=== PATIENT | male | born 1975 | race African-American/Black ===

== ENCOUNTER 2017-06-08 14:16 | Inpatient (IN) ==
[2017-06-08] MEDS ORDERED: KETOROLAC 30 MG/1 ML VIAL IV STA (14:38)
[2017-06-08] MEDS ORDERED: KETOROLAC 30 MG/1 ML VIAL ONE (14:48)
[2017-06-08 15:53] LABS: Troponin I Only 0.016 NG/ML (0.00-0.045)
[2017-06-08] MEDS ORDERED: LORazepam 2 MG/1 ML VIAL ONE (18:36)
[2017-06-08] MEDS ORDERED: LORazepam 2 MG/1 ML VIAL IV STA (18:40)
[2017-06-08] MEDS ORDERED: predniSONE 20 MG TABLET PO SCH (21:00)
[2017-06-08] MEDS ORDERED: PHENobarbital 30 MG TABLET PO SCH (21:00)
[2017-06-08] MEDS: PYRIDOSTIGMINE 60 MG TABLET PO SCH (22:00)
[2017-06-08] MEDS: GABAPENTIN 300 MG CAPSULE PO SCH (22:00)
[2017-06-08] MEDS: CARVEDILOL 6.25 MG TABLET PO SCH (22:00)
[2017-06-09] MEDS ORDERED: LORazepam 2 MG/1 ML VIAL IV ONE ×2 (00:56→01:02)
[2017-06-09] MEDS ORDERED: FOSPHENYTOIN 1,000 MG.PE in SODIUM CHLORIDE 0.9% 250 ML IV ONE (01:01)
[2017-06-09 05:50] LABS: Basophils % 0.2 % (0.0-0.8); Eosinophils % 0.2 % (0.00-10.9); Hematocrit 47.7 VOL% (42.0-52.0); Hemoglobin 16.3 GM/DL (14.0-18.0); Immature Granulocytes % 0.9 %; Immature Granulocytes Absolute 0.13 #; Lymphocytes # 1.4 10*3/uL (1.4-4.0); Lymphocytes % 9.3 % (21.2-54.2); Mean Corpuscular HGB Conc 34.2 GM/DL (32-36); Mean Corpuscular Hemoglobin 33 PG (27-34); Mean Corpuscular Volume 96.8 FL (87-102); Mean Platelet Volume 12.6 FL (9.6-12.0); Monocytes # 0.6 10*3/uL (0.11-0.8); Monocytes % 3.9 % (1.7-12.7); Neutrophils % 85.5 % (38.7-73.9); Platelet Count 163 T/CUMM (130-400); Red Blood Count 4.93 MC/CUMM (3.8-5.5); White Blood Count 15.2 T/CUMM (4-12)
[2017-06-09 06:26] LABS: Calcium 8.7 MG/DL (8.5-10.1); Magnesium 2.5 MG/DL (1.8-2.4); Osmolality,Calculated 277.7 MOS/KG (273-304); Potassium 4.6 MMOL/L (3.5-5.1)
[2017-06-09] MEDS ORDERED: PROPOFOL 1,000 MG/100 ML BOTTLE IV ONE ×2 (07:12→13:16)
[2017-06-09] MEDS ORDERED: VECURONIUM 10 MG VIAL IV ONE (07:16)
[2017-06-09] MEDS ORDERED: PHENobarbital 130 MG/1 ML VIAL IV ONE (07:19)
[2017-06-09] MEDS: PROPOFOL 1,000 MG/100 ML BOTTLE IV SCH ×2 (08:00→13:00)
[2017-06-09 08:29] LABS: Apearance,Urine CLEAR (Clear); Bilirubin,Urine Negative (Negative); Blood, Urine Negative (Negative); Glucose,Urine (UA) Negative (Negative); Ketones,Urine Negative (Negative); Nitrite,Urine Negative (Negative); Protein,Urine Negative; Urine Color Yellow (Yellow); Urine Specific Gravity 1.008 (1.001-1.035); Urine Urobilinogen < 2.0 EU/DL (0.2-1.0); WBC,Urine <1 /HPF (0-6)
[2017-06-09] MEDS: LABETALOL INJ 200 MG in SODIUM CHLORIDE 0.9% 160 ML IV SCH (08:37)
[2017-06-09] MEDS: methylPREDNISolone SOD SUC 40 MG/1 ML VIAL IV SCH ×2 (08:54→19:05)
[2017-06-09] MEDS: GABAPENTIN 300 MG CAPSULE PO SCH ×2 (08:57→20:42)
[2017-06-09] MEDS: PYRIDOSTIGMINE 60 MG TABLET PO SCH ×3 (08:57→20:42)
[2017-06-09] MEDS: LISINOPRIL 5 MG TABLET PO SCH (08:58)
[2017-06-09] MEDS: amLODIPine 10 MG TABLET PO SCH (08:58)
[2017-06-09 09:00] LABS: ABG Base Excess 2.1 MMOL/L (-2.5-2.5); ABG HCO3 26.1 MMOL/L (20-26); ABG Oxygen Saturation 93.3 % (95-100); ABG PCO2 41.3 MM HG (35-48); ABG PH 7.421 (7.35-7.45); ABG PO2 66.1 MM HG (80-95); ABG TCO2 22.5 MMOL/L (23-27)
[2017-06-09] MEDS: CARVEDILOL 6.25 MG TABLET PO SCH ×2 (09:00→20:28)
[2017-06-09] MEDS: VALPROIC ACID INJ 750 MG in SODIUM CHLORIDE 0.9% 100 ML IV SCH ×2 (09:15→17:25)
[2017-06-09 14:34] LABS: Barbiturates Screen,Urine Positive (Negative); Benzodiazepines Screen,Urine Negative (Negative); Cannabinoid Screen,Urine Positive (Negative); Opiate Screen,Urine Negative (Negative); Phencyclidine Screen,Urine Negative (Negative)
[2017-06-09] MEDS: LORazepam 2 MG/1 ML VIAL IV PRN (14:50)
[2017-06-09] MEDS: MIDAZOLAM 100 MG in SODIUM CHLORIDE 0.9% 80 ML IV SCH (17:26)
[2017-06-09] MEDS: PHENobarbital 130 MG/1 ML VIAL IV SCH (20:46)
[2017-06-10] MEDS: VALPROIC ACID INJ 750 MG in SODIUM CHLORIDE 0.9% 100 ML IV SCH ×3 (00:32→16:04)
[2017-06-10 04:32] LABS: ABG Base Excess 2.5 MMOL/L (-2.5-2.5); ABG HCO3 26.7 MMOL/L (20-26); ABG Oxygen Saturation 99.9 % (95-100); ABG PCO2 38.2 MM HG (35-48); ABG PH 7.448 (7.35-7.45); ABG TCO2 22.6 MMOL/L (23-27)
[2017-06-10] MEDS ORDERED: LORazepam 2 MG/1 ML VIAL IV ONE (04:42)
[2017-06-10] MEDS: PROPOFOL 1,000 MG/100 ML BOTTLE IV SCH ×3 (05:13→22:01)
[2017-06-10 06:06] LABS: Basophils % 0.1 % (0.0-0.8); Eosinophils % 0.3 % (0.00-10.9); Hematocrit 40.8 VOL% (42.0-52.0); Immature Granulocytes Absolute 0.14 #; Lymphocytes # 2.1 10*3/uL (1.4-4.0); Lymphocytes % 15.1 % (21.2-54.2); Mean Corpuscular HGB Conc 34.3 GM/DL (32-36); Mean Corpuscular Hemoglobin 33 PG (27-34); Mean Corpuscular Volume 96.5 FL (87-102); Mean Platelet Volume 12.1 FL (9.6-12.0); Monocytes % 6.8 % (1.7-12.7); Neutrophils # 10.9 10*3/uL (1.4-7.4); Neutrophils % 76.7 % (38.7-73.9); Platelet Count 142 T/CUMM (130-400); Red Blood Count 4.23 MC/CUMM (3.8-5.5); Red Cell Distribution Width 14.1 % (9.3-17.3); White Blood Count 14.2 T/CUMM (4-12)
[2017-06-10] MEDS: SODIUM CHLORIDE 0.9% 1,000 ML IV SCH ×3 (06:10→22:35)
[2017-06-10 06:47] LABS: Albumin 2.9 G/DL (3.4-5.0); Bilirubin,Total 0.5 MG/DL (0.2-1.0); Calcium 8.5 MG/DL (8.5-10.1); Magnesium 2.5 MG/DL (1.8-2.4); Osmolality,Calculated 283.3 MOS/KG (273-304); Phosphorous 4.1 MG/DL (2.5-4.9); Potassium 3.9 MMOL/L (3.5-5.1); Total Protein 6.1 G/DL (6.4-8.3)
[2017-06-10] MEDS: methylPREDNISolone SOD SUC 40 MG/1 ML VIAL IV SCH ×2 (08:24→20:22)
[2017-06-10] MEDS: GABAPENTIN 300 MG CAPSULE PO SCH ×2 (08:25→20:22)
[2017-06-10] MEDS: LISINOPRIL 5 MG TABLET PO SCH (08:25)
[2017-06-10] MEDS: CARVEDILOL 6.25 MG TABLET PO SCH ×2 (08:25→20:22)
[2017-06-10] MEDS: amLODIPine 10 MG TABLET PO SCH (08:25)
[2017-06-10] MEDS: PYRIDOSTIGMINE 60 MG TABLET PO SCH ×3 (08:25→20:22)
[2017-06-10] MEDS: PHENobarbital 130 MG/1 ML VIAL IV SCH ×2 (08:33→20:23)
[2017-06-10] MEDS: LABETALOL INJ 200 MG in SODIUM CHLORIDE 0.9% 160 ML IV SCH (08:51)
[2017-06-10] MEDS: MIDAZOLAM 100 MG in SODIUM CHLORIDE 0.9% 80 ML IV SCH ×2 (14:59→16:04)
[2017-06-10] MEDS: ACETAMINOPHEN 325 MG TABLET PO PRN (15:57)
[2017-06-10] MEDS: LORazepam 2 MG/1 ML VIAL IV PRN (19:30)
[2017-06-11] MEDS: VALPROIC ACID INJ 750 MG in SODIUM CHLORIDE 0.9% 100 ML IV SCH ×3 (01:40→17:09)
[2017-06-11] MEDS: hydrALAZINE 20 MG/1 ML VIAL IV PRN ×2 (05:30→08:29)
[2017-06-11] MEDS: LORazepam 2 MG/1 ML VIAL IV PRN (05:53)
[2017-06-11] MEDS: SODIUM CHLORIDE 0.9% 1,000 ML IV SCH ×4 (06:57→22:14)
[2017-06-11] MEDS: PROPOFOL 1,000 MG/100 ML BOTTLE IV SCH ×2 (06:58→19:44)
[2017-06-11] MEDS: PYRIDOSTIGMINE 60 MG TABLET PO SCH ×3 (08:28→20:04)
[2017-06-11] MEDS: GABAPENTIN 300 MG CAPSULE PO SCH ×2 (08:29→20:04)
[2017-06-11] MEDS: CARVEDILOL 6.25 MG TABLET PO SCH ×2 (08:29→20:05)
[2017-06-11] MEDS: amLODIPine 10 MG TABLET PO SCH (08:29)
[2017-06-11] MEDS: LISINOPRIL 5 MG TABLET PO SCH (08:29)
[2017-06-11] MEDS: methylPREDNISolone SOD SUC 40 MG/1 ML VIAL IV SCH ×2 (08:30→20:03)
[2017-06-11] MEDS: LABETALOL INJ 200 MG in SODIUM CHLORIDE 0.9% 160 ML IV SCH (08:30)
[2017-06-11] MEDS: PHENobarbital 130 MG/1 ML VIAL IV SCH ×2 (08:37→20:03)
[2017-06-11] MEDS: MIDAZOLAM 100 MG in SODIUM CHLORIDE 0.9% 80 ML IV SCH ×2 (09:12→17:10)
[2017-06-12] MEDS: PROPOFOL 1,000 MG/100 ML BOTTLE IV SCH ×5 (00:58→22:56)
[2017-06-12] MEDS: VALPROIC ACID INJ 750 MG in SODIUM CHLORIDE 0.9% 100 ML IV SCH ×3 (01:00→17:29)
[2017-06-12] MEDS: MIDAZOLAM 100 MG in SODIUM CHLORIDE 0.9% 80 ML IV SCH ×2 (02:29→17:30)
[2017-06-12 05:49] LABS: Calcium 8.3 MG/DL (8.5-10.1); Osmolality,Calculated 284.8 MOS/KG (273-304); Potassium 3.7 MMOL/L (3.5-5.1)
[2017-06-12] MEDS: SODIUM CHLORIDE 0.9% 1,000 ML IV SCH ×3 (06:08→22:56)
[2017-06-12] MEDS: PYRIDOSTIGMINE 60 MG TABLET PO SCH ×3 (08:25→21:03)
[2017-06-12] MEDS: GABAPENTIN 300 MG CAPSULE PO SCH ×2 (08:25→21:02)
[2017-06-12] MEDS: methylPREDNISolone SOD SUC 40 MG/1 ML VIAL IV SCH ×2 (08:25→21:03)
[2017-06-12] MEDS: LISINOPRIL 5 MG TABLET PO SCH (08:25)
[2017-06-12] MEDS: amLODIPine 10 MG TABLET PO SCH (08:25)
[2017-06-12] MEDS: CARVEDILOL 6.25 MG TABLET PO SCH ×2 (08:25→21:02)
[2017-06-12] MEDS: PHENobarbital 130 MG/1 ML VIAL IV SCH ×2 (08:26→21:03)
[2017-06-12] MEDS: LABETALOL INJ 200 MG in SODIUM CHLORIDE 0.9% 160 ML IV SCH (08:26)
[2017-06-12] MEDS ORDERED: ZINC OXIDE PASTE 113 GM TUBE TOP PRN (10:39)
[2017-06-13] MEDS: VALPROIC ACID INJ 750 MG in SODIUM CHLORIDE 0.9% 100 ML IV SCH ×3 (01:17→16:37)
[2017-06-13 03:56] LABS: Allen Test Positive; Pt O2 Delivery Device Ventilator
[2017-06-13 03:57] LABS: ABG Base Excess 2.7 MMOL/L (-2.5-2.5); ABG HCO3 26.8 MMOL/L (20-26); ABG Oxygen Saturation 97.3 % (95-100); ABG PCO2 39.6 MM HG (35-48); ABG PH 7.448 (7.35-7.45)
[2017-06-13] MEDS: PROPOFOL 1,000 MG/100 ML BOTTLE IV SCH ×2 (04:09→08:09)
[2017-06-13] MEDS: SODIUM CHLORIDE 0.9% 1,000 ML IV SCH (08:09)
[2017-06-13] MEDS: methylPREDNISolone SOD SUC 40 MG/1 ML VIAL IV SCH ×2 (08:25→20:29)
[2017-06-13] MEDS: GABAPENTIN 300 MG CAPSULE PO SCH ×2 (08:25→20:29)
[2017-06-13] MEDS: PYRIDOSTIGMINE 60 MG TABLET PO SCH ×3 (08:25→20:30)
[2017-06-13] MEDS: CARVEDILOL 6.25 MG TABLET PO SCH ×2 (08:25→20:30)
[2017-06-13] MEDS: amLODIPine 10 MG TABLET PO SCH (08:25)
[2017-06-13] MEDS: LABETALOL INJ 200 MG in SODIUM CHLORIDE 0.9% 160 ML IV SCH (08:35)
[2017-06-13] MEDS: PHENobarbital 130 MG/1 ML VIAL IV SCH ×2 (08:42→21:29)
[2017-06-13] MEDS: LISINOPRIL 5 MG TABLET PO SCH (08:43)
[2017-06-13] MEDS: hydrALAZINE 20 MG/1 ML VIAL IV PRN ×3 (09:45→14:47)
[2017-06-13] MEDS: LORazepam 2 MG/1 ML VIAL IV PRN (11:23)
[2017-06-13] MEDS ORDERED: HALOPERIDOL 5 MG/ML AMP ONE (14:01)
[2017-06-13] MEDS ORDERED: HALOPERIDOL 5 MG/ML AMP IM ONE (14:30)
[2017-06-13 15:03] LABS: ABG Base Excess 3.1 MMOL/L (-2.5-2.5); ABG HCO3 27.1 MMOL/L (20-26); ABG Oxygen Saturation 98.2 % (95-100); ABG PCO2 41.8 MM HG (35-48); ABG TCO2 23.5 MMOL/L (23-27); Pt O2 Delivery Device Venturi Mask
[2017-06-13] MEDS: METOPROLOL TARTRATE 25 MG TABLET PO SCH ×2 (16:23→20:30)
[2017-06-13] MEDS: MORPHINE 2 MG/1 ML SYRINGE IV PRN ×2 (16:23→20:26)
[2017-06-13 17:10] LABS: Basophils # 0.1 10*3/uL (0.0-0.2); Basophils % 0.3 % (0.0-0.8); Eosinophils % 0.2 % (0.00-10.9); Hematocrit 44.5 VOL% (42.0-52.0); Hemoglobin 15.5 GM/DL (14.0-18.0); Immature Granulocytes % 0.9 %; Immature Granulocytes Absolute 0.17 #; Lymphocytes # 0.9 10*3/uL (1.4-4.0); Lymphocytes % 4.5 % (21.2-54.2); Mean Corpuscular HGB Conc 34.8 GM/DL (32-36); Mean Corpuscular Hemoglobin 33 PG (27-34); Mean Corpuscular Volume 95.7 FL (87-102); Mean Platelet Volume 13.7 FL (9.6-12.0); Monocytes % 10.7 % (1.7-12.7); Neutrophils # 15.8 10*3/uL (1.4-7.4); Neutrophils % 83.4 % (38.7-73.9); Platelet Count 149 T/CUMM (130-400); Red Blood Count 4.65 MC/CUMM (3.8-5.5); Red Cell Distribution Width 13.8 % (9.3-17.3); White Blood Count 18.9 T/CUMM (4-12)
[2017-06-13 17:16] LABS: Calcium 8.9 MG/DL (8.5-10.1); Osmolality,Calculated 274.7 MOS/KG (273-304); Potassium 3.7 MMOL/L (3.5-5.1)
[2017-06-13] MEDS: MIDAZOLAM 100 MG in SODIUM CHLORIDE 0.9% 80 ML IV SCH (18:26)
[2017-06-13] MEDS: ALBUTEROL 2.5 MG/3 ML NEB RESP TX PRN (21:00)
[2017-06-13 21:08] LABS: Band Neutrophils 1 % (0-10); Lymphocytes 7 % (20-55); Platelet Estimate Adequate; Schistocytes Slight; Segmented Neutrophils 86 % (50-85); Total Cells Counted 100
[2017-06-14] MEDS: VALPROIC ACID INJ 750 MG in SODIUM CHLORIDE 0.9% 100 ML IV SCH ×3 (00:49→18:19)
[2017-06-14] MEDS: MORPHINE 2 MG/1 ML SYRINGE IV PRN ×2 (00:49→05:22)
[2017-06-14] MEDS: LORazepam 2 MG/1 ML VIAL IV PRN (02:33)
[2017-06-14] MEDS: ALBUTEROL 2.5 MG/3 ML NEB RESP TX PRN (05:21)
[2017-06-14] MEDS: PROPOFOL 1,000 MG/100 ML BOTTLE IV SCH (08:12)
[2017-06-14] MEDS: methylPREDNISolone SOD SUC 40 MG/1 ML VIAL IV SCH ×3 (09:30→22:36)
[2017-06-14] MEDS: LISINOPRIL 5 MG TABLET PO SCH (09:32)
[2017-06-14] MEDS: CARVEDILOL 6.25 MG TABLET PO SCH (09:32)
[2017-06-14] MEDS: LABETALOL INJ 200 MG in SODIUM CHLORIDE 0.9% 160 ML IV SCH (09:32)
[2017-06-14] MEDS: GABAPENTIN 300 MG CAPSULE PO SCH ×2 (09:33→21:16)
[2017-06-14] MEDS: METOPROLOL TARTRATE 25 MG TABLET PO SCH (09:33)
[2017-06-14] MEDS: PYRIDOSTIGMINE 60 MG TABLET PO SCH (09:33)
[2017-06-14] MEDS: amLODIPine 10 MG TABLET PO SCH (09:33)
[2017-06-14] MEDS: PHENobarbital 130 MG/1 ML VIAL IV SCH ×2 (09:45→22:35)
[2017-06-14] MEDS: PIPERACILLIN/TAZOBACTAM 3,375 MG in SODIUM CHLORIDE 0.9% 100 ML IV SCH ×2 (11:10→19:30)
[2017-06-14] MEDS: IMMUNE GLOBULIN 10% 20 GM, IMMUNE GLOBULIN 10% 10 GM in PREMIX 1 EACH IV SCH (11:18)
[2017-06-14] MEDS ORDERED: OXYMETAZOLINE 0.05% NASAL SPRAY 15 ML BOTTLE BOTH NARES PRN (12:16)
[2017-06-14] MEDS: ALBUTEROL/IPRATROPIUM 3 ML NEB RESP TX SCH ×2 (12:27→20:27)
[2017-06-14] MEDS: MUPIROCIN 2% OINT 22 GM TUBE TOP SCH ×2 (15:34→21:16)
[2017-06-14] MEDS: METOPROLOL TARTRATE 5 MG/5 ML VIAL IV SCH ×2 (18:22→21:15)
[2017-06-14] MEDS: MIDAZOLAM 100 MG in SODIUM CHLORIDE 0.9% 80 ML IV SCH (18:22)
[2017-06-15] MEDS: VALPROIC ACID INJ 750 MG in SODIUM CHLORIDE 0.9% 100 ML IV SCH ×3 (00:38→18:00)
[2017-06-15] MEDS: MORPHINE 2 MG/1 ML SYRINGE IV PRN (01:40)
[2017-06-15] MEDS: ALBUTEROL/IPRATROPIUM 3 ML NEB RESP TX SCH ×4 (01:58→20:31)
[2017-06-15] MEDS: PIPERACILLIN/TAZOBACTAM 3,375 MG in SODIUM CHLORIDE 0.9% 100 ML IV SCH ×3 (03:55→20:06)
[2017-06-15 04:07] LABS: Basophils % 0.3 % (0.0-0.8); Eosinophils % 0.1 % (0.00-10.9); Hematocrit 42.7 VOL% (42.0-52.0); Hemoglobin 14.9 GM/DL (14.0-18.0); Immature Granulocytes % 0.9 %; Lymphocytes # 0.6 10*3/uL (1.4-4.0); Lymphocytes % 5.1 % (21.2-54.2); Mean Corpuscular HGB Conc 34.9 GM/DL (32-36); Mean Corpuscular Hemoglobin 33 PG (27-34); Mean Corpuscular Volume 95.1 FL (87-102); Mean Platelet Volume 12.6 FL (9.6-12.0); Monocytes # 0.8 10*3/uL (0.11-0.8); Monocytes % 6.4 % (1.7-12.7); Neutrophils # 10.2 10*3/uL (1.4-7.4); Neutrophils % 87.2 % (38.7-73.9); Platelet Count 178 T/CUMM (130-400); Red Blood Count 4.49 MC/CUMM (3.8-5.5); Red Cell Distribution Width 13.2 % (9.3-17.3); White Blood Count 11.7 T/CUMM (4-12)
[2017-06-15 04:27] LABS: Calcium 8.7 MG/DL (8.5-10.1); Osmolality,Calculated 281.5 MOS/KG (273-304); Potassium 4.1 MMOL/L (3.5-5.1)
[2017-06-15] MEDS: methylPREDNISolone SOD SUC 40 MG/1 ML VIAL IV SCH ×3 (08:20→22:42)
[2017-06-15] MEDS: PROPOFOL 1,000 MG/100 ML BOTTLE IV SCH (08:25)
[2017-06-15] MEDS: LABETALOL INJ 200 MG in SODIUM CHLORIDE 0.9% 160 ML IV SCH (08:44)
[2017-06-15] MEDS: METOPROLOL TARTRATE 5 MG/5 ML VIAL IV SCH ×4 (09:57→20:06)
[2017-06-15] MEDS: MUPIROCIN 2% OINT 22 GM TUBE TOP SCH ×3 (10:05→20:05)
[2017-06-15] MEDS: GABAPENTIN 300 MG CAPSULE PO SCH ×2 (10:07→20:06)
[2017-06-15] MEDS: amLODIPine 10 MG TABLET PO SCH (10:07)
[2017-06-15] MEDS: LISINOPRIL 5 MG TABLET PO SCH (10:07)
[2017-06-15] MEDS: IMMUNE GLOBULIN 10% 20 GM, IMMUNE GLOBULIN 10% 10 GM in PREMIX 1 EACH IV SCH (10:07)
[2017-06-15] MEDS ORDERED: DEXTROSE 50% 25 GM/50 ML VIAL IV PRN (10:20)
[2017-06-15] MEDS ORDERED: GLUCAGON 1 MG VIAL IM PRN (10:20)
[2017-06-15 10:59] LABS: ABG Base Excess 5.8 MMOL/L (-2.5-2.5); ABG HCO3 29.7 MMOL/L (20-26); ABG Oxygen Saturation 99.2 % (95-100); ABG PCO2 49.7 MM HG (35-48); ABG PH 7.414 (7.35-7.45); ABG TCO2 27.1 MMOL/L (23-27); Allen Test Positive
[2017-06-15 11:30] LABS: Albumin 2.3 G/DL (3.4-5.0); Bilirubin,Total 0.4 MG/DL (0.2-1.0); Calcium 8.4 MG/DL (8.5-10.1); Osmolality,Calculated 282.4 MOS/KG (273-304); Potassium 3.8 MMOL/L (3.5-5.1); Total Protein 7.5 G/DL (6.4-8.3)
[2017-06-15] MEDS: PHENobarbital 130 MG/1 ML VIAL IV SCH ×2 (11:44→20:07)
[2017-06-15] MEDS: MIDAZOLAM 100 MG in SODIUM CHLORIDE 0.9% 80 ML IV SCH (17:06)
[2017-06-15] MEDS: hydrALAZINE 20 MG/1 ML VIAL IV PRN (22:05)
[2017-06-16] MEDS: VALPROIC ACID INJ 750 MG in SODIUM CHLORIDE 0.9% 100 ML IV SCH ×3 (00:35→17:48)
[2017-06-16] MEDS: ALBUTEROL/IPRATROPIUM 3 ML NEB RESP TX SCH ×4 (01:10→20:51)
[2017-06-16] MEDS: PIPERACILLIN/TAZOBACTAM 3,375 MG in SODIUM CHLORIDE 0.9% 100 ML IV SCH ×3 (03:14→23:23)
[2017-06-16] MEDS: hydrALAZINE 20 MG/1 ML VIAL IV PRN (04:41)
[2017-06-16 05:57] LABS: Magnesium 2.4 MG/DL (1.8-2.4); Phosphorous 2.9 MG/DL (2.5-4.9); Prealbumin 14.8 MG/DL (20-40)
[2017-06-16] MEDS: PROPOFOL 1,000 MG/100 ML BOTTLE IV SCH (06:19)
[2017-06-16] MEDS: methylPREDNISolone SOD SUC 40 MG/1 ML VIAL IV SCH ×3 (08:03→22:18)
[2017-06-16] MEDS: MUPIROCIN 2% OINT 22 GM TUBE TOP SCH ×3 (09:02→23:23)
[2017-06-16] MEDS: GABAPENTIN 300 MG CAPSULE PO SCH (09:22)
[2017-06-16] MEDS: METOPROLOL TARTRATE 5 MG/5 ML VIAL IV SCH ×4 (09:22→22:19)
[2017-06-16] MEDS: amLODIPine 10 MG TABLET PO SCH (09:22)
[2017-06-16] MEDS: LISINOPRIL 5 MG TABLET PO SCH (09:23)
[2017-06-16] MEDS: PHENobarbital 130 MG/1 ML VIAL IV SCH (09:44)
[2017-06-16] MEDS: IMMUNE GLOBULIN 10% 20 GM, IMMUNE GLOBULIN 10% 10 GM in PREMIX 1 EACH IV SCH (10:29)
[2017-06-17] MEDS: VALPROIC ACID INJ 750 MG in SODIUM CHLORIDE 0.9% 100 ML IV SCH ×3 (00:47→16:43)
[2017-06-17] MEDS: ALBUTEROL/IPRATROPIUM 3 ML NEB RESP TX SCH ×4 (01:09→18:43)
[2017-06-17] MEDS: hydrALAZINE 20 MG/1 ML VIAL IV PRN (04:33)
[2017-06-17] MEDS: ACETAMINOPHEN 325 MG TABLET PO PRN ×2 (06:12→20:48)
[2017-06-17] MEDS: PIPERACILLIN/TAZOBACTAM 3,375 MG in SODIUM CHLORIDE 0.9% 100 ML IV SCH ×3 (08:30→23:28)
[2017-06-17] MEDS: methylPREDNISolone SOD SUC 40 MG/1 ML VIAL IV SCH ×2 (10:21→20:42)
[2017-06-17] MEDS: LISINOPRIL 5 MG TABLET PO SCH (10:21)
[2017-06-17] MEDS: METOPROLOL TARTRATE 5 MG/5 ML VIAL IV SCH ×4 (10:21→20:43)
[2017-06-17] MEDS: amLODIPine 10 MG TABLET PO SCH (10:21)
[2017-06-17] MEDS: MUPIROCIN 2% OINT 22 GM TUBE TOP SCH ×3 (14:46→21:20)
[2017-06-18] MEDS: ACETAMINOPHEN 325 MG TABLET PO PRN ×3 (03:25→22:09)
[2017-06-18] MEDS: hydrALAZINE 20 MG/1 ML VIAL IV PRN (03:29)
[2017-06-18] MEDS: VALPROIC ACID INJ 750 MG in SODIUM CHLORIDE 0.9% 100 ML IV SCH ×3 (03:31→23:13)
[2017-06-18] MEDS: ALBUTEROL/IPRATROPIUM 3 ML NEB RESP TX SCH ×4 (08:35→21:04)
[2017-06-18] MEDS ORDERED: predniSONE 20 MG TABLET PO SCH (09:00)
[2017-06-18] MEDS: METOPROLOL TARTRATE 5 MG/5 ML VIAL IV SCH ×4 (09:49→22:10)
[2017-06-18] MEDS: GABAPENTIN 300 MG CAPSULE PO SCH ×2 (09:59→22:10)
[2017-06-18] MEDS: amLODIPine 10 MG TABLET PO SCH (10:00)
[2017-06-18] MEDS: LISINOPRIL 5 MG TABLET PO SCH (10:00)
[2017-06-18] MEDS: predniSONE 20 MG TABLET PO SCH (10:00)
[2017-06-18] MEDS: IPRATROPIUM 0.03% NASAL SPRAY 30 ML BOTTLE BOTH NARES SCH ×2 (11:05→22:10)
[2017-06-18] MEDS: PIPERACILLIN/TAZOBACTAM 3,375 MG in SODIUM CHLORIDE 0.9% 100 ML IV SCH ×2 (11:10→16:45)
[2017-06-18] MEDS: MUPIROCIN 2% OINT 22 GM TUBE TOP SCH ×3 (11:11→22:10)
[2017-06-19] MEDS: PIPERACILLIN/TAZOBACTAM 3,375 MG in SODIUM CHLORIDE 0.9% 100 ML IV SCH ×2 (00:37→09:24)
[2017-06-19] MEDS: ALBUTEROL/IPRATROPIUM 3 ML NEB RESP TX SCH ×2 (01:00→08:15)
[2017-06-19] MEDS: predniSONE 20 MG TABLET PO SCH (09:14)
[2017-06-19] MEDS: LISINOPRIL 5 MG TABLET PO SCH (09:14)
[2017-06-19] MEDS: GABAPENTIN 300 MG CAPSULE PO SCH (09:14)
[2017-06-19] MEDS: amLODIPine 10 MG TABLET PO SCH (09:14)
[2017-06-19] MEDS: METOPROLOL TARTRATE 5 MG/5 ML VIAL IV SCH ×2 (09:15→14:23)
[2017-06-19] MEDS: VALPROIC ACID INJ 750 MG in SODIUM CHLORIDE 0.9% 100 ML IV SCH ×2 (09:25→11:46)
[2017-06-19] MEDS ORDERED: BUDESONIDE/FORMOTEROL 160-4.5 INHALER 6 GM INH SCH (09:30)
[2017-06-19] MEDS ORDERED: methylPREDNISolone 4 MG TABLET PO SCH ×2 (09:30)
[2017-06-19] MEDS: ACETAMINOPHEN 325 MG TABLET PO PRN (09:56)
[2017-06-19] MEDS: MUPIROCIN 2% OINT 22 GM TUBE TOP SCH (09:57)
[2017-06-19 11:01] VITALS: BP 164/98
[2017-06-19] MEDS: IPRATROPIUM 0.03% NASAL SPRAY 30 ML BOTTLE BOTH NARES SCH (11:56)
== END 2017-06-19 14:35 | disposition home health service (06) | DRG 100 ==
LOC: EDUNIT# → EDBD → N.ED 14:16 → N.EDINP 16:20 → SUATTDRO 16:20 → N.CC 19:06 → N.3E 06-16 18:26
PROVIDERS: ADMIT Hospitalist; ATTEND Internal Medicine Infectious Disease

== ENCOUNTER 2018-04-09 10:01 | Inpatient (IN) ==
[2018-04-09] MEDS ORDERED: LORazepam 2 MG/1 ML VIAL ONE (10:25)
[2018-04-09] MEDS ORDERED: levETIRAcetam 500 MG/5 ML VIAL IV ONE ×2 (10:28→10:49)
[2018-04-09] MEDS ORDERED: LORazepam 2 MG/1 ML VIAL IV STA ×2 (10:28→11:45)
[2018-04-09 10:41] LABS: Basophils % 0.3 % (0.0-0.8); Eosinophils # 0.1 10*3/uL (0.0-0.87); Hematocrit 48.9 VOL% (42.0-52.0); Hemoglobin 16.4 GM/DL (14.0-18.0); Immature Granulocytes % 1.9 %; Immature Granulocytes Absolute 0.22 #; Lymphocytes # 1.8 10*3/uL (1.4-4.0); Lymphocytes % 15.4 % (21.2-54.2); Mean Corpuscular HGB Conc 33.5 GM/DL (32-36); Mean Corpuscular Hemoglobin 33 PG (27-34); Mean Corpuscular Volume 99.4 FL (87-102); Mean Platelet Volume 12.9 FL (9.6-12.0); Monocytes # 1.3 10*3/uL (0.11-0.8); Monocytes % 10.8 % (1.7-12.7); Neutrophils # 8.4 10*3/uL (1.4-7.4); Neutrophils % 70.6 % (38.7-73.9); Platelet Count 122 T/CUMM (130-400); Red Blood Count 4.92 MC/CUMM (3.8-5.5); Red Cell Distribution Width 14.6 % (9.3-17.3); White Blood Count 11.9 T/CUMM (4-12)
[2018-04-09 10:48] LABS: Alanine Aminotransferase 25 U/L (16-61); Albumin 3.2 G/DL (3.4-5.0); Alkaline Phosphatase 70 U/L (45-117); Aspartate Amino Transferase 15 U/L (0-37); Blood Urea Nitrogen 17 MG/DL (7-18); Calcium 8.7 MG/DL (8.5-10.1); Glucose 97 MG/DL (74-106); Osmolality,Calculated 280.4 MOS/KG (273-304); Potassium 3.8 MMOL/L (3.5-5.1); Sodium 140 MMOL/L (136-145); Total Protein 7.3 G/DL (6.4-8.3)
[2018-04-09] MEDS ORDERED: VALPROIC ACID INJ 1,000 MG in SODIUM CHLORIDE 0.9% 100 ML IV STA (10:52)
[2018-04-09 13:15] LABS: Apearance,Urine CLEAR (Clear); Bilirubin,Urine Negative (Negative); Blood, Urine Negative (Negative); Glucose,Urine (UA) Negative (Negative); Hyaline Casts,Urine 1 /LPF (0-3); Ketones,Urine Negative (Negative); Mucus,Urine Moderate /LPF (Occasional); Nitrite,Urine Negative (Negative); Protein,Urine 30 MG/DL; RBC,Urine <1 /HPF (0-4); Squamous Epithelial Cell,Urine Occasional /HPF (0-10); Urine Color Yellow (Yellow); Urine Specific Gravity > 1.060 (1.001-1.035); Urine Urobilinogen < 2.0 EU/DL (0.2-1.0); WBC,Urine 1 /HPF (0-6)
[2018-04-09 13:18] LABS: Barbiturates Screen,Urine Negative (Negative); Benzodiazepines Screen,Urine Positive (Negative); Cannabinoid Screen,Urine Positive (Negative); Opiate Screen,Urine Negative (Negative); Phencyclidine Screen,Urine Negative (Negative)
[2018-04-09] MEDS ORDERED: ONDANSETRON 4 MG/2 ML VIAL IV PRN (14:21)
[2018-04-09 14:24] LABS: ABG Base Excess 1.7 MMOL/L (-2.5-2.5); ABG HCO3 25.8 MMOL/L (20-26); ABG PCO2 41.3 MM HG (35-48); ABG PH 7.414 (7.35-7.45); ABG PO2 88.5 MM HG (80-95); ABG TCO2 21.9 MMOL/L (23-27)
[2018-04-09] MEDS ORDERED: GLUCAGON 1 MG VIAL IM PRN (14:26)
[2018-04-09] MEDS ORDERED: DEXTROSE 50% 25 GM/50 ML VIAL IV PRN (14:26)
[2018-04-09] MEDS ORDERED: LABETALOL 20 MG/4 ML SYRINGE IV PRN (14:27)
[2018-04-09] MEDS ORDERED: LORazepam 2 MG/1 ML VIAL IV PRN (14:29)
[2018-04-09] MEDS ORDERED: DEXTROSE 5% NACL 0.45% 1,000 ML IV SCH (14:30)
[2018-04-09] MEDS ORDERED: THIAMINE INJ 100 MG, FOLIC ACID INJ 1 MG, MULTIVITAMIN INJ 10 ML in DEXTROSE 5% NACL 0.... IV SCH (14:30)
[2018-04-09] MEDS ORDERED: VALPROIC ACID INJ 500 MG in SODIUM CHLORIDE 0.9% 100 ML IV SCH (15:00)
[2018-04-09] MEDS: NICOTINE 14 MG/24 HR PATCH TRANSDERM SCH (19:04)
[2018-04-09] MEDS ORDERED: ENOXAPARIN 40 MG/0.4 ML SYRINGE SUBCUT SCH (21:00)
[2018-04-10 06:30] LABS: Basophils % 0.3 % (0.0-0.8); Eosinophils # 0.1 10*3/uL (0.0-0.87); Eosinophils % 1.4 % (0.00-10.9); Hematocrit 47.7 VOL% (42.0-52.0); Hemoglobin 15.7 GM/DL (14.0-18.0); Immature Granulocytes % 1.8 %; Immature Granulocytes Absolute 0.16 #; Lymphocytes # 1.6 10*3/uL (1.4-4.0); Lymphocytes % 17.3 % (21.2-54.2); Mean Corpuscular HGB Conc 32.9 GM/DL (32-36); Mean Corpuscular Hemoglobin 33 PG (27-34); Mean Corpuscular Volume 99.8 FL (87-102); Mean Platelet Volume 12.1 FL (9.6-12.0); Monocytes % 11.4 % (1.7-12.7); Neutrophils # 6.2 10*3/uL (1.4-7.4); Neutrophils % 67.8 % (38.7-73.9); Platelet Count 106 T/CUMM (130-400); Red Blood Count 4.78 MC/CUMM (3.8-5.5); Red Cell Distribution Width 14.6 % (9.3-17.3); White Blood Count 9.1 T/CUMM (4-12)
[2018-04-10 07:02] LABS: Albumin 2.7 G/DL (3.4-5.0); Bilirubin,Total 0.7 MG/DL (0.2-1.0); Calcium 7.7 MG/DL (8.5-10.1); Osmolality,Calculated 279.4 MOS/KG (273-304); Potassium 3.7 MMOL/L (3.5-5.1); Total Protein 6.3 G/DL (6.4-8.3)
[2018-04-10] MEDS: NICOTINE 14 MG/24 HR PATCH TRANSDERM SCH (08:50)
[2018-04-10] MEDS ORDERED: PANTOPRAZOLE 40 MG TABLET PO SCH (09:00)
[2018-04-10] MEDS ORDERED: CARVEDILOL 6.25 MG TABLET PO SCH (10:00)
[2018-04-10] MEDS ORDERED: amLODIPine 10 MG TABLET PO SCH (10:00)
[2018-04-10] MEDS ORDERED: LISINOPRIL 10 MG TABLET PO SCH (10:00)
[2018-04-10] MEDS: VALPROIC ACID INJ 500 MG in SODIUM CHLORIDE 0.9% 100 ML IV SCH ×2 (11:05)
[2018-04-10] MEDS ORDERED: PYRIDOSTIGMINE 60 MG TABLET PO SCH (15:00)
[2018-04-10] MEDS ORDERED: predniSONE 20 MG TABLET PO SCH (15:00)
[2018-04-10] MEDS ORDERED: GABAPENTIN 300 MG CAPSULE PO SCH (15:00)
[2018-04-10 16:29] VITALS: BP 132/84
[2018-04-10] MEDS ORDERED: DIVALPROEX 500 MG TABLET PO SCH (21:00)
== END 2018-04-10 18:04 | disposition home or self-care (01) | DRG 101 ==
LOC: EDBD → EDUNIT# → N.ED 10:01 → N.EDINP 14:21 → N.2W 16:36 → N.TELEN 17:01
PROVIDERS: ADMIT Internal Medicine; ATTEND Internal Medicine

== ENCOUNTER 2018-05-01 09:15 | Inpatient (IN) ==
[2018-05-01 09:55] LABS: Basophils # 0.1 10*3/uL (0.0-0.2); Basophils % 0.3 % (0.0-0.8); Eosinophils % 0.1 % (0.00-10.9); Hematocrit 46.6 VOL% (42.0-52.0); Hemoglobin 15.9 GM/DL (14.0-18.0); Immature Granulocytes % 3.9 %; Immature Granulocytes Absolute 0.58 #; Lymphocytes # 1.2 10*3/uL (1.4-4.0); Lymphocytes % 7.8 % (21.2-54.2); Mean Corpuscular HGB Conc 34.1 GM/DL (32-36); Mean Corpuscular Hemoglobin 34 PG (27-34); Mean Corpuscular Volume 98.5 FL (87-102); Mean Platelet Volume 12.6 FL (9.6-12.0); Monocytes # 0.6 10*3/uL (0.11-0.8); Monocytes % 4.1 % (1.7-12.7); Neutrophils # 12.4 10*3/uL (1.4-7.4); Neutrophils % 83.8 % (38.7-73.9); Platelet Count 161 T/CUMM (130-400); Red Blood Count 4.73 MC/CUMM (3.8-5.5); Red Cell Distribution Width 13.9 % (9.3-17.3); White Blood Count 14.8 T/CUMM (4-12)
[2018-05-01 10:04] LABS: Alanine Aminotransferase 27 U/L (16-61); Albumin 3.4 G/DL (3.4-5.0); Alkaline Phosphatase 91 U/L (45-117); Aspartate Amino Transferase 14 U/L (0-37); Bilirubin,Total < 0.39 MG/DL (0.2-1.0); Blood Urea Nitrogen 13 MG/DL (7-18); Glucose 146 MG/DL (74-106); Osmolality,Calculated 281.4 MOS/KG (273-304); Potassium 4.6 MMOL/L (3.5-5.1); Sodium 140 MMOL/L (136-145); Total Protein 7.6 G/DL (6.4-8.3)
[2018-05-01] MEDS ORDERED: VALPROIC ACID INJ 1,000 MG in SODIUM CHLORIDE 0.9% 100 ML IV STA (10:11)
[2018-05-01 10:15] LABS: Band Neutrophils 1 % (0-10); Lymphocytes 11 % (20-55); Segmented Neutrophils 84 % (50-85); Total Cells Counted 100
[2018-05-01 10:16] LABS: Macrocytosis Slight; Platelet Estimate Adequate
[2018-05-01] MEDS ORDERED: LORazepam 2 MG/1 ML VIAL ONE (10:24)
[2018-05-01] MEDS ORDERED: LORazepam 2 MG/1 ML VIAL IV STA ×2 (10:24→12:36)
[2018-05-01] MEDS ORDERED: METOPROLOL TARTRATE 5 MG/5 ML VIAL IV STA (12:14)
[2018-05-01] MEDS ORDERED: ALBUTEROL 2.5 MG/3 ML NEB RESP TX PRN (12:41)
[2018-05-01] MEDS ORDERED: ACETAMINOPHEN 325 MG TABLET PO PRN (12:41)
[2018-05-01] MEDS ORDERED: ONDANSETRON 4 MG/2 ML VIAL IV PRN (12:41)
[2018-05-01] MEDS ORDERED: GLUCAGON 1 MG VIAL IM PRN (12:52)
[2018-05-01] MEDS ORDERED: DEXTROSE 50% 25 GM/50 ML VIAL IV PRN (12:52)
[2018-05-01] MEDS ORDERED: LACTULOSE 20 GM/30 ML UDCUP PO SCH (13:00)
[2018-05-01 13:20] LABS: INR 0.9; PT Patient Result 9.5 SECS
[2018-05-01 13:25] LABS: Apearance,Urine CLEAR (Clear); Bilirubin,Urine Negative (Negative); Blood, Urine Negative (Negative); Glucose,Urine (UA) 150 mg/dL (Negative); Ketones,Urine Negative (Negative); Mucus,Urine Occasional /LPF (Occasional); Nitrite,Urine Negative (Negative); Protein,Urine Negative; RBC,Urine <1 /HPF (0-4); Urine Color Yellow (Yellow); Urine Specific Gravity 1.011 (1.001-1.035); Urine Urobilinogen < 2.0 EU/DL (0.2-1.0); WBC,Urine <1 /HPF (0-6)
[2018-05-01] MEDS: PANTOPRAZOLE 40 MG VIAL IV SCH (13:33)
[2018-05-01] MEDS: SODIUM CHLORIDE 0.45% 1,000 ML IV SCH (13:35)
[2018-05-01] MEDS ORDERED: INFLUENZA VIRUS VACCINE 0.5 ML SYRINGE IM ONE (13:57)
[2018-05-01 13:58] LABS: Barbiturates Screen,Urine Negative (Negative); Benzodiazepines Screen,Urine Positive (Negative); Cannabinoid Screen,Urine Positive (Negative); Opiate Screen,Urine Negative (Negative); Phencyclidine Screen,Urine Negative (Negative)
[2018-05-01 14:06] LABS: Ammonia 52 UMOL/L (11-32); Lactic Acid 2.1 MMOL/L (0.4-2.0)
[2018-05-01] MEDS: predniSONE 20 MG TABLET PO SCH ×2 (14:08→21:50)
[2018-05-01] MEDS: chlordiazePOXIDE 25 MG CAPSULE PO SCH ×2 (14:08→16:43)
[2018-05-01] MEDS: THIAMINE 100 MG TABLET PO SCH (14:08)
[2018-05-01] MEDS: GABAPENTIN 300 MG CAPSULE PO SCH ×2 (14:08→21:49)
[2018-05-01] MEDS: LORazepam 2 MG/1 ML VIAL IV PRN (14:24)
[2018-05-01] MEDS ORDERED: PHENYTOIN INJ 1,000 MG in SODIUM CHLORIDE 0.9% 100 ML IV ONE (14:30)
[2018-05-01 15:13] LABS: ABG Base Excess 3.7 MMOL/L (-2.5-2.5); ABG HCO3 27.6 MMOL/L (20-26); ABG Oxygen Saturation 94.4 % (95-100); ABG PH 7.404 (7.35-7.45); ABG PO2 73.1 MM HG (80-95); ABG TCO2 24.9 MMOL/L (23-27); Allen Test Positive; Pt O2 Delivery Device Room Air
[2018-05-01] MEDS: INSULIN LISPRO 100 UNIT/ML SUBCUT SCH (17:13)
[2018-05-01] MEDS: PYRIDOSTIGMINE 60 MG TABLET PO SCH (21:49)
[2018-05-01] MEDS: DIVALPROEX 500 MG TABLET PO SCH (21:49)
[2018-05-01] MEDS: levETIRAcetam 500 MG TABLET PO SCH (21:50)
[2018-05-01] MEDS: LACTULOSE 20 GM/30 ML UDCUP PO SCH (21:50)
[2018-05-01] MEDS: CARVEDILOL 6.25 MG TABLET PO SCH (21:50)
[2018-05-02] MEDS: INSULIN LISPRO 100 UNIT/ML SUBCUT SCH ×4 (00:01→18:14)
[2018-05-02] MEDS: chlordiazePOXIDE 25 MG CAPSULE PO SCH ×6 (00:02→21:19)
[2018-05-02] MEDS: LORazepam 2 MG/1 ML VIAL IV PRN ×3 (01:37→17:51)
[2018-05-02] MEDS: SODIUM CHLORIDE 0.45% 1,000 ML IV SCH ×3 (02:05→22:21)
[2018-05-02] MEDS ORDERED: LORazepam 2 MG/1 ML VIAL IV ONE (03:00)
[2018-05-02 03:30] LABS: Basophils # 0.1 10*3/uL (0.0-0.2); Basophils % 0.3 % (0.0-0.8); Eosinophils % 0.1 % (0.00-10.9); Hematocrit 45.7 VOL% (42.0-52.0); Hemoglobin 15.2 GM/DL (14.0-18.0); Immature Granulocytes % 2.8 %; Immature Granulocytes Absolute 0.42 #; Lymphocytes # 1.6 10*3/uL (1.4-4.0); Mean Corpuscular HGB Conc 33.3 GM/DL (32-36); Mean Corpuscular Hemoglobin 33 PG (27-34); Mean Corpuscular Volume 98.7 FL (87-102); Mean Platelet Volume 12.4 FL (9.6-12.0); Monocytes # 0.8 10*3/uL (0.11-0.8); Monocytes % 5.6 % (1.7-12.7); Neutrophils # 11.9 10*3/uL (1.4-7.4); Neutrophils % 80.2 % (38.7-73.9); Platelet Count 150 T/CUMM (130-400); Red Blood Count 4.63 MC/CUMM (3.8-5.5); Red Cell Distribution Width 13.9 % (9.3-17.3); White Blood Count 14.8 T/CUMM (4-12)
[2018-05-02 03:51] LABS: Albumin 3.1 G/DL (3.4-5.0); Bilirubin,Total 0.6 MG/DL (0.2-1.0); Calcium 8.3 MG/DL (8.5-10.1); Osmolality,Calculated 280.4 MOS/KG (273-304); Potassium 4.3 MMOL/L (3.5-5.1); Total Protein 6.9 G/DL (6.4-8.3)
[2018-05-02] MEDS: NICOTINE 21 MG/24 HR PATCH TRANSDERM SCH ×2 (04:53→09:59)
[2018-05-02] MEDS: DIVALPROEX 500 MG TABLET PO SCH ×2 (09:58→21:19)
[2018-05-02] MEDS: GABAPENTIN 300 MG CAPSULE PO SCH ×3 (09:59→21:19)
[2018-05-02] MEDS: LACTULOSE 20 GM/30 ML UDCUP PO SCH ×3 (09:59→21:19)
[2018-05-02] MEDS: MULTIVITAMIN (CENTRUM) TABLET PO SCH (10:00)
[2018-05-02] MEDS: THIAMINE 100 MG TABLET PO SCH (10:00)
[2018-05-02] MEDS: levETIRAcetam 500 MG TABLET PO SCH ×2 (10:00→21:20)
[2018-05-02] MEDS: CARVEDILOL 6.25 MG TABLET PO SCH ×2 (10:00→21:19)
[2018-05-02] MEDS: amLODIPine 10 MG TABLET PO SCH (10:01)
[2018-05-02] MEDS: PYRIDOSTIGMINE 60 MG TABLET PO SCH ×2 (10:01→21:20)
[2018-05-02] MEDS: predniSONE 20 MG TABLET PO SCH ×3 (10:01→21:20)
[2018-05-02] MEDS: ENOXAPARIN 40 MG/0.4 ML SYRINGE SUBCUT SCH (11:00)
[2018-05-02] MEDS: PANTOPRAZOLE 40 MG VIAL IV SCH (13:20)
[2018-05-03] MEDS: LORazepam 2 MG/1 ML VIAL IV PRN (00:10)
[2018-05-03] MEDS: INSULIN LISPRO 100 UNIT/ML SUBCUT SCH ×4 (01:59→17:51)
[2018-05-03] MEDS: NICOTINE 21 MG/24 HR PATCH TRANSDERM SCH (08:57)
[2018-05-03] MEDS: MULTIVITAMIN (CENTRUM) TABLET PO SCH (08:58)
[2018-05-03] MEDS: chlordiazePOXIDE 25 MG CAPSULE PO SCH ×4 (08:58→20:40)
[2018-05-03] MEDS: levETIRAcetam 500 MG TABLET PO SCH ×2 (08:58→20:39)
[2018-05-03] MEDS: DIVALPROEX 500 MG TABLET PO SCH ×2 (08:59→20:40)
[2018-05-03] MEDS: GABAPENTIN 300 MG CAPSULE PO SCH ×3 (08:59→20:39)
[2018-05-03] MEDS: THIAMINE 100 MG TABLET PO SCH (08:59)
[2018-05-03] MEDS: SODIUM CHLORIDE 0.45% 1,000 ML IV SCH (08:59)
[2018-05-03] MEDS: predniSONE 20 MG TABLET PO SCH ×3 (08:59→20:40)
[2018-05-03] MEDS: amLODIPine 10 MG TABLET PO SCH (08:59)
[2018-05-03] MEDS: CARVEDILOL 6.25 MG TABLET PO SCH ×2 (08:59→20:39)
[2018-05-03] MEDS: PYRIDOSTIGMINE 60 MG TABLET PO SCH ×2 (08:59→20:40)
[2018-05-03] MEDS: LACTULOSE 20 GM/30 ML UDCUP PO SCH ×3 (08:59→20:43)
[2018-05-03 09:10] LABS: Calcium 8.7 MG/DL (8.5-10.1); Osmolality,Calculated 277.5 MOS/KG (273-304); Potassium 4.4 MMOL/L (3.5-5.1)
[2018-05-03] MEDS: ENOXAPARIN 40 MG/0.4 ML SYRINGE SUBCUT SCH (12:12)
[2018-05-03] MEDS: PANTOPRAZOLE 40 MG TABLET PO SCH (12:12)
[2018-05-04] MEDS: INSULIN LISPRO 100 UNIT/ML SUBCUT SCH ×3 (00:10→14:01)
[2018-05-04 04:04] LABS: Basophils % 0.2 % (0.0-0.8); Eosinophils % 0.1 % (0.00-10.9); Hematocrit 47.4 VOL% (42.0-52.0); Immature Granulocytes % 2.3 %; Lymphocytes # 1.1 10*3/uL (1.4-4.0); Lymphocytes % 8.7 % (21.2-54.2); Mean Corpuscular HGB Conc 33.8 GM/DL (32-36); Mean Corpuscular Hemoglobin 33 PG (27-34); Mean Platelet Volume 12.4 FL (9.6-12.0); Monocytes # 0.8 10*3/uL (0.11-0.8); Monocytes % 6.2 % (1.7-12.7); Neutrophils # 10.7 10*3/uL (1.4-7.4); Neutrophils % 82.5 % (38.7-73.9); Platelet Count 141 T/CUMM (130-400); Red Blood Count 4.79 MC/CUMM (3.8-5.5); Red Cell Distribution Width 13.7 % (9.3-17.3)
[2018-05-04 04:29] LABS: Calcium 8.5 MG/DL (8.5-10.1); Osmolality,Calculated 282.5 MOS/KG (273-304); Potassium 4.3 MMOL/L (3.5-5.1)
[2018-05-04] MEDS: levETIRAcetam 500 MG TABLET PO SCH (11:13)
[2018-05-04] MEDS: amLODIPine 10 MG TABLET PO SCH (11:13)
[2018-05-04] MEDS: DIVALPROEX 500 MG TABLET PO SCH (11:13)
[2018-05-04] MEDS: NICOTINE 21 MG/24 HR PATCH TRANSDERM SCH (11:13)
[2018-05-04] MEDS: GABAPENTIN 300 MG CAPSULE PO SCH (11:14)
[2018-05-04] MEDS: LACTULOSE 20 GM/30 ML UDCUP PO SCH (11:14)
[2018-05-04] MEDS: CARVEDILOL 6.25 MG TABLET PO SCH (11:14)
[2018-05-04] MEDS: chlordiazePOXIDE 25 MG CAPSULE PO SCH ×2 (11:14→14:02)
[2018-05-04] MEDS: MULTIVITAMIN (CENTRUM) TABLET PO SCH (11:14)
[2018-05-04] MEDS: predniSONE 20 MG TABLET PO SCH (11:14)
[2018-05-04] MEDS: PANTOPRAZOLE 40 MG TABLET PO SCH (11:14)
[2018-05-04] MEDS: PYRIDOSTIGMINE 60 MG TABLET PO SCH (11:17)
[2018-05-04 11:45] VITALS: BP 142/113
[2018-05-04] MEDS: ENOXAPARIN 40 MG/0.4 ML SYRINGE SUBCUT SCH (14:01)
== END 2018-05-04 14:10 | disposition home or self-care (01) | DRG 101 ==
LOC: EDBD → EDUNIT# → N.ED 09:15 → SUATTDRO 12:41 → N.EDINP 12:41 → N.CC 13:36 → N.2E 05-03 15:19
PROVIDERS: ADMIT Internal Medicine; ATTEND Hospitalist

== ENCOUNTER 2018-11-14 13:37 | Observation (INO) ==
[2018-11-14] MEDS ORDERED: ASPIRIN 325 MG TABLET PO STA (14:06)
[2018-11-14 15:22] LABS: Basophils # 0.1 10*3/uL (0.0-0.2); Basophils % 0.3 % (0.0-0.8); Eosinophils % 0.1 % (0.00-10.9); Hematocrit 43.2 VOL% (42.0-52.0); Hemoglobin 14.4 GM/DL (14.0-18.0); Immature Granulocytes % 5.3 %; Immature Granulocytes Absolute 0.77 #; Lymphocytes # 1.3 10*3/uL (1.4-4.0); Lymphocytes % 8.7 % (21.2-54.2); Mean Corpuscular HGB Conc 33.3 GM/DL (32-36); Mean Corpuscular Volume 97.1 FL (87-102); Mean Platelet Volume 12.2 FL (9.6-12.0); Monocytes % 5.8 % (1.7-12.7); Neutrophils % 79.8 % (38.7-73.9); Platelet Count 124 T/CUMM (130-400); Red Blood Count 4.45 MC/CUMM (3.8-5.5); Red Cell Distribution Width 15.1 % (9.3-17.3); White Blood Count 14.6 T/CUMM (4-12)
[2018-11-14 15:31] LABS: PT Patient Result 10.5 SECS; Partial Thromboplastin Time 22.9 SECS (0-40)
[2018-11-14 15:41] LABS: Alanine Aminotransferase 23 U/L (16-61); Albumin 3.1 G/DL (3.4-5.0); Alkaline Phosphatase 77 U/L (45-117); Aspartate Amino Transferase 8 U/L (0-37); Blood Urea Nitrogen 17 MG/DL (7-18); Calcium 8.5 MG/DL (8.5-10.1); Glucose 134 MG/DL (74-106); Osmolality,Calculated 286.1 MOS/KG (273-304); Total Protein 6.1 G/DL (6.4-8.3)
[2018-11-14 15:55] LABS: Apearance,Urine CLEAR (Clear); Bilirubin,Urine Negative (Negative); Blood, Urine Negative (Negative); Glucose,Urine (UA) >=500 mg/dL (Negative); Ketones,Urine 5 mg/dL (Negative); Mucus,Urine Occasional /LPF (Occasional); Nitrite,Urine Negative (Negative); Protein,Urine 30 MG/DL; RBC,Urine 2 /HPF (0-4); Squamous Epithelial Cell,Urine Occasional /HPF (0-10); Urine Color Yellow (Yellow); Urine Specific Gravity 1.026 (1.001-1.035); Urine Urobilinogen < 2.0 EU/DL (0.2-1.0); WBC,Urine 1 /HPF (0-6)
[2018-11-14 16:02] LABS: Barbiturates Screen,Urine Negative (Negative); Benzodiazepines Screen,Urine Positive (Negative); Cannabinoid Screen,Urine Positive (Negative); Opiate Screen,Urine Negative (Negative); Phencyclidine Screen,Urine Negative (Negative)
[2018-11-14 16:20] LABS: Lymphocytes 13 % (20-55); Segmented Neutrophils 83 % (50-85); Total Cells Counted 100
[2018-11-14 16:21] LABS: Microcytosis Slight; Platelet Estimate Adequate; Polychromasia Slight
[2018-11-14] MEDS ORDERED: ONDANSETRON 4 MG/2 ML VIAL IV PRN (16:55)
[2018-11-14] MEDS ORDERED: ACETAMINOPHEN 325 MG TABLET PO PRN (16:55)
[2018-11-14] MEDS ORDERED: diphenhydrAMINE CAP 25 MG CAPSULE PO PRN (17:05)
[2018-11-14] MEDS ORDERED: ALBUTEROL/IPRATROPIUM 3 ML NEB RESP TX PRN (17:33)
[2018-11-14] MEDS ORDERED: ALUM/MAG/SIMETH/LIDO VISC 1:1 30 ML BOTTLE PO PRN (17:35)
[2018-11-14] MEDS: DIVALPROEX 500 MG TABLET PO SCH (20:56)
[2018-11-14] MEDS: CARVEDILOL 6.25 MG TABLET PO SCH (20:56)
[2018-11-14] MEDS: PYRIDOSTIGMINE 60 MG TABLET PO SCH (20:56)
[2018-11-14] MEDS: GABAPENTIN 300 MG CAPSULE PO SCH (20:57)
[2018-11-14] MEDS: predniSONE 20 MG TABLET PO SCH (20:57)
[2018-11-14] MEDS ORDERED: INDOMETHACIN 50 MG CAPSULE PO SCH (21:00)
[2018-11-14] MEDS: INDOMETHACIN 50 MG CAPSULE PO SCH (22:55)
[2018-11-15 05:32] LABS: Basophils # 0.1 10*3/uL (0.0-0.2); Basophils % 0.4 % (0.0-0.8); Eosinophils % 0.2 % (0.00-10.9); Hematocrit 44.5 VOL% (42.0-52.0); Hemoglobin 14.6 GM/DL (14.0-18.0); Immature Granulocytes % 4.2 %; Immature Granulocytes Absolute 0.54 #; Lymphocytes # 3.1 10*3/uL (1.4-4.0); Mean Corpuscular HGB Conc 32.8 GM/DL (32-36); Mean Corpuscular Volume 97.4 FL (87-102); Mean Platelet Volume 12.3 FL (9.6-12.0); Monocytes % 6.1 % (1.7-12.7); Neutrophils % 65.1 % (38.7-73.9); Platelet Count 130 T/CUMM (130-400); Red Blood Count 4.57 MC/CUMM (3.8-5.5); Red Cell Distribution Width 15.2 % (9.3-17.3)
[2018-11-15 06:02] LABS: Hypochromasia 1+; Lymphocytes 27 % (20-55); Nucleated Red Blood Cells 1 (0-5); Platelet Estimate Adequate; Segmented Neutrophils 62 % (50-85); Total Cells Counted 100
[2018-11-15 06:03] LABS: Microcytosis Slight
[2018-11-15 06:11] LABS: Calcium 8.4 MG/DL (8.5-10.1); Osmolality,Calculated 283.1 MOS/KG (273-304); Risk Ratio 3.29; Thyroid Stimulating Hormone 1.8 uIU/ml (0.358-3.74)
[2018-11-15] MEDS ORDERED: PANTOPRAZOLE 40 MG TABLET PO SCH (09:00)
[2018-11-15] MEDS ORDERED: ENOXAPARIN 40 MG/0.4 ML SYRINGE SUBCUT SCH (09:00)
[2018-11-15] MEDS ORDERED: LISINOPRIL 10 MG TABLET PO SCH (09:00)
[2018-11-15] MEDS ORDERED: MULTIVITAMIN (CENTRUM) TABLET PO SCH (09:00)
[2018-11-15] MEDS ORDERED: amLODIPine 10 MG TABLET PO SCH (09:00)
[2018-11-15] MEDS: GABAPENTIN 300 MG CAPSULE PO SCH (09:16)
[2018-11-15] MEDS: DIVALPROEX 500 MG TABLET PO SCH (09:17)
[2018-11-15] MEDS: predniSONE 20 MG TABLET PO SCH (09:17)
[2018-11-15] MEDS: INDOMETHACIN 50 MG CAPSULE PO SCH (09:18)
[2018-11-15] MEDS: CARVEDILOL 6.25 MG TABLET PO SCH (09:18)
[2018-11-15] MEDS: PYRIDOSTIGMINE 60 MG TABLET PO SCH (09:18)
[2018-11-15 11:24] VITALS: BP 146/100
== END 2018-11-15 14:00 | disposition home or self-care (01) ==
LOC: EDUNIT# → EDBD → N.ED 13:37 → N.EDINP 13:37 → N.3E 16:22
PROVIDERS: ADMIT Internal Medicine; ATTEND Internal Medicine

== ENCOUNTER 2019-02-03 22:03 | Inpatient (IN) ==
[2019-02-03] MEDS ORDERED: LACOSAMIDE INJ 200 MG in SODIUM CHLORIDE 0.9% 50 ML IV ONE (22:25)
[2019-02-03] MEDS ORDERED: methylPREDNISolone SOD SUC 125 MG/2 ML VIAL IV STA (22:25)
[2019-02-03] MEDS ORDERED: ALBUTEROL/IPRATROPIUM 3 ML NEB RESP TX STA (22:25)
[2019-02-03] MEDS ORDERED: LACOSAMIDE INJ 200 MG in SODIUM CHLORIDE 0.9% 50 ML IV STA (22:29)
[2019-02-03] MEDS ORDERED: LORazepam 2 MG/1 ML VIAL ONE (22:51)
[2019-02-03] MEDS ORDERED: PROPOFOL 1,000 MG/100 ML BOTTLE IV ONE (23:02)
[2019-02-03] MEDS ORDERED: niCARdipine INJ 25 MG in SODIUM CHLORIDE 0.9% 240 ML IV PRN (23:04)
[2019-02-03] MEDS ORDERED: ETOMIDATE 20 MG/10 ML VIAL IV ONE (23:21)
[2019-02-03] MEDS ORDERED: VECURONIUM 10 MG VIAL IV ONE (23:22)
[2019-02-03 23:44] LABS: Basophils % 0.3 % (0.0-0.8); Eosinophils % 0.1 % (0.00-10.9); Hematocrit 43.5 VOL% (42.0-52.0); Hemoglobin 14.6 GM/DL (14.0-18.0); Immature Granulocytes % 1.8 %; Immature Granulocytes Absolute 0.21 #; Lymphocytes # 2.7 10*3/uL (1.4-4.0); Lymphocytes % 23.5 % (21.2-54.2); Mean Corpuscular HGB Conc 33.6 GM/DL (32-36); Mean Corpuscular Volume 100.5 FL (87-102); Mean Platelet Volume 12.9 FL (9.6-12.0); Monocytes % 5.6 % (1.7-12.7); NRBC # 0.02 10*3/uL; Neutrophils % 68.7 % (38.7-73.9); Platelet Count 114 T/CUMM (130-400); Red Blood Count 4.33 MC/CUMM (3.8-5.5); Red Cell Distribution Width 14.2 % (9.3-17.3); White Blood Count 11.5 T/CUMM (4-12)
[2019-02-04 00:04] LABS: Apearance,Urine CLEAR (Clear); Bilirubin,Urine Negative (Negative); Blood, Urine Negative (Negative); Glucose,Urine (UA) >=500 mg/dL (Negative); Hyaline Casts,Urine 7 /LPF (0-3); Ketones,Urine 5 mg/dL (Negative); Mucus,Urine Occasional /LPF (Occasional); Nitrite,Urine Negative (Negative); Protein,Urine 100 MG/DL; RBC,Urine 1 /HPF (0-4); Squamous Epithelial Cell,Urine Occasional /HPF (0-10); Urine Color Yellow (Yellow); Urine Specific Gravity 1.031 (1.001-1.035); Urine Urobilinogen < 2.0 EU/DL (0.2-1.0); WBC,Urine 1 /HPF (0-6)
[2019-02-04 00:07] LABS: Troponin I < 0.015 NG/ML (0.00-0.045)
[2019-02-04 00:10] LABS: Barbiturates Screen,Urine Negative (Negative); Benzodiazepines Screen,Urine Positive (Negative); Cannabinoid Screen,Urine Positive (Negative); Opiate Screen,Urine Negative (Negative); Phencyclidine Screen,Urine Negative (Negative)
[2019-02-04 00:16] LABS: ABG HCO3 27.3 MMOL/L (20-26); ABG Oxygen Saturation 98.6 % (95-100); ABG PCO2 40.7 MM HG (35-48); ABG PH 7.445 (7.35-7.45); ABG PO2 139.1 MM HG (80-95); ABG TCO2 28.6 MMOL/L (23-27); Allen Test Positive; Pt O2 Delivery Device Ventilator
[2019-02-04 00:16] LABS: Alanine Aminotransferase 17 U/L (16-61); Alkaline Phosphatase 89 U/L (45-117); Aspartate Amino Transferase 19 U/L (0-37); Blood Urea Nitrogen 12 MG/DL (7-18); Calcium 8.7 MG/DL (8.5-10.1); Glucose 226 MG/DL (74-106); Osmolality,Calculated 289.1 MOS/KG (273-304); Total Protein 6.5 G/DL (6.4-8.3)
[2019-02-04] MEDS ORDERED: VECURONIUM 10 MG VIAL IV ONE (00:27)
[2019-02-04] MEDS ORDERED: VECURONIUM 10 MG VIAL IV STA (00:33)
[2019-02-04] MEDS ORDERED: ALBUTEROL 2.5 MG/3 ML NEB RESP TX PRN (01:11)
[2019-02-04] MEDS ORDERED: ONDANSETRON 4 MG/2 ML VIAL IV PRN (01:11)
[2019-02-04] MEDS ORDERED: DEXTROSE 50% 25 GM/50 ML VIAL IV PRN (01:18)
[2019-02-04] MEDS ORDERED: GLUCAGON 1 MG VIAL IM PRN (01:18)
[2019-02-04] MEDS: PROPOFOL 1,000 MG/100 ML BOTTLE IV SCH ×6 (02:38→23:30)
[2019-02-04] MEDS: SODIUM CHLORIDE 0.9% 1,000 ML IV SCH ×2 (02:58→17:08)
[2019-02-04] MEDS: INSULIN REGULAR 100 UNIT/ML SUBCUT SCH ×3 (06:31→17:40)
[2019-02-04 07:53] LABS: Basophils % 0.2 % (0.0-0.8); Hematocrit 40.6 VOL% (42.0-52.0); Hemoglobin 13.7 GM/DL (14.0-18.0); Immature Granulocytes % 1.9 %; Immature Granulocytes Absolute 0.23 #; Lymphocytes # 1.3 10*3/uL (1.4-4.0); Lymphocytes % 11.1 % (21.2-54.2); Mean Corpuscular HGB Conc 33.7 GM/DL (32-36); Mean Corpuscular Volume 99.5 FL (87-102); Mean Platelet Volume 12.8 FL (9.6-12.0); Neutrophils % 83.8 % (38.7-73.9); Platelet Count 128 T/CUMM (130-400); Red Blood Count 4.08 MC/CUMM (3.8-5.5); Red Cell Distribution Width 14.4 % (9.3-17.3); White Blood Count 11.8 T/CUMM (4-12)
[2019-02-04 07:57] LABS: ABG Oxygen Saturation 99.8 % (95-100); ABG PCO2 40.4 MM HG (35-48); ABG PH 7.452 (7.35-7.45); ABG TCO2 24.4 MMOL/L (23-27); Allen Test Positive; Pt O2 Delivery Device Ventilator
[2019-02-04 08:20] LABS: Albumin 2.6 G/DL (3.4-5.0); Bilirubin,Total 0.4 MG/DL (0.2-1.0); Calcium 8.7 MG/DL (8.5-10.1); Osmolality,Calculated 285.5 MOS/KG (273-304); Total Protein 6.4 G/DL (6.4-8.3)
[2019-02-04] MEDS: ENOXAPARIN 40 MG/0.4 ML SYRINGE SUBCUT SCH (09:14)
[2019-02-04] MEDS: FAMOTIDINE 20 MG/2 ML VIAL IV SCH ×2 (09:14→20:13)
[2019-02-04] MEDS: LACOSAMIDE INJ 200 MG in SODIUM CHLORIDE 0.9% 50 ML IV SCH ×3 (11:26→22:46)
[2019-02-04] MEDS: LORazepam 2 MG/1 ML VIAL IV PRN ×2 (17:51→18:21)
[2019-02-04] MEDS ORDERED: VALPROIC ACID INJ 1,000 MG in SODIUM CHLORIDE 0.9% 100 ML IV ONE (18:00)
[2019-02-04] MEDS: LISINOPRIL 10 MG TABLET PO SCH (18:19)
[2019-02-04] MEDS: amLODIPine 10 MG TABLET PO SCH (18:19)
[2019-02-05] MEDS: INSULIN REGULAR 100 UNIT/ML SUBCUT SCH ×5 (00:22→20:46)
[2019-02-05] MEDS: PROPOFOL 1,000 MG/100 ML BOTTLE IV SCH ×3 (02:05→08:50)
[2019-02-05] MEDS: VALPROIC ACID INJ 500 MG in SODIUM CHLORIDE 0.9% 100 ML IV SCH ×3 (02:36→18:05)
[2019-02-05 04:52] LABS: Prealbumin 25.8 MG/DL (20-40)
[2019-02-05 05:04] LABS: Allen Test Positive; Pt O2 Delivery Device Ventilator
[2019-02-05 05:05] LABS: ABG Base Excess 5.1 MMOL/L (-2.5-2.5); ABG HCO3 29.1 MMOL/L (20-26); ABG PCO2 37.7 MM HG (35-48); ABG PH 7.488 (7.35-7.45); ABG TCO2 24.6 MMOL/L (23-27)
[2019-02-05] MEDS: FAMOTIDINE 20 MG/2 ML VIAL IV SCH ×2 (08:25→20:44)
[2019-02-05] MEDS: ENOXAPARIN 40 MG/0.4 ML SYRINGE SUBCUT SCH (08:25)
[2019-02-05] MEDS: amLODIPine 10 MG TABLET PO SCH (08:30)
[2019-02-05] MEDS: LISINOPRIL 10 MG TABLET PO SCH (08:30)
[2019-02-05] MEDS ORDERED: MULTIVITAMIN LIQUID (CENTRUM) 60 ML BOTTLE PO SCH (09:00)
[2019-02-05] MEDS: LACOSAMIDE INJ 200 MG in SODIUM CHLORIDE 0.9% 50 ML IV SCH ×2 (10:45→23:53)
[2019-02-05 11:01] LABS: ABG Base Excess 5.7 MMOL/L (-2.5-2.5); ABG HCO3 29.5 MMOL/L (20-26); ABG Oxygen Saturation 98.4 % (95-100); ABG PCO2 42.8 MM HG (35-48); ABG PH 7.457 (7.35-7.45); Pt O2 Delivery Device Ventilator
[2019-02-06] MEDS ORDERED: LORazepam 2 MG/1 ML VIAL ONE (00:44)
[2019-02-06] MEDS: LORazepam 2 MG/1 ML VIAL IV PRN ×2 (00:46→18:34)
[2019-02-06] MEDS: VALPROIC ACID INJ 500 MG in SODIUM CHLORIDE 0.9% 100 ML IV SCH ×2 (02:07→09:01)
[2019-02-06 03:18] LABS: ABG Base Excess 5.6 MMOL/L (-2.5-2.5); ABG HCO3 29.4 MMOL/L (20-26); ABG Oxygen Saturation 96.1 % (95-100); ABG PCO2 40.3 MM HG (35-48); ABG PH 7.474 (7.35-7.45); ABG PO2 76.8 MM HG (80-95); ABG TCO2 25.1 MMOL/L (23-27); Allen Test Positive; Pt O2 Delivery Device Room Air
[2019-02-06 05:07] LABS: Basophils % 0.2 % (0.0-0.8); Eosinophils % 0.3 % (0.00-10.9); Hematocrit 42.5 VOL% (42.0-52.0); Hemoglobin 14.6 GM/DL (14.0-18.0); Immature Granulocytes % 2.3 %; Immature Granulocytes Absolute 0.21 #; Lymphocytes % 22.2 % (21.2-54.2); Mean Corpuscular HGB Conc 34.4 GM/DL (32-36); Mean Corpuscular Volume 100.5 FL (87-102); Mean Platelet Volume 13.2 FL (9.6-12.0); Monocytes % 6.8 % (1.7-12.7); NRBC # 0.02 10*3/uL; Neutrophils % 68.2 % (38.7-73.9); Platelet Count 125 T/CUMM (130-400); Red Blood Count 4.23 MC/CUMM (3.8-5.5); Red Cell Distribution Width 14.2 % (9.3-17.3)
[2019-02-06 05:43] LABS: Calcium 8.2 MG/DL (8.5-10.1); Osmolality,Calculated 288.8 MOS/KG (273-304)
[2019-02-06] MEDS: INSULIN REGULAR 100 UNIT/ML SUBCUT SCH ×4 (07:37→22:03)
[2019-02-06] MEDS: LISINOPRIL 20 MG TABLET PO SCH (08:57)
[2019-02-06] MEDS: MULTIVITAMIN (CENTRUM) TABLET PO SCH (08:57)
[2019-02-06] MEDS: ENOXAPARIN 40 MG/0.4 ML SYRINGE SUBCUT SCH (08:57)
[2019-02-06] MEDS: POTASSIUM CHLORIDE 20 MEQ TABLET PO SCH ×2 (08:57→13:15)
[2019-02-06] MEDS: FAMOTIDINE 20 MG TABLET PO SCH ×2 (08:58→21:57)
[2019-02-06] MEDS: amLODIPine 10 MG TABLET PO SCH (08:58)
[2019-02-06] MEDS ORDERED: NON-FORMULARY MEDICATION (Cholecalciferol (Vitamin D3) [Vitamin D3] 50,000 UNIT) PO SCH (13:04)
[2019-02-06] MEDS: GABAPENTIN 300 MG CAPSULE PO SCH ×2 (15:46→21:58)
[2019-02-06] MEDS: PYRIDOSTIGMINE 60 MG TABLET PO SCH ×2 (15:47→21:58)
[2019-02-06] MEDS: LACOSAMIDE 50 MG TABLET PO SCH (21:57)
[2019-02-06] MEDS: predniSONE 20 MG TABLET PO SCH (21:57)
[2019-02-06] MEDS: levETIRAcetam 500 MG TABLET PO SCH (21:58)
[2019-02-06] MEDS: DIVALPROEX 500 MG TABLET PO SCH (21:58)
[2019-02-06] MEDS: INSULIN GLARGINE 100 UNIT/ML SUBCUT SCH (22:03)
[2019-02-07] MEDS ORDERED: hydrALAZINE 20 MG/1 ML VIAL IV PRN (04:33)
[2019-02-07 05:45] LABS: Calcium 8.7 MG/DL (8.5-10.1); Osmolality,Calculated 281.8 MOS/KG (273-304)
[2019-02-07] MEDS: LORazepam 2 MG/1 ML VIAL IV PRN ×6 (05:45→17:51)
[2019-02-07 07:00] LABS: Phenytoin (Dilantin) 4.8 UG/ML (10-20)
[2019-02-07] MEDS: ENOXAPARIN 40 MG/0.4 ML SYRINGE SUBCUT SCH (08:24)
[2019-02-07] MEDS: INSULIN REGULAR 100 UNIT/ML SUBCUT SCH ×4 (08:24→21:30)
[2019-02-07] MEDS: GABAPENTIN 300 MG CAPSULE PO SCH ×3 (08:25→21:20)
[2019-02-07] MEDS: FAMOTIDINE 20 MG TABLET PO SCH (08:25)
[2019-02-07] MEDS: amLODIPine 10 MG TABLET PO SCH (08:25)
[2019-02-07] MEDS: DIVALPROEX 500 MG TABLET PO SCH (08:26)
[2019-02-07] MEDS: levETIRAcetam 500 MG TABLET PO SCH (08:26)
[2019-02-07] MEDS: LACOSAMIDE 50 MG TABLET PO SCH (08:26)
[2019-02-07] MEDS: predniSONE 20 MG TABLET PO SCH ×2 (08:27→21:19)
[2019-02-07] MEDS: LISINOPRIL 20 MG TABLET PO SCH (08:27)
[2019-02-07] MEDS: MULTIVITAMIN (CENTRUM) TABLET PO SCH (08:27)
[2019-02-07] MEDS: PYRIDOSTIGMINE 60 MG TABLET PO SCH ×3 (11:01→21:20)
[2019-02-07] MEDS ORDERED: VALPROIC ACID INJ 500 MG in SODIUM CHLORIDE 0.9% 100 ML IV SCH (13:30)
[2019-02-07] MEDS ORDERED: NICOTINE 21 MG/24 HR PATCH TRANSDERM PRN (14:57)
[2019-02-07] MEDS ORDERED: PROPOFOL 200 MG/20 ML VIAL IV ONE ×3 (17:02→17:15)
[2019-02-07] MEDS ORDERED: VECURONIUM 10 MG VIAL IV ONE ×2 (17:02→17:15)
[2019-02-07] MEDS ORDERED: PROPOFOL 1,000 MG/100 ML BOTTLE IV ONE (17:04)
[2019-02-07] MEDS: PROPOFOL 1,000 MG/100 ML BOTTLE IV SCH ×2 (17:30→23:00)
[2019-02-07 18:12] LABS: ABG Base Excess 0.9 MMOL/L (-2.5-2.5); ABG HCO3 24.9 MMOL/L (20-26); ABG Oxygen Saturation 87.7 % (95-100); ABG PCO2 48.2 MM HG (35-48); ABG PH 7.361 (7.35-7.45); ABG PO2 57.2 MM HG (80-95); Allen Test Positive; Pt O2 Delivery Device Ventilator
[2019-02-07 19:01] LABS: Apearance,Urine CLEAR (Clear); Bilirubin,Urine Negative (Negative); Blood, Urine Negative (Negative); Glucose,Urine (UA) >=500 mg/dL (Negative); Ketones,Urine Negative (Negative); Mucus,Urine Occasional /LPF (Occasional); Nitrite,Urine Negative (Negative); Protein,Urine 100 MG/DL; RBC,Urine 1 /HPF (0-4); Urine Color Straw (Yellow); Urine Specific Gravity 1.014 (1.001-1.035); Urine Urobilinogen < 2.0 EU/DL (0.2-1.0); WBC,Urine 2 /HPF (0-6)
[2019-02-07] MEDS: VALPROIC ACID INJ 750 MG in SODIUM CHLORIDE 0.9% 100 ML IV SCH (20:03)
[2019-02-07] MEDS ORDERED: LACOSAMIDE INJ 150 MG in SODIUM CHLORIDE 0.9% 50 ML IV SCH (21:00)
[2019-02-07] MEDS: PANTOPRAZOLE 40 MG VIAL IV SCH (21:27)
[2019-02-07] MEDS: INSULIN GLARGINE 100 UNIT/ML SUBCUT SCH (21:30)
[2019-02-07] MEDS: LACOSAMIDE INJ 150 MG in SODIUM CHLORIDE 0.9% 50 ML IV SCH (21:33)
[2019-02-08] MEDS: VALPROIC ACID INJ 750 MG in SODIUM CHLORIDE 0.9% 100 ML IV SCH ×3 (02:55→18:33)
[2019-02-08] MEDS: PROPOFOL 1,000 MG/100 ML BOTTLE IV SCH ×3 (03:00→17:38)
[2019-02-08 04:48] LABS: ABG Base Excess 3.6 MMOL/L (-2.5-2.5); ABG HCO3 27.6 MMOL/L (20-26); ABG PCO2 41.1 MM HG (35-48); ABG PH 7.442 (7.35-7.45); ABG TCO2 23.5 MMOL/L (23-27); Allen Test Positive; Pt O2 Delivery Device Ventilator
[2019-02-08] MEDS ORDERED: SODIUM CHLORIDE 0.9% 1,000 ML IV ONE (06:56)
[2019-02-08] MEDS: INSULIN REGULAR 100 UNIT/ML SUBCUT SCH ×4 (08:12→17:35)
[2019-02-08] MEDS: LORazepam 2 MG/1 ML VIAL IV PRN (09:09)
[2019-02-08 09:18] LABS: Basophils % 0.3 % (0.0-0.8); Eosinophils % 0.3 % (0.00-10.9); Hematocrit 41.1 VOL% (42.0-52.0); Hemoglobin 13.3 GM/DL (14.0-18.0); Immature Granulocytes % 2.3 %; Immature Granulocytes Absolute 0.27 #; Lymphocytes # 1.6 10*3/uL (1.4-4.0); Lymphocytes % 13.5 % (21.2-54.2); Mean Corpuscular HGB Conc 32.4 GM/DL (32-36); Mean Platelet Volume 12.3 FL (9.6-12.0); Monocytes % 8.6 % (1.7-12.7); Platelet Count 111 T/CUMM (130-400); Red Blood Count 3.99 MC/CUMM (3.8-5.5); Red Cell Distribution Width 13.9 % (9.3-17.3); White Blood Count 11.8 T/CUMM (4-12)
[2019-02-08] MEDS: PANTOPRAZOLE 40 MG VIAL IV SCH ×2 (09:38→20:05)
[2019-02-08] MEDS: MULTIVITAMIN (CENTRUM) TABLET PO SCH (09:39)
[2019-02-08] MEDS: ENOXAPARIN 40 MG/0.4 ML SYRINGE SUBCUT SCH (09:39)
[2019-02-08] MEDS: LISINOPRIL 20 MG TABLET PO SCH (09:39)
[2019-02-08] MEDS: PYRIDOSTIGMINE 60 MG TABLET PO SCH ×3 (09:39→20:04)
[2019-02-08] MEDS: amLODIPine 10 MG TABLET PO SCH (09:39)
[2019-02-08] MEDS: GABAPENTIN 300 MG CAPSULE PO SCH ×3 (09:39→20:05)
[2019-02-08] MEDS: predniSONE 20 MG TABLET PO SCH ×2 (09:39→20:04)
[2019-02-08 09:42] LABS: Calcium 7.8 MG/DL (8.5-10.1)
[2019-02-08] MEDS: PIPERACILLIN/TAZOBACTAM 3,375 MG in SODIUM CHLORIDE 0.9% 100 ML IV SCH ×2 (10:41→18:33)
[2019-02-08] MEDS ORDERED: DEXTROSE 10% 25 GM/250 ML BAG IV PRN (11:09)
[2019-02-08] MEDS: LACOSAMIDE INJ 150 MG in SODIUM CHLORIDE 0.9% 50 ML IV SCH ×2 (11:13→20:37)
[2019-02-08] MEDS: INSULIN GLARGINE 100 UNIT/ML SUBCUT SCH (20:05)
[2019-02-09] MEDS: INSULIN REGULAR 100 UNIT/ML SUBCUT SCH ×5 (00:49→23:54)
[2019-02-09] MEDS: LORazepam 2 MG/1 ML VIAL IV PRN ×2 (01:21→01:56)
[2019-02-09] MEDS: VALPROIC ACID INJ 750 MG in SODIUM CHLORIDE 0.9% 100 ML IV SCH ×3 (02:04→18:26)
[2019-02-09] MEDS: PIPERACILLIN/TAZOBACTAM 3,375 MG in SODIUM CHLORIDE 0.9% 100 ML IV SCH ×3 (02:08→18:27)
[2019-02-09] MEDS: PROPOFOL 1,000 MG/100 ML BOTTLE IV SCH ×4 (02:20→20:17)
[2019-02-09 05:36] LABS: ABG Base Excess 3.8 MMOL/L (-2.5-2.5); ABG HCO3 27.8 MMOL/L (20-26); ABG Oxygen Saturation 98.7 % (95-100); ABG PCO2 48.6 MM HG (35-48); ABG PH 7.396 (7.35-7.45)
[2019-02-09 06:13] LABS: Calcium 8.6 MG/DL (8.5-10.1)
[2019-02-09] MEDS: PANTOPRAZOLE 40 MG VIAL IV SCH ×2 (08:54→20:04)
[2019-02-09] MEDS: amLODIPine 10 MG TABLET PO SCH (08:54)
[2019-02-09] MEDS: MULTIVITAMIN (CENTRUM) TABLET PO SCH (08:54)
[2019-02-09] MEDS: LISINOPRIL 20 MG TABLET PO SCH (08:54)
[2019-02-09] MEDS: PYRIDOSTIGMINE 60 MG TABLET PO SCH ×3 (08:54→20:08)
[2019-02-09] MEDS: GABAPENTIN 300 MG CAPSULE PO SCH ×3 (08:54→20:08)
[2019-02-09] MEDS: ENOXAPARIN 40 MG/0.4 ML SYRINGE SUBCUT SCH (08:54)
[2019-02-09] MEDS: predniSONE 20 MG TABLET PO SCH ×2 (08:55→20:08)
[2019-02-09] MEDS: LACOSAMIDE INJ 150 MG in SODIUM CHLORIDE 0.9% 50 ML IV SCH (08:55)
[2019-02-09] MEDS ORDERED: PHENobarbital 130 MG/1 ML VIAL IV ONE (16:17)
[2019-02-09] MEDS: INSULIN GLARGINE 100 UNIT/ML SUBCUT SCH (20:09)
[2019-02-10] MEDS: VALPROIC ACID INJ 750 MG in SODIUM CHLORIDE 0.9% 100 ML IV SCH ×3 (01:32→18:15)
[2019-02-10] MEDS: PIPERACILLIN/TAZOBACTAM 3,375 MG in SODIUM CHLORIDE 0.9% 100 ML IV SCH ×3 (01:33→18:14)
[2019-02-10 04:20] LABS: ABG Base Excess 5.8 MMOL/L (-2.5-2.5); ABG HCO3 29.6 MMOL/L (20-26); ABG Oxygen Saturation 95.9 % (95-100); ABG PH 7.431 (7.35-7.45); ABG PO2 77.4 MM HG (80-95); ABG TCO2 26.6 MMOL/L (23-27)
[2019-02-10 04:28] LABS: Basophils % 0.2 % (0.0-0.8); Eosinophils % 0.3 % (0.00-10.9); Hematocrit 38.7 VOL% (42.0-52.0); Hemoglobin 12.4 GM/DL (14.0-18.0); Immature Granulocytes % 1.9 %; Immature Granulocytes Absolute 0.19 #; Lymphocytes # 1.6 10*3/uL (1.4-4.0); Lymphocytes % 15.4 % (21.2-54.2); Mean Corpuscular Volume 103.8 FL (87-102); Mean Platelet Volume 12.7 FL (9.6-12.0); Monocytes % 10.8 % (1.7-12.7); Neutrophils % 71.4 % (38.7-73.9); Platelet Count 115 T/CUMM (130-400); Red Blood Count 3.73 MC/CUMM (3.8-5.5); Red Cell Distribution Width 13.3 % (9.3-17.3)
[2019-02-10 04:44] LABS: Calcium 8.6 MG/DL (8.5-10.1); Prealbumin 27.8 MG/DL (20-40)
[2019-02-10] MEDS: PHENobarbital 65 MG/1 ML VIAL IV SCH ×2 (05:01→16:15)
[2019-02-10] MEDS: INSULIN REGULAR 100 UNIT/ML SUBCUT SCH ×3 (05:05→18:45)
[2019-02-10] MEDS: PROPOFOL 1,000 MG/100 ML BOTTLE IV SCH ×3 (05:22→18:17)
[2019-02-10] MEDS: PYRIDOSTIGMINE 60 MG TABLET PO SCH ×3 (09:50→20:24)
[2019-02-10] MEDS: GABAPENTIN 300 MG CAPSULE PO SCH ×3 (09:50→20:24)
[2019-02-10] MEDS: LISINOPRIL 20 MG TABLET PO SCH (09:51)
[2019-02-10] MEDS: MULTIVITAMIN (CENTRUM) TABLET PO SCH (09:52)
[2019-02-10] MEDS: predniSONE 20 MG TABLET PO SCH ×2 (09:52→20:24)
[2019-02-10] MEDS: amLODIPine 10 MG TABLET PO SCH (09:52)
[2019-02-10] MEDS: PANTOPRAZOLE 40 MG VIAL IV SCH ×2 (09:53→20:22)
[2019-02-10] MEDS: ENOXAPARIN 40 MG/0.4 ML SYRINGE SUBCUT SCH (09:53)
[2019-02-10] MEDS: INSULIN GLARGINE 100 UNIT/ML SUBCUT SCH (20:24)
[2019-02-11] MEDS: INSULIN REGULAR 100 UNIT/ML SUBCUT SCH ×4 (00:24→18:43)
[2019-02-11] MEDS: PROPOFOL 1,000 MG/100 ML BOTTLE IV SCH ×6 (01:00→22:50)
[2019-02-11] MEDS: VALPROIC ACID INJ 750 MG in SODIUM CHLORIDE 0.9% 100 ML IV SCH ×3 (01:32→18:17)
[2019-02-11] MEDS: PIPERACILLIN/TAZOBACTAM 3,375 MG in SODIUM CHLORIDE 0.9% 100 ML IV SCH ×3 (01:40→18:17)
[2019-02-11 03:50] LABS: ABG Base Excess 6.8 MMOL/L (-2.5-2.5); ABG HCO3 31.2 MMOL/L (20-26); ABG Oxygen Saturation 94.3 % (95-100); ABG PCO2 43.6 MM HG (35-48); ABG PH 7.472 (7.35-7.45); ABG PO2 71.2 MM HG (80-95); ABG TCO2 32.5 MMOL/L (23-27)
[2019-02-11] MEDS: PHENobarbital 65 MG/1 ML VIAL IV SCH ×2 (04:56→16:45)
[2019-02-11] MEDS: GABAPENTIN 300 MG CAPSULE PO SCH ×3 (09:56→20:40)
[2019-02-11] MEDS: MULTIVITAMIN (CENTRUM) TABLET PO SCH (09:56)
[2019-02-11] MEDS: LISINOPRIL 20 MG TABLET PO SCH (09:56)
[2019-02-11] MEDS: ENOXAPARIN 40 MG/0.4 ML SYRINGE SUBCUT SCH (09:57)
[2019-02-11] MEDS: amLODIPine 10 MG TABLET PO SCH (09:57)
[2019-02-11] MEDS: predniSONE 20 MG TABLET PO SCH ×2 (09:57→20:41)
[2019-02-11] MEDS: PYRIDOSTIGMINE 60 MG TABLET PO SCH ×3 (09:57→20:40)
[2019-02-11] MEDS: PANTOPRAZOLE 40 MG VIAL IV SCH ×2 (09:57→20:38)
[2019-02-11] MEDS: INSULIN GLARGINE 100 UNIT/ML SUBCUT SCH (20:41)
[2019-02-12] MEDS: VALPROIC ACID INJ 750 MG in SODIUM CHLORIDE 0.9% 100 ML IV SCH ×3 (01:30→18:48)
[2019-02-12] MEDS: PIPERACILLIN/TAZOBACTAM 3,375 MG in SODIUM CHLORIDE 0.9% 100 ML IV SCH ×3 (01:30→18:48)
[2019-02-12] MEDS: PHENobarbital 65 MG/1 ML VIAL IV SCH ×3 (04:08→23:38)
[2019-02-12] MEDS: PROPOFOL 1,000 MG/100 ML BOTTLE IV SCH ×4 (04:15→21:33)
[2019-02-12 05:04] LABS: ABG Base Excess 6.8 MMOL/L (-2.5-2.5); ABG HCO3 31.4 MMOL/L (20-26); ABG Oxygen Saturation 97.3 % (95-100); ABG PCO2 44.5 MM HG (35-48); ABG PH 7.466 (7.35-7.45); ABG PO2 94.2 MM HG (80-95); ABG TCO2 32.7 MMOL/L (23-27)
[2019-02-12 05:10] LABS: Basophils # 0.1 10*3/uL (0.0-0.2); Basophils % 0.6 % (0.0-0.8); Eosinophils # 0.1 10*3/uL (0.0-0.87); Eosinophils % 0.6 % (0.00-10.9); Hematocrit 35.6 VOL% (42.0-52.0); Hemoglobin 11.4 GM/DL (14.0-18.0); Immature Granulocytes % 5.9 %; Immature Granulocytes Absolute 0.47 #; Lymphocytes # 1.6 10*3/uL (1.4-4.0); Lymphocytes % 19.6 % (21.2-54.2); Mean Corpuscular Volume 104.1 FL (87-102); Monocytes % 9.8 % (1.7-12.7); Neutrophils % 63.5 % (38.7-73.9); Platelet Count 120 T/CUMM (130-400); Red Blood Count 3.42 MC/CUMM (3.8-5.5); Red Cell Distribution Width 13.1 % (9.3-17.3)
[2019-02-12 05:35] LABS: Calcium 8.4 MG/DL (8.5-10.1); Osmolality,Calculated 284.1 MOS/KG (273-304)
[2019-02-12] MEDS: INSULIN REGULAR 100 UNIT/ML SUBCUT SCH ×4 (05:38→18:54)
[2019-02-12 05:53] LABS: Band Neutrophils 1 % (0-10); Eosinophils 2 % (0-10); Lymphocytes 21 % (20-55); Metamyelocytes 1 %; Segmented Neutrophils 72 % (50-85); Total Cells Counted 100
[2019-02-12 05:54] LABS: Anisocytosis Slight; Macrocytosis Slight; Stomatocytes 1+
[2019-02-12 05:55] LABS: Platelet Estimate Adequate
[2019-02-12] MEDS: MULTIVITAMIN (CENTRUM) TABLET PO SCH (09:48)
[2019-02-12] MEDS: ENOXAPARIN 40 MG/0.4 ML SYRINGE SUBCUT SCH (09:48)
[2019-02-12] MEDS: amLODIPine 10 MG TABLET PO SCH (09:48)
[2019-02-12] MEDS: PYRIDOSTIGMINE 60 MG TABLET PO SCH ×3 (09:48→20:05)
[2019-02-12] MEDS: PANTOPRAZOLE 40 MG VIAL IV SCH ×2 (09:48→20:03)
[2019-02-12] MEDS: predniSONE 20 MG TABLET PO SCH ×2 (09:48→20:04)
[2019-02-12] MEDS: GABAPENTIN 300 MG CAPSULE PO SCH ×3 (09:48→20:04)
[2019-02-12] MEDS: LISINOPRIL 20 MG TABLET PO SCH (09:48)
[2019-02-12] MEDS: LORazepam 2 MG/1 ML VIAL IV PRN (16:34)
[2019-02-12] MEDS: INSULIN GLARGINE 100 UNIT/ML SUBCUT SCH (20:05)
[2019-02-13] MEDS: LORazepam 2 MG/1 ML VIAL IV PRN ×2 (02:12→09:56)
[2019-02-13] MEDS: VALPROIC ACID INJ 750 MG in SODIUM CHLORIDE 0.9% 100 ML IV SCH ×3 (02:14→18:40)
[2019-02-13] MEDS: PIPERACILLIN/TAZOBACTAM 3,375 MG in SODIUM CHLORIDE 0.9% 100 ML IV SCH ×3 (02:14→18:40)
[2019-02-13] MEDS: INSULIN REGULAR 100 UNIT/ML SUBCUT SCH ×4 (02:14→18:40)
[2019-02-13 04:38] LABS: Basophils # 0.1 10*3/uL (0.0-0.2); Basophils % 0.9 % (0.0-0.8); Eosinophils # 0.1 10*3/uL (0.0-0.87); Eosinophils % 0.9 % (0.00-10.9); Hematocrit 35.1 VOL% (42.0-52.0); Hemoglobin 11.6 GM/DL (14.0-18.0); Immature Granulocytes % 8.8 %; Immature Granulocytes Absolute 0.61 #; Lymphocytes # 1.6 10*3/uL (1.4-4.0); Lymphocytes % 22.7 % (21.2-54.2); Mean Corpuscular Volume 102.6 FL (87-102); Mean Platelet Volume 12.6 FL (9.6-12.0); Monocytes % 9.3 % (1.7-12.7); Neutrophils % 57.4 % (38.7-73.9); Platelet Count 138 T/CUMM (130-400); Red Blood Count 3.42 MC/CUMM (3.8-5.5); Red Cell Distribution Width 13.1 % (9.3-17.3)
[2019-02-13] MEDS: PROPOFOL 1,000 MG/100 ML BOTTLE IV SCH ×2 (04:54→09:13)
[2019-02-13 05:00] LABS: Eosinophils 1 % (0-10); Hypochromasia 1+; Lymphocytes 31 % (20-55); Platelet Estimate Adequate; Segmented Neutrophils 58 % (50-85); Total Cells Counted 100
[2019-02-13 05:02] LABS: Calcium 8.3 MG/DL (8.5-10.1)
[2019-02-13 05:06] LABS: Prealbumin 24.8 MG/DL (20-40)
[2019-02-13] MEDS: PHENobarbital 65 MG/1 ML VIAL IV SCH ×3 (06:06→22:07)
[2019-02-13 06:15] LABS: ABG Base Excess 5.8 MMOL/L (-2.5-2.5); ABG HCO3 31.4 MMOL/L (20-26); ABG Oxygen Saturation 99.4 % (95-100); ABG PH 7.416 (7.35-7.45); ABG PO2 393.3 MM HG (80-95); ABG TCO2 32.9 MMOL/L (23-27)
[2019-02-13] MEDS: PYRIDOSTIGMINE 60 MG TABLET PO SCH ×3 (09:12→20:38)
[2019-02-13] MEDS: LISINOPRIL 20 MG TABLET PO SCH (09:12)
[2019-02-13] MEDS: MULTIVITAMIN (CENTRUM) TABLET PO SCH (09:12)
[2019-02-13] MEDS: GABAPENTIN 300 MG CAPSULE PO SCH ×3 (09:12→20:38)
[2019-02-13] MEDS: PANTOPRAZOLE 40 MG VIAL IV SCH ×2 (09:13→20:37)
[2019-02-13] MEDS: amLODIPine 10 MG TABLET PO SCH (09:13)
[2019-02-13] MEDS: ENOXAPARIN 40 MG/0.4 ML SYRINGE SUBCUT SCH (09:13)
[2019-02-13] MEDS: predniSONE 20 MG TABLET PO SCH ×2 (09:13→20:38)
[2019-02-13] MEDS ORDERED: NON-FORMULARY MEDICATION (Cholecalciferol (Vitamin D3) [Vitamin D3] 50,000 UNIT) PO SCH (18:00)
[2019-02-13] MEDS: INSULIN GLARGINE 100 UNIT/ML SUBCUT SCH (20:39)
[2019-02-13] MEDS ORDERED: ERGOCALCIFEROL 50,000 UNIT CAPSULE PO SCH (21:00)
[2019-02-14] MEDS: INSULIN REGULAR 100 UNIT/ML SUBCUT SCH ×4 (01:01→17:03)
[2019-02-14] MEDS: PROPOFOL 1,000 MG/100 ML BOTTLE IV SCH ×4 (02:00→19:46)
[2019-02-14] MEDS: PIPERACILLIN/TAZOBACTAM 3,375 MG in SODIUM CHLORIDE 0.9% 100 ML IV SCH ×3 (02:57→18:05)
[2019-02-14] MEDS: VALPROIC ACID INJ 750 MG in SODIUM CHLORIDE 0.9% 100 ML IV SCH ×3 (02:57→18:05)
[2019-02-14 03:23] LABS: ABG Base Excess 2.4 MMOL/L (-2.5-2.5); ABG HCO3 25.2 MMOL/L (20-26); ABG Oxygen Saturation 97.4 % (95-100); ABG PCO2 33.5 MM HG (35-48); ABG PH 7.495 (7.35-7.45); ABG PO2 96.1 MM HG (80-95); ABG TCO2 26.3 MMOL/L (23-27)
[2019-02-14 03:26] LABS: Basophils # 0.1 10*3/uL (0.0-0.2); Basophils % 0.9 % (0.0-0.8); Eosinophils # 0.1 10*3/uL (0.0-0.87); Eosinophils % 1.2 % (0.00-10.9); Hematocrit 33.7 VOL% (42.0-52.0); Immature Granulocytes % 11.2 %; Immature Granulocytes Absolute 0.83 #; Lymphocytes # 2.1 10*3/uL (1.4-4.0); Mean Corpuscular HGB Conc 32.6 GM/DL (32-36); Mean Corpuscular Volume 101.2 FL (87-102); Mean Platelet Volume 12.4 FL (9.6-12.0); Monocytes % 10.3 % (1.7-12.7); Neutrophils % 48.4 % (38.7-73.9); Platelet Count 142 T/CUMM (130-400); Red Blood Count 3.33 MC/CUMM (3.8-5.5); Red Cell Distribution Width 12.9 % (9.3-17.3); White Blood Count 7.4 T/CUMM (4-12)
[2019-02-14 03:46] LABS: Calcium 8.4 MG/DL (8.5-10.1); Osmolality,Calculated 288.7 MOS/KG (273-304)
[2019-02-14 04:19] LABS: Hypochromasia 1+; Lymphocytes 30 % (20-55); Platelet Estimate Adequate; Segmented Neutrophils 60 % (50-85); Total Cells Counted 100
[2019-02-14] MEDS: PHENobarbital 65 MG/1 ML VIAL IV SCH ×3 (06:20→22:07)
[2019-02-14] MEDS: PANTOPRAZOLE 40 MG VIAL IV SCH ×2 (08:26→20:14)
[2019-02-14] MEDS: predniSONE 20 MG TABLET PO SCH ×2 (08:27→20:16)
[2019-02-14] MEDS: amLODIPine 10 MG TABLET PO SCH (08:27)
[2019-02-14] MEDS: GABAPENTIN 300 MG CAPSULE PO SCH ×3 (08:27→20:16)
[2019-02-14] MEDS: PYRIDOSTIGMINE 60 MG TABLET PO SCH ×3 (08:27→20:16)
[2019-02-14] MEDS: MULTIVITAMIN (CENTRUM) TABLET PO SCH (08:27)
[2019-02-14] MEDS: LISINOPRIL 20 MG TABLET PO SCH (08:27)
[2019-02-14] MEDS: ENOXAPARIN 40 MG/0.4 ML SYRINGE SUBCUT SCH (08:27)
[2019-02-14] MEDS: POTASSIUM CHLORIDE 20 MEQ/15 ML UDCUP PER TUBE SCH ×3 (11:53→20:17)
[2019-02-14] MEDS: INSULIN GLARGINE 100 UNIT/ML SUBCUT SCH (20:16)
[2019-02-15] MEDS: LORazepam 2 MG/1 ML VIAL IV PRN (00:02)
[2019-02-15] MEDS: PROPOFOL 1,000 MG/100 ML BOTTLE IV SCH (00:03)
[2019-02-15] MEDS: INSULIN REGULAR 100 UNIT/ML SUBCUT SCH ×4 (00:51→18:36)
[2019-02-15 02:38] LABS: ABG Base Excess 3.5 MMOL/L (-2.5-2.5); ABG HCO3 28.6 MMOL/L (20-26); ABG Oxygen Saturation 93.3 % (95-100); ABG PCO2 45.1 MM HG (35-48)
[2019-02-15 03:07] LABS: Calcium 8.6 MG/DL (8.5-10.1); Osmolality,Calculated 285.1 MOS/KG (273-304)
[2019-02-15] MEDS: PIPERACILLIN/TAZOBACTAM 3,375 MG in SODIUM CHLORIDE 0.9% 100 ML IV SCH ×3 (03:14→18:37)
[2019-02-15] MEDS: VALPROIC ACID INJ 750 MG in SODIUM CHLORIDE 0.9% 100 ML IV SCH ×3 (03:14→20:19)
[2019-02-15] MEDS: PHENobarbital 65 MG/1 ML VIAL IV SCH ×3 (06:02→21:47)
[2019-02-15] MEDS: PANTOPRAZOLE 40 MG VIAL IV SCH ×2 (08:48→21:45)
[2019-02-15] MEDS: MULTIVITAMIN (CENTRUM) TABLET PO SCH (08:48)
[2019-02-15] MEDS: amLODIPine 10 MG TABLET PO SCH (08:48)
[2019-02-15] MEDS: LISINOPRIL 20 MG TABLET PO SCH (08:48)
[2019-02-15] MEDS: GABAPENTIN 300 MG CAPSULE PO SCH ×3 (08:49→21:46)
[2019-02-15] MEDS: PYRIDOSTIGMINE 60 MG TABLET PO SCH ×3 (08:49→21:46)
[2019-02-15] MEDS: predniSONE 20 MG TABLET PO SCH ×2 (08:49→21:46)
[2019-02-15] MEDS: ENOXAPARIN 40 MG/0.4 ML SYRINGE SUBCUT SCH (08:50)
[2019-02-15] MEDS: INSULIN GLARGINE 100 UNIT/ML SUBCUT SCH (21:45)
[2019-02-16] MEDS: INSULIN REGULAR 100 UNIT/ML SUBCUT SCH ×4 (00:16→17:22)
[2019-02-16] MEDS: VALPROIC ACID INJ 750 MG in SODIUM CHLORIDE 0.9% 100 ML IV SCH ×2 (03:06→09:33)
[2019-02-16 05:06] LABS: Calcium 8.7 MG/DL (8.5-10.1); Osmolality,Calculated 282.3 MOS/KG (273-304)
[2019-02-16] MEDS: PHENobarbital 65 MG/1 ML VIAL IV SCH (05:30)
[2019-02-16] MEDS: amLODIPine 10 MG TABLET PO SCH (08:54)
[2019-02-16] MEDS: PANTOPRAZOLE 40 MG VIAL IV SCH ×2 (08:54→20:24)
[2019-02-16] MEDS: ENOXAPARIN 40 MG/0.4 ML SYRINGE SUBCUT SCH (08:54)
[2019-02-16] MEDS: GABAPENTIN 300 MG CAPSULE PO SCH ×3 (08:54→20:24)
[2019-02-16] MEDS: LISINOPRIL 20 MG TABLET PO SCH (08:54)
[2019-02-16] MEDS: MULTIVITAMIN (CENTRUM) TABLET PO SCH (08:54)
[2019-02-16] MEDS: PYRIDOSTIGMINE 60 MG TABLET PO SCH ×3 (08:55→20:24)
[2019-02-16] MEDS: predniSONE 20 MG TABLET PO SCH ×2 (08:55→20:24)
[2019-02-16] MEDS: VALPROIC ACID 250 MG/5 ML UDCUP PO SCH ×2 (12:33→20:23)
[2019-02-16] MEDS: PHENobarbital 30 MG TABLET PO SCH ×2 (14:05→21:08)
[2019-02-16] MEDS: INSULIN GLARGINE 100 UNIT/ML SUBCUT SCH (20:24)
[2019-02-17] MEDS: INSULIN REGULAR 100 UNIT/ML SUBCUT SCH ×5 (00:13→18:18)
[2019-02-17] MEDS: VALPROIC ACID 250 MG/5 ML UDCUP PO SCH ×3 (03:29→21:29)
[2019-02-17] MEDS: PHENobarbital 30 MG TABLET PO SCH ×3 (06:03→21:29)
[2019-02-17 07:34] LABS: Calcium 8.7 MG/DL (8.5-10.1)
[2019-02-17 07:56] LABS: Prealbumin 36.9 MG/DL (20-40)
[2019-02-17] MEDS: GABAPENTIN 300 MG CAPSULE PO SCH ×3 (08:57→21:29)
[2019-02-17] MEDS: LISINOPRIL 20 MG TABLET PO SCH (08:57)
[2019-02-17] MEDS: predniSONE 20 MG TABLET PO SCH ×2 (08:57→21:29)
[2019-02-17] MEDS: PYRIDOSTIGMINE 60 MG TABLET PO SCH ×3 (08:57→21:29)
[2019-02-17] MEDS: amLODIPine 10 MG TABLET PO SCH (08:57)
[2019-02-17] MEDS: MULTIVITAMIN (CENTRUM) TABLET PO SCH (08:57)
[2019-02-17] MEDS: PANTOPRAZOLE 40 MG VIAL IV SCH ×2 (08:58→21:30)
[2019-02-17] MEDS: ENOXAPARIN 40 MG/0.4 ML SYRINGE SUBCUT SCH (08:58)
[2019-02-17] MEDS ORDERED: SODIUM PHOSPHATE INJ 30 MMOL in SODIUM CHLORIDE 0.9% 250 ML IV ONE (12:00)
[2019-02-17] MEDS ORDERED: ACETAMINOPHEN 325 MG TABLET PO PRN (16:52)
[2019-02-17] MEDS: INSULIN GLARGINE 100 UNIT/ML SUBCUT SCH (21:29)
[2019-02-18] MEDS: INSULIN REGULAR 100 UNIT/ML SUBCUT SCH ×4 (00:03→18:21)
[2019-02-18] MEDS: VALPROIC ACID 250 MG/5 ML UDCUP PO SCH ×3 (02:43→21:45)
[2019-02-18 06:27] LABS: Basophils % 0.2 % (0.0-0.8); Eosinophils # 0.1 10*3/uL (0.0-0.87); Eosinophils % 0.4 % (0.00-10.9); Hematocrit 33.8 VOL% (42.0-52.0); Hemoglobin 11.1 GM/DL (14.0-18.0); Immature Granulocytes % 12.7 %; Mean Corpuscular HGB Conc 32.8 GM/DL (32-36); Mean Corpuscular Volume 101.5 FL (87-102); Mean Platelet Volume 12.4 FL (9.6-12.0); Monocytes % 8.3 % (1.7-12.7); NRBC # 0.03 10*3/uL; Neutrophils % 63.4 % (38.7-73.9); Platelet Count 185 T/CUMM (130-400); Red Blood Count 3.33 MC/CUMM (3.8-5.5); Red Cell Distribution Width 13.2 % (9.3-17.3); White Blood Count 13.4 T/CUMM (4-12)
[2019-02-18] MEDS: PHENobarbital 30 MG TABLET PO SCH ×3 (06:28→21:45)
[2019-02-18 06:36] LABS: Calcium 8.6 MG/DL (8.5-10.1); Osmolality,Calculated 279.4 MOS/KG (273-304)
[2019-02-18 07:05] LABS: Atypical Lymphocytes Few; Band Neutrophils 1 % (0-10); Eosinophils 2 % (0-10); Lymphocytes 20 % (20-55); Metamyelocytes 3 %; Myelocytes 3 %; Nucleated Red Blood Cells 1 (0-5); Segmented Neutrophils 59 % (50-85); Total Cells Counted 100
[2019-02-18 07:06] LABS: Hypochromasia 1+; Macrocytosis 1+; Platelet Estimate Adequate
[2019-02-18] MEDS: GABAPENTIN 300 MG CAPSULE PO SCH ×3 (08:50→21:45)
[2019-02-18] MEDS: MULTIVITAMIN (CENTRUM) TABLET PO SCH (08:50)
[2019-02-18] MEDS: predniSONE 20 MG TABLET PO SCH (08:50)
[2019-02-18] MEDS: LISINOPRIL 20 MG TABLET PO SCH (08:51)
[2019-02-18] MEDS: ENOXAPARIN 40 MG/0.4 ML SYRINGE SUBCUT SCH (08:51)
[2019-02-18] MEDS: amLODIPine 10 MG TABLET PO SCH (08:51)
[2019-02-18] MEDS: PYRIDOSTIGMINE 60 MG TABLET PO SCH ×3 (08:51→21:45)
[2019-02-18] MEDS: PANTOPRAZOLE 40 MG VIAL IV SCH ×2 (08:52→21:46)
[2019-02-18] MEDS ORDERED: SODIUM PHOSPHATE INJ 30 MMOL in SODIUM CHLORIDE 0.9% 250 ML IV ONE (09:47)
[2019-02-18] MEDS: TAMSULOSIN 0.4 MG CAPSULE PO SCH (10:57)
[2019-02-18] MEDS: INSULIN GLARGINE 100 UNIT/ML SUBCUT SCH (21:46)
[2019-02-19] MEDS: INSULIN REGULAR 100 UNIT/ML SUBCUT SCH ×3 (00:23→12:56)
[2019-02-19] MEDS: VALPROIC ACID 250 MG/5 ML UDCUP PO SCH ×2 (03:51→12:56)
[2019-02-19] MEDS: PHENobarbital 30 MG TABLET PO SCH (06:37)
[2019-02-19] MEDS ORDERED: predniSONE 20 MG TABLET PO SCH (09:00)
[2019-02-19] MEDS: LISINOPRIL 20 MG TABLET PO SCH (09:16)
[2019-02-19] MEDS: TAMSULOSIN 0.4 MG CAPSULE PO SCH (09:16)
[2019-02-19] MEDS: amLODIPine 10 MG TABLET PO SCH (09:16)
[2019-02-19] MEDS: MULTIVITAMIN (CENTRUM) TABLET PO SCH (09:16)
[2019-02-19] MEDS: GABAPENTIN 300 MG CAPSULE PO SCH (09:16)
[2019-02-19] MEDS: PYRIDOSTIGMINE 60 MG TABLET PO SCH (09:16)
[2019-02-19] MEDS: PANTOPRAZOLE 40 MG VIAL IV SCH (09:16)
[2019-02-19] MEDS: ENOXAPARIN 40 MG/0.4 ML SYRINGE SUBCUT SCH (09:17)
[2019-02-19 13:58] VITALS: BP 142/86
[2019-02-19] MEDS ORDERED: levETIRAcetam 500 MG TABLET PO SCH (15:00)
== END 2019-02-19 13:55 | DRG 917 ==
LOC: EDBD → EDUNIT# → N.ED 22:03 → SUATTDRO 02-04 01:12 → N.EDINP 02-04 01:12 → N.ICU 02-04 01:50 → N.2E 02-06 19:44 → N.CC 02-07 09:18 → N.5E 02-16 11:32
PROVIDERS: ADMIT Internal Medicine; ATTEND Internal Medicine

== ENCOUNTER 2019-08-17 03:35 | Inpatient (IN) ==
[2019-08-17] MEDS ORDERED: LORazepam 2 MG/1 ML VIAL ONE (03:42)
[2019-08-17] MEDS ORDERED: levETIRAcetam 500 MG/5 ML VIAL IV ONE (03:45)
[2019-08-17] MEDS ORDERED: FOSPHENYTOIN IV STA (04:22)
[2019-08-17] MEDS ORDERED: SODIUM CHLORIDE IV STA (04:22)
[2019-08-17] MEDS ORDERED: [UNRECOGNIZED DRUG - OTHER] IV STA (04:22)
[2019-08-17] MEDS ORDERED: ETOMIDATE 20 MG/10 ML VIAL IV ONE (04:38)
[2019-08-17] MEDS ORDERED: ROCURONIUM 100 MG/10 ML VIAL IV ONE (04:40)
[2019-08-17 04:42] LABS: Basophils % 0.2 % (0.0-0.8); Hematocrit 47.9 VOL% (42.0-52.0); Hemoglobin 15.8 GM/DL (14.0-18.0); Immature Granulocytes % 3.3 %; Immature Granulocytes Absolute 0.43 #; Lymphocytes # 1.2 10*3/uL (1.4-4.0); Lymphocytes % 9.3 % (21.2-54.2); Mean Corpuscular Volume 101.7 FL (87-102); Mean Platelet Volume 12.7 FL (9.6-12.0); Monocytes % 2.7 % (1.7-12.7); Neutrophils % 84.5 % (38.7-73.9); Platelet Count 145 T/CUMM (130-400); Red Blood Count 4.71 MC/CUMM (3.8-5.5); Red Cell Distribution Width 14.6 % (9.3-17.3); White Blood Count 12.9 T/CUMM (4-12)
[2019-08-17] MEDS ORDERED: MIDAZOLAM 10 MG/2 ML VIAL ONE (04:46)
[2019-08-17] MEDS ORDERED: ROCURONIUM 100 MG/10 ML VIAL IV STA (04:50)
[2019-08-17] MEDS ORDERED: ETOMIDATE 20 MG/10 ML VIAL IV STA (04:50)
[2019-08-17] MEDS ORDERED: MIDAZOLAM 10 MG/2 ML VIAL IV STA (04:50)
[2019-08-17] MEDS ORDERED: LORazepam 2 MG/1 ML VIAL IV STA (04:52)
[2019-08-17 05:10] LABS: Blood Urea Nitrogen 18 MG/DL (7-18); Calcium 9.5 MG/DL (8.5-10.1); Estimated Glom Filtration Rate 0 ML/MIN; Glucose 191 MG/DL (74-106); Osmolality,Calculated 279.8 MOS/KG (273-304)
[2019-08-17 05:17] LABS: ABG Base Excess 3.2 MMOL/L (-2.5-2.5); ABG HCO3 27.3 MMOL/L (20-26); ABG PCO2 49.5 MM HG (35-48); ABG PH 7.383 (7.35-7.45); ABG TCO2 25.1 MMOL/L (23-27); Allen Test Positive; Pt O2 Delivery Device Ventilator
[2019-08-17] MEDS ORDERED: ALBUTEROL/IPRATROPIUM 3 ML NEB RESP TX PRN (05:23)
[2019-08-17] MEDS ORDERED: ONDANSETRON 4 MG/2 ML VIAL IV PRN (05:23)
[2019-08-17] MEDS ORDERED: FOSPHENYTOIN IV ONE (05:30)
[2019-08-17] MEDS ORDERED: SODIUM CHLORIDE IV ONE (05:30)
[2019-08-17] MEDS ORDERED: [UNRECOGNIZED DRUG - OTHER] IV ONE (05:30)
[2019-08-17 05:31] LABS: Apearance,Urine CLEAR (Clear); Bacteria,Urine Occasional /HPF (Few); Bilirubin,Urine Negative (Negative); Blood, Urine Small mg/dL (Negative); Glucose,Urine (UA) >=500 mg/dL (Negative); Ketones,Urine 5 mg/dL (Negative); Mucus,Urine Occasional /LPF (Occasional); Nitrite,Urine Negative (Negative); Protein,Urine 100 MG/DL; RBC,Urine 2 /HPF (0-4); Squamous Epithelial Cell,Urine Occasional /HPF (0-10); Urine Color Yellow (Yellow); Urine Specific Gravity 1.024 (1.001-1.035); Urine Urobilinogen < 2.0 EU/DL (0.2-1.0); WBC,Urine 1 /HPF (0-6)
[2019-08-17 05:46] LABS: Barbiturates Screen,Urine Positive (Negative); Benzodiazepines Screen,Urine Negative (Negative); Cannabinoid Screen,Urine Positive (Negative); Opiate Screen,Urine Negative (Negative); Phencyclidine Screen,Urine Negative (Negative)
[2019-08-17] MEDS ORDERED: INFLUENZA VIRUS VACCINE 0.5 ML SYRINGE IM ONE (06:42)
[2019-08-17] MEDS: PIPERACILLIN/TAZOBACTAM 3,375 MG in SODIUM CHLORIDE 0.9% 100 ML IV SCH ×3 (07:02→21:42)
[2019-08-17 08:02] LABS: ABG Base Excess 0.6 MMOL/L (-2.5-2.5); ABG HCO3 26.6 MMOL/L (20-26); ABG Oxygen Saturation 99.1 % (95-100); ABG PCO2 47.9 MM HG (35-48); ABG PH 7.362 (7.35-7.45); ABG PO2 205.2 MM HG (80-95); Allen Test Positive; Pt O2 Delivery Device Ventilator
[2019-08-17] MEDS: VALPROIC ACID 250 MG/5 ML UDCUP PO SCH ×2 (09:37→21:43)
[2019-08-17] MEDS: MIDAZOLAM 100 MG in SODIUM CHLORIDE 0.9% 80 ML IV PRN (09:37)
[2019-08-17] MEDS: methylPREDNISolone SOD SUC 40 MG/1 ML VIAL IV SCH ×2 (13:20→21:43)
[2019-08-18 04:54] LABS: Phenytoin (Dilantin) 12.7 UG/ML (10-20)
[2019-08-18 04:55] LABS: Albumin 2.7 G/DL (3.4-5.0); Bilirubin,Total 0.5 MG/DL (0.2-1.0); Calcium 8.5 MG/DL (8.5-10.1); Osmolality,Calculated 287.3 MOS/KG (273-304); Total Protein 6.1 G/DL (6.4-8.3)
[2019-08-18] MEDS ORDERED: methylPREDNISolone SOD SUC 125 MG/2 ML VIAL ONE (05:48)
[2019-08-18] MEDS: methylPREDNISolone SOD SUC 40 MG/1 ML VIAL IV SCH ×3 (05:55→20:37)
[2019-08-18] MEDS: PIPERACILLIN/TAZOBACTAM 3,375 MG in SODIUM CHLORIDE 0.9% 100 ML IV SCH ×3 (06:01→21:24)
[2019-08-18] MEDS: VALPROIC ACID 250 MG/5 ML UDCUP PO SCH ×2 (08:34→20:40)
[2019-08-18] MEDS: MIDAZOLAM 100 MG in SODIUM CHLORIDE 0.9% 80 ML IV PRN (16:40)
[2019-08-18] MEDS: SODIUM CHLORIDE 0.9% 1,000 ML IV SCH (18:24)
[2019-08-18] MEDS: ENOXAPARIN 40 MG/0.4 ML SYRINGE SUBCUT SCH (20:41)
[2019-08-18] MEDS ORDERED: PYRIDOSTIGMINE 60 MG TABLET PO SCH (21:00)
[2019-08-19 04:09] LABS: Allen Test Positive; Pt O2 Delivery Device Ventilator
[2019-08-19 04:10] LABS: ABG Base Excess 2.1 MMOL/L (-2.5-2.5); ABG HCO3 25.1 MMOL/L (20-26); ABG Oxygen Saturation 96.2 % (95-100); ABG PH 7.486 (7.35-7.45); ABG PO2 83.3 MM HG (80-95); ABG TCO2 26.1 MMOL/L (23-27)
[2019-08-19] MEDS: SODIUM CHLORIDE 0.9% 1,000 ML IV SCH (04:28)
[2019-08-19 04:45] LABS: Basophils % 0.1 % (0.0-0.8); Immature Granulocytes % 1.7 %; Immature Granulocytes Absolute 0.17 #; Lymphocytes # 1.3 10*3/uL (1.4-4.0); Lymphocytes % 12.7 % (21.2-54.2); Mean Corpuscular HGB Conc 32.4 GM/DL (32-36); Mean Corpuscular Volume 102.8 FL (87-102); Monocytes % 5.6 % (1.7-12.7); Neutrophils % 79.9 % (38.7-73.9); Red Blood Count 3.99 MC/CUMM (3.8-5.5); Red Cell Distribution Width 14.4 % (9.3-17.3)
[2019-08-19 05:05] LABS: Platelet Count 111 T/CUMM (130-400)
[2019-08-19 05:06] LABS: Calcium 8.4 MG/DL (8.5-10.1); Hemoglobin 13.3 GM/DL (14.0-18.0); Osmolality,Calculated 288.1 MOS/KG (273-304)
[2019-08-19] MEDS: methylPREDNISolone SOD SUC 40 MG/1 ML VIAL IV SCH ×2 (05:10→14:54)
[2019-08-19] MEDS: PIPERACILLIN/TAZOBACTAM 3,375 MG in SODIUM CHLORIDE 0.9% 100 ML IV SCH ×3 (05:20→21:21)
[2019-08-19] MEDS ORDERED: LORazepam 2 MG/1 ML VIAL IV PRN (10:26)
[2019-08-19] MEDS ORDERED: METOPROLOL TARTRATE 5 MG/5 ML VIAL IV ONE (10:26)
[2019-08-19] MEDS ORDERED: DILTIAZEM 50 MG/10 ML VIAL IV ONE (10:30)
[2019-08-19] MEDS ORDERED: FUROSEMIDE 40 MG/4 ML VIAL IV ONE (10:33)
[2019-08-19] MEDS: TAMSULOSIN 0.4 MG CAPSULE PO SCH (10:54)
[2019-08-19] MEDS: VALPROIC ACID 250 MG/5 ML UDCUP PO SCH ×2 (10:54→20:43)
[2019-08-19] MEDS: ATORVASTATIN 40 MG TABLET PO SCH (10:54)
[2019-08-19] MEDS: PANTOPRAZOLE 40 MG VIAL IV SCH (11:02)
[2019-08-19] MEDS: dilTIAZem Drip 125 MG/125 ML PREMIX IV SCH (11:12)
[2019-08-19] MEDS: carvediloL 6.25 MG TABLET PO SCH ×2 (14:54→20:42)
[2019-08-19] MEDS ORDERED: chlordiazePOXIDE 25 MG CAPSULE PO SCH (15:00)
[2019-08-19] MEDS: PYRIDOSTIGMINE 60 MG TABLET PO SCH ×2 (15:50→20:43)
[2019-08-19] MEDS: GABAPENTIN 300 MG CAPSULE PO SCH ×2 (15:50→20:45)
[2019-08-19] MEDS: amLODIPine 10 MG TABLET PO SCH (15:50)
[2019-08-19] MEDS: predniSONE 10 MG TABLET PO SCH (20:43)
[2019-08-19] MEDS: ENOXAPARIN 40 MG/0.4 ML SYRINGE SUBCUT SCH (20:46)
[2019-08-20 04:18] LABS: Basophils % 0.1 % (0.0-0.8); Hematocrit 42.6 VOL% (42.0-52.0); Hemoglobin 13.8 GM/DL (14.0-18.0); Immature Granulocytes % 1.1 %; Immature Granulocytes Absolute 0.16 #; Lymphocytes # 1.5 10*3/uL (1.4-4.0); Lymphocytes % 10.7 % (21.2-54.2); Mean Corpuscular HGB Conc 32.4 GM/DL (32-36); Mean Corpuscular Volume 101.4 FL (87-102); Monocytes % 7.6 % (1.7-12.7); Neutrophils % 80.5 % (38.7-73.9); Platelet Count 110 T/CUMM (130-400); White Blood Count 14.3 T/CUMM (4-12)
[2019-08-20 04:31] LABS: Calcium 8.9 MG/DL (8.5-10.1); Osmolality,Calculated 276.8 MOS/KG (273-304)
[2019-08-20 04:59] LABS: ABG Base Excess 4.8 MMOL/L (-2.5-2.5); ABG HCO3 28.7 MMOL/L (20-26); ABG Oxygen Saturation 98.9 % (95-100); ABG PCO2 44.2 MM HG (35-48); ABG PH 7.436 (7.35-7.45); ABG TCO2 25.4 MMOL/L (23-27); Allen Test Positive
[2019-08-20] MEDS: PIPERACILLIN/TAZOBACTAM 3,375 MG in SODIUM CHLORIDE 0.9% 100 ML IV SCH ×3 (05:41→21:33)
[2019-08-20] MEDS: GABAPENTIN 300 MG CAPSULE PO SCH ×3 (08:45→21:32)
[2019-08-20] MEDS: PYRIDOSTIGMINE 60 MG TABLET PO SCH ×3 (08:45→21:33)
[2019-08-20] MEDS: VALPROIC ACID 250 MG/5 ML UDCUP PO SCH ×2 (08:45→21:32)
[2019-08-20] MEDS: amLODIPine 10 MG TABLET PO SCH ×2 (08:46→13:56)
[2019-08-20] MEDS: PANTOPRAZOLE 40 MG VIAL IV SCH (08:46)
[2019-08-20] MEDS: ATORVASTATIN 40 MG TABLET PO SCH (08:46)
[2019-08-20] MEDS: predniSONE 10 MG TABLET PO SCH ×2 (08:46→21:33)
[2019-08-20] MEDS: TAMSULOSIN 0.4 MG CAPSULE PO SCH (08:46)
[2019-08-20] MEDS: carvediloL 6.25 MG TABLET PO SCH ×2 (08:46→21:33)
[2019-08-20] MEDS: NICOTINE 21 MG/24 HR PATCH TRANSDERM PRN (09:35)
[2019-08-20] MEDS ORDERED: GLUCAGON 1 MG VIAL IM PRN (09:58)
[2019-08-20] MEDS ORDERED: DEXTROSE 10% 250 ML BAG IV PRN (09:58)
[2019-08-20] MEDS: dilTIAZem Drip 125 MG/125 ML PREMIX IV SCH (10:00)
[2019-08-20] MEDS ORDERED: amLODIPine 10 MG TABLET PO SCH (10:13)
[2019-08-20] MEDS ORDERED: FUROSEMIDE 20 MG/2 ML VIAL IV ONE (10:21)
[2019-08-20] MEDS ORDERED: INFLUENZA VIRUS VACCINE 0.5 ML SYRINGE IM ONE (12:00)
[2019-08-20] MEDS: INSULIN LISPRO 100 UNIT/ML SUBCUT SCH ×3 (12:27→22:32)
[2019-08-20] MEDS: chlordiazePOXIDE 25 MG CAPSULE PO SCH ×2 (13:17→21:32)
[2019-08-20] MEDS: THIAMINE 100 MG TABLET PO SCH (16:52)
[2019-08-20] MEDS: levETIRAcetam 500 MG TABLET PO SCH ×2 (16:56→21:31)
[2019-08-20] MEDS: FOLIC ACID 1 MG TABLET PO SCH (16:57)
[2019-08-20] MEDS: ALBUTEROL/IPRATROPIUM 3 ML NEB RESP TX SCH (18:58)
[2019-08-20] MEDS ORDERED: VECURONIUM 10 MG VIAL IV ONE ×2 (21:55→22:12)
[2019-08-20] MEDS ORDERED: ETOMIDATE 20 MG/10 ML VIAL IV ONE (21:55)
[2019-08-20] MEDS: ENOXAPARIN 40 MG/0.4 ML SYRINGE SUBCUT SCH (23:13)
[2019-08-20 23:22] LABS: ABG Base Excess 6.3 MMOL/L (-2.5-2.5); ABG HCO3 30.2 MMOL/L (20-26); ABG Oxygen Saturation 99.9 % (95-100); ABG PCO2 43.2 MM HG (35-48); ABG PH 7.463 (7.35-7.45); ABG TCO2 26.1 MMOL/L (23-27)
[2019-08-21] MEDS: PIPERACILLIN/TAZOBACTAM 3,375 MG in SODIUM CHLORIDE 0.9% 100 ML IV SCH ×4 (00:16→22:17)
[2019-08-21 00:40] LABS: Barbiturates Screen,Urine Positive (Negative); Benzodiazepines Screen,Urine Positive (Negative); Cannabinoid Screen,Urine Positive (Negative); Opiate Screen,Urine Negative (Negative); Phencyclidine Screen,Urine Negative (Negative)
[2019-08-21] MEDS: ALBUTEROL/IPRATROPIUM 3 ML NEB RESP TX SCH ×4 (01:32→20:25)
[2019-08-21] MEDS: chlordiazePOXIDE 25 MG CAPSULE PO SCH ×3 (01:39→20:46)
[2019-08-21] MEDS: VALPROIC ACID 250 MG/5 ML UDCUP PO SCH ×3 (01:39→20:47)
[2019-08-21] MEDS: carvediloL 6.25 MG TABLET PO SCH ×3 (01:39→20:47)
[2019-08-21] MEDS: GABAPENTIN 300 MG CAPSULE PO SCH ×4 (01:40→20:46)
[2019-08-21] MEDS: PYRIDOSTIGMINE 60 MG TABLET PO SCH ×2 (01:40→08:50)
[2019-08-21] MEDS: predniSONE 10 MG TABLET PO SCH ×2 (01:40→08:39)
[2019-08-21 04:49] LABS: Basophils # 0.1 10*3/uL (0.0-0.2); Basophils % 0.7 % (0.0-0.8); Eosinophils % 0.2 % (0.00-10.9); Hematocrit 42.4 VOL% (42.0-52.0); Hemoglobin 14.3 GM/DL (14.0-18.0); Immature Granulocytes % 4.2 %; Immature Granulocytes Absolute 0.52 #; Lymphocytes # 2.2 10*3/uL (1.4-4.0); Lymphocytes % 17.5 % (21.2-54.2); Mean Corpuscular HGB Conc 33.7 GM/DL (32-36); Mean Corpuscular Volume 98.4 FL (87-102); Mean Platelet Volume 12.9 FL (9.6-12.0); Neutrophils % 69.4 % (38.7-73.9); Platelet Count 123 T/CUMM (130-400); Red Blood Count 4.31 MC/CUMM (3.8-5.5); Red Cell Distribution Width 13.7 % (9.3-17.3); White Blood Count 12.3 T/CUMM (4-12)
[2019-08-21 05:12] LABS: Calcium 8.4 MG/DL (8.5-10.1); Osmolality,Calculated 285.4 MOS/KG (273-304)
[2019-08-21 05:15] LABS: Lymphocytes 15 % (20-55); Platelet Estimate Adequate; Segmented Neutrophils 77 % (50-85); Total Cells Counted 100
[2019-08-21] MEDS: INSULIN LISPRO 100 UNIT/ML SUBCUT SCH ×4 (08:18→23:23)
[2019-08-21] MEDS: ATORVASTATIN 40 MG TABLET PO SCH (08:38)
[2019-08-21] MEDS: FOLIC ACID 1 MG TABLET PO SCH (08:38)
[2019-08-21] MEDS: THIAMINE 100 MG TABLET PO SCH (08:39)
[2019-08-21] MEDS: PANTOPRAZOLE 40 MG VIAL IV SCH (08:41)
[2019-08-21] MEDS: POTASSIUM CHLORIDE 20 MEQ/15 ML UDCUP PER TUBE PRN ×4 (08:41→18:15)
[2019-08-21] MEDS: NICOTINE 21 MG/24 HR PATCH TRANSDERM PRN (08:41)
[2019-08-21] MEDS: TAMSULOSIN 0.4 MG CAPSULE PO SCH (08:49)
[2019-08-21] MEDS: amLODIPine 10 MG TABLET PO SCH (08:50)
[2019-08-21] MEDS: methylPREDNISolone SOD SUC 40 MG/1 ML VIAL IV SCH ×2 (10:07→18:22)
[2019-08-21] MEDS: ENOXAPARIN 40 MG/0.4 ML SYRINGE SUBCUT SCH (20:47)
[2019-08-22] MEDS: ALBUTEROL/IPRATROPIUM 3 ML NEB RESP TX SCH ×4 (00:13→20:46)
[2019-08-22] MEDS: methylPREDNISolone SOD SUC 40 MG/1 ML VIAL IV SCH ×3 (02:49→17:58)
[2019-08-22 03:18] LABS: ABG Base Excess 1.1 MMOL/L (-2.5-2.5); ABG HCO3 25.4 MMOL/L (20-26); ABG Oxygen Saturation 99.1 % (95-100); ABG PCO2 39.1 MM HG (35-48); ABG TCO2 26.6 MMOL/L (23-27); Allen Test Positive; Pt O2 Delivery Device Ventilator
[2019-08-22 04:35] LABS: Barbiturates Screen,Urine Positive (Negative); Benzodiazepines Screen,Urine Positive (Negative); Cannabinoid Screen,Urine Positive (Negative); Opiate Screen,Urine Negative (Negative); Phencyclidine Screen,Urine Negative (Negative)
[2019-08-22 04:39] LABS: Basophils # 0.1 10*3/uL (0.0-0.2); Basophils % 0.6 % (0.0-0.8); Eosinophils % 0.1 % (0.00-10.9); Hemoglobin 13.9 GM/DL (14.0-18.0); Immature Granulocytes % 5.6 %; Lymphocytes # 1.8 10*3/uL (1.4-4.0); Lymphocytes % 14.4 % (21.2-54.2); Mean Corpuscular HGB Conc 33.1 GM/DL (32-36); Mean Corpuscular Volume 101.9 FL (87-102); Mean Platelet Volume 12.8 FL (9.6-12.0); Neutrophils % 72.3 % (38.7-73.9); Platelet Count 116 T/CUMM (130-400); Red Blood Count 4.12 MC/CUMM (3.8-5.5); Red Cell Distribution Width 13.8 % (9.3-17.3); White Blood Count 12.5 T/CUMM (4-12)
[2019-08-22 05:02] LABS: Albumin 2.3 G/DL (3.4-5.0); Bilirubin,Total 1.2 MG/DL (0.2-1.0); Calcium 8.7 MG/DL (8.5-10.1); Prealbumin 29.9 MG/DL (20-40); Total Protein 6.5 G/DL (6.4-8.3)
[2019-08-22 05:14] LABS: Lymphocytes 17 % (20-55); Segmented Neutrophils 80 % (50-85); Total Cells Counted 100
[2019-08-22 05:15] LABS: Hypochromasia Slight; Platelet Estimate Decreased
[2019-08-22] MEDS: INSULIN LISPRO 100 UNIT/ML SUBCUT SCH ×3 (06:03→17:57)
[2019-08-22] MEDS: PIPERACILLIN/TAZOBACTAM 3,375 MG in SODIUM CHLORIDE 0.9% 100 ML IV SCH ×3 (06:03→22:33)
[2019-08-22] MEDS: VALPROIC ACID 250 MG/5 ML UDCUP PO SCH ×2 (09:08→20:40)
[2019-08-22] MEDS: PANTOPRAZOLE 40 MG VIAL IV SCH (09:08)
[2019-08-22] MEDS: THIAMINE 100 MG TABLET PO SCH (09:09)
[2019-08-22] MEDS: TAMSULOSIN 0.4 MG CAPSULE PO SCH (09:09)
[2019-08-22] MEDS: FOLIC ACID 1 MG TABLET PO SCH (09:09)
[2019-08-22] MEDS: GABAPENTIN 300 MG CAPSULE PO SCH ×3 (09:09→20:40)
[2019-08-22] MEDS: ATORVASTATIN 40 MG TABLET PO SCH (09:09)
[2019-08-22] MEDS: amLODIPine 10 MG TABLET PO SCH (09:09)
[2019-08-22] MEDS: chlordiazePOXIDE 25 MG CAPSULE PO SCH ×3 (09:10→20:41)
[2019-08-22] MEDS: carvediloL 6.25 MG TABLET PO SCH ×2 (09:10→20:40)
[2019-08-22] MEDS: LORazepam 2 MG/1 ML VIAL IV PRN (10:18)
[2019-08-22] MEDS: PHENobarbital 65 MG/1 ML VIAL IV SCH ×2 (11:01→22:30)
[2019-08-22] MEDS: hydrALAZINE 20 MG/1 ML VIAL IV PRN (13:10)
[2019-08-22] MEDS: ENOXAPARIN 40 MG/0.4 ML SYRINGE SUBCUT SCH (20:41)
[2019-08-23] MEDS: INSULIN LISPRO 100 UNIT/ML SUBCUT SCH ×4 (00:15→17:30)
[2019-08-23] MEDS: ALBUTEROL/IPRATROPIUM 3 ML NEB RESP TX SCH ×4 (01:55→20:33)
[2019-08-23] MEDS: methylPREDNISolone SOD SUC 40 MG/1 ML VIAL IV SCH ×3 (01:57→17:30)
[2019-08-23 04:01] LABS: ABG Base Excess 3.3 MMOL/L (-2.5-2.5); ABG HCO3 27.4 MMOL/L (20-26); ABG Oxygen Saturation 99.3 % (95-100); ABG PCO2 39.3 MM HG (35-48); ABG PH 7.451 (7.35-7.45); ABG TCO2 23.1 MMOL/L (23-27); Pt O2 Delivery Device Ventilator
[2019-08-23] MEDS: PIPERACILLIN/TAZOBACTAM 3,375 MG in SODIUM CHLORIDE 0.9% 100 ML IV SCH ×3 (06:04→22:13)
[2019-08-23 06:36] LABS: Basophils # 0.1 10*3/uL (0.0-0.2); Basophils % 0.5 % (0.0-0.8); Hematocrit 41.4 VOL% (42.0-52.0); Hemoglobin 13.4 GM/DL (14.0-18.0); Immature Granulocytes % 4.8 %; Immature Granulocytes Absolute 0.64 #; Lymphocytes # 1.2 10*3/uL (1.4-4.0); Lymphocytes % 9.1 % (21.2-54.2); Mean Corpuscular HGB Conc 32.4 GM/DL (32-36); Mean Corpuscular Volume 103.2 FL (87-102); Mean Platelet Volume 12.8 FL (9.6-12.0); Monocytes % 5.7 % (1.7-12.7); Neutrophils % 79.9 % (38.7-73.9); Platelet Count 136 T/CUMM (130-400); Red Blood Count 4.01 MC/CUMM (3.8-5.5); Red Cell Distribution Width 13.9 % (9.3-17.3); White Blood Count 13.4 T/CUMM (4-12)
[2019-08-23 06:43] LABS: Alanine Aminotransferase 13 U/L (16-61); Albumin 2.4 G/DL (3.4-5.0); Alkaline Phosphatase 73 U/L (45-117); Aspartate Amino Transferase 11 U/L (0-37); Bilirubin,Total < 0.39 MG/DL (0.2-1.0); Blood Urea Nitrogen 24 MG/DL (7-18); Calcium 8.9 MG/DL (8.5-10.1); Estimated Glom Filtration Rate 114 ML/MIN; Glucose 211 MG/DL (74-106); Osmolality,Calculated 288.4 MOS/KG (273-304); Total Protein 6.6 G/DL (6.4-8.3)
[2019-08-23 09:14] LABS: Atypical Lymphocytes S; Band Neutrophils 2 % (0-10); Lymphocytes 3 % (20-55); Metamyelocytes 1 %; Myelocytes 1 %; Platelet Estimate Adequate; Polychromasia Slight; Segmented Neutrophils 91 % (50-85); Total Cells Counted 100
[2019-08-23 09:15] LABS: Giant Platelets Few
[2019-08-23] MEDS: GABAPENTIN 300 MG CAPSULE PO SCH ×3 (09:32→21:01)
[2019-08-23] MEDS: THIAMINE 100 MG TABLET PO SCH (09:33)
[2019-08-23] MEDS: ATORVASTATIN 40 MG TABLET PO SCH (09:33)
[2019-08-23] MEDS: VALPROIC ACID 250 MG/5 ML UDCUP PO SCH ×2 (09:33→21:01)
[2019-08-23] MEDS: chlordiazePOXIDE 25 MG CAPSULE PO SCH ×3 (09:34→21:01)
[2019-08-23] MEDS: TAMSULOSIN 0.4 MG CAPSULE PO SCH (09:34)
[2019-08-23] MEDS: FOLIC ACID 1 MG TABLET PO SCH (09:34)
[2019-08-23] MEDS: carvediloL 6.25 MG TABLET PO SCH ×2 (09:34→21:01)
[2019-08-23] MEDS: PANTOPRAZOLE 40 MG VIAL IV SCH (09:34)
[2019-08-23] MEDS: amLODIPine 10 MG TABLET PO SCH (09:37)
[2019-08-23] MEDS: PHENobarbital 65 MG/1 ML VIAL IV SCH ×2 (09:39→22:09)
[2019-08-23] MEDS: ENOXAPARIN 40 MG/0.4 ML SYRINGE SUBCUT SCH (21:02)
[2019-08-24] MEDS: ALBUTEROL/IPRATROPIUM 3 ML NEB RESP TX SCH ×4 (00:18→20:02)
[2019-08-24] MEDS: INSULIN LISPRO 100 UNIT/ML SUBCUT SCH ×4 (00:40→18:21)
[2019-08-24] MEDS: methylPREDNISolone SOD SUC 40 MG/1 ML VIAL IV SCH ×3 (02:01→18:22)
[2019-08-24 04:06] LABS: ABG Base Excess 4.1 MMOL/L (-2.5-2.5); ABG HCO3 28.1 MMOL/L (20-26); ABG Oxygen Saturation 99.2 % (95-100); ABG PCO2 46.2 MM HG (35-48); ABG PH 7.415 (7.35-7.45); Allen Test Positive; Pt O2 Delivery Device Ventilator
[2019-08-24 04:56] LABS: Albumin 2.4 G/DL (3.4-5.0); Bilirubin,Total 0.7 MG/DL (0.2-1.0); Calcium 8.9 MG/DL (8.5-10.1); Osmolality,Calculated 296.1 MOS/KG (273-304); Total Protein 6.5 G/DL (6.4-8.3)
[2019-08-24] MEDS: PIPERACILLIN/TAZOBACTAM 3,375 MG in SODIUM CHLORIDE 0.9% 100 ML IV SCH ×2 (05:25→14:26)
[2019-08-24] MEDS ORDERED: BISACODYL 5 MG TABLET PO PRN (09:08)
[2019-08-24] MEDS: VALPROIC ACID 250 MG/5 ML UDCUP PO SCH ×2 (09:19→20:48)
[2019-08-24] MEDS: GABAPENTIN 300 MG CAPSULE PO SCH ×3 (09:19→20:47)
[2019-08-24] MEDS: ATORVASTATIN 40 MG TABLET PO SCH (09:19)
[2019-08-24] MEDS: carvediloL 6.25 MG TABLET PO SCH ×2 (09:20→20:47)
[2019-08-24] MEDS: TAMSULOSIN 0.4 MG CAPSULE PO SCH (09:20)
[2019-08-24] MEDS: FOLIC ACID 1 MG TABLET PO SCH (09:20)
[2019-08-24] MEDS: THIAMINE 100 MG TABLET PO SCH (09:20)
[2019-08-24] MEDS: amLODIPine 10 MG TABLET PO SCH (09:20)
[2019-08-24] MEDS: chlordiazePOXIDE 25 MG CAPSULE PO SCH ×3 (09:20→20:47)
[2019-08-24] MEDS: PANTOPRAZOLE 40 MG VIAL IV SCH (09:21)
[2019-08-24] MEDS: PHENobarbital 65 MG/1 ML VIAL IV SCH ×2 (09:33→22:03)
[2019-08-24] MEDS: ENOXAPARIN 40 MG/0.4 ML SYRINGE SUBCUT SCH (20:48)
[2019-08-25] MEDS: INSULIN LISPRO 100 UNIT/ML SUBCUT SCH ×4 (00:15→18:16)
[2019-08-25] MEDS: ALBUTEROL/IPRATROPIUM 3 ML NEB RESP TX SCH ×4 (01:40→19:53)
[2019-08-25] MEDS: methylPREDNISolone SOD SUC 40 MG/1 ML VIAL IV SCH ×3 (02:06→18:16)
[2019-08-25 04:31] LABS: ABG Base Excess 5.6 MMOL/L (-2.5-2.5); ABG HCO3 29.5 MMOL/L (20-26); ABG Oxygen Saturation 96.8 % (95-100); ABG PCO2 40.4 MM HG (35-48); ABG PH 7.482 (7.35-7.45); ABG PO2 89.9 MM HG (80-95); ABG TCO2 30.8 MMOL/L (23-27); Allen Test Positive; Pt O2 Delivery Device Ventilator
[2019-08-25 05:26] LABS: Basophils # 0.1 10*3/uL (0.0-0.2); Basophils % 0.7 % (0.0-0.8); Eosinophils % 0.1 % (0.00-10.9); Hematocrit 40.8 VOL% (42.0-52.0); Hemoglobin 13.6 GM/DL (14.0-18.0); Immature Granulocytes % 5.9 %; Immature Granulocytes Absolute 0.68 #; Lymphocytes # 1.3 10*3/uL (1.4-4.0); Lymphocytes % 11.1 % (21.2-54.2); Mean Corpuscular HGB Conc 33.3 GM/DL (32-36); Mean Corpuscular Volume 100.2 FL (87-102); Monocytes % 6.4 % (1.7-12.7); Neutrophils % 75.8 % (38.7-73.9); Platelet Count 150 T/CUMM (130-400); Red Blood Count 4.07 MC/CUMM (3.8-5.5); Red Cell Distribution Width 13.7 % (9.3-17.3); White Blood Count 11.4 T/CUMM (4-12)
[2019-08-25 05:48] LABS: Lymphocytes 11 % (20-55); Platelet Estimate Adequate; Segmented Neutrophils 84 % (50-85); Total Cells Counted 100
[2019-08-25 05:49] LABS: Hypochromasia Slight
[2019-08-25 06:06] LABS: Calcium 9.2 MG/DL (8.5-10.1); Osmolality,Calculated 296.1 MOS/KG (273-304)
[2019-08-25] MEDS ORDERED: LORazepam 2 MG/1 ML VIAL ONE (09:41)
[2019-08-25] MEDS: VALPROIC ACID 250 MG/5 ML UDCUP PO SCH ×2 (09:42→21:52)
[2019-08-25] MEDS: LORazepam 2 MG/1 ML VIAL IV PRN (09:43)
[2019-08-25] MEDS: TAMSULOSIN 0.4 MG CAPSULE PO SCH (09:52)
[2019-08-25] MEDS: FOLIC ACID 1 MG TABLET PO SCH (09:52)
[2019-08-25] MEDS: THIAMINE 100 MG TABLET PO SCH (09:52)
[2019-08-25] MEDS: GABAPENTIN 300 MG CAPSULE PO SCH ×3 (09:52→21:51)
[2019-08-25] MEDS: ATORVASTATIN 40 MG TABLET PO SCH (09:52)
[2019-08-25] MEDS: carvediloL 6.25 MG TABLET PO SCH ×2 (09:52→21:51)
[2019-08-25] MEDS: PANTOPRAZOLE 40 MG VIAL IV SCH (09:53)
[2019-08-25] MEDS: PHENobarbital 65 MG/1 ML VIAL IV SCH ×2 (09:54→21:50)
[2019-08-25] MEDS: chlordiazePOXIDE 25 MG CAPSULE PO SCH ×3 (09:54→21:50)
[2019-08-25] MEDS: amLODIPine 10 MG TABLET PO SCH (10:29)
[2019-08-25] MEDS: ENOXAPARIN 40 MG/0.4 ML SYRINGE SUBCUT SCH (21:51)
[2019-08-26] MEDS: INSULIN LISPRO 100 UNIT/ML SUBCUT SCH ×4 (00:22→18:02)
[2019-08-26] MEDS: ALBUTEROL/IPRATROPIUM 3 ML NEB RESP TX SCH ×4 (00:46→18:08)
[2019-08-26] MEDS: methylPREDNISolone SOD SUC 40 MG/1 ML VIAL IV SCH ×2 (02:47→15:25)
[2019-08-26 03:46] LABS: ABG Base Excess 4.5 MMOL/L (-2.5-2.5); ABG HCO3 28.4 MMOL/L (20-26); ABG Oxygen Saturation 96.4 % (95-100); ABG PCO2 48.2 MM HG (35-48); ABG PH 7.407 (7.35-7.45); ABG TCO2 26.1 MMOL/L (23-27)
[2019-08-26 05:30] LABS: Basophils # 0.1 10*3/uL (0.0-0.2); Basophils % 0.4 % (0.0-0.8); Eosinophils % 0.1 % (0.00-10.9); Hematocrit 43.8 VOL% (42.0-52.0); Hemoglobin 13.9 GM/DL (14.0-18.0); Immature Granulocytes Absolute 0.75 #; Lymphocytes # 1.4 10*3/uL (1.4-4.0); Lymphocytes % 9.7 % (21.2-54.2); Mean Corpuscular HGB Conc 31.7 GM/DL (32-36); Mean Corpuscular Volume 103.5 FL (87-102); Mean Platelet Volume 12.3 FL (9.6-12.0); Monocytes % 7.4 % (1.7-12.7); Neutrophils % 77.4 % (38.7-73.9); Platelet Count 163 T/CUMM (130-400); Red Blood Count 4.23 MC/CUMM (3.8-5.5); Red Cell Distribution Width 13.6 % (9.3-17.3); White Blood Count 14.9 T/CUMM (4-12)
[2019-08-26 05:54] LABS: Band Neutrophils 1 % (0-10); Eosinophils 1 % (0-10); Hypochromasia Slight; Lymphocytes 11 % (20-55); Platelet Estimate Adequate; Segmented Neutrophils 77 % (50-85); Total Cells Counted 100
[2019-08-26 06:03] LABS: Calcium 9.3 MG/DL (8.5-10.1)
[2019-08-26] MEDS: PHENobarbital 65 MG/1 ML VIAL IV SCH ×3 (06:23→21:38)
[2019-08-26] MEDS: VALPROIC ACID 250 MG/5 ML UDCUP PO SCH ×2 (09:25→21:37)
[2019-08-26] MEDS: FOLIC ACID 1 MG TABLET PO SCH (09:26)
[2019-08-26] MEDS: carvediloL 6.25 MG TABLET PO SCH ×2 (09:26→21:43)
[2019-08-26] MEDS: ATORVASTATIN 40 MG TABLET PO SCH (09:26)
[2019-08-26] MEDS: chlordiazePOXIDE 25 MG CAPSULE PO SCH ×3 (09:26→21:41)
[2019-08-26] MEDS: GABAPENTIN 300 MG CAPSULE PO SCH ×3 (09:26→21:42)
[2019-08-26] MEDS: PANTOPRAZOLE 40 MG VIAL IV SCH (09:26)
[2019-08-26] MEDS: TAMSULOSIN 0.4 MG CAPSULE PO SCH (09:26)
[2019-08-26] MEDS: THIAMINE 100 MG TABLET PO SCH (09:26)
[2019-08-26] MEDS: amLODIPine 10 MG TABLET PO SCH (11:45)
[2019-08-26] MEDS: ENOXAPARIN 40 MG/0.4 ML SYRINGE SUBCUT SCH (21:41)
[2019-08-27] MEDS: ALBUTEROL/IPRATROPIUM 3 ML NEB RESP TX SCH ×4 (00:25→19:15)
[2019-08-27] MEDS: INSULIN LISPRO 100 UNIT/ML SUBCUT SCH ×4 (00:46→17:14)
[2019-08-27 03:30] LABS: ABG Base Excess 5.6 MMOL/L (-2.5-2.5); ABG HCO3 29.3 MMOL/L (20-26); ABG Oxygen Saturation 92.2 % (95-100); ABG PCO2 49.4 MM HG (35-48); ABG PH 7.414 (7.35-7.45); ABG PO2 64.2 MM HG (80-95); Allen Test Positive; Pt O2 Delivery Device Ventilator
[2019-08-27] MEDS: methylPREDNISolone SOD SUC 40 MG/1 ML VIAL IV SCH ×2 (03:30→15:22)
[2019-08-27] MEDS ORDERED: ACETAMINOPHEN 650 MG SUPP RECTAL ONE (04:09)
[2019-08-27 05:22] LABS: Calcium 9.9 MG/DL (8.5-10.1)
[2019-08-27] MEDS: PHENobarbital 65 MG/1 ML VIAL IV SCH ×3 (06:20→23:25)
[2019-08-27] MEDS: IBUPROFEN 100 MG/5 ML UDCUP PO PRN (08:45)
[2019-08-27] MEDS: VALPROIC ACID 250 MG/5 ML UDCUP PO SCH ×2 (08:46→20:54)
[2019-08-27] MEDS: FOLIC ACID 1 MG TABLET PO SCH (08:47)
[2019-08-27] MEDS: GABAPENTIN 300 MG CAPSULE PO SCH ×3 (08:47→20:55)
[2019-08-27] MEDS: ATORVASTATIN 40 MG TABLET PO SCH (08:47)
[2019-08-27] MEDS: chlordiazePOXIDE 25 MG CAPSULE PO SCH ×2 (08:47→15:22)
[2019-08-27] MEDS: amLODIPine 10 MG TABLET PO SCH (08:48)
[2019-08-27] MEDS: TAMSULOSIN 0.4 MG CAPSULE PO SCH (08:48)
[2019-08-27] MEDS: THIAMINE 100 MG TABLET PO SCH (08:48)
[2019-08-27] MEDS: carvediloL 6.25 MG TABLET PO SCH (08:48)
[2019-08-27] MEDS: PANTOPRAZOLE 40 MG VIAL IV SCH (08:54)
[2019-08-27] MEDS ORDERED: INSULIN GLARGINE 100 UNIT/ML SUBCUT SCH (09:00)
[2019-08-27] MEDS: PIPERACILLIN/TAZOBACTAM 3,375 MG in SODIUM CHLORIDE 0.9% 100 ML IV SCH ×2 (09:02→15:21)
[2019-08-27 10:15] LABS: Apearance,Urine CLEAR (Clear); Bilirubin,Urine Negative (Negative); Blood, Urine Large mg/dL (Negative); Glucose,Urine (UA) >=500 mg/dL (Negative); Ketones,Urine Negative (Negative); Mucus,Urine Occasional /LPF (Occasional); Nitrite,Urine Negative (Negative); Protein,Urine 100 MG/DL; RBC,Urine 210 /HPF (0-4); Urine Color Amber (Yellow); Urine Specific Gravity 1.022 (1.001-1.035); WBC,Urine 1 /HPF (0-6)
[2019-08-27] MEDS ORDERED: SODIUM CHLORIDE 0.9% 500 ML IV ONE ×2 (11:30→13:12)
[2019-08-27] MEDS ORDERED: HYDROCORTISONE 100 MG VIAL IV ONE (16:06)
[2019-08-27] MEDS ORDERED: LACTATED RINGERS 1,000 ML IV ONE (16:07)
[2019-08-27] MEDS: POLYETHYLENE GLYCOL POWDER 17 GM PACK PO SCH (17:14)
[2019-08-27] MEDS ORDERED: NOREPINEPHRINE 8 MG in SODIUM CHLORIDE 0.9% 242 ML IV PRN (19:08)
[2019-08-27] MEDS ORDERED: NOREPINEPHRINE 16 MG in SODIUM CHLORIDE 0.9% 234 ML IV PRN (19:11)
[2019-08-27] MEDS: ENOXAPARIN 40 MG/0.4 ML SYRINGE SUBCUT SCH (20:55)
[2019-08-27] MEDS: chlordiazePOXIDE 10 MG CAPSULE PO SCH (20:55)
[2019-08-28] MEDS ORDERED: HYDROCORTISONE 100 MG VIAL IV SCH (00:01)
[2019-08-28] MEDS: PIPERACILLIN/TAZOBACTAM 3,375 MG in SODIUM CHLORIDE 0.9% 100 ML IV SCH ×2 (00:49→10:36)
[2019-08-28] MEDS: INSULIN LISPRO 100 UNIT/ML SUBCUT SCH ×4 (00:49→17:50)
[2019-08-28] MEDS: ALBUTEROL/IPRATROPIUM 3 ML NEB RESP TX SCH ×4 (00:54→19:10)
[2019-08-28] MEDS: methylPREDNISolone SOD SUC 40 MG/1 ML VIAL IV SCH ×2 (03:33→14:34)
[2019-08-28 04:17] LABS: ABG HCO3 28.8 MMOL/L (20-26); ABG Oxygen Saturation 96.3 % (95-100); ABG PCO2 49.5 MM HG (35-48); ABG PH 7.383 (7.35-7.45); ABG PO2 90.2 MM HG (80-95); ABG TCO2 30.3 MMOL/L (23-27); Allen Test Positive; Pt O2 Delivery Device Ventilator
[2019-08-28 04:22] LABS: Basophils # 0.1 10*3/uL (0.0-0.2); Basophils % 0.3 % (0.0-0.8); Hematocrit 37.8 VOL% (42.0-52.0); Hemoglobin 11.8 GM/DL (14.0-18.0); Immature Granulocytes % 3.8 %; Immature Granulocytes Absolute 1.24 #; Lymphocytes # 1.3 10*3/uL (1.4-4.0); Lymphocytes % 3.9 % (21.2-54.2); Mean Corpuscular HGB Conc 31.2 GM/DL (32-36); Mean Corpuscular Volume 105.9 FL (87-102); Mean Platelet Volume 13.4 FL (9.6-12.0); Monocytes % 5.6 % (1.7-12.7); Neutrophils % 86.4 % (38.7-73.9); Platelet Count 158 T/CUMM (130-400); Red Blood Count 3.57 MC/CUMM (3.8-5.5); White Blood Count 32.9 T/CUMM (4-12)
[2019-08-28 04:25] LABS: Bilirubin,Total 0.5 MG/DL (0.2-1.0); Calcium 9.1 MG/DL (8.5-10.1); Osmolality,Calculated 307.1 MOS/KG (273-304); Total Protein 6.9 G/DL (6.4-8.3)
[2019-08-28 04:27] LABS: Prealbumin 39.5 MG/DL (20-40)
[2019-08-28 05:21] LABS: Band Neutrophils 11 % (0-10); Lymphocytes 5 % (20-55); Metamyelocytes 2 %; Segmented Neutrophils 77 % (50-85); Total Cells Counted 100
[2019-08-28 05:23] LABS: Hypochromasia Slight; Macrocytosis Slight
[2019-08-28 05:24] LABS: Platelet Estimate Adequate
[2019-08-28] MEDS: PHENobarbital 65 MG/1 ML VIAL IV SCH ×3 (06:03→21:11)
[2019-08-28] MEDS ORDERED: VANCOMYCIN INJ 1,500 MG in SODIUM CHLORIDE 0.9% 500 ML IV ONE (09:30)
[2019-08-28] MEDS: PANTOPRAZOLE 40 MG VIAL IV SCH (10:12)
[2019-08-28] MEDS: INSULIN GLARGINE 100 UNIT/ML SUBCUT SCH (10:12)
[2019-08-28] MEDS: POLYETHYLENE GLYCOL POWDER 17 GM PACK PO SCH (10:13)
[2019-08-28] MEDS: THIAMINE 100 MG TABLET PO SCH (10:13)
[2019-08-28] MEDS: VALPROIC ACID 250 MG/5 ML UDCUP PO SCH ×2 (10:13→20:57)
[2019-08-28] MEDS: chlordiazePOXIDE 10 MG CAPSULE PO SCH ×3 (10:14→20:57)
[2019-08-28] MEDS: ATORVASTATIN 40 MG TABLET PO SCH (10:14)
[2019-08-28] MEDS: TAMSULOSIN 0.4 MG CAPSULE PO SCH (10:14)
[2019-08-28] MEDS: GABAPENTIN 300 MG CAPSULE PO SCH ×3 (10:14→20:57)
[2019-08-28] MEDS: FOLIC ACID 1 MG TABLET PO SCH (10:14)
[2019-08-28] MEDS: CEFEPIME 1,000 MG in SODIUM CHLORIDE 0.9% 100 ML IV SCH ×2 (10:21→17:51)
[2019-08-28] MEDS: LACTATED RINGERS 1,000 ML IV SCH ×2 (11:56→23:18)
[2019-08-28] MEDS: ACETAMINOPHEN 325 MG/10.15 ML UDCUP PO PRN (13:56)
[2019-08-28] MEDS ORDERED: METOPROLOL TARTRATE 5 MG/5 ML VIAL IV ONE ×2 (15:46→15:49)
[2019-08-28] MEDS ORDERED: DILTIAZEM 50 MG/10 ML VIAL IV ONE ×2 (16:52→18:28)
[2019-08-28] MEDS: dilTIAZem Drip 125 MG/125 ML PREMIX IV SCH (17:32)
[2019-08-28] MEDS: ENOXAPARIN 40 MG/0.4 ML SYRINGE SUBCUT SCH (20:57)
[2019-08-28] MEDS: VANCOMYCIN INJ 1,000 MG in SODIUM CHLORIDE 0.9% 250 ML IV SCH (23:11)
[2019-08-29] MEDS: ALBUTEROL/IPRATROPIUM 3 ML NEB RESP TX SCH ×4 (00:42→19:33)
[2019-08-29] MEDS: INSULIN LISPRO 100 UNIT/ML SUBCUT SCH ×4 (01:08→17:57)
[2019-08-29] MEDS: CEFEPIME 1,000 MG in SODIUM CHLORIDE 0.9% 100 ML IV SCH ×4 (02:08→21:02)
[2019-08-29] MEDS: methylPREDNISolone SOD SUC 40 MG/1 ML VIAL IV SCH ×2 (03:45→15:10)
[2019-08-29 04:07] LABS: Basophils # 0.1 10*3/uL (0.0-0.2); Basophils % 0.2 % (0.0-0.8); Eosinophils # 0.1 10*3/uL (0.0-0.87); Eosinophils % 0.3 % (0.00-10.9); Hematocrit 33.7 VOL% (42.0-52.0); Hemoglobin 10.5 GM/DL (14.0-18.0); Immature Granulocytes Absolute 0.43 #; Lymphocytes # 0.9 10*3/uL (1.4-4.0); Lymphocytes % 4.2 % (21.2-54.2); Mean Corpuscular HGB Conc 31.2 GM/DL (32-36); Mean Corpuscular Volume 106.6 FL (87-102); Mean Platelet Volume 13.4 FL (9.6-12.0); Monocytes % 4.9 % (1.7-12.7); Neutrophils % 88.4 % (38.7-73.9); Platelet Count 138 T/CUMM (130-400); Red Blood Count 3.16 MC/CUMM (3.8-5.5); Red Cell Distribution Width 13.8 % (9.3-17.3)
[2019-08-29 04:30] LABS: Calcium 9.5 MG/DL (8.5-10.1); Osmolality,Calculated 308.3 MOS/KG (273-304)
[2019-08-29 04:53] LABS: Band Neutrophils 11 % (0-10); Lymphocytes 5 % (20-55); Segmented Neutrophils 77 % (50-85); Total Cells Counted 100
[2019-08-29 04:54] LABS: Anisocytosis 1+; Macrocytosis Slight; Platelet Estimate Adequate
[2019-08-29 06:06] LABS: Allen Test Positive; Pt O2 Delivery Device Ventilator
[2019-08-29 06:18] LABS: ABG Base Excess 5.8 MMOL/L (-2.5-2.5); ABG HCO3 29.7 MMOL/L (20-26); ABG Oxygen Saturation 96.7 % (95-100); ABG PCO2 40.6 MM HG (35-48); ABG PH 7.482 (7.35-7.45); ABG PO2 90.9 MM HG (80-95); ABG TCO2 30.9 MMOL/L (23-27)
[2019-08-29] MEDS: ACETAMINOPHEN 325 MG/10.15 ML UDCUP PO PRN (06:22)
[2019-08-29] MEDS: PHENobarbital 65 MG/1 ML VIAL IV SCH ×3 (06:22→21:07)
[2019-08-29] MEDS: LACTATED RINGERS 1,000 ML IV SCH ×2 (09:22→20:48)
[2019-08-29] MEDS: GABAPENTIN 300 MG CAPSULE PO SCH ×3 (09:23→21:01)
[2019-08-29] MEDS: THIAMINE 100 MG TABLET PO SCH (09:24)
[2019-08-29] MEDS: chlordiazePOXIDE 10 MG CAPSULE PO SCH ×3 (09:24→21:02)
[2019-08-29] MEDS: PANTOPRAZOLE 40 MG VIAL IV SCH (09:24)
[2019-08-29] MEDS: FOLIC ACID 1 MG TABLET PO SCH (09:24)
[2019-08-29] MEDS: TAMSULOSIN 0.4 MG CAPSULE PO SCH (09:24)
[2019-08-29] MEDS: ATORVASTATIN 40 MG TABLET PO SCH (09:24)
[2019-08-29] MEDS: INSULIN GLARGINE 100 UNIT/ML SUBCUT SCH (09:24)
[2019-08-29] MEDS: VALPROIC ACID 250 MG/5 ML UDCUP PO SCH ×2 (09:24→21:01)
[2019-08-29] MEDS: POLYETHYLENE GLYCOL POWDER 17 GM PACK PO SCH (09:30)
[2019-08-29] MEDS: VANCOMYCIN INJ 1,000 MG in SODIUM CHLORIDE 0.9% 250 ML IV SCH (11:10)
[2019-08-29] MEDS: hydrALAZINE 20 MG/1 ML VIAL IV PRN (15:13)
[2019-08-29] MEDS: dilTIAZem Drip 125 MG/125 ML PREMIX IV SCH (17:21)
[2019-08-29] MEDS: ENOXAPARIN 40 MG/0.4 ML SYRINGE SUBCUT SCH (21:02)
[2019-08-30] MEDS: VANCOMYCIN INJ 1,000 MG in SODIUM CHLORIDE 0.9% 250 ML IV SCH ×2 (00:12→11:21)
[2019-08-30] MEDS: INSULIN LISPRO 100 UNIT/ML SUBCUT SCH ×4 (00:12→18:42)
[2019-08-30] MEDS: ALBUTEROL/IPRATROPIUM 3 ML NEB RESP TX SCH ×4 (01:03→19:21)
[2019-08-30] MEDS: CEFEPIME 1,000 MG in SODIUM CHLORIDE 0.9% 100 ML IV SCH ×4 (02:45→21:01)
[2019-08-30] MEDS: methylPREDNISolone SOD SUC 40 MG/1 ML VIAL IV SCH ×2 (03:27→14:28)
[2019-08-30] MEDS: hydrALAZINE 20 MG/1 ML VIAL IV PRN ×3 (03:28→22:00)
[2019-08-30 03:49] LABS: ABG Base Excess 5.3 MMOL/L (-2.5-2.5); ABG HCO3 29.2 MMOL/L (20-26); ABG Oxygen Saturation 97.7 % (95-100); ABG PCO2 44.8 MM HG (35-48); ABG PH 7.437 (7.35-7.45); ABG PO2 97.1 MM HG (80-95); ABG TCO2 27.1 MMOL/L (23-27)
[2019-08-30 03:50] LABS: Allen Test Positive; Pt O2 Delivery Device Ventilator
[2019-08-30 03:53] LABS: Calcium 9.4 MG/DL (8.5-10.1); Osmolality,Calculated 303.4 MOS/KG (273-304)
[2019-08-30] MEDS: LACTATED RINGERS 1,000 ML IV SCH ×2 (06:47→16:07)
[2019-08-30] MEDS: PHENobarbital 65 MG/1 ML VIAL IV SCH ×3 (06:48→21:02)
[2019-08-30] MEDS: ATORVASTATIN 40 MG TABLET PO SCH (08:29)
[2019-08-30] MEDS: VALPROIC ACID 250 MG/5 ML UDCUP PO SCH ×2 (08:30→21:02)
[2019-08-30] MEDS: TAMSULOSIN 0.4 MG CAPSULE PO SCH (08:30)
[2019-08-30] MEDS: GABAPENTIN 300 MG CAPSULE PO SCH ×3 (08:30→21:03)
[2019-08-30] MEDS: FOLIC ACID 1 MG TABLET PO SCH (08:30)
[2019-08-30] MEDS: THIAMINE 100 MG TABLET PO SCH (08:30)
[2019-08-30] MEDS: chlordiazePOXIDE 10 MG CAPSULE PO SCH ×3 (08:30→21:03)
[2019-08-30] MEDS: INSULIN GLARGINE 100 UNIT/ML SUBCUT SCH (08:34)
[2019-08-30] MEDS: PANTOPRAZOLE 40 MG VIAL IV SCH (08:34)
[2019-08-30] MEDS: POLYETHYLENE GLYCOL POWDER 17 GM PACK PO SCH (09:12)
[2019-08-30] MEDS: ACETAMINOPHEN 325 MG/10.15 ML UDCUP PO PRN ×3 (09:38→22:00)
[2019-08-30 13:33] LABS: Basophils % 0.1 % (0.0-0.8); Eosinophils % 0.2 % (0.00-10.9); Hematocrit 31.2 VOL% (42.0-52.0); Immature Granulocytes % 1.8 %; Immature Granulocytes Absolute 0.26 #; Lymphocytes # 1.2 10*3/uL (1.4-4.0); Lymphocytes % 8.3 % (21.2-54.2); Mean Corpuscular HGB Conc 32.1 GM/DL (32-36); Mean Corpuscular Volume 105.4 FL (87-102); Mean Platelet Volume 13.2 FL (9.6-12.0); Neutrophils % 84.6 % (38.7-73.9); Platelet Count 136 T/CUMM (130-400); Red Blood Count 2.96 MC/CUMM (3.8-5.5); Red Cell Distribution Width 13.7 % (9.3-17.3); White Blood Count 14.5 T/CUMM (4-12)
[2019-08-30] MEDS: dilTIAZem Drip 125 MG/125 ML PREMIX IV SCH (17:55)
[2019-08-30] MEDS: ENOXAPARIN 40 MG/0.4 ML SYRINGE SUBCUT SCH (21:01)
[2019-08-31] MEDS: INSULIN LISPRO 100 UNIT/ML SUBCUT SCH ×5 (00:11→23:28)
[2019-08-31] MEDS: VANCOMYCIN INJ 1,000 MG in SODIUM CHLORIDE 0.9% 250 ML IV SCH ×5 (00:12→23:28)
[2019-08-31] MEDS: ALBUTEROL/IPRATROPIUM 3 ML NEB RESP TX SCH ×4 (01:32→19:42)
[2019-08-31] MEDS: CEFEPIME 1,000 MG in SODIUM CHLORIDE 0.9% 100 ML IV SCH ×4 (03:23→19:50)
[2019-08-31] MEDS: methylPREDNISolone SOD SUC 40 MG/1 ML VIAL IV SCH ×2 (03:23→15:35)
[2019-08-31] MEDS: LACTATED RINGERS 1,000 ML IV SCH ×3 (03:24→22:13)
[2019-08-31 03:36] LABS: Allen Test Positive; Pt O2 Delivery Device Ventilator
[2019-08-31 03:38] LABS: ABG Base Excess 7.2 MMOL/L (-2.5-2.5); ABG Oxygen Saturation 98.4 % (95-100); ABG PCO2 48.8 MM HG (35-48); ABG PH 7.435 (7.35-7.45)
[2019-08-31 03:51] LABS: Basophils # 0.1 10*3/uL (0.0-0.2); Basophils % 0.4 % (0.0-0.8); Eosinophils % 0.2 % (0.00-10.9); Hematocrit 35.3 VOL% (42.0-52.0); Hemoglobin 11.5 GM/DL (14.0-18.0); Immature Granulocytes % 2.7 %; Immature Granulocytes Absolute 0.38 #; Lymphocytes # 1.3 10*3/uL (1.4-4.0); Lymphocytes % 9.4 % (21.2-54.2); Mean Corpuscular HGB Conc 32.6 GM/DL (32-36); Mean Corpuscular Volume 103.2 FL (87-102); Mean Platelet Volume 13.6 FL (9.6-12.0); Monocytes % 6.7 % (1.7-12.7); NRBC # 0.02 10*3/uL; Neutrophils % 80.6 % (38.7-73.9); Platelet Count 150 T/CUMM (130-400); Red Blood Count 3.42 MC/CUMM (3.8-5.5); Red Cell Distribution Width 13.7 % (9.3-17.3); White Blood Count 14.1 T/CUMM (4-12)
[2019-08-31 04:06] LABS: Calcium 9.5 MG/DL (8.5-10.1)
[2019-08-31] MEDS: POTASSIUM CHLORIDE 20 MEQ/15 ML UDCUP PER TUBE PRN (06:10)
[2019-08-31] MEDS: ACETAMINOPHEN 325 MG/10.15 ML UDCUP PO PRN (06:11)
[2019-08-31] MEDS: PHENobarbital 65 MG/1 ML VIAL IV SCH ×3 (06:27→22:10)
[2019-08-31] MEDS: VALPROIC ACID 250 MG/5 ML UDCUP PO SCH ×2 (10:56→20:04)
[2019-08-31] MEDS: TAMSULOSIN 0.4 MG CAPSULE PO SCH (10:57)
[2019-08-31] MEDS: FOLIC ACID 1 MG TABLET PO SCH (10:57)
[2019-08-31] MEDS: ATORVASTATIN 40 MG TABLET PO SCH (10:57)
[2019-08-31] MEDS: GABAPENTIN 300 MG CAPSULE PO SCH ×3 (10:57→20:04)
[2019-08-31] MEDS: chlordiazePOXIDE 10 MG CAPSULE PO SCH ×3 (10:58→20:04)
[2019-08-31] MEDS: PANTOPRAZOLE 40 MG VIAL IV SCH (11:00)
[2019-08-31] MEDS: POLYETHYLENE GLYCOL POWDER 17 GM PACK PO SCH (11:00)
[2019-08-31] MEDS: THIAMINE 100 MG TABLET PO SCH (11:05)
[2019-08-31] MEDS: HEPARIN/NACL 0.9% 2 UNITS/ML 500 ML IV SCH (15:30)
[2019-08-31] MEDS: INSULIN GLARGINE 100 UNIT/ML SUBCUT SCH (17:20)
[2019-08-31] MEDS: carvediloL 6.25 MG TABLET PO SCH (20:04)
[2019-08-31] MEDS: ENOXAPARIN 40 MG/0.4 ML SYRINGE SUBCUT SCH (20:04)
[2019-09-01] MEDS: ALBUTEROL/IPRATROPIUM 3 ML NEB RESP TX SCH ×4 (00:28→19:40)
[2019-09-01] MEDS: methylPREDNISolone SOD SUC 40 MG/1 ML VIAL IV SCH ×2 (02:16→14:25)
[2019-09-01] MEDS: CEFEPIME 1,000 MG in SODIUM CHLORIDE 0.9% 100 ML IV SCH ×2 (02:18→07:55)
[2019-09-01 03:40] LABS: ABG HCO3 33.7 MMOL/L (20-26); ABG Oxygen Saturation 94.8 % (95-100); ABG PCO2 44.9 MM HG (35-48); ABG PH 7.495 (7.35-7.45); ABG PO2 68.7 MM HG (80-95); ABG TCO2 30.9 MMOL/L (23-27); Allen Test Positive; Pt O2 Delivery Device Ventilator
[2019-09-01 04:28] LABS: Basophils # 0.1 10*3/uL (0.0-0.2); Basophils % 0.5 % (0.0-0.8); Eosinophils % 0.3 % (0.00-10.9); Hemoglobin 10.8 GM/DL (14.0-18.0); Immature Granulocytes % 7.4 %; Immature Granulocytes Absolute 0.99 #; Lymphocytes % 7.1 % (21.2-54.2); Mean Corpuscular HGB Conc 31.8 GM/DL (32-36); Mean Corpuscular Volume 103.7 FL (87-102); Monocytes % 9.1 % (1.7-12.7); NRBC # 0.03 10*3/uL; Neutrophils % 75.6 % (38.7-73.9); Platelet Count 155 T/CUMM (130-400); Red Blood Count 3.28 MC/CUMM (3.8-5.5); Red Cell Distribution Width 13.1 % (9.3-17.3); White Blood Count 13.5 T/CUMM (4-12)
[2019-09-01 04:49] LABS: Band Neutrophils 6 % (0-10); Eosinophils 1 % (0-10); Lymphocytes 5 % (20-55); Metamyelocytes 1 %; Segmented Neutrophils 78 % (50-85); Total Cells Counted 100
[2019-09-01 04:50] LABS: Hypochromasia 1+; Macrocytosis Slight; Platelet Estimate Adequate
[2019-09-01 05:04] LABS: Alanine Aminotransferase 25 U/L (16-61); Albumin 1.7 G/DL (3.4-5.0); Alkaline Phosphatase 98 U/L (45-117); Aspartate Amino Transferase 19 U/L (0-37); Bilirubin,Total < 0.39 MG/DL (0.2-1.0); Blood Urea Nitrogen 19 MG/DL (7-18); Calcium 9.1 MG/DL (8.5-10.1); Estimated Glom Filtration Rate 138 ML/MIN; Glucose 160 MG/DL (74-106)
[2019-09-01] MEDS: PHENobarbital 65 MG/1 ML VIAL IV SCH ×3 (05:39→22:37)
[2019-09-01] MEDS: INSULIN LISPRO 100 UNIT/ML SUBCUT SCH ×3 (05:42→17:21)
[2019-09-01] MEDS: LACTATED RINGERS 1,000 ML IV SCH (07:55)
[2019-09-01] MEDS: VANCOMYCIN INJ 1,000 MG in SODIUM CHLORIDE 0.9% 250 ML IV SCH ×2 (07:56→17:21)
[2019-09-01] MEDS: VALPROIC ACID 250 MG/5 ML UDCUP PO SCH ×2 (08:05→22:55)
[2019-09-01] MEDS: carvediloL 6.25 MG TABLET PO SCH ×2 (08:06→22:39)
[2019-09-01] MEDS: ATORVASTATIN 40 MG TABLET PO SCH (08:06)
[2019-09-01] MEDS: FOLIC ACID 1 MG TABLET PO SCH (08:06)
[2019-09-01] MEDS: GABAPENTIN 300 MG CAPSULE PO SCH ×3 (08:06→22:38)
[2019-09-01] MEDS: chlordiazePOXIDE 10 MG CAPSULE PO SCH ×3 (08:06→22:38)
[2019-09-01] MEDS: THIAMINE 100 MG TABLET PO SCH (08:06)
[2019-09-01] MEDS: PANTOPRAZOLE 40 MG VIAL IV SCH (08:07)
[2019-09-01] MEDS: TAMSULOSIN 0.4 MG CAPSULE PO SCH (08:11)
[2019-09-01] MEDS: POLYETHYLENE GLYCOL POWDER 17 GM PACK PO SCH (08:19)
[2019-09-01 08:20] VITALS: BP 178/80
[2019-09-01] MEDS ORDERED: ALBUMIN 25% 25 GM in PREMIX 1 EACH IV ONE (08:30)
[2019-09-01] MEDS: INSULIN GLARGINE 100 UNIT/ML SUBCUT SCH (08:35)
[2019-09-01] MEDS: cefTRIAXone 1,000 MG in SYRINGE 1 EACH IV SCH (09:04)
[2019-09-01] MEDS ORDERED: MAGNESIUM CITRATE 300 ML BOTTLE PO ONE (11:28)
[2019-09-01] MEDS: HEPARIN/NACL 0.9% 2 UNITS/ML 500 ML IV SCH (14:33)
[2019-09-01] MEDS: ENOXAPARIN 40 MG/0.4 ML SYRINGE SUBCUT SCH (22:36)
[2019-09-02] MEDS: INSULIN LISPRO 100 UNIT/ML SUBCUT SCH ×5 (00:47→23:59)
[2019-09-02] MEDS: VANCOMYCIN INJ 1,250 MG in SODIUM CHLORIDE 0.9% 250 ML IV SCH ×3 (00:48→17:11)
[2019-09-02] MEDS: ALBUTEROL/IPRATROPIUM 3 ML NEB RESP TX SCH ×4 (01:51→19:15)
[2019-09-02] MEDS: IBUPROFEN 100 MG/5 ML UDCUP PO PRN (03:50)
[2019-09-02] MEDS: methylPREDNISolone SOD SUC 40 MG/1 ML VIAL IV SCH ×2 (03:52→14:22)
[2019-09-02 04:33] LABS: ABG Base Excess 10.8 MMOL/L (-2.5-2.5); ABG HCO3 34.6 MMOL/L (20-26); ABG PH 7.496 (7.35-7.45); Allen Test Positive; Pt O2 Delivery Device Ventilator
[2019-09-02 04:40] LABS: Basophils # 0.1 10*3/uL (0.0-0.2); Basophils % 0.4 % (0.0-0.8); Eosinophils # 0.1 10*3/uL (0.0-0.87); Eosinophils % 0.8 % (0.00-10.9); Hematocrit 30.7 VOL% (42.0-52.0); Hemoglobin 9.8 GM/DL (14.0-18.0); Immature Granulocytes % 12.5 %; Immature Granulocytes Absolute 1.53 #; Lymphocytes # 1.8 10*3/uL (1.4-4.0); Lymphocytes % 14.6 % (21.2-54.2); Mean Corpuscular HGB Conc 31.9 GM/DL (32-36); Mean Corpuscular Volume 103.4 FL (87-102); Mean Platelet Volume 13.1 FL (9.6-12.0); NRBC # 0.03 10*3/uL; Neutrophils % 60.7 % (38.7-73.9); Platelet Count 166 T/CUMM (130-400); Red Blood Count 2.97 MC/CUMM (3.8-5.5); Red Cell Distribution Width 13.1 % (9.3-17.3); White Blood Count 12.3 T/CUMM (4-12)
[2019-09-02 04:57] LABS: Calcium 8.9 MG/DL (8.5-10.1)
[2019-09-02 05:00] LABS: Band Neutrophils 2 % (0-10); Hypochromasia 1+; Lymphocytes 13 % (20-55); Nucleated Red Blood Cells 1 (0-5); Platelet Estimate Adequate; Segmented Neutrophils 72 % (50-85); Total Cells Counted 100
[2019-09-02 05:01] LABS: Macrocytosis Slight
[2019-09-02] MEDS: PHENobarbital 65 MG/1 ML VIAL IV SCH ×3 (06:50→21:31)
[2019-09-02] MEDS: ATORVASTATIN 40 MG TABLET PO SCH (09:18)
[2019-09-02] MEDS: VALPROIC ACID 250 MG/5 ML UDCUP PO SCH ×2 (09:18→21:32)
[2019-09-02] MEDS: BISACODYL 5 MG TABLET PO SCH (09:18)
[2019-09-02] MEDS: INSULIN GLARGINE 100 UNIT/ML SUBCUT SCH (09:18)
[2019-09-02] MEDS: FOLIC ACID 1 MG TABLET PO SCH (09:18)
[2019-09-02] MEDS: TAMSULOSIN 0.4 MG CAPSULE PO SCH (09:18)
[2019-09-02] MEDS: chlordiazePOXIDE 10 MG CAPSULE PO SCH (09:18)
[2019-09-02] MEDS: carvediloL 6.25 MG TABLET PO SCH ×2 (09:18→21:32)
[2019-09-02] MEDS: THIAMINE 100 MG TABLET PO SCH (09:19)
[2019-09-02] MEDS: cefTRIAXone 1,000 MG in SYRINGE 1 EACH IV SCH (09:19)
[2019-09-02] MEDS: PANTOPRAZOLE 40 MG VIAL IV SCH (09:19)
[2019-09-02] MEDS: GABAPENTIN 300 MG CAPSULE PO SCH ×3 (09:19→21:32)
[2019-09-02] MEDS: POLYETHYLENE GLYCOL POWDER 17 GM PACK PO SCH (09:19)
[2019-09-02] MEDS ORDERED: FUROSEMIDE 20 MG/2 ML VIAL IV ONE (13:10)
[2019-09-02] MEDS ORDERED: FUROSEMIDE 40 MG/4 ML VIAL ONE (13:10)
[2019-09-02] MEDS: SCOPOLAMINE 1.5 MG PATCH TRANSDERM SCH (14:22)
[2019-09-02] MEDS: HEPARIN/NACL 0.9% 2 UNITS/ML 500 ML IV SCH (14:38)
[2019-09-02] MEDS: ENOXAPARIN 40 MG/0.4 ML SYRINGE SUBCUT SCH (21:32)
[2019-09-02] MEDS: PYRIDOSTIGMINE 60 MG TABLET PO SCH (21:33)
[2019-09-03] MEDS: ALBUTEROL/IPRATROPIUM 3 ML NEB RESP TX SCH ×4 (00:15→19:05)
[2019-09-03] MEDS: VANCOMYCIN INJ 1,250 MG in SODIUM CHLORIDE 0.9% 250 ML IV SCH ×3 (00:30→21:29)
[2019-09-03] MEDS: methylPREDNISolone SOD SUC 40 MG/1 ML VIAL IV SCH ×3 (04:05→18:29)
[2019-09-03 04:14] LABS: Basophils # 0.1 10*3/uL (0.0-0.2); Basophils % 0.3 % (0.0-0.8); Eosinophils # 0.1 10*3/uL (0.0-0.87); Eosinophils % 0.8 % (0.00-10.9); Hematocrit 33.3 VOL% (42.0-52.0); Hemoglobin 10.5 GM/DL (14.0-18.0); Immature Granulocytes % 6.2 %; Immature Granulocytes Absolute 0.95 #; Lymphocytes # 1.4 10*3/uL (1.4-4.0); Lymphocytes % 9.2 % (21.2-54.2); Mean Corpuscular HGB Conc 31.5 GM/DL (32-36); Monocytes % 10.1 % (1.7-12.7); NRBC # 0.02 10*3/uL; Neutrophils % 73.4 % (38.7-73.9); Platelet Count 202 T/CUMM (130-400); Red Blood Count 3.17 MC/CUMM (3.8-5.5); Red Cell Distribution Width 13.1 % (9.3-17.3); White Blood Count 15.2 T/CUMM (4-12)
[2019-09-03 04:28] LABS: Calcium 9.3 MG/DL (8.5-10.1)
[2019-09-03 04:36] LABS: Band Neutrophils 4 % (0-10); Eosinophils 1 % (0-10); Lymphocytes 11 % (20-55); Platelet Estimate Adequate; Segmented Neutrophils 76 % (50-85); Total Cells Counted 100
[2019-09-03 04:37] LABS: Hypochromasia 1+; Macrocytosis Slight
[2019-09-03] MEDS: INSULIN LISPRO 100 UNIT/ML SUBCUT SCH ×3 (05:54→18:17)
[2019-09-03] MEDS: PHENobarbital 65 MG/1 ML VIAL IV SCH ×3 (05:58→21:29)
[2019-09-03] MEDS ORDERED: chlordiazePOXIDE 10 MG CAPSULE PO SCH (09:00)
[2019-09-03] MEDS: TAMSULOSIN 0.4 MG CAPSULE PO SCH (11:28)
[2019-09-03] MEDS: SCOPOLAMINE 1.5 MG PATCH TRANSDERM SCH (11:28)
[2019-09-03] MEDS: ATORVASTATIN 40 MG TABLET PO SCH (11:28)
[2019-09-03] MEDS: PYRIDOSTIGMINE 60 MG TABLET PO SCH ×3 (11:28→21:08)
[2019-09-03] MEDS: FOLIC ACID 1 MG TABLET PO SCH (11:28)
[2019-09-03] MEDS: carvediloL 6.25 MG TABLET PO SCH ×2 (11:30→21:09)
[2019-09-03] MEDS: VALPROIC ACID 250 MG/5 ML UDCUP PO SCH ×2 (11:30→21:09)
[2019-09-03] MEDS: THIAMINE 100 MG TABLET PO SCH (11:30)
[2019-09-03] MEDS: PANTOPRAZOLE 40 MG VIAL IV SCH (11:34)
[2019-09-03] MEDS: cefTRIAXone 1,000 MG in SYRINGE 1 EACH IV SCH (11:39)
[2019-09-03] MEDS: GABAPENTIN 300 MG CAPSULE PO SCH ×3 (11:51→21:09)
[2019-09-03] MEDS: POLYETHYLENE GLYCOL POWDER 17 GM PACK PO SCH (11:53)
[2019-09-03] MEDS: BISACODYL 5 MG TABLET PO SCH (11:54)
[2019-09-03] MEDS: INSULIN GLARGINE 100 UNIT/ML SUBCUT SCH (13:17)
[2019-09-03] MEDS: HEPARIN/NACL 0.9% 2 UNITS/ML 500 ML IV SCH (16:33)
[2019-09-03] MEDS: PIPERACILLIN/TAZOBACTAM 3,375 MG in SODIUM CHLORIDE 0.9% 100 ML IV SCH (18:28)
[2019-09-03] MEDS: ENOXAPARIN 40 MG/0.4 ML SYRINGE SUBCUT SCH (21:09)
[2019-09-04] MEDS: INSULIN LISPRO 100 UNIT/ML SUBCUT SCH ×3 (00:09→12:14)
[2019-09-04] MEDS: methylPREDNISolone SOD SUC 40 MG/1 ML VIAL IV SCH ×2 (01:34→09:32)
[2019-09-04] MEDS: PIPERACILLIN/TAZOBACTAM 3,375 MG in SODIUM CHLORIDE 0.9% 100 ML IV SCH ×2 (01:35→09:32)
[2019-09-04] MEDS: VANCOMYCIN INJ 1,250 MG in SODIUM CHLORIDE 0.9% 250 ML IV SCH ×2 (03:13→13:25)
[2019-09-04] MEDS: ALBUTEROL/IPRATROPIUM 3 ML NEB RESP TX SCH ×3 (03:15→13:17)
[2019-09-04 04:25] LABS: Basophils # 0.1 10*3/uL (0.0-0.2); Basophils % 0.3 % (0.0-0.8); Eosinophils # 0.1 10*3/uL (0.0-0.87); Eosinophils % 0.3 % (0.00-10.9); Hemoglobin 10.1 GM/DL (14.0-18.0); Immature Granulocytes % 5.4 %; Immature Granulocytes Absolute 0.88 #; Mean Corpuscular HGB Conc 32.6 GM/DL (32-36); Mean Corpuscular Volume 103.3 FL (87-102); Mean Platelet Volume 12.9 FL (9.6-12.0); Monocytes % 7.4 % (1.7-12.7); NRBC # 0.02 10*3/uL; Neutrophils % 80.6 % (38.7-73.9); Platelet Count 179 T/CUMM (130-400); Red Cell Distribution Width 13.1 % (9.3-17.3); White Blood Count 16.4 T/CUMM (4-12)
[2019-09-04 04:42] LABS: Calcium 9.2 MG/DL (8.5-10.1); Osmolality,Calculated 292.8 MOS/KG (273-304)
[2019-09-04 04:46] LABS: Band Neutrophils 6 % (0-10); Lymphocytes 4 % (20-55); Macrocytosis Slight; Myelocytes 2 %; Polychromasia Slight; Segmented Neutrophils 81 % (50-85); Total Cells Counted 100
[2019-09-04 04:47] LABS: Platelet Estimate Adequate
[2019-09-04 05:01] LABS: Prealbumin 19.8 MG/DL (20-40)
[2019-09-04] MEDS: PHENobarbital 65 MG/1 ML VIAL IV SCH (05:39)
[2019-09-04] MEDS: SCOPOLAMINE 1.5 MG PATCH TRANSDERM SCH (09:31)
[2019-09-04] MEDS: PANTOPRAZOLE 40 MG VIAL IV SCH (09:31)
[2019-09-04] MEDS: VALPROIC ACID 250 MG/5 ML UDCUP PO SCH (09:33)
[2019-09-04] MEDS: ATORVASTATIN 40 MG TABLET PO SCH (09:33)
[2019-09-04] MEDS: BISACODYL 5 MG TABLET PO SCH (09:33)
[2019-09-04] MEDS: PYRIDOSTIGMINE 60 MG TABLET PO SCH (09:33)
[2019-09-04] MEDS: FOLIC ACID 1 MG TABLET PO SCH (09:33)
[2019-09-04] MEDS: TAMSULOSIN 0.4 MG CAPSULE PO SCH (09:33)
[2019-09-04] MEDS: INSULIN GLARGINE 100 UNIT/ML SUBCUT SCH (09:34)
[2019-09-04] MEDS: carvediloL 6.25 MG TABLET PO SCH (09:34)
[2019-09-04] MEDS: GABAPENTIN 300 MG CAPSULE PO SCH (09:34)
[2019-09-04] MEDS: POLYETHYLENE GLYCOL POWDER 17 GM PACK PO SCH (09:34)
[2019-09-04] MEDS: THIAMINE 100 MG TABLET PO SCH (09:34)
== END 2019-09-04 14:50 | DRG 100 ==
LOC: EDUNIT# → EDBD → N.ED 03:35 → SUATTDRO 05:23 → N.EDINP 05:23 → N.CC 05:55 → N.4E 08-20 14:52 → N.CC 08-20 22:33 → N.ICU 08-27 16:27
PROVIDERS: ADMIT Internal Medicine; ATTEND Internal Medicine

== ENCOUNTER 2020-02-08 23:50 | Inpatient (IN) ==
[2020-02-09 01:08] LABS: Apearance,Urine CLEAR (Clear); Bilirubin,Urine Negative (Negative); Blood, Urine Negative (Negative); Glucose,Urine (UA) >=500 mg/dL (Negative); Ketones,Urine Negative (Negative); Mucus,Urine Occasional /LPF (Occasional); Nitrite,Urine Negative (Negative); Protein,Urine 30 MG/DL; RBC,Urine 1 /HPF (0-4); Urine Color Yellow (Yellow); Urine Specific Gravity 1.031 (1.001-1.035); Urine Urobilinogen < 2.0 EU/DL (0.2-1.0); WBC,Urine 1 /HPF (0-6)
[2020-02-09 01:28] LABS: Basophils % 0.1 % (0.0-0.8); Hematocrit 41.6 VOL% (42.0-52.0); Hemoglobin 14.1 GM/DL (14.0-18.0); Immature Granulocytes % 1.8 %; Lymphocytes # 1.1 10*3/uL (1.4-4.0); Lymphocytes % 9.9 % (21.2-54.2); Mean Corpuscular HGB Conc 33.9 GM/DL (32-36); Mean Corpuscular Volume 94.3 FL (87-102); Mean Platelet Volume 13.1 FL (9.6-12.0); Monocytes % 6.6 % (1.7-12.7); NRBC # 0.02 10*3/uL; Neutrophils % 81.6 % (38.7-73.9); Platelet Count 137 T/CUMM (130-400); Red Blood Count 4.41 MC/CUMM (3.8-5.5); Red Cell Distribution Width 15.3 % (9.3-17.3); White Blood Count 11.1 T/CUMM (4-12)
[2020-02-09 02:09] LABS: Calcium 8.5 MG/DL (8.5-10.1); Osmolality,Calculated 288.4 MOS/KG (273-304); Thyroid Stimulating Hormone 0.938 uIU/ml (0.358-3.74)
[2020-02-09] MEDS ORDERED: GLUCAGON 1 MG VIAL IM PRN (03:35)
[2020-02-09] MEDS ORDERED: DEXTROSE 50% 25 GM/50 ML VIAL IV PRN (03:35)
[2020-02-09] MEDS ORDERED: ONDANSETRON 4 MG/2 ML VIAL IV PRN (03:58)
[2020-02-09] MEDS ORDERED: NICOTINE 21 MG/24 HR PATCH TRANSDERM PRN (03:58)
[2020-02-09] MEDS ORDERED: POTASSIUM CHLORIDE 20 MEQ/15 ML UDCUP PER TUBE PRN (03:58)
[2020-02-09] MEDS ORDERED: ACETAMINOPHEN 325 MG/10.15 ML UDCUP PO PRN (03:58)
[2020-02-09] MEDS: ENOXAPARIN 40 MG/0.4 ML SYRINGE SUBCUT SCH (04:06)
[2020-02-09] MEDS ORDERED: SODIUM CHLORIDE 0.9% 1,000 ML IV SCH (05:00)
[2020-02-09] MEDS: SODIUM CHLORIDE 0.65% NASAL SPRAY 45 ML BOTTLE BOTH NARES SCH ×5 (05:19→21:29)
[2020-02-09] MEDS: ALBUTEROL/IPRATROPIUM 3 ML NEB RESP TX SCH ×3 (07:12→19:30)
[2020-02-09] MEDS ORDERED: INSULIN LISPRO 100 UNIT/ML SUBCUT SCH (07:30)
[2020-02-09] MEDS: INSULIN LISPRO 100 UNIT/ML SUBCUT SCH ×7 (08:17→21:26)
[2020-02-09] MEDS: predniSONE 20 MG TABLET PO SCH (08:22)
[2020-02-09] MEDS: carvediloL 3.125 MG TABLET PO SCH ×2 (08:22→16:37)
[2020-02-09] MEDS: TAMSULOSIN 0.4 MG CAPSULE PO SCH (09:41)
[2020-02-09] MEDS: VALPROIC ACID 250 MG/5 ML UDCUP PO SCH ×2 (09:41→21:27)
[2020-02-09] MEDS: BISACODYL 5 MG TABLET PO SCH (09:41)
[2020-02-09] MEDS: FOLIC ACID 1 MG TABLET PO SCH (09:42)
[2020-02-09] MEDS: ATORVASTATIN 40 MG TABLET PO SCH (09:42)
[2020-02-09] MEDS: POLYETHYLENE GLYCOL POWDER 17 GM PACK PO SCH (09:42)
[2020-02-09] MEDS: PYRIDOSTIGMINE 60 MG TABLET PO SCH ×2 (09:42→16:38)
[2020-02-09] MEDS: GABAPENTIN 300 MG CAPSULE PO SCH ×3 (09:43→21:28)
[2020-02-09] MEDS: PANTOPRAZOLE 40 MG TABLET PO SCH (09:43)
[2020-02-09] MEDS: lisinopriL 10 MG TABLET PO SCH (09:43)
[2020-02-09] MEDS: amLODIPine 5 MG TABLET PO SCH (09:43)
[2020-02-09] MEDS: THIAMINE 100 MG TABLET PO SCH (09:43)
[2020-02-09] MEDS: SCOPOLAMINE 1.5 MG PATCH TRANSDERM SCH (09:43)
[2020-02-09] MEDS: INSULIN GLARGINE 100 UNIT/ML SUBCUT SCH (10:36)
[2020-02-09] MEDS ORDERED: hydrALAZINE 20 MG/1 ML VIAL IV ONE (14:28)
[2020-02-09] MEDS: SODIUM CHLORIDE 0.9% 1,000 ML IV SCH (16:38)
[2020-02-09] MEDS ORDERED: LEVETIRACETAM 1500 MG PO SCH (21:00)
[2020-02-09] MEDS: levETIRAcetam 500 MG TABLET PO SCH (21:28)
[2020-02-09] MEDS: PYRIDOSTIGMINE 60 MG PO SCH (21:29)
[2020-02-09] MEDS: PHENobarbital 30 MG TABLET PO SCH (21:37)
[2020-02-10] MEDS: SODIUM CHLORIDE 0.65% NASAL SPRAY 45 ML BOTTLE BOTH NARES SCH ×6 (00:59→22:24)
[2020-02-10] MEDS: ALBUTEROL/IPRATROPIUM 3 ML NEB RESP TX SCH ×4 (01:18→20:26)
[2020-02-10] MEDS ORDERED: LORazepam 2 MG/1 ML VIAL ONE ×3 (04:14→04:35)
[2020-02-10] MEDS ORDERED: LORazepam 2 MG/1 ML VIAL IV ONE ×2 (04:17→04:26)
[2020-02-10] MEDS ORDERED: PHENYTOIN INJ 1,500 MG in SODIUM CHLORIDE 0.9% 100 ML IV ONE (04:30)
[2020-02-10] MEDS ORDERED: hydrALAZINE 20 MG/1 ML VIAL IV ONE (04:31)
[2020-02-10] MEDS ORDERED: LORazepam 2 MG/1 ML VIAL IV PRN (04:41)
[2020-02-10] MEDS: SODIUM CHLORIDE 0.9% 1,000 ML IV SCH (05:56)
[2020-02-10] MEDS: PHENobarbital 30 MG TABLET PO SCH ×3 (05:56→22:04)
[2020-02-10 06:43] LABS: Calcium 7.8 MG/DL (8.5-10.1); Osmolality,Calculated 286.1 MOS/KG (273-304)
[2020-02-10] MEDS ORDERED: amLODIPine 5 MG TABLET PO SCH (09:00)
[2020-02-10] MEDS ORDERED: lisinopriL 10 MG TABLET PO SCH (09:00)
[2020-02-10] MEDS: INSULIN LISPRO 100 UNIT/ML SUBCUT SCH ×7 (09:48→22:05)
[2020-02-10] MEDS: predniSONE 20 MG TABLET PO SCH (09:48)
[2020-02-10] MEDS: carvediloL 3.125 MG TABLET PO SCH ×2 (09:49→19:01)
[2020-02-10] MEDS: VALPROIC ACID 250 MG/5 ML UDCUP PO SCH ×2 (09:49→22:05)
[2020-02-10] MEDS: SCOPOLAMINE 1.5 MG PATCH TRANSDERM SCH (09:51)
[2020-02-10] MEDS: POLYETHYLENE GLYCOL POWDER 17 GM PACK PO SCH (09:52)
[2020-02-10] MEDS: GABAPENTIN 300 MG CAPSULE PO SCH ×3 (09:53→22:14)
[2020-02-10] MEDS: PYRIDOSTIGMINE 60 MG PO SCH ×3 (09:53→22:13)
[2020-02-10] MEDS: lisinopriL 10 MG TABLET PO SCH (09:53)
[2020-02-10] MEDS: ATORVASTATIN 40 MG TABLET PO SCH (09:54)
[2020-02-10] MEDS: BISACODYL 5 MG TABLET PO SCH (09:54)
[2020-02-10] MEDS: FOLIC ACID 1 MG TABLET PO SCH (09:54)
[2020-02-10] MEDS: TAMSULOSIN 0.4 MG CAPSULE PO SCH (09:54)
[2020-02-10] MEDS: levETIRAcetam 500 MG TABLET PO SCH ×2 (09:54→22:04)
[2020-02-10] MEDS: amLODIPine 5 MG TABLET PO SCH (09:55)
[2020-02-10] MEDS: PANTOPRAZOLE 40 MG TABLET PO SCH (09:55)
[2020-02-10] MEDS: THIAMINE 100 MG TABLET PO SCH (09:55)
[2020-02-10] MEDS: ENOXAPARIN 40 MG/0.4 ML SYRINGE SUBCUT SCH (10:07)
[2020-02-10] MEDS: INSULIN GLARGINE 100 UNIT/ML SUBCUT SCH (10:41)
[2020-02-10] MEDS ORDERED: SODIUM CHLORIDE 0.9% IV ONE (11:56)
[2020-02-10] MEDS ORDERED: PHENOBARBITAL IV ONE (11:56)
[2020-02-10] MEDS ORDERED: POTASSIUM CHLORIDE 20 MEQ TABLET PO ONE (11:57)
[2020-02-10] MEDS: IMMUNE GLOBULIN 10% 20 GM, IMMUNE GLOBULIN 10% 10 GM in PREMIX 1 EACH IV SCH (22:14)
[2020-02-11] MEDS: ALBUTEROL/IPRATROPIUM 3 ML NEB RESP TX SCH ×4 (01:34→19:04)
[2020-02-11 02:03] LABS: Barbiturates Screen,Urine Positive (Negative); Benzodiazepines Screen,Urine Negative (Negative); Cannabinoid Screen,Urine Negative (Negative); Opiate Screen,Urine Negative (Negative); Phencyclidine Screen,Urine Negative (Negative)
[2020-02-11] MEDS: SODIUM CHLORIDE 0.65% NASAL SPRAY 45 ML BOTTLE BOTH NARES SCH ×6 (02:32→21:42)
[2020-02-11 05:56] LABS: Basophils % 0.1 % (0.0-0.8); Eosinophils % 0.4 % (0.00-10.9); Hemoglobin 14.8 GM/DL (14.0-18.0); Immature Granulocytes % 1.1 %; Immature Granulocytes Absolute 0.09 #; Lymphocytes # 1.6 10*3/uL (1.4-4.0); Lymphocytes % 18.4 % (21.2-54.2); Mean Corpuscular HGB Conc 33.6 GM/DL (32-36); Mean Platelet Volume 13.8 FL (9.6-12.0); Monocytes % 6.6 % (1.7-12.7); Neutrophils % 73.4 % (38.7-73.9); Platelet Count 104 T/CUMM (130-400); Red Blood Count 4.68 MC/CUMM (3.8-5.5); Red Cell Distribution Width 15.9 % (9.3-17.3); White Blood Count 8.5 T/CUMM (4-12)
[2020-02-11] MEDS: PHENobarbital 30 MG TABLET PO SCH ×3 (05:56→21:39)
[2020-02-11 06:20] LABS: Osmolality,Calculated 278.4 MOS/KG (273-304)
[2020-02-11 06:23] LABS: Platelet Estimate Decreased
[2020-02-11 06:24] LABS: Phenytoin (Dilantin) 11.7 UG/ML (10-20)
[2020-02-11] MEDS: ENOXAPARIN 40 MG/0.4 ML SYRINGE SUBCUT SCH (09:57)
[2020-02-11] MEDS: lisinopriL 10 MG TABLET PO SCH (09:57)
[2020-02-11] MEDS: GABAPENTIN 300 MG CAPSULE PO SCH ×3 (09:57→21:38)
[2020-02-11] MEDS: BISACODYL 5 MG TABLET PO SCH (09:58)
[2020-02-11] MEDS: amLODIPine 5 MG TABLET PO SCH (09:58)
[2020-02-11] MEDS: THIAMINE 100 MG TABLET PO SCH (09:58)
[2020-02-11] MEDS: PANTOPRAZOLE 40 MG TABLET PO SCH (09:58)
[2020-02-11] MEDS: TAMSULOSIN 0.4 MG CAPSULE PO SCH (09:58)
[2020-02-11] MEDS: predniSONE 20 MG TABLET PO SCH ×3 (09:58→21:39)
[2020-02-11] MEDS: FOLIC ACID 1 MG TABLET PO SCH (09:59)
[2020-02-11] MEDS: ATORVASTATIN 40 MG TABLET PO SCH (09:59)
[2020-02-11] MEDS: INSULIN LISPRO 100 UNIT/ML SUBCUT SCH ×7 (10:05→21:36)
[2020-02-11] MEDS: INSULIN GLARGINE 100 UNIT/ML SUBCUT SCH (10:06)
[2020-02-11] MEDS: PYRIDOSTIGMINE 60 MG PO SCH ×3 (10:07→21:41)
[2020-02-11] MEDS: SCOPOLAMINE 1.5 MG PATCH TRANSDERM SCH (10:41)
[2020-02-11] MEDS: PYRIDOSTIGMINE 60 MG TABLET PO SCH ×3 (10:42→21:39)
[2020-02-11] MEDS: POLYETHYLENE GLYCOL POWDER 17 GM PACK PO SCH (10:42)
[2020-02-11] MEDS: levETIRAcetam 500 MG TABLET PO SCH ×2 (10:42→21:38)
[2020-02-11] MEDS: carvediloL 3.125 MG TABLET PO SCH ×2 (10:42→18:10)
[2020-02-11] MEDS: VALPROIC ACID 250 MG/5 ML UDCUP PO SCH ×2 (11:19→21:36)
[2020-02-11] MEDS: IMMUNE GLOBULIN 10% 20 GM, IMMUNE GLOBULIN 10% 10 GM in PREMIX 1 EACH IV SCH (21:53)
[2020-02-12] MEDS: SODIUM CHLORIDE 0.65% NASAL SPRAY 45 ML BOTTLE BOTH NARES SCH ×6 (00:50→21:00)
[2020-02-12] MEDS: ALBUTEROL/IPRATROPIUM 3 ML NEB RESP TX SCH ×4 (01:00→20:40)
[2020-02-12] MEDS: PHENobarbital 30 MG TABLET PO SCH ×3 (05:36→22:24)
[2020-02-12 05:59] LABS: Basophils % 0.1 % (0.0-0.8); Hematocrit 43.5 VOL% (42.0-52.0); Hemoglobin 14.9 GM/DL (14.0-18.0); Immature Granulocytes % 0.7 %; Immature Granulocytes Absolute 0.06 #; Lymphocytes % 11.9 % (21.2-54.2); Mean Corpuscular HGB Conc 34.3 GM/DL (32-36); Mean Corpuscular Volume 92.9 FL (87-102); Mean Platelet Volume 13.2 FL (9.6-12.0); Monocytes % 6.4 % (1.7-12.7); Neutrophils % 80.9 % (38.7-73.9); Platelet Count 80 T/CUMM (130-400); Red Blood Count 4.68 MC/CUMM (3.8-5.5); Red Cell Distribution Width 15.4 % (9.3-17.3); White Blood Count 8.2 T/CUMM (4-12)
[2020-02-12 06:27] LABS: Calcium 8.1 MG/DL (8.5-10.1); Osmolality,Calculated 278.5 MOS/KG (273-304)
[2020-02-12 06:32] LABS: Hypochromasia 1+; Microcytosis Slight
[2020-02-12 06:33] LABS: Ovalocytes Slight; Platelet Estimate Decreased
[2020-02-12] MEDS: INSULIN LISPRO 100 UNIT/ML SUBCUT SCH ×7 (09:00→20:59)
[2020-02-12] MEDS: ENOXAPARIN 40 MG/0.4 ML SYRINGE SUBCUT SCH (09:37)
[2020-02-12] MEDS: VALPROIC ACID 250 MG/5 ML UDCUP PO SCH ×2 (09:37→20:59)
[2020-02-12] MEDS: levETIRAcetam 500 MG TABLET PO SCH ×2 (09:37→20:58)
[2020-02-12] MEDS: GABAPENTIN 300 MG CAPSULE PO SCH ×3 (09:38→20:59)
[2020-02-12] MEDS: SCOPOLAMINE 1.5 MG PATCH TRANSDERM SCH (09:38)
[2020-02-12] MEDS: ATORVASTATIN 40 MG TABLET PO SCH (09:39)
[2020-02-12] MEDS: PYRIDOSTIGMINE 60 MG TABLET PO SCH ×3 (09:39→20:59)
[2020-02-12] MEDS: BISACODYL 5 MG TABLET PO SCH (09:39)
[2020-02-12] MEDS: PANTOPRAZOLE 40 MG TABLET PO SCH (09:40)
[2020-02-12] MEDS: lisinopriL 10 MG TABLET PO SCH (09:40)
[2020-02-12] MEDS: predniSONE 20 MG TABLET PO SCH ×3 (09:40→20:59)
[2020-02-12] MEDS: TAMSULOSIN 0.4 MG CAPSULE PO SCH (09:40)
[2020-02-12] MEDS: amLODIPine 5 MG TABLET PO SCH (09:40)
[2020-02-12] MEDS: FOLIC ACID 1 MG TABLET PO SCH (09:41)
[2020-02-12] MEDS: carvediloL 3.125 MG TABLET PO SCH ×2 (09:41→17:31)
[2020-02-12] MEDS: POLYETHYLENE GLYCOL POWDER 17 GM PACK PO SCH (09:41)
[2020-02-12] MEDS: THIAMINE 100 MG TABLET PO SCH (09:41)
[2020-02-12] MEDS: INSULIN GLARGINE 100 UNIT/ML SUBCUT SCH (09:41)
[2020-02-12] MEDS: PYRIDOSTIGMINE 60 MG PO SCH ×3 (09:42→20:59)
[2020-02-12] MEDS: IMMUNE GLOBULIN 10% 20 GM, IMMUNE GLOBULIN 10% 10 GM in PREMIX 1 EACH IV SCH (20:58)
[2020-02-13] MEDS: SODIUM CHLORIDE 0.65% NASAL SPRAY 45 ML BOTTLE BOTH NARES SCH ×6 (01:17→21:41)
[2020-02-13] MEDS: ALBUTEROL/IPRATROPIUM 3 ML NEB RESP TX SCH ×4 (03:30→19:31)
[2020-02-13 05:07] LABS: Basophils % 0.1 % (0.0-0.8); Hematocrit 43.9 VOL% (42.0-52.0); Hemoglobin 14.9 GM/DL (14.0-18.0); Immature Granulocytes % 0.7 %; Immature Granulocytes Absolute 0.05 #; Lymphocytes # 0.8 10*3/uL (1.4-4.0); Lymphocytes % 11.7 % (21.2-54.2); Mean Corpuscular HGB Conc 33.9 GM/DL (32-36); Mean Corpuscular Volume 94.6 FL (87-102); Monocytes % 7.3 % (1.7-12.7); Neutrophils % 80.2 % (38.7-73.9); Red Blood Count 4.64 MC/CUMM (3.8-5.5); White Blood Count 6.8 T/CUMM (4-12)
[2020-02-13 05:08] LABS: Platelet Count 76 T/CUMM (130-400)
[2020-02-13] MEDS: PHENobarbital 30 MG TABLET PO SCH ×3 (05:09→21:58)
[2020-02-13 05:36] LABS: Calcium 8.5 MG/DL (8.5-10.1); Osmolality,Calculated 275.8 MOS/KG (273-304)
[2020-02-13] MEDS: FOLIC ACID 1 MG TABLET PO SCH (09:25)
[2020-02-13] MEDS: GABAPENTIN 300 MG CAPSULE PO SCH ×3 (09:25→21:37)
[2020-02-13] MEDS: ATORVASTATIN 40 MG TABLET PO SCH (09:25)
[2020-02-13] MEDS: lisinopriL 10 MG TABLET PO SCH (09:27)
[2020-02-13] MEDS: THIAMINE 100 MG TABLET PO SCH (09:28)
[2020-02-13] MEDS: PYRIDOSTIGMINE 60 MG TABLET PO SCH ×2 (09:28→16:00)
[2020-02-13] MEDS: BISACODYL 5 MG TABLET PO SCH (09:29)
[2020-02-13] MEDS: carvediloL 3.125 MG TABLET PO SCH ×2 (09:29→18:41)
[2020-02-13] MEDS: predniSONE 20 MG TABLET PO SCH ×3 (09:30→21:38)
[2020-02-13] MEDS: TAMSULOSIN 0.4 MG CAPSULE PO SCH (09:30)
[2020-02-13] MEDS: amLODIPine 5 MG TABLET PO SCH (09:30)
[2020-02-13] MEDS: VALPROIC ACID 250 MG/5 ML UDCUP PO SCH (09:33)
[2020-02-13] MEDS: INSULIN LISPRO 100 UNIT/ML SUBCUT SCH ×7 (09:33→21:53)
[2020-02-13] MEDS: INSULIN GLARGINE 100 UNIT/ML SUBCUT SCH (09:35)
[2020-02-13] MEDS: PYRIDOSTIGMINE 60 MG PO SCH ×3 (09:37→21:40)
[2020-02-13] MEDS: SCOPOLAMINE 1.5 MG PATCH TRANSDERM SCH (09:39)
[2020-02-13] MEDS: levETIRAcetam 500 MG TABLET PO SCH ×2 (10:14→21:38)
[2020-02-13] MEDS: POLYETHYLENE GLYCOL POWDER 17 GM PACK PO SCH (10:15)
[2020-02-13] MEDS: hydrALAZINE 20 MG/1 ML VIAL IV PRN (14:04)
[2020-02-13] MEDS: LORazepam 2 MG/1 ML VIAL IV PRN (14:10)
[2020-02-13] MEDS ORDERED: LORazepam 2 MG/1 ML VIAL IV ONE (14:30)
[2020-02-13] MEDS ORDERED: VALPROIC ACID INJ 1,000 MG in SODIUM CHLORIDE 0.9% 100 ML IV ONE (14:30)
[2020-02-13] MEDS: SODIUM CHLORIDE 0.9% 1,000 ML IV SCH (14:37)
[2020-02-13] MEDS ORDERED: LIDOCAINE 2% 20 ML VIAL ONE (17:38)
[2020-02-13] MEDS ORDERED: LIDOCAINE 1% 20 ML VIAL INFILTRAT ONE (18:00)
[2020-02-13] MEDS: IMMUNE GLOBULIN 10% 20 GM, IMMUNE GLOBULIN 10% 10 GM in PREMIX 1 EACH IV SCH (20:39)
[2020-02-13] MEDS: VALPROIC ACID INJ 500 MG in SODIUM CHLORIDE 0.9% 100 ML IV SCH (21:42)
[2020-02-14] MEDS: SODIUM CHLORIDE 0.65% NASAL SPRAY 45 ML BOTTLE BOTH NARES SCH ×6 (02:18→20:22)
[2020-02-14] MEDS: VALPROIC ACID INJ 500 MG in SODIUM CHLORIDE 0.9% 100 ML IV SCH ×4 (04:15→20:14)
[2020-02-14] MEDS: hydrALAZINE 20 MG/1 ML VIAL IV PRN (04:58)
[2020-02-14] MEDS: PHENobarbital 30 MG TABLET PO SCH ×3 (05:35→21:30)
[2020-02-14] MEDS: INSULIN LISPRO 100 UNIT/ML SUBCUT SCH ×7 (07:40→22:36)
[2020-02-14] MEDS: carvediloL 3.125 MG TABLET PO SCH ×2 (07:48→17:32)
[2020-02-14] MEDS: ALBUTEROL/IPRATROPIUM 3 ML NEB RESP TX SCH ×4 (07:57→19:15)
[2020-02-14] MEDS: GABAPENTIN 300 MG CAPSULE PO SCH ×3 (10:08→20:20)
[2020-02-14] MEDS: PYRIDOSTIGMINE 60 MG PO SCH ×3 (10:08→22:37)
[2020-02-14] MEDS: SCOPOLAMINE 1.5 MG PATCH TRANSDERM SCH (10:09)
[2020-02-14] MEDS: amLODIPine 5 MG TABLET PO SCH (10:09)
[2020-02-14] MEDS: THIAMINE 100 MG TABLET PO SCH (10:09)
[2020-02-14] MEDS: lisinopriL 10 MG TABLET PO SCH (10:10)
[2020-02-14] MEDS: levETIRAcetam 500 MG TABLET PO SCH ×2 (10:10→20:21)
[2020-02-14] MEDS: TAMSULOSIN 0.4 MG CAPSULE PO SCH (10:10)
[2020-02-14] MEDS: INSULIN GLARGINE 100 UNIT/ML SUBCUT SCH (10:11)
[2020-02-14] MEDS: ATORVASTATIN 40 MG TABLET PO SCH (10:11)
[2020-02-14] MEDS: FOLIC ACID 1 MG TABLET PO SCH (10:11)
[2020-02-14] MEDS: POLYETHYLENE GLYCOL POWDER 17 GM PACK PO SCH (10:11)
[2020-02-14] MEDS: predniSONE 20 MG TABLET PO SCH ×3 (10:11→20:21)
[2020-02-14] MEDS: BISACODYL 5 MG TABLET PO SCH (10:11)
[2020-02-14] MEDS: LORazepam 2 MG/1 ML VIAL IV PRN (15:37)
[2020-02-14] MEDS: SODIUM CHLORIDE 0.9% 1,000 ML IV SCH (17:24)
[2020-02-14] MEDS: IMMUNE GLOBULIN 10% 20 GM, IMMUNE GLOBULIN 10% 10 GM in PREMIX 1 EACH IV SCH (20:04)
[2020-02-14] MEDS: QUEtiapine 100 MG TABLET PO SCH (20:21)
[2020-02-15] MEDS: LORazepam 2 MG/1 ML VIAL IV PRN ×2 (00:46→10:03)
[2020-02-15] MEDS: SODIUM CHLORIDE 0.65% NASAL SPRAY 45 ML BOTTLE BOTH NARES SCH ×6 (00:54→21:18)
[2020-02-15] MEDS: VALPROIC ACID INJ 500 MG in SODIUM CHLORIDE 0.9% 100 ML IV SCH ×4 (02:06→21:14)
[2020-02-15 04:55] LABS: Basophils % 0.2 % (0.0-0.8); Eosinophils % 0.2 % (0.00-10.9); Hematocrit 45.3 VOL% (42.0-52.0); Hemoglobin 14.9 GM/DL (14.0-18.0); Immature Granulocytes % 0.5 %; Immature Granulocytes Absolute 0.03 #; Lymphocytes # 0.7 10*3/uL (1.4-4.0); Lymphocytes % 10.9 % (21.2-54.2); Mean Corpuscular HGB Conc 32.9 GM/DL (32-36); Mean Corpuscular Volume 95.4 FL (87-102); Mean Platelet Volume 13.8 FL (9.6-12.0); Monocytes % 7.9 % (1.7-12.7); Neutrophils % 80.3 % (38.7-73.9); Red Blood Count 4.75 MC/CUMM (3.8-5.5); Red Cell Distribution Width 15.4 % (9.3-17.3); White Blood Count 6.1 T/CUMM (4-12)
[2020-02-15 05:13] LABS: Alanine Aminotransferase 22 U/L (16-61); Albumin 2.6 G/DL (3.4-5.0); Alkaline Phosphatase 119 U/L (45-117); Aspartate Amino Transferase 18 U/L (0-37); Bilirubin,Total < 0.39 MG/DL (0.2-1.0); Blood Urea Nitrogen 17 MG/DL (7-18); Calcium 8.7 MG/DL (8.5-10.1); Estimated Glom Filtration Rate 127 ML/MIN; Glucose 149 MG/DL (74-106); Osmolality,Calculated 277.8 MOS/KG (273-304); Total Protein 9.1 G/DL (6.4-8.3)
[2020-02-15] MEDS: PHENobarbital 30 MG TABLET PO SCH ×3 (05:18→21:16)
[2020-02-15 05:21] LABS: Platelet Count 79 T/CUMM (130-400)
[2020-02-15] MEDS: ALBUTEROL/IPRATROPIUM 3 ML NEB RESP TX SCH ×4 (07:53→19:13)
[2020-02-15] MEDS: INSULIN LISPRO 100 UNIT/ML SUBCUT SCH ×7 (07:57→21:15)
[2020-02-15] MEDS: carvediloL 3.125 MG TABLET PO SCH ×2 (08:03→17:09)
[2020-02-15] MEDS: ATORVASTATIN 40 MG TABLET PO SCH (09:35)
[2020-02-15] MEDS: levETIRAcetam 500 MG TABLET PO SCH ×2 (09:35→21:15)
[2020-02-15] MEDS: POLYETHYLENE GLYCOL POWDER 17 GM PACK PO SCH (09:35)
[2020-02-15] MEDS: BISACODYL 5 MG TABLET PO SCH (09:36)
[2020-02-15] MEDS: QUEtiapine 100 MG TABLET PO SCH ×3 (09:36→17:10)
[2020-02-15] MEDS: amLODIPine 5 MG TABLET PO SCH (09:37)
[2020-02-15] MEDS: TAMSULOSIN 0.4 MG CAPSULE PO SCH (09:37)
[2020-02-15] MEDS: GABAPENTIN 300 MG CAPSULE PO SCH ×3 (09:37→21:16)
[2020-02-15] MEDS: lisinopriL 10 MG TABLET PO SCH (09:37)
[2020-02-15] MEDS: THIAMINE 100 MG TABLET PO SCH (09:37)
[2020-02-15] MEDS: FOLIC ACID 1 MG TABLET PO SCH (09:37)
[2020-02-15] MEDS: PYRIDOSTIGMINE 60 MG PO SCH ×3 (09:38→21:16)
[2020-02-15] MEDS: predniSONE 20 MG TABLET PO SCH ×3 (09:38→21:17)
[2020-02-15] MEDS: INSULIN GLARGINE 100 UNIT/ML SUBCUT SCH (09:38)
[2020-02-15] MEDS: hydrALAZINE 20 MG/1 ML VIAL IV PRN ×2 (10:03→23:00)
[2020-02-15] MEDS: SODIUM CHLORIDE 0.9% 1,000 ML IV SCH (17:12)
[2020-02-15 18:55] LABS: HIV Antigen/Antibody Result Nonreactive (Nonreactive); Hepatitis B Surface Ag Quant < 0.10 Index; Hepatitis B Surface Ag Result Negative (Negative); Hepatitis C Virus Ab Quant 0.04 Index; Hepatitis C Virus Ab Result Negative (Negative)
[2020-02-16] MEDS: ALBUTEROL/IPRATROPIUM 3 ML NEB RESP TX SCH ×4 (01:00→19:20)
[2020-02-16] MEDS: QUEtiapine 100 MG TABLET PO SCH ×3 (02:20→17:38)
[2020-02-16] MEDS: SODIUM CHLORIDE 0.65% NASAL SPRAY 45 ML BOTTLE BOTH NARES SCH ×6 (02:54→21:24)
[2020-02-16] MEDS: VALPROIC ACID INJ 500 MG in SODIUM CHLORIDE 0.9% 100 ML IV SCH ×2 (03:45→08:40)
[2020-02-16 04:29] LABS: Basophils % 0.2 % (0.0-0.8); Hematocrit 49.2 VOL% (42.0-52.0); Hemoglobin 16.3 GM/DL (14.0-18.0); Immature Granulocytes % 0.6 %; Immature Granulocytes Absolute 0.04 #; Lymphocytes # 0.9 10*3/uL (1.4-4.0); Lymphocytes % 14.9 % (21.2-54.2); Mean Corpuscular HGB Conc 33.1 GM/DL (32-36); Mean Corpuscular Volume 96.5 FL (87-102); Monocytes % 6.9 % (1.7-12.7); Neutrophils % 77.4 % (38.7-73.9); Red Cell Distribution Width 15.8 % (9.3-17.3); White Blood Count 6.3 T/CUMM (4-12)
[2020-02-16 04:37] LABS: Platelet Count 69 T/CUMM (130-400)
[2020-02-16 04:53] LABS: Calcium 8.8 MG/DL (8.5-10.1); Osmolality,Calculated 274.8 MOS/KG (273-304); Platelet Estimate Decreased
[2020-02-16] MEDS: PHENobarbital 30 MG TABLET PO SCH ×3 (06:45→21:23)
[2020-02-16 07:05] LABS: Barbiturates Screen,Urine Positive (Negative); Benzodiazepines Screen,Urine Negative (Negative); Cannabinoid Screen,Urine Negative (Negative); Opiate Screen,Urine Negative (Negative); Phencyclidine Screen,Urine Negative (Negative)
[2020-02-16] MEDS: POLYETHYLENE GLYCOL POWDER 17 GM PACK PO SCH (08:30)
[2020-02-16] MEDS: INSULIN GLARGINE 100 UNIT/ML SUBCUT SCH (08:30)
[2020-02-16] MEDS: levETIRAcetam 500 MG TABLET PO SCH ×2 (08:30→21:22)
[2020-02-16] MEDS: GABAPENTIN 300 MG CAPSULE PO SCH ×3 (08:30→21:22)
[2020-02-16] MEDS: carvediloL 3.125 MG TABLET PO SCH ×2 (08:31→17:38)
[2020-02-16] MEDS: BISACODYL 5 MG TABLET PO SCH (08:31)
[2020-02-16] MEDS: ATORVASTATIN 40 MG TABLET PO SCH (08:31)
[2020-02-16] MEDS: predniSONE 20 MG TABLET PO SCH ×3 (08:31→21:22)
[2020-02-16] MEDS: TAMSULOSIN 0.4 MG CAPSULE PO SCH (08:31)
[2020-02-16] MEDS: THIAMINE 100 MG TABLET PO SCH (08:32)
[2020-02-16] MEDS: lisinopriL 10 MG TABLET PO SCH (08:32)
[2020-02-16] MEDS: FOLIC ACID 1 MG TABLET PO SCH (08:32)
[2020-02-16] MEDS: INSULIN LISPRO 100 UNIT/ML SUBCUT SCH ×7 (08:33→21:24)
[2020-02-16] MEDS: amLODIPine 5 MG TABLET PO SCH ×2 (08:35→09:47)
[2020-02-16] MEDS: PYRIDOSTIGMINE 60 MG PO SCH ×3 (08:35→21:23)
[2020-02-16] MEDS ORDERED: cloNIDine 0.3 MG/24 HR PATCH TRANSDERM SCH (09:00)
[2020-02-16] MEDS ORDERED: VALPROIC ACID 250 MG/5 ML UDCUP PO SCH (21:00)
[2020-02-16] MEDS: VALPROIC ACID 250 MG/5 ML UDCUP PO SCH (21:23)
[2020-02-17] MEDS: ALBUTEROL/IPRATROPIUM 3 ML NEB RESP TX SCH ×4 (00:30→19:30)
[2020-02-17] MEDS: SODIUM CHLORIDE 0.65% NASAL SPRAY 45 ML BOTTLE BOTH NARES SCH ×6 (01:01→20:30)
[2020-02-17] MEDS: QUEtiapine 100 MG TABLET PO SCH ×3 (01:01→17:38)
[2020-02-17] MEDS: ZIPRASIDONE 20 MG/1 ML VIAL IM PRN (04:20)
[2020-02-17] MEDS: PHENobarbital 30 MG TABLET PO SCH (05:40)
[2020-02-17] MEDS: INSULIN LISPRO 100 UNIT/ML SUBCUT SCH ×7 (07:54→20:32)
[2020-02-17 08:27] LABS: Basophils % 0.1 % (0.0-0.8); Eosinophils % 0.3 % (0.00-10.9); Hematocrit 45.1 VOL% (42.0-52.0); Hemoglobin 14.7 GM/DL (14.0-18.0); Immature Granulocytes % 0.8 %; Immature Granulocytes Absolute 0.06 #; Lymphocytes # 1.9 10*3/uL (1.4-4.0); Lymphocytes % 26.8 % (21.2-54.2); Mean Corpuscular HGB Conc 32.6 GM/DL (32-36); Mean Corpuscular Volume 97.6 FL (87-102); Monocytes % 10.8 % (1.7-12.7); Neutrophils % 61.2 % (38.7-73.9); Red Blood Count 4.62 MC/CUMM (3.8-5.5); Red Cell Distribution Width 16.2 % (9.3-17.3); White Blood Count 7.1 T/CUMM (4-12)
[2020-02-17 08:28] LABS: Platelet Count 84 T/CUMM (130-400)
[2020-02-17 08:44] LABS: Calcium 8.7 MG/DL (8.5-10.1); Osmolality,Calculated 280.5 MOS/KG (273-304)
[2020-02-17 08:54] LABS: Hypochromasia Slight
[2020-02-17 08:55] LABS: Microcytosis Slight; Platelet Estimate Decreased
[2020-02-17] MEDS: carvediloL 3.125 MG TABLET PO SCH ×2 (09:02→17:38)
[2020-02-17] MEDS: ATORVASTATIN 40 MG TABLET PO SCH (09:03)
[2020-02-17] MEDS: lisinopriL 10 MG TABLET PO SCH (09:03)
[2020-02-17] MEDS: levETIRAcetam 500 MG TABLET PO SCH ×2 (09:03→20:27)
[2020-02-17] MEDS: FOLIC ACID 1 MG TABLET PO SCH (09:03)
[2020-02-17] MEDS: predniSONE 20 MG TABLET PO SCH ×2 (09:03→20:28)
[2020-02-17] MEDS: THIAMINE 100 MG TABLET PO SCH (09:03)
[2020-02-17] MEDS: GABAPENTIN 300 MG CAPSULE PO SCH ×3 (09:04→20:27)
[2020-02-17] MEDS: TAMSULOSIN 0.4 MG CAPSULE PO SCH (09:04)
[2020-02-17] MEDS: amLODIPine 5 MG TABLET PO SCH (09:04)
[2020-02-17] MEDS: BISACODYL 5 MG TABLET PO SCH (09:04)
[2020-02-17] MEDS: VALPROIC ACID 250 MG/5 ML UDCUP PO SCH ×3 (09:05→20:37)
[2020-02-17] MEDS: PYRIDOSTIGMINE 60 MG PO SCH ×3 (09:05→20:28)
[2020-02-17] MEDS: POLYETHYLENE GLYCOL POWDER 17 GM PACK PO SCH (09:07)
[2020-02-17] MEDS: INSULIN GLARGINE 100 UNIT/ML SUBCUT SCH (10:59)
[2020-02-18] MEDS: ALBUTEROL/IPRATROPIUM 3 ML NEB RESP TX SCH ×3 (00:14→14:14)
[2020-02-18] MEDS: ZIPRASIDONE 20 MG/1 ML VIAL IM PRN (00:47)
[2020-02-18] MEDS: SODIUM CHLORIDE 0.65% NASAL SPRAY 45 ML BOTTLE BOTH NARES SCH ×4 (00:50→13:14)
[2020-02-18] MEDS: QUEtiapine 100 MG TABLET PO SCH ×2 (00:50→08:39)
[2020-02-18 06:16] LABS: Basophils % 0.2 % (0.0-0.8); Eosinophils % 0.1 % (0.00-10.9); Hematocrit 41.8 VOL% (42.0-52.0); Hemoglobin 13.5 GM/DL (14.0-18.0); Immature Granulocytes % 0.8 %; Immature Granulocytes Absolute 0.07 #; Lymphocytes # 1.5 10*3/uL (1.4-4.0); Lymphocytes % 16.2 % (21.2-54.2); Mean Corpuscular HGB Conc 32.3 GM/DL (32-36); Mean Corpuscular Volume 98.8 FL (87-102); Monocytes % 7.9 % (1.7-12.7); Neutrophils % 74.8 % (38.7-73.9); Red Blood Count 4.23 MC/CUMM (3.8-5.5); White Blood Count 9.3 T/CUMM (4-12)
[2020-02-18 06:21] LABS: Platelet Count 91 T/CUMM (130-400)
[2020-02-18 06:43] LABS: Calcium 8.3 MG/DL (8.5-10.1); Osmolality,Calculated 280.8 MOS/KG (273-304)
[2020-02-18 06:46] LABS: Hypochromasia Slight
[2020-02-18 06:47] LABS: Microcytosis Slight
[2020-02-18] MEDS ORDERED: SODIUM POLYSTYRENE SULFATE 15 GM/60 ML BOTTLE PO STA (06:53)
[2020-02-18] MEDS: INSULIN LISPRO 100 UNIT/ML SUBCUT SCH ×4 (07:31→11:35)
[2020-02-18] MEDS: VALPROIC ACID 250 MG/5 ML UDCUP PO SCH ×2 (08:39→15:03)
[2020-02-18] MEDS: lisinopriL 10 MG TABLET PO SCH (08:39)
[2020-02-18] MEDS: TAMSULOSIN 0.4 MG CAPSULE PO SCH (08:39)
[2020-02-18] MEDS: levETIRAcetam 500 MG TABLET PO SCH (08:40)
[2020-02-18] MEDS: BISACODYL 5 MG TABLET PO SCH (08:40)
[2020-02-18] MEDS: GABAPENTIN 300 MG CAPSULE PO SCH ×2 (08:40→15:04)
[2020-02-18] MEDS: carvediloL 3.125 MG TABLET PO SCH (08:40)
[2020-02-18] MEDS: THIAMINE 100 MG TABLET PO SCH (08:40)
[2020-02-18] MEDS: ATORVASTATIN 40 MG TABLET PO SCH (08:41)
[2020-02-18] MEDS: FOLIC ACID 1 MG TABLET PO SCH (08:41)
[2020-02-18] MEDS: INSULIN GLARGINE 100 UNIT/ML SUBCUT SCH (08:41)
[2020-02-18] MEDS: predniSONE 20 MG TABLET PO SCH (08:41)
[2020-02-18] MEDS: amLODIPine 5 MG TABLET PO SCH (08:41)
[2020-02-18] MEDS: POLYETHYLENE GLYCOL POWDER 17 GM PACK PO SCH (08:41)
[2020-02-18] MEDS: PYRIDOSTIGMINE 60 MG PO SCH ×2 (08:41→15:04)
[2020-02-18 13:54] VITALS: BP 124/80
[2020-02-19] MEDS ORDERED: lisinopriL 20 MG TABLET PO SCH (09:00)
[2020-02-19] MEDS ORDERED: lisinopriL 10 MG TABLET PO SCH (09:00)
== END 2020-02-18 15:31 | DRG 57 ==
LOC: EDBD → EDUNIT# → N.ED 23:50 → SUATTDRO 02-09 03:35 → N.EDINP 02-09 03:35 → N.TELES 02-09 13:32 → N.ICU 02-13 17:30 → N.5E 02-16 11:41
PROVIDERS: ADMIT Family Medicine; ATTEND Internal Medicine

== ENCOUNTER 2021-03-30 11:26 | Observation (INO) ==
[2021-03-30] MEDS ORDERED: LORazepam 2 MG/1 ML VIAL IV PRN ×2 (11:35→15:36)
[2021-03-30] MEDS ORDERED: LORazepam 2 MG/1 ML VIAL ONE (11:37)
[2021-03-30 11:55] LABS: Basophils % 0.3 % (0.0-0.8); Eosinophils # 0.2 10*3/uL (0.0-0.87); Eosinophils % 2.2 % (0.00-10.9); Hematocrit 43.8 VOL% (42.0-52.0); Hemoglobin 14.7 GM/DL (14.0-18.0); Immature Granulocytes % 0.5 %; Immature Granulocytes Absolute 0.05 #; Lymphocytes # 2.3 10*3/uL (1.4-4.0); Lymphocytes % 23.8 % (21.2-54.2); Mean Corpuscular HGB Conc 33.6 GM/DL (32-36); Mean Corpuscular Volume 94.4 FL (87-102); Monocytes % 11.1 % (1.7-12.7); Neutrophils % 62.1 % (38.7-73.9); Platelet Count 192 T/CUMM (130-400); Red Blood Count 4.64 MC/CUMM (3.8-5.5); Red Cell Distribution Width 13.3 % (9.3-17.3); White Blood Count 9.6 T/CUMM (4-12)
[2021-03-30 12:14] LABS: Alanine Aminotransferase 17 U/L (16-61); Albumin 3.3 G/DL (3.4-5.0); Alkaline Phosphatase 114 U/L (45-117); Aspartate Amino Transferase 19 U/L (0-37); Bilirubin,Total < 0.39 MG/DL (0.20-1.00); Blood Urea Nitrogen 11 MG/DL (7-18); Carbon Dioxide 28 MMOL/L (21-32); Estimated Glom Filtration Rate 119 ML/MIN; Glucose 103 MG/DL (74-106); Osmolality,Calculated 279.3 MOS/KG (273-304); Potassium 3.6 MMOL/L (3.5-5.1); Sodium 141 MMOL/L (136-145); Total Protein 7.2 G/DL (6.4-8.2)
[2021-03-30] MEDS ORDERED: LORazepam 2 MG/1 ML VIAL IV STA (14:50)
[2021-03-30 15:33] LABS: Barbiturates Screen,Urine Positive (Negative); Benzodiazepines Screen,Urine Negative (Negative); Cannabinoid Screen,Urine Positive (Negative); Opiate Screen,Urine Negative (Negative); Phencyclidine Screen,Urine Negative (Negative)
[2021-03-30] MEDS ORDERED: GLUCAGON 1 MG VIAL IM PRN ×2 (15:36)
[2021-03-30] MEDS ORDERED: NICOTINE 21 MG/24 HR PATCH TRANSDERM PRN (15:36)
[2021-03-30] MEDS ORDERED: ONDANSETRON 4 MG/2 ML VIAL IV PRN (15:36)
[2021-03-30] MEDS ORDERED: ALUMINUM/MAGNES/SIMETH MAX STR 30 ML UDCUP PO PRN (15:36)
[2021-03-30] MEDS ORDERED: DOCUSATE SODIUM 100 MG CAPSULE PO PRN (15:36)
[2021-03-30] MEDS ORDERED: hydrALAZINE 20 MG/1 ML VIAL IV PRN (15:36)
[2021-03-30] MEDS ORDERED: DEXTROSE 50% 25 GM/50 ML VIAL IV PRN ×2 (15:36)
[2021-03-30] MEDS ORDERED: THIAMINE INJ 100 MG, FOLIC ACID INJ 1 MG, MULTIVITAMIN INJ 10 ML in SODIUM CHLORIDE 0.9... IV SCH (16:30)
[2021-03-30] MEDS: INSULIN LISPRO 100 UNIT/ML SUBCUT SCH ×2 (17:05→21:17)
[2021-03-30] MEDS: QUEtiapine 25 MG TABLET PO SCH (21:15)
[2021-03-30] MEDS: levETIRAcetam 500 MG TABLET PO SCH (21:15)
[2021-03-30] MEDS: PYRIDOSTIGMINE 60 MG TABLET PO SCH (21:16)
[2021-03-30] MEDS: BUDESONIDE/FORMOTEROL 160-4.5 INHALER 6 GM INH SCH (21:16)
[2021-03-30] MEDS: ACETAMINOPHEN 325 MG TABLET PO PRN (21:17)
[2021-03-31] MEDS: ACETAMINOPHEN 325 MG TABLET PO PRN (03:21)
[2021-03-31 06:23] LABS: Basophils % 0.6 % (0.0-0.8); Eosinophils # 0.2 10*3/uL (0.0-0.87); Eosinophils % 2.9 % (0.00-10.9); Hematocrit 42.8 VOL% (42.0-52.0); Hemoglobin 14.6 GM/DL (14.0-18.0); Immature Granulocytes % 0.4 %; Immature Granulocytes Absolute 0.03 #; Lymphocytes # 1.8 10*3/uL (1.4-4.0); Lymphocytes % 24.3 % (21.2-54.2); Mean Corpuscular HGB Conc 34.1 GM/DL (32-36); Mean Corpuscular Volume 94.3 FL (87-102); Mean Platelet Volume 11.7 FL (9.6-12.0); Monocytes % 9.2 % (1.7-12.7); Neutrophils % 62.6 % (38.7-73.9); Platelet Count 175 T/CUMM (130-400); Red Blood Count 4.54 MC/CUMM (3.8-5.5); Red Cell Distribution Width 13.3 % (9.3-17.3); White Blood Count 7.3 T/CUMM (4-12)
[2021-03-31 06:52] LABS: Albumin 2.7 G/DL (3.4-5.0); Bilirubin,Total 1.2 MG/DL (0.20-1.00); Calcium 8.7 MG/DL (8.5-10.1); Osmolality,Calculated 276.4 MOS/KG (273-304); Thyroid Stimulating Hormone 0.803 uIU/ml (0.358-3.74); Total Protein 6.4 G/DL (6.4-8.2)
[2021-03-31] MEDS ORDERED: lisinopriL 20 MG TABLET PO SCH (09:00)
[2021-03-31] MEDS ORDERED: PANTOPRAZOLE 40 MG TABLET PO SCH (09:00)
[2021-03-31] MEDS ORDERED: TAMSULOSIN 0.4 MG CAPSULE PO SCH (09:00)
[2021-03-31] MEDS ORDERED: amLODIPine 10 MG TABLET PO SCH (09:00)
[2021-03-31] MEDS ORDERED: carvediloL 6.25 MG TABLET PO SCH (09:00)
[2021-03-31] MEDS ORDERED: predniSONE 20 MG TABLET PO SCH (09:00)
[2021-03-31] MEDS ORDERED: ATORVASTATIN 40 MG TABLET PO SCH (09:00)
[2021-03-31] MEDS ORDERED: FOLIC ACID 1 MG TABLET PO SCH (11:00)
[2021-03-31] MEDS ORDERED: THIAMINE 100 MG TABLET PO SCH (11:00)
[2021-03-31] MEDS ORDERED: MULTIVITAMIN (CENTRUM) TABLET PO SCH (11:00)
[2021-03-31] MEDS: QUEtiapine 25 MG TABLET PO SCH ×2 (12:03→14:23)
[2021-03-31] MEDS: levETIRAcetam 500 MG TABLET PO SCH (12:03)
[2021-03-31 12:05] VITALS: BP 150/97
[2021-03-31] MEDS: INSULIN LISPRO 100 UNIT/ML SUBCUT SCH (12:39)
[2021-03-31] MEDS: PYRIDOSTIGMINE 60 MG TABLET PO SCH ×2 (13:10→14:23)
[2021-03-31] MEDS: PHENobarbital 30 MG TABLET PO SCH ×2 (13:11→14:23)
[2021-03-31] MEDS: BUDESONIDE/FORMOTEROL 160-4.5 INHALER 6 GM INH SCH (13:26)
== END 2021-03-31 16:02 | disposition home or self-care (01) ==
LOC: EDBD → EDUNIT# → N.EDINP 11:26 → N.ED 11:26 → N.5E 15:59
PROVIDERS: ADMIT Hospitalist; ATTEND Hospitalist

== ENCOUNTER 2021-04-18 16:00 | Inpatient (IN) ==
[2021-04-18] MEDS ORDERED: SODIUM CHLORIDE 0.9% 1,000 ML IV STA (17:02)
[2021-04-18 17:23] LABS: Alanine Aminotransferase 19 U/L (16-61); Albumin 3.3 G/DL (3.4-5.0); Alkaline Phosphatase 103 U/L (45-117); Aspartate Amino Transferase 18 U/L (0-37); Bilirubin,Total < 0.39 MG/DL (0.20-1.00); Blood Urea Nitrogen 15 MG/DL (7-18); Calcium 8.7 MG/DL (8.5-10.1); Carbon Dioxide 28 MMOL/L (21-32); Estimated Glom Filtration Rate 130 ML/MIN; Glucose 111 MG/DL (74-106); Osmolality,Calculated 276.7 MOS/KG (273-304); Potassium 3.7 MMOL/L (3.5-5.1); Sodium 138 MMOL/L (136-145); Total Protein 7.2 G/DL (6.4-8.2)
[2021-04-18 17:27] LABS: Basophils % 0.3 % (0.0-0.8); Eosinophils # 0.1 10*3/uL (0.0-0.87); Eosinophils % 0.5 % (0.00-10.9); Hematocrit 41.5 VOL% (42.0-52.0); Hemoglobin 14.2 GM/DL (14.0-18.0); Immature Granulocytes % 0.6 %; Immature Granulocytes Absolute 0.07 #; Lymphocytes # 1.3 10*3/uL (1.4-4.0); Lymphocytes % 11.8 % (21.2-54.2); Mean Corpuscular HGB Conc 34.2 GM/DL (32-36); Mean Corpuscular Volume 93.7 FL (87-102); Mean Platelet Volume 13.5 FL (9.6-12.0); Monocytes % 4.7 % (1.7-12.7); Neutrophils % 82.1 % (38.7-73.9); Platelet Count 175 T/CUMM (130-400); Red Blood Count 4.43 MC/CUMM (3.8-5.5); Red Cell Distribution Width 13.4 % (9.3-17.3); White Blood Count 11.1 T/CUMM (4-12)
[2021-04-18] MEDS ORDERED: LORazepam 2 MG/1 ML VIAL ONE (18:05)
[2021-04-18] MEDS ORDERED: DIAZEPAM 10 MG/2 ML SYRINGE ONE (18:16)
[2021-04-18] MEDS ORDERED: FOSPHENYTOIN 1,000 MG.PE in SODIUM CHLORIDE 0.9% 250 ML IV STA ×2 (18:18→18:21)
[2021-04-18] MEDS ORDERED: ONDANSETRON 4 MG/2 ML VIAL IV PRN (18:53)
[2021-04-18] MEDS ORDERED: GLUCAGON 1 MG VIAL IM PRN ×2 (18:53→19:00)
[2021-04-18] MEDS ORDERED: DEXTROSE 50% 25 GM/50 ML VIAL IV PRN ×2 (18:53→19:00)
[2021-04-18 18:59] LABS: Barbiturates Screen,Urine Positive (Negative); Benzodiazepines Screen,Urine Negative (Negative); Cannabinoid Screen,Urine Negative (Negative); Opiate Screen,Urine Negative (Negative); Phencyclidine Screen,Urine Negative (Negative)
[2021-04-18] MEDS ORDERED: LORazepam 2 MG/1 ML VIAL IV STA (18:59)
[2021-04-18] MEDS: ENOXAPARIN 40 MG/0.4 ML SYRINGE SUBCUT SCH (21:22)
[2021-04-18] MEDS: INSULIN LISPRO 100 UNIT/ML SUBCUT SCH (22:44)
[2021-04-18] MEDS: PHENobarbital 30 MG TABLET PO SCH (22:47)
[2021-04-19] MEDS ORDERED: LORazepam 2 MG/1 ML VIAL IV ONE ×3 (06:00→22:19)
[2021-04-19 06:22] LABS: Basophils % 0.5 % (0.0-0.8); Eosinophils # 0.1 10*3/uL (0.0-0.87); Eosinophils % 1.1 % (0.00-10.9); Hematocrit 42.6 VOL% (42.0-52.0); Hemoglobin 14.2 GM/DL (14.0-18.0); Immature Granulocytes % 0.4 %; Immature Granulocytes Absolute 0.03 #; Lymphocytes # 2.3 10*3/uL (1.4-4.0); Lymphocytes % 28.2 % (21.2-54.2); Mean Corpuscular HGB Conc 33.3 GM/DL (32-36); Mean Corpuscular Volume 94.7 FL (87-102); Mean Platelet Volume 12.5 FL (9.6-12.0); Monocytes % 8.6 % (1.7-12.7); Neutrophils % 61.2 % (38.7-73.9); Platelet Count 161 T/CUMM (130-400); Red Cell Distribution Width 13.2 % (9.3-17.3); White Blood Count 8.2 T/CUMM (4-12)
[2021-04-19 06:44] LABS: Calcium 8.8 MG/DL (8.5-10.1); Osmolality,Calculated 279.4 MOS/KG (273-304); Potassium 3.6 MMOL/L (3.5-5.1)
[2021-04-19] MEDS: LORazepam 2 MG/1 ML VIAL IV PRN ×2 (08:13→19:17)
[2021-04-19] MEDS: INSULIN LISPRO 100 UNIT/ML SUBCUT SCH ×4 (10:34→21:26)
[2021-04-19] MEDS: TAMSULOSIN 0.4 MG CAPSULE PO SCH (12:30)
[2021-04-19] MEDS: PHENobarbital 30 MG TABLET PO SCH ×3 (12:31→21:26)
[2021-04-19] MEDS: PANTOPRAZOLE 40 MG TABLET PO SCH (12:31)
[2021-04-19] MEDS: amLODIPine 10 MG TABLET PO SCH (14:57)
[2021-04-19] MEDS: lisinopriL 10 MG TABLET PO SCH (14:57)
[2021-04-19] MEDS: methylPREDNISolone SOD SUC 125 MG/2 ML VIAL IV SCH (17:37)
[2021-04-19] MEDS ORDERED: predniSONE 10 MG TABLET PO SCH (21:00)
[2021-04-19] MEDS: ENOXAPARIN 40 MG/0.4 ML SYRINGE SUBCUT SCH (21:26)
[2021-04-19] MEDS: ATORVASTATIN 40 MG TABLET PO SCH (21:26)
[2021-04-19] MEDS: levETIRAcetam LIQUID 100 MG/ML 30 ML/BOTTLE PO SCH (21:27)
[2021-04-20] MEDS: methylPREDNISolone SOD SUC 125 MG/2 ML VIAL IV SCH ×4 (02:15→18:24)
[2021-04-20] MEDS: INSULIN LISPRO 100 UNIT/ML SUBCUT SCH ×4 (07:43→20:45)
[2021-04-20] MEDS: PANTOPRAZOLE 40 MG TABLET PO SCH (09:39)
[2021-04-20] MEDS: PHENobarbital 30 MG TABLET PO SCH ×3 (09:39→20:44)
[2021-04-20] MEDS: lisinopriL 10 MG TABLET PO SCH (09:39)
[2021-04-20] MEDS: amLODIPine 10 MG TABLET PO SCH (09:39)
[2021-04-20] MEDS: TAMSULOSIN 0.4 MG CAPSULE PO SCH (09:40)
[2021-04-20] MEDS ORDERED: LORazepam 2 MG/1 ML VIAL ONE (09:53)
[2021-04-20] MEDS ORDERED: PHENYTOIN INJ 1,000 MG in SODIUM CHLORIDE 0.9% 100 ML IV ONE (09:55)
[2021-04-20] MEDS ORDERED: PHENYTOIN 100 MG/2 ML VIAL IV SCH (10:00)
[2021-04-20 11:17] LABS: Bacteria,Urine Occasional /HPF (Few); Bilirubin,Urine Negative (Negative); Blood, Urine Small mg/dL (Negative); Glucose,Urine (UA) >=500 mg/dL (Negative); Ketones,Urine Negative (Negative); Nitrite,Urine Negative (Negative); Protein,Urine Negative; RBC,Urine 4 /HPF (0-4); Squamous Epithelial Cell,Urine Occasional /HPF (0-10); Urine Appearance CLEAR (Clear); Urine Color Straw (Yellow); Urine Specific Gravity 1.007 (1.001-1.035); Urine Urobilinogen < 2.0 EU/DL (0.2-1.0)
[2021-04-20] MEDS: levETIRAcetam LIQUID 100 MG/ML 30 ML/BOTTLE PO SCH (11:43)
[2021-04-20 12:58] LABS: Barbiturates Screen,Urine Positive (Negative); Benzodiazepines Screen,Urine Negative (Negative); Cannabinoid Screen,Urine Negative (Negative); Opiate Screen,Urine Negative (Negative); Phencyclidine Screen,Urine Negative (Negative)
[2021-04-20] MEDS: NICOTINE 7 MG/24 HR PATCH TRANSDERM SCH (13:15)
[2021-04-20 14:05] LABS: Calcium 8.9 MG/DL (8.5-10.1); Potassium 4.6 MMOL/L (3.5-5.1)
[2021-04-20] MEDS: PHENYTOIN INJ 100 MG in SODIUM CHLORIDE 0.9% 100 ML IV SCH (17:03)
[2021-04-20] MEDS: ATORVASTATIN 40 MG TABLET PO SCH (20:43)
[2021-04-20] MEDS: PYRIDOSTIGMINE 60 MG TABLET PO SCH (20:43)
[2021-04-20] MEDS: GABAPENTIN 300 MG CAPSULE PO SCH (20:43)
[2021-04-20] MEDS: ENOXAPARIN 40 MG/0.4 ML SYRINGE SUBCUT SCH (20:44)
[2021-04-21] MEDS: PHENYTOIN INJ 100 MG in SODIUM CHLORIDE 0.9% 100 ML IV SCH ×3 (01:44→18:00)
[2021-04-21] MEDS: methylPREDNISolone SOD SUC 125 MG/2 ML VIAL IV SCH ×3 (01:58→17:15)
[2021-04-21] MEDS: LORazepam 2 MG/1 ML VIAL IV PRN (07:47)
[2021-04-21] MEDS: INSULIN GLARGINE 100 UNIT/ML SUBCUT SCH (09:44)
[2021-04-21] MEDS: INSULIN LISPRO 100 UNIT/ML SUBCUT SCH ×4 (09:44→21:42)
[2021-04-21] MEDS: lisinopriL 10 MG TABLET PO SCH (09:45)
[2021-04-21] MEDS: PYRIDOSTIGMINE 60 MG TABLET PO SCH ×3 (09:45→21:40)
[2021-04-21] MEDS: TAMSULOSIN 0.4 MG CAPSULE PO SCH (09:45)
[2021-04-21] MEDS: PHENobarbital 30 MG TABLET PO SCH ×3 (09:45→21:40)
[2021-04-21] MEDS: amLODIPine 10 MG TABLET PO SCH (09:46)
[2021-04-21] MEDS: PANTOPRAZOLE 40 MG TABLET PO SCH (09:46)
[2021-04-21] MEDS: NICOTINE 7 MG/24 HR PATCH TRANSDERM SCH (09:46)
[2021-04-21] MEDS: GABAPENTIN 300 MG CAPSULE PO SCH (09:46)
[2021-04-21] MEDS: ATORVASTATIN 40 MG TABLET PO SCH (21:40)
[2021-04-21] MEDS: ENOXAPARIN 40 MG/0.4 ML SYRINGE SUBCUT SCH (21:43)
[2021-04-22] MEDS: methylPREDNISolone SOD SUC 125 MG/2 ML VIAL IV SCH ×3 (01:29→17:19)
[2021-04-22] MEDS: PHENYTOIN INJ 100 MG in SODIUM CHLORIDE 0.9% 100 ML IV SCH ×2 (01:32→09:10)
[2021-04-22] MEDS: INSULIN GLARGINE 100 UNIT/ML SUBCUT SCH (09:05)
[2021-04-22] MEDS: INSULIN LISPRO 100 UNIT/ML SUBCUT SCH ×4 (09:06→23:44)
[2021-04-22] MEDS: PHENobarbital 30 MG TABLET PO SCH ×3 (09:07→22:57)
[2021-04-22] MEDS: PANTOPRAZOLE 40 MG TABLET PO SCH (09:08)
[2021-04-22] MEDS: PYRIDOSTIGMINE 60 MG TABLET PO SCH ×3 (09:08→22:57)
[2021-04-22] MEDS: lisinopriL 10 MG TABLET PO SCH (09:08)
[2021-04-22] MEDS: amLODIPine 10 MG TABLET PO SCH (09:08)
[2021-04-22] MEDS: TAMSULOSIN 0.4 MG CAPSULE PO SCH (09:09)
[2021-04-22] MEDS: NICOTINE 7 MG/24 HR PATCH TRANSDERM SCH (09:09)
[2021-04-22] MEDS: levETIRAcetam 500 MG TABLET PO SCH ×2 (13:05→18:55)
[2021-04-22] MEDS: PHENYTOIN ER 100 MG CAPSULE PO SCH (17:00)
[2021-04-22] MEDS: LORazepam 2 MG/1 ML VIAL IV PRN (21:00)
[2021-04-22] MEDS ORDERED: ROCURONIUM 100 MG/10 ML VIAL IV ONE ×2 (21:12→21:16)
[2021-04-22] MEDS ORDERED: propofoL 200 MG/20 ML VIAL IV ONE ×2 (21:14→21:16)
[2021-04-22] MEDS ORDERED: ETOMIDATE 20 MG/10 ML VIAL IV ONE ×2 (21:15→21:17)
[2021-04-22] MEDS ORDERED: PHENYLEPHRINE DRIP 0 MG/0 ML PREMIX IV ONE (21:15)
[2021-04-22] MEDS ORDERED: MIDAZOLAM 10 MG/2 ML VIAL ONE (21:40)
[2021-04-22] MEDS ORDERED: MIDAZOLAM 2 MG/2 ML VIAL IV ONE (22:50)
[2021-04-22] MEDS: ATORVASTATIN 40 MG TABLET PO SCH (22:57)
[2021-04-22] MEDS: ENOXAPARIN 40 MG/0.4 ML SYRINGE SUBCUT SCH (22:58)
[2021-04-22] MEDS: PHENYTOIN 100 MG/2 ML VIAL IV SCH (22:58)
[2021-04-22] MEDS ORDERED: MIDAZOLAM 10 MG/2 ML VIAL IV ONE (23:39)
[2021-04-22 23:56] LABS: ABG Base Excess 4.1 MMOL/L (-2.5-2.5); ABG HCO3 28.1 MMOL/L (20-26); ABG Oxygen Saturation 99.8 % (95-100); ABG PCO2 49.9 MM HG (35-48); ABG PH 7.391 (7.35-7.45); ABG TCO2 25.9 MMOL/L (23-27)
[2021-04-23] MEDS: methylPREDNISolone SOD SUC 125 MG/2 ML VIAL IV SCH ×2 (02:46→11:50)
[2021-04-23] MEDS: levETIRAcetam 500 MG TABLET PO SCH ×3 (02:47→19:29)
[2021-04-23 04:12] LABS: ABG Base Excess 4.3 MMOL/L (-2.5-2.5); ABG HCO3 28.3 MMOL/L (20-26); ABG Oxygen Saturation 97.8 % (95-100); ABG PH 7.412 (7.35-7.45); ABG PO2 97.5 MM HG (80-95); ABG TCO2 25.6 MMOL/L (23-27)
[2021-04-23 04:44] LABS: Basophils % 0.1 % (0.0-0.8); Hematocrit 43.4 VOL% (42.0-52.0); Hemoglobin 14.7 GM/DL (14.0-18.0); Immature Granulocytes % 0.7 %; Immature Granulocytes Absolute 0.14 #; Lymphocytes # 1.3 10*3/uL (1.4-4.0); Lymphocytes % 5.9 % (21.2-54.2); Mean Corpuscular HGB Conc 33.9 GM/DL (32-36); Mean Corpuscular Volume 92.5 FL (87-102); Mean Platelet Volume 12.1 FL (9.6-12.0); Monocytes % 9.8 % (1.7-12.7); Neutrophils % 83.5 % (38.7-73.9); Platelet Count 184 T/CUMM (130-400); Red Blood Count 4.69 MC/CUMM (3.8-5.5); White Blood Count 21.3 T/CUMM (4-12)
[2021-04-23 05:00] LABS: Calcium 8.5 MG/DL (8.5-10.1); Osmolality,Calculated 282.4 MOS/KG (273-304); Potassium 3.7 MMOL/L (3.5-5.1)
[2021-04-23 05:06] LABS: Hypochromasia 1+; Platelet Estimate Normal
[2021-04-23] MEDS: PHENYTOIN 100 MG/2 ML VIAL IV SCH ×3 (05:58→21:29)
[2021-04-23] MEDS: INSULIN LISPRO 100 UNIT/ML SUBCUT SCH ×3 (06:30→17:21)
[2021-04-23] MEDS: PHENobarbital 30 MG TABLET PO SCH ×3 (08:37→21:28)
[2021-04-23] MEDS: lisinopriL 10 MG TABLET PO SCH (08:38)
[2021-04-23] MEDS: amLODIPine 10 MG TABLET PO SCH (08:38)
[2021-04-23] MEDS: PANTOPRAZOLE 40 MG TABLET PO SCH (08:38)
[2021-04-23] MEDS: NICOTINE 7 MG/24 HR PATCH TRANSDERM SCH (08:38)
[2021-04-23] MEDS: TAMSULOSIN 0.4 MG CAPSULE PO SCH (08:39)
[2021-04-23] MEDS: PYRIDOSTIGMINE 60 MG TABLET PO SCH ×3 (08:39→21:28)
[2021-04-23] MEDS: PIPERACILLIN/TAZOBACTAM 3,375 MG in SODIUM CHLORIDE 0.9% 100 ML IV SCH ×2 (11:50→17:25)
[2021-04-23 13:52] LABS: Phenytoin (Dilantin) 19.6 UG/ML (10-20)
[2021-04-23 13:52] LABS: Alanine Aminotransferase 17 U/L (16-61); Alkaline Phosphatase 112 U/L (45-117); Aspartate Amino Transferase 9 U/L (0-37); Bilirubin,Direct < 0.100 MG/DL (0.0-0.20); Bilirubin,Indirect 0.3 MG/DL (0.0-1.0); Bilirubin,Total < 0.39 MG/DL (0.20-1.00); Total Protein 6.3 G/DL (6.4-8.2)
[2021-04-23] MEDS: MIDAZOLAM 100 MG in SODIUM CHLORIDE 0.9% 80 ML IV PRN (14:10)
[2021-04-23] MEDS: methylPREDNISolone SOD SUC 40 MG/1 ML VIAL IV SCH (16:30)
[2021-04-23] MEDS: INSULIN GLARGINE 100 UNIT/ML SUBCUT SCH (17:19)
[2021-04-23] MEDS: PHENYTOIN ER 100 MG CAPSULE PO SCH (17:23)
[2021-04-23] MEDS: ENOXAPARIN 40 MG/0.4 ML SYRINGE SUBCUT SCH (21:28)
[2021-04-23] MEDS: ATORVASTATIN 40 MG TABLET PO SCH (21:28)
[2021-04-24] MEDS: INSULIN LISPRO 100 UNIT/ML SUBCUT SCH ×4 (00:20→18:00)
[2021-04-24] MEDS: PIPERACILLIN/TAZOBACTAM 3,375 MG in SODIUM CHLORIDE 0.9% 100 ML IV SCH ×3 (00:21→16:50)
[2021-04-24] MEDS: ALBUTEROL/IPRATROPIUM 3 ML NEB RESP TX SCH ×5 (02:31→19:42)
[2021-04-24] MEDS: levETIRAcetam 500 MG TABLET PO SCH ×3 (03:17→19:20)
[2021-04-24] MEDS: methylPREDNISolone SOD SUC 40 MG/1 ML VIAL IV SCH ×2 (03:17→16:00)
[2021-04-24 04:45] LABS: ABG Base Excess 4.8 MMOL/L (-2.5-2.5); ABG HCO3 28.8 MMOL/L (20-26); ABG Oxygen Saturation 99.2 % (95-100); ABG PH 7.459 (7.35-7.45); ABG TCO2 25.1 MMOL/L (23-27); Allen Test Positive; Pt O2 Delivery Device Ventilator
[2021-04-24 04:47] LABS: Basophils % 0.1 % (0.0-0.8); Eosinophils % 0.1 % (0.00-10.9); Hematocrit 38.3 VOL% (42.0-52.0); Hemoglobin 12.9 GM/DL (14.0-18.0); Immature Granulocytes % 0.6 %; Immature Granulocytes Absolute 0.08 #; Lymphocytes % 20.6 % (21.2-54.2); Mean Corpuscular HGB Conc 33.7 GM/DL (32-36); Mean Corpuscular Volume 93.9 FL (87-102); Mean Platelet Volume 12.5 FL (9.6-12.0); Monocytes % 9.1 % (1.7-12.7); Neutrophils % 69.5 % (38.7-73.9); Platelet Count 186 T/CUMM (130-400); Red Blood Count 4.08 MC/CUMM (3.8-5.5); Red Cell Distribution Width 13.2 % (9.3-17.3); White Blood Count 14.5 T/CUMM (4-12)
[2021-04-24 05:10] LABS: Calcium 8.3 MG/DL (8.5-10.1); Osmolality,Calculated 286.4 MOS/KG (273-304); Potassium 3.6 MMOL/L (3.5-5.1)
[2021-04-24] MEDS: PHENYTOIN 100 MG/2 ML VIAL IV SCH ×3 (05:52→22:47)
[2021-04-24] MEDS: amLODIPine 10 MG TABLET PO SCH (09:55)
[2021-04-24] MEDS: INSULIN GLARGINE 100 UNIT/ML SUBCUT SCH (09:55)
[2021-04-24] MEDS: PYRIDOSTIGMINE 60 MG TABLET PO SCH ×3 (09:55→22:47)
[2021-04-24] MEDS: TAMSULOSIN 0.4 MG CAPSULE PO SCH (09:55)
[2021-04-24] MEDS: PHENobarbital 30 MG TABLET PO SCH ×4 (09:55→22:47)
[2021-04-24] MEDS: lisinopriL 20 MG TABLET PO SCH (12:02)
[2021-04-24] MEDS: PANTOPRAZOLE 40 MG TABLET PO SCH (12:03)
[2021-04-24] MEDS: MIDAZOLAM 100 MG in SODIUM CHLORIDE 0.9% 80 ML IV PRN (14:00)
[2021-04-24] MEDS ORDERED: PHENYLEPHRINE DRIP 40 MG/250 ML PREMIX IV PRN (19:10)
[2021-04-24] MEDS ORDERED: PHENOBARBITAL IV ONE (19:17)
[2021-04-24] MEDS ORDERED: SODIUM CHLORIDE 0.9% IV ONE (19:17)
[2021-04-24] MEDS: ATORVASTATIN 40 MG TABLET PO SCH (22:46)
[2021-04-24] MEDS: ENOXAPARIN 40 MG/0.4 ML SYRINGE SUBCUT SCH (22:47)
[2021-04-25] MEDS: INSULIN LISPRO 100 UNIT/ML SUBCUT SCH ×3 (00:05→18:40)
[2021-04-25] MEDS: ALBUTEROL/IPRATROPIUM 3 ML NEB RESP TX SCH ×4 (00:32→20:05)
[2021-04-25] MEDS: PIPERACILLIN/TAZOBACTAM 3,375 MG in SODIUM CHLORIDE 0.9% 100 ML IV SCH ×3 (02:16→20:16)
[2021-04-25 04:20] LABS: ABG Base Excess 3.6 MMOL/L (-2.5-2.5); ABG HCO3 27.7 MMOL/L (20-26); ABG Oxygen Saturation 99.3 % (95-100); ABG PCO2 47.7 MM HG (35-48); ABG PH 7.398 (7.35-7.45); ABG TCO2 25.4 MMOL/L (23-27); Allen Test Positive; Pt O2 Delivery Device Ventilator
[2021-04-25 04:45] LABS: Basophils % 0.1 % (0.0-0.8); Eosinophils % 0.2 % (0.00-10.9); Hematocrit 41.1 VOL% (42.0-52.0); Hemoglobin 13.3 GM/DL (14.0-18.0); Immature Granulocytes % 0.7 %; Immature Granulocytes Absolute 0.09 #; Lymphocytes # 3.1 10*3/uL (1.4-4.0); Lymphocytes % 25.2 % (21.2-54.2); Mean Corpuscular HGB Conc 32.4 GM/DL (32-36); Mean Corpuscular Volume 96.3 FL (87-102); Mean Platelet Volume 12.1 FL (9.6-12.0); Monocytes % 8.5 % (1.7-12.7); Neutrophils % 65.3 % (38.7-73.9); Platelet Count 188 T/CUMM (130-400); Red Blood Count 4.27 MC/CUMM (3.8-5.5); Red Cell Distribution Width 13.2 % (9.3-17.3); White Blood Count 12.2 T/CUMM (4-12)
[2021-04-25] MEDS: MIDAZOLAM 100 MG in SODIUM CHLORIDE 0.9% 80 ML IV PRN ×2 (04:46→19:23)
[2021-04-25] MEDS: methylPREDNISolone SOD SUC 40 MG/1 ML VIAL IV SCH ×2 (04:56→18:20)
[2021-04-25] MEDS: PHENYTOIN 100 MG/2 ML VIAL IV SCH ×3 (05:01→22:58)
[2021-04-25 05:13] LABS: Calcium 8.1 MG/DL (8.5-10.1); Osmolality,Calculated 282.7 MOS/KG (273-304); Potassium 3.8 MMOL/L (3.5-5.1)
[2021-04-25] MEDS: levETIRAcetam 500 MG TABLET PO SCH ×3 (06:02→20:15)
[2021-04-25] MEDS: INSULIN GLARGINE 100 UNIT/ML SUBCUT SCH (13:00)
[2021-04-25] MEDS: PANTOPRAZOLE 40 MG VIAL IV SCH (13:00)
[2021-04-25] MEDS: TAMSULOSIN 0.4 MG CAPSULE PO SCH (13:00)
[2021-04-25] MEDS: PHENobarbital 30 MG TABLET PO SCH ×3 (13:00→20:15)
[2021-04-25] MEDS: PYRIDOSTIGMINE 60 MG TABLET PO SCH ×3 (13:00→20:16)
[2021-04-25] MEDS: amLODIPine 10 MG TABLET PO SCH (13:00)
[2021-04-25] MEDS: lisinopriL 20 MG TABLET PO SCH (18:39)
[2021-04-25] MEDS: PANTOPRAZOLE 40 MG TABLET PO SCH (18:45)
[2021-04-25] MEDS: ATORVASTATIN 40 MG TABLET PO SCH (20:15)
[2021-04-25] MEDS: ENOXAPARIN 40 MG/0.4 ML SYRINGE SUBCUT SCH (20:16)
[2021-04-26] MEDS: INSULIN LISPRO 100 UNIT/ML SUBCUT SCH ×4 (00:08→18:12)
[2021-04-26] MEDS: ALBUTEROL/IPRATROPIUM 3 ML NEB RESP TX SCH ×4 (00:50→19:00)
[2021-04-26] MEDS: methylPREDNISolone SOD SUC 40 MG/1 ML VIAL IV SCH ×2 (03:27→15:42)
[2021-04-26] MEDS: levETIRAcetam 500 MG TABLET PO SCH ×2 (03:27→11:09)
[2021-04-26 04:30] LABS: Allen Test Positive
[2021-04-26 04:32] LABS: ABG Base Excess 3.7 MMOL/L (-2.5-2.5); ABG HCO3 27.8 MMOL/L (20-26); ABG Oxygen Saturation 99.3 % (95-100); ABG PCO2 41.2 MM HG (35-48); ABG PH 7.442 (7.35-7.45); ABG TCO2 24.7 MMOL/L (23-27); Pt O2 Delivery Device Ventilator
[2021-04-26 04:57] LABS: Basophils % 0.1 % (0.0-0.8); Eosinophils # 0.1 10*3/uL (0.0-0.87); Eosinophils % 0.7 % (0.00-10.9); Hematocrit 39.2 VOL% (42.0-52.0); Hemoglobin 12.6 GM/DL (14.0-18.0); Immature Granulocytes % 0.7 %; Immature Granulocytes Absolute 0.07 #; Lymphocytes # 2.5 10*3/uL (1.4-4.0); Lymphocytes % 24.1 % (21.2-54.2); Mean Corpuscular HGB Conc 32.1 GM/DL (32-36); Mean Corpuscular Volume 95.8 FL (87-102); Mean Platelet Volume 12.1 FL (9.6-12.0); Monocytes % 7.6 % (1.7-12.7); Neutrophils % 66.8 % (38.7-73.9); Platelet Count 183 T/CUMM (130-400); Red Blood Count 4.09 MC/CUMM (3.8-5.5); Red Cell Distribution Width 13.2 % (9.3-17.3); White Blood Count 10.5 T/CUMM (4-12)
[2021-04-26 05:12] LABS: Calcium 8.3 MG/DL (8.5-10.1); Osmolality,Calculated 280.7 MOS/KG (273-304); Potassium 4.2 MMOL/L (3.5-5.1)
[2021-04-26] MEDS: PHENYTOIN 100 MG/2 ML VIAL IV SCH ×3 (05:45→20:23)
[2021-04-26] MEDS: PIPERACILLIN/TAZOBACTAM 3,375 MG in SODIUM CHLORIDE 0.9% 100 ML IV SCH ×3 (05:46→20:23)
[2021-04-26] MEDS: amLODIPine 10 MG TABLET PO SCH (08:43)
[2021-04-26] MEDS: PYRIDOSTIGMINE 60 MG TABLET PO SCH ×3 (08:44→20:22)
[2021-04-26] MEDS: PANTOPRAZOLE 40 MG VIAL IV SCH (08:44)
[2021-04-26] MEDS: PHENobarbital 30 MG TABLET PO SCH (08:44)
[2021-04-26] MEDS: INSULIN GLARGINE 100 UNIT/ML SUBCUT SCH (08:46)
[2021-04-26] MEDS: TAMSULOSIN 0.4 MG CAPSULE PO SCH (08:50)
[2021-04-26] MEDS: lisinopriL 20 MG TABLET PO SCH (08:52)
[2021-04-26] MEDS: LORazepam 2 MG/1 ML VIAL IV PRN (12:07)
[2021-04-26] MEDS: MIDAZOLAM 100 MG in SODIUM CHLORIDE 0.9% 80 ML IV PRN (12:07)
[2021-04-26] MEDS: PHENobarbital 130 MG/1 ML VIAL IV SCH ×2 (13:26→20:23)
[2021-04-26] MEDS: ATORVASTATIN 40 MG TABLET PO SCH (20:22)
[2021-04-26] MEDS: ENOXAPARIN 40 MG/0.4 ML SYRINGE SUBCUT SCH (21:06)
[2021-04-27] MEDS: INSULIN LISPRO 100 UNIT/ML SUBCUT SCH ×4 (00:18→19:33)
[2021-04-27] MEDS: PHENYTOIN 100 MG/2 ML VIAL IV SCH ×4 (00:18→20:35)
[2021-04-27] MEDS: ALBUTEROL/IPRATROPIUM 3 ML NEB RESP TX SCH ×4 (00:55→19:50)
[2021-04-27 03:03] LABS: ABG Base Excess 4.6 MMOL/L (-2.5-2.5); ABG HCO3 28.6 MMOL/L (20-26); ABG Oxygen Saturation 99.1 % (95-100); ABG PCO2 46.1 MM HG (35-48); ABG PH 7.421 (7.35-7.45); ABG TCO2 25.9 MMOL/L (23-27)
[2021-04-27 03:59] LABS: Basophils % 0.2 % (0.0-0.8); Eosinophils # 0.1 10*3/uL (0.0-0.87); Eosinophils % 1.2 % (0.00-10.9); Hematocrit 41.3 VOL% (42.0-52.0); Hemoglobin 13.6 GM/DL (14.0-18.0); Immature Granulocytes % 1.2 %; Immature Granulocytes Absolute 0.12 #; Lymphocytes # 2.1 10*3/uL (1.4-4.0); Lymphocytes % 20.6 % (21.2-54.2); Mean Corpuscular HGB Conc 32.9 GM/DL (32-36); Mean Corpuscular Volume 95.4 FL (87-102); Monocytes % 8.2 % (1.7-12.7); Neutrophils % 68.6 % (38.7-73.9); Platelet Count 199 T/CUMM (130-400); Red Blood Count 4.33 MC/CUMM (3.8-5.5); Red Cell Distribution Width 13.2 % (9.3-17.3); White Blood Count 10.2 T/CUMM (4-12)
[2021-04-27 04:13] LABS: Calcium 8.5 MG/DL (8.5-10.1); Osmolality,Calculated 278.7 MOS/KG (273-304); Potassium 4.6 MMOL/L (3.5-5.1)
[2021-04-27] MEDS: methylPREDNISolone SOD SUC 40 MG/1 ML VIAL IV SCH ×2 (04:30→19:33)
[2021-04-27] MEDS: PHENobarbital 130 MG/1 ML VIAL IV SCH ×3 (05:33→21:29)
[2021-04-27] MEDS: PIPERACILLIN/TAZOBACTAM 3,375 MG in SODIUM CHLORIDE 0.9% 100 ML IV SCH ×3 (05:33→21:34)
[2021-04-27] MEDS: PYRIDOSTIGMINE 60 MG TABLET PO SCH ×3 (10:03→21:28)
[2021-04-27] MEDS: TAMSULOSIN 0.4 MG CAPSULE PO SCH (10:03)
[2021-04-27] MEDS: amLODIPine 10 MG TABLET PO SCH (10:04)
[2021-04-27] MEDS: lisinopriL 20 MG TABLET PO SCH (10:04)
[2021-04-27] MEDS: PANTOPRAZOLE 40 MG VIAL IV SCH (10:04)
[2021-04-27] MEDS: INSULIN GLARGINE 100 UNIT/ML SUBCUT SCH (14:00)
[2021-04-27 16:42] LABS: Phenytoin (Dilantin) 19.6 UG/ML (10-20)
[2021-04-27] MEDS: ATORVASTATIN 40 MG TABLET PO SCH (21:28)
[2021-04-27] MEDS: ENOXAPARIN 40 MG/0.4 ML SYRINGE SUBCUT SCH (21:29)
[2021-04-28] MEDS: ALBUTEROL/IPRATROPIUM 3 ML NEB RESP TX SCH ×4 (00:04→19:03)
[2021-04-28] MEDS: PHENYTOIN 100 MG/2 ML VIAL IV SCH ×4 (01:20→19:56)
[2021-04-28 04:02] LABS: Basophils % 0.2 % (0.0-0.8); Eosinophils # 0.3 10*3/uL (0.0-0.87); Hematocrit 43.9 VOL% (42.0-52.0); Hemoglobin 14.8 GM/DL (14.0-18.0); Immature Granulocytes Absolute 0.12 #; Lymphocytes # 2.4 10*3/uL (1.4-4.0); Lymphocytes % 19.6 % (21.2-54.2); Mean Corpuscular HGB Conc 33.7 GM/DL (32-36); Mean Corpuscular Volume 94.2 FL (87-102); Monocytes % 8.7 % (1.7-12.7); Neutrophils % 68.5 % (38.7-73.9); Platelet Count 192 T/CUMM (130-400); Red Blood Count 4.66 MC/CUMM (3.8-5.5); Red Cell Distribution Width 12.9 % (9.3-17.3); White Blood Count 12.5 T/CUMM (4-12)
[2021-04-28] MEDS: PIPERACILLIN/TAZOBACTAM 3,375 MG in SODIUM CHLORIDE 0.9% 100 ML IV SCH ×3 (04:50→22:26)
[2021-04-28] MEDS: methylPREDNISolone SOD SUC 40 MG/1 ML VIAL IV SCH ×2 (04:55→17:30)
[2021-04-28] MEDS: PHENobarbital 130 MG/1 ML VIAL IV SCH ×3 (04:58→22:27)
[2021-04-28] MEDS: PANTOPRAZOLE 40 MG VIAL IV SCH (09:11)
[2021-04-28] MEDS: PYRIDOSTIGMINE 60 MG TABLET PO SCH ×3 (09:11→22:27)
[2021-04-28] MEDS: lisinopriL 20 MG TABLET PO SCH (09:11)
[2021-04-28] MEDS: TAMSULOSIN 0.4 MG CAPSULE PO SCH (09:12)
[2021-04-28] MEDS: amLODIPine 10 MG TABLET PO SCH (09:12)
[2021-04-28] MEDS: INSULIN GLARGINE 100 UNIT/ML SUBCUT SCH (09:12)
[2021-04-28] MEDS: INSULIN LISPRO 100 UNIT/ML SUBCUT SCH ×4 (09:13→21:32)
[2021-04-28] MEDS: ATORVASTATIN 40 MG TABLET PO SCH (22:27)
[2021-04-28] MEDS: ENOXAPARIN 40 MG/0.4 ML SYRINGE SUBCUT SCH (22:27)
[2021-04-29] MEDS: ALBUTEROL/IPRATROPIUM 3 ML NEB RESP TX SCH ×4 (00:38→20:11)
[2021-04-29] MEDS: PHENYTOIN 100 MG/2 ML VIAL IV SCH ×4 (01:08→21:23)
[2021-04-29] MEDS: methylPREDNISolone SOD SUC 40 MG/1 ML VIAL IV SCH ×2 (04:06→21:22)
[2021-04-29] MEDS: PIPERACILLIN/TAZOBACTAM 3,375 MG in SODIUM CHLORIDE 0.9% 100 ML IV SCH ×2 (05:18→21:22)
[2021-04-29] MEDS: PHENobarbital 130 MG/1 ML VIAL IV SCH ×3 (05:19→21:20)
[2021-04-29 06:34] LABS: Basophils % 0.2 % (0.0-0.8); Eosinophils # 0.2 10*3/uL (0.0-0.87); Eosinophils % 1.1 % (0.00-10.9); Hematocrit 40.7 VOL% (42.0-52.0); Hemoglobin 13.5 GM/DL (14.0-18.0); Immature Granulocytes % 1.5 %; Lymphocytes # 1.5 10*3/uL (1.4-4.0); Lymphocytes % 11.5 % (21.2-54.2); Mean Corpuscular HGB Conc 33.2 GM/DL (32-36); Mean Corpuscular Volume 93.3 FL (87-102); Mean Platelet Volume 11.8 FL (9.6-12.0); Monocytes % 4.9 % (1.7-12.7); Neutrophils % 80.8 % (38.7-73.9); Platelet Count 199 T/CUMM (130-400); Red Blood Count 4.36 MC/CUMM (3.8-5.5); Red Cell Distribution Width 12.8 % (9.3-17.3); White Blood Count 13.4 T/CUMM (4-12)
[2021-04-29 06:48] LABS: Calcium 8.8 MG/DL (8.5-10.1); Osmolality,Calculated 271.2 MOS/KG (273-304); Potassium 4.3 MMOL/L (3.5-5.1)
[2021-04-29] MEDS: INSULIN LISPRO 100 UNIT/ML SUBCUT SCH ×3 (07:45→21:24)
[2021-04-29] MEDS: amLODIPine 10 MG TABLET PO SCH (09:30)
[2021-04-29] MEDS: lisinopriL 20 MG TABLET PO SCH (09:30)
[2021-04-29] MEDS: PYRIDOSTIGMINE 60 MG TABLET PO SCH ×3 (09:30→21:24)
[2021-04-29] MEDS: INSULIN GLARGINE 100 UNIT/ML SUBCUT SCH (09:30)
[2021-04-29] MEDS: PANTOPRAZOLE 40 MG VIAL IV SCH (09:30)
[2021-04-29] MEDS: TAMSULOSIN 0.4 MG CAPSULE PO SCH (09:30)
[2021-04-29] MEDS: ENOXAPARIN 40 MG/0.4 ML SYRINGE SUBCUT SCH (21:20)
[2021-04-29] MEDS: ATORVASTATIN 40 MG TABLET PO SCH (21:21)
[2021-04-30] MEDS: ALBUTEROL/IPRATROPIUM 3 ML NEB RESP TX SCH ×4 (00:25→19:24)
[2021-04-30] MEDS: PIPERACILLIN/TAZOBACTAM 3,375 MG in SODIUM CHLORIDE 0.9% 100 ML IV SCH ×3 (00:28→16:47)
[2021-04-30] MEDS: PHENYTOIN 100 MG/2 ML VIAL IV SCH ×4 (00:28→20:58)
[2021-04-30] MEDS: methylPREDNISolone SOD SUC 40 MG/1 ML VIAL IV SCH (04:38)
[2021-04-30] MEDS: PHENobarbital 130 MG/1 ML VIAL IV SCH ×3 (04:39→21:47)
[2021-04-30] MEDS: INSULIN LISPRO 100 UNIT/ML SUBCUT SCH ×4 (09:46→21:47)
[2021-04-30] MEDS: INSULIN GLARGINE 100 UNIT/ML SUBCUT SCH (09:46)
[2021-04-30] MEDS: amLODIPine 10 MG TABLET PO SCH (09:47)
[2021-04-30] MEDS: PYRIDOSTIGMINE 60 MG TABLET PO SCH ×3 (09:47→21:46)
[2021-04-30] MEDS: TAMSULOSIN 0.4 MG CAPSULE PO SCH (09:47)
[2021-04-30] MEDS: predniSONE 10 MG TABLET PO SCH (09:47)
[2021-04-30] MEDS: lisinopriL 20 MG TABLET PO SCH (10:05)
[2021-04-30] MEDS: LORazepam 2 MG/1 ML VIAL IV PRN ×2 (20:56→21:16)
[2021-04-30 21:28] LABS: Basophils % 0.3 % (0.0-0.8); Eosinophils # 0.1 10*3/uL (0.0-0.87); Eosinophils % 0.9 % (0.00-10.9); Hematocrit 40.3 VOL% (42.0-52.0); Hemoglobin 13.2 GM/DL (14.0-18.0); Immature Granulocytes % 1.2 %; Immature Granulocytes Absolute 0.12 #; Lymphocytes # 2.6 10*3/uL (1.4-4.0); Lymphocytes % 25.1 % (21.2-54.2); Mean Corpuscular HGB Conc 32.8 GM/DL (32-36); Mean Corpuscular Volume 95.7 FL (87-102); Mean Platelet Volume 10.9 FL (9.6-12.0); Neutrophils % 63.5 % (38.7-73.9); Platelet Count 209 T/CUMM (130-400); Red Blood Count 4.21 MC/CUMM (3.8-5.5); White Blood Count 10.3 T/CUMM (4-12)
[2021-04-30] MEDS: ENOXAPARIN 40 MG/0.4 ML SYRINGE SUBCUT SCH (21:46)
[2021-04-30] MEDS: ATORVASTATIN 40 MG TABLET PO SCH (21:47)
[2021-04-30 21:51] LABS: Calcium 8.6 MG/DL (8.5-10.1); Osmolality,Calculated 280.5 MOS/KG (273-304); Potassium 4.1 MMOL/L (3.5-5.1)
[2021-04-30 21:55] LABS: Phenytoin (Dilantin) 24.8 UG/ML (10-20)
[2021-04-30 22:06] LABS: Barbiturates Screen,Urine Positive (Negative); Benzodiazepines Screen,Urine Positive (Negative); Cannabinoid Screen,Urine Negative (Negative); Opiate Screen,Urine Negative (Negative); Phencyclidine Screen,Urine Negative (Negative)
[2021-05-01] MEDS ORDERED: SODIUM CHLORIDE 0.9% 1,000 ML IV ONE (00:55)
[2021-05-01] MEDS: PHENYTOIN 100 MG/2 ML VIAL IV SCH ×4 (01:09→19:22)
[2021-05-01] MEDS: ALBUTEROL/IPRATROPIUM 3 ML NEB RESP TX SCH ×4 (01:15→20:53)
[2021-05-01] MEDS: DEXT 5% NACL 0.45% KCL 20 MEQ 20 MEQ/1,000 ML BAG IV SCH ×4 (01:16→17:31)
[2021-05-01] MEDS: PHENobarbital 130 MG/1 ML VIAL IV SCH ×3 (05:44→20:43)
[2021-05-01] MEDS: LORazepam 2 MG/1 ML VIAL IV PRN (05:45)
[2021-05-01] MEDS: lisinopriL 20 MG TABLET PO SCH (08:15)
[2021-05-01] MEDS: TAMSULOSIN 0.4 MG CAPSULE PO SCH (08:16)
[2021-05-01] MEDS: PYRIDOSTIGMINE 60 MG TABLET PO SCH ×3 (08:16→20:43)
[2021-05-01] MEDS: predniSONE 10 MG TABLET PO SCH (08:16)
[2021-05-01] MEDS: INSULIN LISPRO 100 UNIT/ML SUBCUT SCH ×4 (08:17→20:53)
[2021-05-01] MEDS: INSULIN GLARGINE 100 UNIT/ML SUBCUT SCH (08:18)
[2021-05-01] MEDS: amLODIPine 10 MG TABLET PO SCH (08:30)
[2021-05-01] MEDS: ENOXAPARIN 40 MG/0.4 ML SYRINGE SUBCUT SCH (20:43)
[2021-05-01] MEDS: ATORVASTATIN 40 MG TABLET PO SCH (20:43)
[2021-05-02] MEDS: ALBUTEROL/IPRATROPIUM 3 ML NEB RESP TX SCH ×4 (00:30→19:00)
[2021-05-02] MEDS: DEXT 5% NACL 0.45% KCL 20 MEQ 20 MEQ/1,000 ML BAG IV SCH ×3 (02:05→19:05)
[2021-05-02] MEDS: PHENYTOIN 100 MG/2 ML VIAL IV SCH ×3 (03:11→20:03)
[2021-05-02] MEDS: PHENobarbital 130 MG/1 ML VIAL IV SCH ×3 (04:10→20:53)
[2021-05-02 07:50] LABS: Basophils % 0.2 % (0.0-0.8); Eosinophils # 0.1 10*3/uL (0.0-0.87); Eosinophils % 1.4 % (0.00-10.9); Hematocrit 43.6 VOL% (42.0-52.0); Hemoglobin 14.3 GM/DL (14.0-18.0); Immature Granulocytes % 0.6 %; Immature Granulocytes Absolute 0.05 #; Lymphocytes % 21.6 % (21.2-54.2); Mean Corpuscular HGB Conc 32.8 GM/DL (32-36); Mean Platelet Volume 11.6 FL (9.6-12.0); Monocytes % 6.6 % (1.7-12.7); Neutrophils % 69.6 % (38.7-73.9); Platelet Count 209 T/CUMM (130-400); Red Blood Count 4.59 MC/CUMM (3.8-5.5); Red Cell Distribution Width 12.9 % (9.3-17.3); White Blood Count 9.1 T/CUMM (4-12)
[2021-05-02] MEDS: INSULIN LISPRO 100 UNIT/ML SUBCUT SCH ×4 (07:50→21:19)
[2021-05-02 08:11] LABS: Calcium 9.2 MG/DL (8.5-10.1); Osmolality,Calculated 277.4 MOS/KG (273-304); Potassium 4.5 MMOL/L (3.5-5.1)
[2021-05-02] MEDS: TAMSULOSIN 0.4 MG CAPSULE PO SCH (08:16)
[2021-05-02] MEDS: predniSONE 10 MG TABLET PO SCH (08:17)
[2021-05-02] MEDS: PYRIDOSTIGMINE 60 MG TABLET PO SCH ×3 (08:17→20:53)
[2021-05-02] MEDS: INSULIN GLARGINE 100 UNIT/ML SUBCUT SCH (08:17)
[2021-05-02] MEDS: amLODIPine 10 MG TABLET PO SCH (08:17)
[2021-05-02] MEDS: lisinopriL 20 MG TABLET PO SCH (08:17)
[2021-05-02] MEDS ORDERED: LORazepam 2 MG/1 ML VIAL IV ONE (12:28)
[2021-05-02] MEDS ORDERED: LORazepam 2 MG/1 ML VIAL ONE (12:28)
[2021-05-02] MEDS ORDERED: LORazepam 2 MG/1 ML VIAL IV PRN (13:00)
[2021-05-02] MEDS ORDERED: LACOSAMIDE INJ 200 MG in SODIUM CHLORIDE 0.9% 50 ML IV ONE (13:30)
[2021-05-02 14:20] LABS: Barbiturates Screen,Urine Positive (Negative); Benzodiazepines Screen,Urine Negative (Negative); Cannabinoid Screen,Urine Negative (Negative); Opiate Screen,Urine Negative (Negative); Phencyclidine Screen,Urine Negative (Negative)
[2021-05-02] MEDS: LACOSAMIDE INJ 100 MG in SODIUM CHLORIDE 0.9% 50 ML IV SCH (20:34)
[2021-05-02] MEDS: ATORVASTATIN 40 MG TABLET PO SCH (20:53)
[2021-05-02] MEDS: ENOXAPARIN 40 MG/0.4 ML SYRINGE SUBCUT SCH (20:53)
[2021-05-03] MEDS: DEXT 5% NACL 0.45% KCL 20 MEQ 20 MEQ/1,000 ML BAG IV SCH ×4 (00:22→18:45)
[2021-05-03] MEDS: ALBUTEROL/IPRATROPIUM 3 ML NEB RESP TX SCH ×4 (01:00→19:47)
[2021-05-03] MEDS ORDERED: ROCURONIUM 100 MG/10 ML VIAL IV ONE (01:51)
[2021-05-03] MEDS ORDERED: VECURONIUM 10 MG VIAL IV ONE (01:51)
[2021-05-03] MEDS ORDERED: LORazepam 2 MG/1 ML VIAL IV ONE (01:52)
[2021-05-03] MEDS ORDERED: ETOMIDATE 20 MG/10 ML VIAL IV ONE ×3 (01:54→12:05)
[2021-05-03] MEDS: PHENYTOIN 100 MG/2 ML VIAL IV SCH ×3 (03:07→20:34)
[2021-05-03] MEDS: PHENobarbital 130 MG/1 ML VIAL IV SCH ×3 (04:37→20:34)
[2021-05-03 06:39] LABS: Basophils % 0.3 % (0.0-0.8); Eosinophils # 0.2 10*3/uL (0.0-0.87); Eosinophils % 1.8 % (0.00-10.9); Hematocrit 39.4 VOL% (42.0-52.0); Hemoglobin 12.8 GM/DL (14.0-18.0); Immature Granulocytes % 0.7 %; Immature Granulocytes Absolute 0.07 #; Lymphocytes # 2.3 10*3/uL (1.4-4.0); Lymphocytes % 23.4 % (21.2-54.2); Mean Corpuscular HGB Conc 32.5 GM/DL (32-36); Mean Corpuscular Volume 96.6 FL (87-102); Mean Platelet Volume 11.6 FL (9.6-12.0); Monocytes % 8.7 % (1.7-12.7); Neutrophils % 65.1 % (38.7-73.9); Platelet Count 210 T/CUMM (130-400); Red Blood Count 4.08 MC/CUMM (3.8-5.5); Red Cell Distribution Width 12.8 % (9.3-17.3); White Blood Count 9.7 T/CUMM (4-12)
[2021-05-03 06:59] LABS: Calcium 9.1 MG/DL (8.5-10.1); Osmolality,Calculated 271.8 MOS/KG (273-304); Potassium 4.1 MMOL/L (3.5-5.1)
[2021-05-03] MEDS: INSULIN LISPRO 100 UNIT/ML SUBCUT SCH ×3 (08:06→17:19)
[2021-05-03] MEDS: LACOSAMIDE INJ 150 MG in SODIUM CHLORIDE 0.9% 50 ML IV SCH ×2 (10:48→20:33)
[2021-05-03] MEDS: LACOSAMIDE INJ 100 MG in SODIUM CHLORIDE 0.9% 50 ML IV SCH (10:48)
[2021-05-03] MEDS: LORazepam 2 MG/1 ML VIAL IV PRN ×2 (11:51→13:50)
[2021-05-03] MEDS ORDERED: SUCCINYLCHOLINE 200 MG/10 ML VIAL ONE (11:58)
[2021-05-03] MEDS ORDERED: SUCCINYLCHOLINE 200 MG/10 ML VIAL IV ONE (12:06)
[2021-05-03] MEDS: MIDAZOLAM 100 MG in SODIUM CHLORIDE 0.9% 80 ML IV PRN (13:14)
[2021-05-03 13:38] LABS: ABG Base Excess 3.6 MMOL/L (-2.5-2.5); ABG HCO3 25.9 MMOL/L (20-26); ABG Oxygen Saturation 99.4 % (95-100); ABG PCO2 32.8 MM HG (35-48); ABG PH 7.516 (7.35-7.45); ABG PO2 318.9 MM HG (80-95); ABG TCO2 26.9 MMOL/L (23-27)
[2021-05-03] MEDS: lisinopriL 20 MG TABLET PO SCH (14:28)
[2021-05-03] MEDS: PYRIDOSTIGMINE 60 MG TABLET PO SCH ×3 (14:29→20:35)
[2021-05-03] MEDS: predniSONE 10 MG TABLET PO SCH (14:29)
[2021-05-03] MEDS: amLODIPine 10 MG TABLET PO SCH (14:30)
[2021-05-03] MEDS: TAMSULOSIN 0.4 MG CAPSULE PO SCH (14:31)
[2021-05-03] MEDS: INSULIN GLARGINE 100 UNIT/ML SUBCUT SCH (14:59)
[2021-05-03] MEDS: ENOXAPARIN 40 MG/0.4 ML SYRINGE SUBCUT SCH (20:33)
[2021-05-03] MEDS: ATORVASTATIN 40 MG TABLET PO SCH (20:35)
[2021-05-03] MEDS ORDERED: PHENYLEPHRINE DRIP 40 MG/250 ML PREMIX IV ONE (21:16)
[2021-05-03] MEDS: PHENYLEPHRINE DRIP 40 MG/250 ML PREMIX IV PRN (21:20)
[2021-05-04] MEDS: INSULIN LISPRO 100 UNIT/ML SUBCUT SCH ×4 (00:29→17:12)
[2021-05-04] MEDS: ALBUTEROL/IPRATROPIUM 3 ML NEB RESP TX SCH ×4 (01:00→19:20)
[2021-05-04] MEDS: DEXT 5% NACL 0.45% KCL 20 MEQ 20 MEQ/1,000 ML BAG IV SCH ×5 (03:20→19:33)
[2021-05-04 03:35] LABS: ABG Base Excess 2.3 MMOL/L (-2.5-2.5); ABG HCO3 26.5 MMOL/L (20-26); ABG Oxygen Saturation 99.7 % (95-100); ABG PCO2 46.8 MM HG (35-48); ABG PH 7.386 (7.35-7.45); ABG TCO2 24.4 MMOL/L (23-27)
[2021-05-04] MEDS: PHENYTOIN 100 MG/2 ML VIAL IV SCH ×3 (04:33→21:03)
[2021-05-04] MEDS: PHENobarbital 130 MG/1 ML VIAL IV SCH ×3 (04:36→22:26)
[2021-05-04 04:44] LABS: Basophils % 0.3 % (0.0-0.8); Eosinophils # 0.1 10*3/uL (0.0-0.87); Hematocrit 41.6 VOL% (42.0-52.0); Immature Granulocytes % 0.6 %; Immature Granulocytes Absolute 0.08 #; Lymphocytes # 1.8 10*3/uL (1.4-4.0); Mean Corpuscular HGB Conc 33.7 GM/DL (32-36); Mean Corpuscular Volume 94.5 FL (87-102); Mean Platelet Volume 11.3 FL (9.6-12.0); Monocytes % 6.5 % (1.7-12.7); Neutrophils % 77.6 % (38.7-73.9); Platelet Count 232 T/CUMM (130-400); Red Cell Distribution Width 13.1 % (9.3-17.3); White Blood Count 12.5 T/CUMM (4-12)
[2021-05-04] MEDS: MIDAZOLAM 100 MG in SODIUM CHLORIDE 0.9% 80 ML IV PRN ×2 (04:50→21:13)
[2021-05-04 04:57] LABS: Calcium 9.1 MG/DL (8.5-10.1); Osmolality,Calculated 276.5 MOS/KG (273-304); Potassium 3.8 MMOL/L (3.5-5.1)
[2021-05-04] MEDS: POTASSIUM CHLORIDE RIDER 20 MEQ/100 ML PREMIX IV PRN (06:06)
[2021-05-04] MEDS: INSULIN GLARGINE 100 UNIT/ML SUBCUT SCH (08:38)
[2021-05-04] MEDS: LACOSAMIDE INJ 150 MG in SODIUM CHLORIDE 0.9% 50 ML IV SCH ×2 (08:38→21:15)
[2021-05-04] MEDS: TAMSULOSIN 0.4 MG CAPSULE PO SCH (08:39)
[2021-05-04] MEDS: amLODIPine 10 MG TABLET PO SCH (08:39)
[2021-05-04] MEDS: PYRIDOSTIGMINE 60 MG TABLET PO SCH ×3 (08:39→21:42)
[2021-05-04] MEDS: predniSONE 10 MG TABLET PO SCH (08:39)
[2021-05-04] MEDS: lisinopriL 20 MG TABLET PO SCH (08:39)
[2021-05-04] MEDS: ATORVASTATIN 40 MG TABLET PO SCH (21:42)
[2021-05-04] MEDS: ENOXAPARIN 40 MG/0.4 ML SYRINGE SUBCUT SCH (21:42)
[2021-05-05] MEDS: INSULIN LISPRO 100 UNIT/ML SUBCUT SCH ×4 (00:29→17:43)
[2021-05-05] MEDS: ALBUTEROL/IPRATROPIUM 3 ML NEB RESP TX SCH ×4 (01:24→20:19)
[2021-05-05 02:59] LABS: ABG Base Excess 0.4 MMOL/L (-2.5-2.5); ABG HCO3 24.8 MMOL/L (20-26); ABG Oxygen Saturation 99.3 % (95-100); ABG PCO2 42.3 MM HG (35-48); ABG PH 7.389 (7.35-7.45); ABG TCO2 22.3 MMOL/L (23-27)
[2021-05-05] MEDS: DEXT 5% NACL 0.45% KCL 20 MEQ 20 MEQ/1,000 ML BAG IV SCH ×5 (03:40→20:30)
[2021-05-05] MEDS: PHENYTOIN 100 MG/2 ML VIAL IV SCH ×3 (03:43→21:12)
[2021-05-05 05:03] LABS: Basophils % 0.2 % (0.0-0.8); Eosinophils # 0.2 10*3/uL (0.0-0.87); Eosinophils % 1.4 % (0.00-10.9); Hematocrit 38.1 VOL% (42.0-52.0); Hemoglobin 12.7 GM/DL (14.0-18.0); Immature Granulocytes % 0.6 %; Immature Granulocytes Absolute 0.09 #; Lymphocytes # 1.8 10*3/uL (1.4-4.0); Lymphocytes % 12.9 % (21.2-54.2); Mean Corpuscular HGB Conc 33.3 GM/DL (32-36); Mean Corpuscular Volume 96.9 FL (87-102); Mean Platelet Volume 11.6 FL (9.6-12.0); Monocytes % 8.7 % (1.7-12.7); Neutrophils % 76.2 % (38.7-73.9); Platelet Count 201 T/CUMM (130-400); Red Blood Count 3.93 MC/CUMM (3.8-5.5); Red Cell Distribution Width 13.1 % (9.3-17.3); White Blood Count 13.9 T/CUMM (4-12)
[2021-05-05 05:17] LABS: Albumin 2.4 G/DL (3.4-5.0); Bilirubin,Total 1.6 MG/DL (0.20-1.00); Calcium 8.8 MG/DL (8.5-10.1); Osmolality,Calculated 276.7 MOS/KG (273-304); Potassium 3.9 MMOL/L (3.5-5.1); Total Protein 6.3 G/DL (6.4-8.2)
[2021-05-05] MEDS: PHENobarbital 130 MG/1 ML VIAL IV SCH ×3 (05:51→21:13)
[2021-05-05] MEDS: TAMSULOSIN 0.4 MG CAPSULE PO SCH (08:34)
[2021-05-05] MEDS: lisinopriL 20 MG TABLET PO SCH ×2 (08:34→08:45)
[2021-05-05] MEDS: INSULIN GLARGINE 100 UNIT/ML SUBCUT SCH (08:34)
[2021-05-05] MEDS: PYRIDOSTIGMINE 60 MG TABLET PO SCH ×3 (08:35→21:13)
[2021-05-05] MEDS: predniSONE 10 MG TABLET PO SCH (08:35)
[2021-05-05] MEDS: amLODIPine 10 MG TABLET PO SCH ×2 (08:35→08:45)
[2021-05-05] MEDS: LACOSAMIDE INJ 150 MG in SODIUM CHLORIDE 0.9% 50 ML IV SCH ×2 (09:25→21:38)
[2021-05-05] MEDS: MIDAZOLAM 100 MG in SODIUM CHLORIDE 0.9% 80 ML IV PRN (11:30)
[2021-05-05] MEDS: ATORVASTATIN 40 MG TABLET PO SCH (21:13)
[2021-05-05] MEDS: ENOXAPARIN 40 MG/0.4 ML SYRINGE SUBCUT SCH (21:14)
[2021-05-05] MEDS: PHENYLEPHRINE DRIP 40 MG/250 ML PREMIX IV PRN (22:34)
[2021-05-06] MEDS: ALBUTEROL/IPRATROPIUM 3 ML NEB RESP TX SCH ×4 (00:03→20:19)
[2021-05-06] MEDS: INSULIN LISPRO 100 UNIT/ML SUBCUT SCH ×4 (00:14→17:22)
[2021-05-06] MEDS: MIDAZOLAM 100 MG in SODIUM CHLORIDE 0.9% 80 ML IV PRN ×2 (03:23→20:11)
[2021-05-06] MEDS: PHENYTOIN 100 MG/2 ML VIAL IV SCH ×3 (03:58→20:04)
[2021-05-06 04:09] LABS: ABG Base Excess 2.2 MMOL/L (-2.5-2.5); ABG HCO3 26.4 MMOL/L (20-26); ABG Oxygen Saturation 99.1 % (95-100); ABG PCO2 45.3 MM HG (35-48); ABG PH 7.393 (7.35-7.45); ABG TCO2 24.6 MMOL/L (23-27)
[2021-05-06 04:35] LABS: Basophils % 0.2 % (0.0-0.8); Eosinophils # 0.4 10*3/uL (0.0-0.87); Hematocrit 35.7 VOL% (42.0-52.0); Hemoglobin 11.7 GM/DL (14.0-18.0); Immature Granulocytes % 0.6 %; Immature Granulocytes Absolute 0.08 #; Lymphocytes # 1.3 10*3/uL (1.4-4.0); Lymphocytes % 10.4 % (21.2-54.2); Mean Corpuscular HGB Conc 32.8 GM/DL (32-36); Mean Platelet Volume 11.9 FL (9.6-12.0); Monocytes % 8.2 % (1.7-12.7); Neutrophils % 77.6 % (38.7-73.9); Platelet Count 198 T/CUMM (130-400); Red Blood Count 3.72 MC/CUMM (3.8-5.5); Red Cell Distribution Width 13.4 % (9.3-17.3); White Blood Count 12.8 T/CUMM (4-12)
[2021-05-06] MEDS: PHENobarbital 130 MG/1 ML VIAL IV SCH ×3 (04:35→20:07)
[2021-05-06] MEDS: DEXT 5% NACL 0.45% KCL 20 MEQ 20 MEQ/1,000 ML BAG IV SCH ×5 (04:40→21:42)
[2021-05-06] MEDS: predniSONE 10 MG TABLET PO SCH (09:21)
[2021-05-06] MEDS: PYRIDOSTIGMINE 60 MG TABLET PO SCH ×3 (09:21→20:08)
[2021-05-06] MEDS: INSULIN GLARGINE 100 UNIT/ML SUBCUT SCH (09:21)
[2021-05-06] MEDS: TAMSULOSIN 0.4 MG CAPSULE PO SCH (09:21)
[2021-05-06] MEDS: LACOSAMIDE INJ 150 MG in SODIUM CHLORIDE 0.9% 50 ML IV SCH (09:23)
[2021-05-06] MEDS: lisinopriL 20 MG TABLET PO SCH (11:45)
[2021-05-06] MEDS: amLODIPine 10 MG TABLET PO SCH (11:45)
[2021-05-06] MEDS: LORazepam 2 MG/1 ML VIAL IV PRN (16:19)
[2021-05-06] MEDS: ENOXAPARIN 40 MG/0.4 ML SYRINGE SUBCUT SCH (20:08)
[2021-05-06] MEDS: ATORVASTATIN 40 MG TABLET PO SCH (20:08)
[2021-05-06] MEDS: LACOSAMIDE INJ 200 MG in SODIUM CHLORIDE 0.9% 50 ML IV SCH (20:32)
[2021-05-06] MEDS: PHENYLEPHRINE DRIP 40 MG/250 ML PREMIX IV PRN (22:20)
[2021-05-07] MEDS: INSULIN LISPRO 100 UNIT/ML SUBCUT SCH ×4 (00:27→17:11)
[2021-05-07] MEDS: ALBUTEROL/IPRATROPIUM 3 ML NEB RESP TX SCH ×4 (01:10→18:33)
[2021-05-07 03:57] LABS: ABG Base Excess 3.1 MMOL/L (-2.5-2.5); ABG HCO3 27.2 MMOL/L (20-26); ABG Oxygen Saturation 99.1 % (95-100); ABG PCO2 55.1 MM HG (35-48); ABG PH 7.346 (7.35-7.45)
[2021-05-07] MEDS: PHENYTOIN 100 MG/2 ML VIAL IV SCH ×3 (04:00→21:03)
[2021-05-07] MEDS: PHENobarbital 130 MG/1 ML VIAL IV SCH ×3 (04:28→21:06)
[2021-05-07 04:58] LABS: Basophils % 0.2 % (0.0-0.8); Eosinophils # 0.4 10*3/uL (0.0-0.87); Eosinophils % 4.6 % (0.00-10.9); Hematocrit 35.1 VOL% (42.0-52.0); Hemoglobin 11.4 GM/DL (14.0-18.0); Immature Granulocytes % 0.7 %; Immature Granulocytes Absolute 0.06 #; Lymphocytes # 1.2 10*3/uL (1.4-4.0); Lymphocytes % 13.5 % (21.2-54.2); Mean Corpuscular HGB Conc 32.5 GM/DL (32-36); Mean Corpuscular Volume 97.2 FL (87-102); Mean Platelet Volume 12.2 FL (9.6-12.0); Monocytes % 7.9 % (1.7-12.7); Neutrophils % 73.1 % (38.7-73.9); Platelet Count 201 T/CUMM (130-400); Red Blood Count 3.61 MC/CUMM (3.8-5.5); Red Cell Distribution Width 13.4 % (9.3-17.3); White Blood Count 9.1 T/CUMM (4-12)
[2021-05-07 05:21] LABS: Calcium 8.9 MG/DL (8.5-10.1); Osmolality,Calculated 283.1 MOS/KG (273-304); Potassium 4.2 MMOL/L (3.5-5.1)
[2021-05-07] MEDS: DEXT 5% NACL 0.45% KCL 20 MEQ 20 MEQ/1,000 ML BAG IV SCH ×5 (06:10→22:30)
[2021-05-07] MEDS: PYRIDOSTIGMINE 60 MG TABLET PO SCH ×3 (09:03→21:03)
[2021-05-07] MEDS: amLODIPine 10 MG TABLET PO SCH (09:03)
[2021-05-07] MEDS: INSULIN GLARGINE 100 UNIT/ML SUBCUT SCH (09:03)
[2021-05-07] MEDS: lisinopriL 20 MG TABLET PO SCH (09:03)
[2021-05-07] MEDS: TAMSULOSIN 0.4 MG CAPSULE PO SCH (09:03)
[2021-05-07] MEDS: predniSONE 10 MG TABLET PO SCH (09:03)
[2021-05-07] MEDS: LORazepam 2 MG/1 ML VIAL IV PRN (09:17)
[2021-05-07] MEDS: LACOSAMIDE INJ 200 MG in SODIUM CHLORIDE 0.9% 50 ML IV SCH ×2 (09:50→21:11)
[2021-05-07] MEDS: MIDAZOLAM 100 MG in SODIUM CHLORIDE 0.9% 80 ML IV PRN (10:54)
[2021-05-07] MEDS: PHENYLEPHRINE DRIP 40 MG/250 ML PREMIX IV PRN (12:13)
[2021-05-07 15:34] LABS: ABG HCO3 28.9 MMOL/L (20-26); ABG Oxygen Saturation 99.3 % (95-100); ABG PCO2 40.3 MM HG (35-48); ABG PH 7.466 (7.35-7.45); ABG TCO2 25.8 MMOL/L (23-27)
[2021-05-07] MEDS ORDERED: SODIUM CHLORIDE 0.9% 1,000 ML IV ONE (15:56)
[2021-05-07] MEDS: ATORVASTATIN 40 MG TABLET PO SCH (21:03)
[2021-05-07] MEDS: ENOXAPARIN 40 MG/0.4 ML SYRINGE SUBCUT SCH (21:04)
[2021-05-08] MEDS: INSULIN LISPRO 100 UNIT/ML SUBCUT SCH ×4 (00:16→17:44)
[2021-05-08] MEDS: MIDAZOLAM 100 MG in SODIUM CHLORIDE 0.9% 80 ML IV PRN ×2 (01:05→15:46)
[2021-05-08] MEDS: ALBUTEROL/IPRATROPIUM 3 ML NEB RESP TX SCH ×4 (01:08→20:15)
[2021-05-08] MEDS: LORazepam 2 MG/1 ML VIAL IV PRN ×2 (03:26→16:55)
[2021-05-08] MEDS: PHENYTOIN 100 MG/2 ML VIAL IV SCH ×3 (03:27→19:40)
[2021-05-08 04:24] LABS: Basophils % 0.3 % (0.0-0.8); Eosinophils # 0.3 10*3/uL (0.0-0.87); Eosinophils % 3.5 % (0.00-10.9); Hematocrit 33.5 VOL% (42.0-52.0); Hemoglobin 10.9 GM/DL (14.0-18.0); Immature Granulocytes % 0.8 %; Immature Granulocytes Absolute 0.06 #; Lymphocytes % 12.7 % (21.2-54.2); Mean Corpuscular HGB Conc 32.5 GM/DL (32-36); Mean Corpuscular Volume 96.8 FL (87-102); Monocytes % 5.8 % (1.7-12.7); Neutrophils % 76.9 % (38.7-73.9); Platelet Count 203 T/CUMM (130-400); Red Blood Count 3.46 MC/CUMM (3.8-5.5); Red Cell Distribution Width 13.4 % (9.3-17.3); White Blood Count 7.9 T/CUMM (4-12)
[2021-05-08] MEDS: PHENobarbital 130 MG/1 ML VIAL IV SCH ×3 (04:25→20:49)
[2021-05-08 04:37] LABS: Calcium 8.9 MG/DL (8.5-10.1); Osmolality,Calculated 280.3 MOS/KG (273-304); Potassium 3.8 MMOL/L (3.5-5.1)
[2021-05-08 04:41] LABS: ABG Base Excess 4.5 MMOL/L (-2.5-2.5); ABG HCO3 29.2 MMOL/L (20-26); ABG PCO2 44.1 MM HG (35-48); ABG PH 7.439 (7.35-7.45); ABG PO2 109.8 MM HG (80-95); ABG TCO2 30.6 MMOL/L (23-27)
[2021-05-08] MEDS: DEXT 5% NACL 0.45% KCL 20 MEQ 20 MEQ/1,000 ML BAG IV SCH ×5 (07:02→23:14)
[2021-05-08] MEDS ORDERED: LORazepam 2 MG/1 ML VIAL ONE ×2 (08:42→16:55)
[2021-05-08] MEDS: predniSONE 10 MG TABLET PO SCH (08:54)
[2021-05-08] MEDS: PYRIDOSTIGMINE 60 MG TABLET PO SCH ×3 (08:55→20:09)
[2021-05-08] MEDS: INSULIN GLARGINE 100 UNIT/ML SUBCUT SCH (08:55)
[2021-05-08] MEDS: TAMSULOSIN 0.4 MG CAPSULE PO SCH (09:01)
[2021-05-08] MEDS: LACOSAMIDE INJ 200 MG in SODIUM CHLORIDE 0.9% 50 ML IV SCH ×2 (10:00→20:19)
[2021-05-08 10:15] LABS: Bilirubin,Urine Negative (Negative); Blood, Urine Negative (Negative); Glucose,Urine (UA) 50 mg/dL (Negative); Ketones,Urine Negative (Negative); Mucus,Urine Occasional /LPF (Occasional); Nitrite,Urine Negative (Negative); Protein,Urine Negative; RBC,Urine <1 /HPF (0-4); Urine Appearance CLEAR (Clear); Urine Color Straw (Yellow); Urine Specific Gravity 1.013 (1.001-1.035); Urine Urobilinogen < 2.0 EU/DL (0.2-1.0)
[2021-05-08] MEDS: amLODIPine 10 MG TABLET PO SCH (11:01)
[2021-05-08] MEDS: lisinopriL 20 MG TABLET PO SCH (11:01)
[2021-05-08] MEDS: ATORVASTATIN 40 MG TABLET PO SCH (20:09)
[2021-05-08] MEDS: ACETAMINOPHEN 325 MG TABLET PO PRN (20:09)
[2021-05-08] MEDS: ENOXAPARIN 40 MG/0.4 ML SYRINGE SUBCUT SCH (20:09)
[2021-05-09] MEDS: INSULIN LISPRO 100 UNIT/ML SUBCUT SCH ×4 (01:04→17:35)
[2021-05-09] MEDS: ALBUTEROL/IPRATROPIUM 3 ML NEB RESP TX SCH ×4 (01:37→19:08)
[2021-05-09] MEDS: PHENYTOIN 100 MG/2 ML VIAL IV SCH ×3 (03:10→21:28)
[2021-05-09 04:38] LABS: Basophils % 0.2 % (0.0-0.8); Eosinophils # 0.2 10*3/uL (0.0-0.87); Hematocrit 34.6 VOL% (42.0-52.0); Hemoglobin 11.3 GM/DL (14.0-18.0); Immature Granulocytes % 0.4 %; Immature Granulocytes Absolute 0.05 #; Lymphocytes # 1.2 10*3/uL (1.4-4.0); Lymphocytes % 10.4 % (21.2-54.2); Mean Corpuscular HGB Conc 32.7 GM/DL (32-36); Mean Corpuscular Volume 95.3 FL (87-102); Mean Platelet Volume 11.9 FL (9.6-12.0); Monocytes % 6.2 % (1.7-12.7); Neutrophils % 80.8 % (38.7-73.9); Platelet Count 208 T/CUMM (130-400); Red Blood Count 3.63 MC/CUMM (3.8-5.5); Red Cell Distribution Width 13.2 % (9.3-17.3); White Blood Count 11.4 T/CUMM (4-12)
[2021-05-09 05:11] LABS: Calcium 9.1 MG/DL (8.5-10.1); Osmolality,Calculated 277.7 MOS/KG (273-304); Potassium 3.9 MMOL/L (3.5-5.1)
[2021-05-09] MEDS: PHENobarbital 130 MG/1 ML VIAL IV SCH ×3 (05:20→21:41)
[2021-05-09 05:45] LABS: ABG Base Excess 4.1 MMOL/L (-2.5-2.5); ABG HCO3 28.1 MMOL/L (20-26); ABG Oxygen Saturation 98.5 % (95-100); ABG PCO2 47.5 MM HG (35-48); ABG PH 7.403 (7.35-7.45); ABG TCO2 26.4 MMOL/L (23-27)
[2021-05-09] MEDS: MIDAZOLAM 100 MG in SODIUM CHLORIDE 0.9% 80 ML IV PRN (06:10)
[2021-05-09] MEDS: DEXT 5% NACL 0.45% KCL 20 MEQ 20 MEQ/1,000 ML BAG IV SCH ×4 (06:24→17:35)
[2021-05-09] MEDS: predniSONE 10 MG TABLET PO SCH (09:06)
[2021-05-09] MEDS: amLODIPine 10 MG TABLET PO SCH (09:06)
[2021-05-09] MEDS: lisinopriL 20 MG TABLET PO SCH (09:06)
[2021-05-09] MEDS: TAMSULOSIN 0.4 MG CAPSULE PO SCH (09:06)
[2021-05-09] MEDS: PYRIDOSTIGMINE 60 MG TABLET PO SCH ×3 (09:06→21:42)
[2021-05-09] MEDS: LACOSAMIDE INJ 200 MG in SODIUM CHLORIDE 0.9% 50 ML IV SCH ×2 (09:07→21:43)
[2021-05-09] MEDS: INSULIN GLARGINE 100 UNIT/ML SUBCUT SCH (09:07)
[2021-05-09] MEDS ORDERED: VANCOMYCIN INJ 1,500 MG in SODIUM CHLORIDE 0.9% 500 ML IV ONE (09:30)
[2021-05-09] MEDS: PHENYLEPHRINE DRIP 40 MG/250 ML PREMIX IV PRN (12:40)
[2021-05-09] MEDS ORDERED: SCOPOLAMINE 1.5 MG PATCH TRANSDERM ONE (16:28)
[2021-05-09 17:31] LABS: Phenytoin Free Serum 3.9 mcg/mL (1.0 - 2.0)
[2021-05-09] MEDS: VANCOMYCIN INJ 1,000 MG in SODIUM CHLORIDE 0.9% 250 ML IV SCH (17:35)
[2021-05-09] MEDS: ENOXAPARIN 40 MG/0.4 ML SYRINGE SUBCUT SCH (21:41)
[2021-05-09] MEDS: ATORVASTATIN 40 MG TABLET PO SCH (21:42)
[2021-05-10] MEDS: INSULIN LISPRO 100 UNIT/ML SUBCUT SCH ×4 (00:17→18:00)
[2021-05-10] MEDS: ALBUTEROL/IPRATROPIUM 3 ML NEB RESP TX SCH ×4 (00:35→19:25)
[2021-05-10] MEDS: DEXT 5% NACL 0.45% KCL 20 MEQ 20 MEQ/1,000 ML BAG IV SCH ×3 (00:51→17:26)
[2021-05-10] MEDS: VANCOMYCIN INJ 1,000 MG in SODIUM CHLORIDE 0.9% 250 ML IV SCH ×3 (01:31→18:05)
[2021-05-10 04:10] LABS: ABG HCO3 29.9 MMOL/L (20-26); ABG Oxygen Saturation 97.6 % (95-100); ABG PCO2 42.2 MM HG (35-48); ABG PH 7.465 (7.35-7.45); ABG PO2 93.8 MM HG (80-95); ABG TCO2 27.5 MMOL/L (23-27)
[2021-05-10] MEDS: PHENYTOIN 100 MG/2 ML VIAL IV SCH ×3 (04:25→20:09)
[2021-05-10] MEDS: PHENobarbital 130 MG/1 ML VIAL IV SCH ×3 (04:28→20:10)
[2021-05-10 04:32] LABS: Basophils % 0.1 % (0.0-0.8); Eosinophils # 0.3 10*3/uL (0.0-0.87); Eosinophils % 3.8 % (0.00-10.9); Hematocrit 30.6 VOL% (42.0-52.0); Hemoglobin 9.8 GM/DL (14.0-18.0); Immature Granulocytes % 0.5 %; Immature Granulocytes Absolute 0.04 #; Lymphocytes # 1.3 10*3/uL (1.4-4.0); Lymphocytes % 18.2 % (21.2-54.2); Mean Corpuscular Volume 96.5 FL (87-102); Mean Platelet Volume 12.3 FL (9.6-12.0); Monocytes % 7.5 % (1.7-12.7); Neutrophils % 69.9 % (38.7-73.9); Platelet Count 195 T/CUMM (130-400); Red Blood Count 3.17 MC/CUMM (3.8-5.5); Red Cell Distribution Width 13.2 % (9.3-17.3); White Blood Count 7.4 T/CUMM (4-12)
[2021-05-10 04:37] LABS: Calcium 8.7 MG/DL (8.5-10.1); Osmolality,Calculated 278.5 MOS/KG (273-304); Potassium 3.7 MMOL/L (3.5-5.1)
[2021-05-10] MEDS: MIDAZOLAM 100 MG in SODIUM CHLORIDE 0.9% 80 ML IV PRN (05:29)
[2021-05-10] MEDS: POTASSIUM CHLORIDE RIDER 20 MEQ/100 ML PREMIX IV PRN (05:56)
[2021-05-10] MEDS: TAMSULOSIN 0.4 MG CAPSULE PO SCH (09:06)
[2021-05-10] MEDS: predniSONE 10 MG TABLET PO SCH (09:06)
[2021-05-10] MEDS: PYRIDOSTIGMINE 60 MG TABLET PO SCH ×3 (09:06→20:10)
[2021-05-10] MEDS: INSULIN GLARGINE 100 UNIT/ML SUBCUT SCH (09:07)
[2021-05-10] MEDS: LACOSAMIDE INJ 200 MG in SODIUM CHLORIDE 0.9% 50 ML IV SCH ×2 (09:45→20:11)
[2021-05-10] MEDS: ATORVASTATIN 40 MG TABLET PO SCH (20:10)
[2021-05-10] MEDS: ENOXAPARIN 40 MG/0.4 ML SYRINGE SUBCUT SCH (20:22)
[2021-05-11] MEDS: LORazepam 2 MG/1 ML VIAL IV PRN (00:05)
[2021-05-11] MEDS: INSULIN LISPRO 100 UNIT/ML SUBCUT SCH ×5 (00:34→23:50)
[2021-05-11] MEDS: ALBUTEROL/IPRATROPIUM 3 ML NEB RESP TX SCH ×4 (01:16→19:10)
[2021-05-11] MEDS: DEXT 5% NACL 0.45% KCL 20 MEQ 20 MEQ/1,000 ML BAG IV SCH ×4 (01:34→18:01)
[2021-05-11] MEDS: VANCOMYCIN INJ 1,000 MG in SODIUM CHLORIDE 0.9% 250 ML IV SCH ×3 (02:01→18:50)
[2021-05-11] MEDS: PHENYTOIN 100 MG/2 ML VIAL IV SCH ×3 (03:10→20:22)
[2021-05-11 04:06] LABS: Basophils % 0.3 % (0.0-0.8); Eosinophils # 0.3 10*3/uL (0.0-0.87); Eosinophils % 4.3 % (0.00-10.9); Hematocrit 31.2 VOL% (42.0-52.0); Hemoglobin 10.1 GM/DL (14.0-18.0); Immature Granulocytes Absolute 0.08 #; Lymphocytes # 1.3 10*3/uL (1.4-4.0); Lymphocytes % 16.9 % (21.2-54.2); Mean Corpuscular HGB Conc 32.4 GM/DL (32-36); Mean Corpuscular Volume 97.2 FL (87-102); Mean Platelet Volume 11.9 FL (9.6-12.0); Monocytes % 6.9 % (1.7-12.7); Neutrophils % 70.6 % (38.7-73.9); Platelet Count 199 T/CUMM (130-400); Red Blood Count 3.21 MC/CUMM (3.8-5.5); Red Cell Distribution Width 12.9 % (9.3-17.3); White Blood Count 7.6 T/CUMM (4-12)
[2021-05-11 04:10] LABS: ABG Base Excess 5.1 MMOL/L (-2.5-2.5); ABG HCO3 29.8 MMOL/L (20-26); ABG Oxygen Saturation 97.3 % (95-100); ABG PCO2 44.7 MM HG (35-48); ABG PH 7.442 (7.35-7.45); ABG PO2 109.5 MM HG (80-95); ABG TCO2 31.2 MMOL/L (23-27)
[2021-05-11 04:26] LABS: Calcium 8.9 MG/DL (8.5-10.1); Osmolality,Calculated 282.3 MOS/KG (273-304)
[2021-05-11 04:38] LABS: Alanine Aminotransferase 62 U/L (16-61); Albumin 1.9 G/DL (3.4-5.0); Alkaline Phosphatase 163 U/L (45-117); Aspartate Amino Transferase 39 U/L (0-37); Bilirubin,Direct < 0.100 MG/DL (0.0-0.20); Bilirubin,Indirect 0.3 MG/DL (0.0-1.0); Bilirubin,Total < 0.39 MG/DL (0.20-1.00); Total Protein 5.6 G/DL (6.4-8.2)
[2021-05-11] MEDS: PHENobarbital 130 MG/1 ML VIAL IV SCH ×3 (05:09→20:23)
[2021-05-11] MEDS: TAMSULOSIN 0.4 MG CAPSULE PO SCH (08:05)
[2021-05-11] MEDS: PYRIDOSTIGMINE 60 MG TABLET PO SCH ×3 (08:06→20:21)
[2021-05-11] MEDS: predniSONE 10 MG TABLET PO SCH (08:06)
[2021-05-11] MEDS: INSULIN GLARGINE 100 UNIT/ML SUBCUT SCH (09:30)
[2021-05-11] MEDS: LACOSAMIDE INJ 200 MG in SODIUM CHLORIDE 0.9% 50 ML IV SCH ×2 (10:24→20:39)
[2021-05-11 10:49] LABS: Phenytoin (Dilantin) 15.7 UG/ML (10-20)
[2021-05-11] MEDS: ATORVASTATIN 40 MG TABLET PO SCH (20:21)
[2021-05-11] MEDS: ENOXAPARIN 40 MG/0.4 ML SYRINGE SUBCUT SCH (20:21)
[2021-05-12] MEDS: ALBUTEROL/IPRATROPIUM 3 ML NEB RESP TX SCH ×4 (01:00→18:47)
[2021-05-12] MEDS: VANCOMYCIN INJ 1,000 MG in SODIUM CHLORIDE 0.9% 250 ML IV SCH ×3 (01:24→18:38)
[2021-05-12] MEDS: DEXT 5% NACL 0.45% KCL 20 MEQ 20 MEQ/1,000 ML BAG IV SCH (01:30)
[2021-05-12 04:18] LABS: ABG Base Excess 4.9 MMOL/L (-2.5-2.5); ABG HCO3 29.2 MMOL/L (20-26); ABG Oxygen Saturation 98.3 % (95-100); ABG PCO2 41.9 MM HG (35-48); ABG PH 7.461 (7.35-7.45); ABG PO2 135.9 MM HG (80-95); ABG TCO2 30.5 MMOL/L (23-27)
[2021-05-12] MEDS: PHENYTOIN 100 MG/2 ML VIAL IV SCH ×3 (04:42→20:30)
[2021-05-12] MEDS: PHENobarbital 130 MG/1 ML VIAL IV SCH ×3 (04:44→20:32)
[2021-05-12 04:47] LABS: Basophils % 0.4 % (0.0-0.8); Eosinophils # 0.4 10*3/uL (0.0-0.87); Hemoglobin 10.1 GM/DL (14.0-18.0); Immature Granulocytes % 1.7 %; Immature Granulocytes Absolute 0.12 #; Lymphocytes # 1.4 10*3/uL (1.4-4.0); Mean Corpuscular HGB Conc 32.6 GM/DL (32-36); Mean Corpuscular Volume 96.3 FL (87-102); Mean Platelet Volume 12.2 FL (9.6-12.0); Monocytes % 7.8 % (1.7-12.7); Neutrophils % 65.1 % (38.7-73.9); Platelet Count 203 T/CUMM (130-400); Red Blood Count 3.22 MC/CUMM (3.8-5.5); Red Cell Distribution Width 12.9 % (9.3-17.3); White Blood Count 6.9 T/CUMM (4-12)
[2021-05-12 05:07] LABS: Alanine Aminotransferase 62 U/L (16-61); Albumin 1.9 G/DL (3.4-5.0); Alkaline Phosphatase 176 U/L (45-117); Aspartate Amino Transferase 36 U/L (0-37); Bilirubin,Total < 0.39 MG/DL (0.20-1.00); Blood Urea Nitrogen 11 MG/DL (7-18); Calcium 9.1 MG/DL (8.5-10.1); Carbon Dioxide 32 MMOL/L (21-32); Estimated Glom Filtration Rate 131 ML/MIN; Glucose 159 MG/DL (74-106); Osmolality,Calculated 282.3 MOS/KG (273-304); Potassium 4.2 MMOL/L (3.5-5.1); Sodium 141 MMOL/L (136-145); Total Protein 6.5 G/DL (6.4-8.2)
[2021-05-12 05:09] LABS: Bilirubin,Direct 0.12 MG/DL (0.0-0.20); Bilirubin,Total 1.1 MG/DL (0.20-1.00); Total Protein 5.6 G/DL (6.4-8.2)
[2021-05-12 05:22] LABS: Calcium 9.1 MG/DL (8.5-10.1); Osmolality,Calculated 280.4 MOS/KG (273-304); Potassium 4.1 MMOL/L (3.5-5.1)
[2021-05-12] MEDS: INSULIN LISPRO 100 UNIT/ML SUBCUT SCH ×3 (06:12→18:37)
[2021-05-12] MEDS: TAMSULOSIN 0.4 MG CAPSULE PO SCH (09:23)
[2021-05-12] MEDS: predniSONE 10 MG TABLET PO SCH (09:24)
[2021-05-12] MEDS: INSULIN GLARGINE 100 UNIT/ML SUBCUT SCH (09:24)
[2021-05-12] MEDS: PYRIDOSTIGMINE 60 MG TABLET PO SCH ×3 (09:24→20:30)
[2021-05-12] MEDS ORDERED: FUROSEMIDE 40 MG/4 ML VIAL IV ONE (09:24)
[2021-05-12] MEDS: LACOSAMIDE INJ 200 MG in SODIUM CHLORIDE 0.9% 50 ML IV SCH ×2 (10:00→20:09)
[2021-05-12 15:51] LABS: Phenytoin Free Serum 1.7 mcg/mL (1.0 - 2.0); Phenytoin Total Serum (MAYO) 12.4 mcg/mL
[2021-05-12] MEDS: ATORVASTATIN 40 MG TABLET PO SCH (20:30)
[2021-05-12] MEDS: ENOXAPARIN 40 MG/0.4 ML SYRINGE SUBCUT SCH (20:30)
[2021-05-13] MEDS: INSULIN LISPRO 100 UNIT/ML SUBCUT SCH ×5 (00:07→20:28)
[2021-05-13] MEDS: ALBUTEROL/IPRATROPIUM 3 ML NEB RESP TX SCH ×4 (01:00→19:00)
[2021-05-13] MEDS: VANCOMYCIN INJ 1,000 MG in SODIUM CHLORIDE 0.9% 250 ML IV SCH ×3 (01:24→19:26)
[2021-05-13] MEDS: PHENYTOIN 100 MG/2 ML VIAL IV SCH ×3 (04:03→19:41)
[2021-05-13 04:21] LABS: ABG Base Excess 7.5 MMOL/L (-2.5-2.5); ABG HCO3 31.3 MMOL/L (20-26); ABG Oxygen Saturation 98.9 % (95-100); ABG PH 7.377 (7.35-7.45); ABG TCO2 30.9 MMOL/L (23-27)
[2021-05-13] MEDS: PHENobarbital 130 MG/1 ML VIAL IV SCH ×3 (04:21→20:51)
[2021-05-13 04:53] LABS: Calcium 9.6 MG/DL (8.5-10.1); Osmolality,Calculated 276.7 MOS/KG (273-304); Potassium 3.8 MMOL/L (3.5-5.1)
[2021-05-13 04:55] LABS: Basophils % 0.2 % (0.0-0.8); Eosinophils # 0.5 10*3/uL (0.0-0.87); Eosinophils % 4.9 % (0.00-10.9); Hematocrit 34.3 VOL% (42.0-52.0); Hemoglobin 11.2 GM/DL (14.0-18.0); Immature Granulocytes % 1.4 %; Immature Granulocytes Absolute 0.13 #; Lymphocytes # 1.5 10*3/uL (1.4-4.0); Lymphocytes % 15.9 % (21.2-54.2); Mean Corpuscular HGB Conc 32.7 GM/DL (32-36); Mean Platelet Volume 12.1 FL (9.6-12.0); Monocytes % 9.8 % (1.7-12.7); Neutrophils % 67.8 % (38.7-73.9); Platelet Count 248 T/CUMM (130-400); Red Blood Count 3.61 MC/CUMM (3.8-5.5); Red Cell Distribution Width 12.7 % (9.3-17.3); White Blood Count 9.4 T/CUMM (4-12)
[2021-05-13] MEDS: PYRIDOSTIGMINE 60 MG TABLET PO SCH ×3 (08:35→22:42)
[2021-05-13] MEDS: predniSONE 10 MG TABLET PO SCH (08:35)
[2021-05-13] MEDS: TAMSULOSIN 0.4 MG CAPSULE PO SCH (08:36)
[2021-05-13] MEDS: INSULIN GLARGINE 100 UNIT/ML SUBCUT SCH (08:36)
[2021-05-13] MEDS: LACOSAMIDE INJ 200 MG in SODIUM CHLORIDE 0.9% 50 ML IV SCH ×2 (09:49→20:53)
[2021-05-13 15:11] LABS: Levetiracetam (Keppra) 20.3 mcg/mL
[2021-05-13] MEDS: LORazepam 2 MG/1 ML VIAL IV PRN (16:29)
[2021-05-13] MEDS: clonazePAM 0.5 MG TABLET PO SCH ×2 (19:39→22:42)
[2021-05-13] MEDS: ENOXAPARIN 40 MG/0.4 ML SYRINGE SUBCUT SCH (20:52)
[2021-05-13] MEDS: DEXTROSE 50% 25 GM/50 ML SYRINGE IV PRN (21:09)
[2021-05-13 21:31] LABS: Phenytoin Free Serum 2.5 mcg/mL (1.0 - 2.0); Phenytoin Total Serum (MAYO) 12.3 mcg/mL
[2021-05-13] MEDS: ATORVASTATIN 40 MG TABLET PO SCH (22:42)
[2021-05-13] MEDS: ACETAMINOPHEN 325 MG TABLET PO PRN (22:43)
[2021-05-13 23:23] LABS: Basophils % 0.3 % (0.0-0.8); Eosinophils # 0.2 10*3/uL (0.0-0.87); Eosinophils % 5.8 % (0.00-10.9); Hematocrit 38.6 VOL% (42.0-52.0); Hemoglobin 12.6 GM/DL (14.0-18.0); Immature Granulocytes % 2.6 %; Immature Granulocytes Absolute 0.08 #; Lymphocytes # 0.8 10*3/uL (1.4-4.0); Lymphocytes % 26.1 % (21.2-54.2); Mean Corpuscular HGB Conc 32.6 GM/DL (32-36); Mean Corpuscular Volume 95.5 FL (87-102); Mean Platelet Volume 12.3 FL (9.6-12.0); Neutrophils % 64.2 % (38.7-73.9); Platelet Count 207 T/CUMM (130-400); Red Blood Count 4.04 MC/CUMM (3.8-5.5); Red Cell Distribution Width 12.7 % (9.3-17.3); White Blood Count 3.1 T/CUMM (4-12)
[2021-05-13] MEDS ORDERED: ACETAMINOPHEN 325 MG TABLET PO ONE (23:54)
[2021-05-14] MEDS: CEFEPIME 1,000 MG in SODIUM CHLORIDE 0.9% 100 ML IV SCH ×5 (00:15→23:11)
[2021-05-14] MEDS: ALBUTEROL/IPRATROPIUM 3 ML NEB RESP TX SCH ×4 (00:35→19:00)
[2021-05-14] MEDS: VANCOMYCIN INJ 1,000 MG in SODIUM CHLORIDE 0.9% 250 ML IV SCH ×3 (02:26→19:26)
[2021-05-14] MEDS: PHENYTOIN 100 MG/2 ML VIAL IV SCH ×3 (03:44→19:27)
[2021-05-14 03:47] LABS: Basophils % 0.1 % (0.0-0.8); Eosinophils # 0.2 10*3/uL (0.0-0.87); Eosinophils % 2.6 % (0.00-10.9); Hematocrit 31.8 VOL% (42.0-52.0); Hemoglobin 10.5 GM/DL (14.0-18.0); Immature Granulocytes % 1.7 %; Immature Granulocytes Absolute 0.13 #; Lymphocytes # 0.6 10*3/uL (1.4-4.0); Lymphocytes % 8.4 % (21.2-54.2); Mean Corpuscular Volume 94.9 FL (87-102); Mean Platelet Volume 11.4 FL (9.6-12.0); Monocytes % 5.1 % (1.7-12.7); Neutrophils % 82.1 % (38.7-73.9); Platelet Count 217 T/CUMM (130-400); Red Blood Count 3.35 MC/CUMM (3.8-5.5); Red Cell Distribution Width 12.9 % (9.3-17.3); White Blood Count 7.6 T/CUMM (4-12)
[2021-05-14] MEDS ORDERED: IBUPROFEN 600 MG TABLET PO ONE (04:00)
[2021-05-14 04:06] LABS: Calcium 9.1 MG/DL (8.5-10.1); Potassium 3.7 MMOL/L (3.5-5.1)
[2021-05-14] MEDS: PHENobarbital 130 MG/1 ML VIAL IV SCH ×3 (04:39→20:31)
[2021-05-14] MEDS: INSULIN LISPRO 100 UNIT/ML SUBCUT SCH ×4 (07:38→20:35)
[2021-05-14] MEDS: clonazePAM 0.5 MG TABLET PO SCH ×2 (08:58→20:10)
[2021-05-14] MEDS: PYRIDOSTIGMINE 60 MG TABLET PO SCH ×3 (08:58→20:14)
[2021-05-14] MEDS: predniSONE 10 MG TABLET PO SCH (08:58)
[2021-05-14] MEDS: INSULIN GLARGINE 100 UNIT/ML SUBCUT SCH (08:59)
[2021-05-14] MEDS: TAMSULOSIN 0.4 MG CAPSULE PO SCH (08:59)
[2021-05-14] MEDS: LACOSAMIDE INJ 200 MG in SODIUM CHLORIDE 0.9% 50 ML IV SCH ×2 (09:00→20:13)
[2021-05-14 12:43] LABS: Bacteria,Urine Occasional /HPF (Few); Bilirubin,Urine Negative (Negative); Blood, Urine Small mg/dL (Negative); Glucose,Urine (UA) Negative (Negative); Ketones,Urine Negative (Negative); Nitrite,Urine Negative (Negative); Protein,Urine Negative; RBC,Urine 1 /HPF (0-4); Urine Appearance CLEAR (Clear); Urine Color Yellow (Yellow); Urine Specific Gravity 1.005 (1.001-1.035); Urine Urobilinogen < 2.0 EU/DL (0.2-1.0)
[2021-05-14] MEDS: ACETAMINOPHEN 325 MG TABLET PO PRN (17:40)
[2021-05-14] MEDS: LORazepam 2 MG/1 ML VIAL IV PRN ×2 (18:40→18:45)
[2021-05-14] MEDS: ENOXAPARIN 40 MG/0.4 ML SYRINGE SUBCUT SCH (20:09)
[2021-05-14] MEDS: ATORVASTATIN 40 MG TABLET PO SCH (20:14)
[2021-05-15] MEDS: ALBUTEROL/IPRATROPIUM 3 ML NEB RESP TX SCH ×4 (01:00→19:00)
[2021-05-15] MEDS: VANCOMYCIN INJ 1,000 MG in SODIUM CHLORIDE 0.9% 250 ML IV SCH ×3 (02:39→18:55)
[2021-05-15 03:56] LABS: Basophils % 0.4 % (0.0-0.8); Eosinophils # 0.4 10*3/uL (0.0-0.87); Eosinophils % 6.7 % (0.00-10.9); Hematocrit 33.6 VOL% (42.0-52.0); Immature Granulocytes Absolute 0.11 #; Mean Corpuscular HGB Conc 32.7 GM/DL (32-36); Mean Corpuscular Volume 94.9 FL (87-102); Mean Platelet Volume 11.2 FL (9.6-12.0); Monocytes % 14.7 % (1.7-12.7); Neutrophils % 58.2 % (38.7-73.9); Platelet Count 212 T/CUMM (130-400); Red Blood Count 3.54 MC/CUMM (3.8-5.5); White Blood Count 5.5 T/CUMM (4-12)
[2021-05-15 04:09] LABS: Osmolality,Calculated 276.5 MOS/KG (273-304); Potassium 3.6 MMOL/L (3.5-5.1)
[2021-05-15] MEDS: PHENYTOIN 100 MG/2 ML VIAL IV SCH ×3 (04:10→20:06)
[2021-05-15] MEDS: POTASSIUM CHLORIDE RIDER 10 MEQ/100 ML PREMIX IV PRN ×2 (04:44→06:22)
[2021-05-15] MEDS: PHENobarbital 130 MG/1 ML VIAL IV SCH ×3 (04:44→20:56)
[2021-05-15] MEDS: CEFEPIME 1,000 MG in SODIUM CHLORIDE 0.9% 100 ML IV SCH ×4 (05:49→23:59)
[2021-05-15] MEDS: PYRIDOSTIGMINE 60 MG TABLET PO SCH ×3 (08:22→20:06)
[2021-05-15] MEDS: clonazePAM 0.5 MG TABLET PO SCH ×2 (08:23→20:05)
[2021-05-15] MEDS: TAMSULOSIN 0.4 MG CAPSULE PO SCH (08:24)
[2021-05-15] MEDS: INSULIN GLARGINE 100 UNIT/ML SUBCUT SCH (08:24)
[2021-05-15] MEDS: INSULIN LISPRO 100 UNIT/ML SUBCUT SCH ×4 (08:37→20:29)
[2021-05-15] MEDS: predniSONE 10 MG TABLET PO SCH (09:04)
[2021-05-15] MEDS: LACOSAMIDE INJ 200 MG in SODIUM CHLORIDE 0.9% 50 ML IV SCH ×2 (09:04→20:27)
[2021-05-15 10:41] LABS: Phenytoin (Dilantin) 12.4 UG/ML (10-20)
[2021-05-15] MEDS: LORazepam 2 MG/1 ML VIAL IV PRN (14:04)
[2021-05-15] MEDS: ENOXAPARIN 40 MG/0.4 ML SYRINGE SUBCUT SCH (20:05)
[2021-05-15] MEDS: ATORVASTATIN 40 MG TABLET PO SCH (20:06)
[2021-05-16] MEDS: ALBUTEROL/IPRATROPIUM 3 ML NEB RESP TX SCH ×4 (03:01→19:00)
[2021-05-16] MEDS: VANCOMYCIN INJ 1,000 MG in SODIUM CHLORIDE 0.9% 250 ML IV SCH (03:06)
[2021-05-16 03:36] LABS: Basophils % 0.2 % (0.0-0.8); Eosinophils # 0.4 10*3/uL (0.0-0.87); Eosinophils % 6.4 % (0.00-10.9); Hematocrit 33.3 VOL% (42.0-52.0); Hemoglobin 11.1 GM/DL (14.0-18.0); Immature Granulocytes % 1.5 %; Immature Granulocytes Absolute 0.09 #; Lymphocytes # 1.5 10*3/uL (1.4-4.0); Lymphocytes % 24.4 % (21.2-54.2); Mean Corpuscular HGB Conc 33.3 GM/DL (32-36); Mean Corpuscular Volume 92.8 FL (87-102); Mean Platelet Volume 11.3 FL (9.6-12.0); Monocytes % 16.7 % (1.7-12.7); Neutrophils % 50.8 % (38.7-73.9); Platelet Count 246 T/CUMM (130-400); Red Blood Count 3.59 MC/CUMM (3.8-5.5); Red Cell Distribution Width 12.8 % (9.3-17.3); White Blood Count 5.9 T/CUMM (4-12)
[2021-05-16 03:50] LABS: Calcium 9.7 MG/DL (8.5-10.1); Osmolality,Calculated 271.7 MOS/KG (273-304); Potassium 3.8 MMOL/L (3.5-5.1)
[2021-05-16 04:02] LABS: Band Neutrophils 1 % (0-10); Lymphocytes 24 % (20-55); Platelet Estimate Adequate; Segmented Neutrophils 58 % (50-85); Total Cells Counted 100
[2021-05-16] MEDS: LORazepam 2 MG/1 ML VIAL IV PRN ×2 (04:02→21:33)
[2021-05-16] MEDS: PHENYTOIN 100 MG/2 ML VIAL IV SCH ×3 (04:38→20:27)
[2021-05-16] MEDS: CEFEPIME 1,000 MG in SODIUM CHLORIDE 0.9% 100 ML IV SCH (05:14)
[2021-05-16] MEDS: PHENobarbital 130 MG/1 ML VIAL IV SCH ×3 (05:14→21:36)
[2021-05-16] MEDS: INSULIN LISPRO 100 UNIT/ML SUBCUT SCH ×4 (07:42→20:27)
[2021-05-16] MEDS: INSULIN GLARGINE 100 UNIT/ML SUBCUT SCH (08:32)
[2021-05-16] MEDS: TAMSULOSIN 0.4 MG CAPSULE PO SCH (08:33)
[2021-05-16] MEDS: clonazePAM 0.5 MG TABLET PO SCH ×2 (08:33→20:28)
[2021-05-16] MEDS: PYRIDOSTIGMINE 60 MG TABLET PO SCH ×3 (08:33→20:28)
[2021-05-16] MEDS: predniSONE 10 MG TABLET PO SCH (08:33)
[2021-05-16] MEDS: LACOSAMIDE INJ 200 MG in SODIUM CHLORIDE 0.9% 50 ML IV SCH ×2 (08:53→20:28)
[2021-05-16] MEDS: ENOXAPARIN 40 MG/0.4 ML SYRINGE SUBCUT SCH (20:27)
[2021-05-16] MEDS: ATORVASTATIN 40 MG TABLET PO SCH (20:28)
[2021-05-16] MEDS ORDERED: LORazepam 2 MG/1 ML VIAL ONE (21:38)
[2021-05-17] MEDS: ALBUTEROL/IPRATROPIUM 3 ML NEB RESP TX SCH ×4 (02:54→20:18)
[2021-05-17] MEDS: PHENYTOIN 100 MG/2 ML VIAL IV SCH ×3 (04:40→20:09)
[2021-05-17] MEDS: PHENobarbital 130 MG/1 ML VIAL IV SCH ×3 (05:02→20:09)
[2021-05-17 05:48] LABS: Basophils % 0.6 % (0.0-0.8); Eosinophils # 0.3 10*3/uL (0.0-0.87); Eosinophils % 4.3 % (0.00-10.9); Hematocrit 36.2 VOL% (42.0-52.0); Hemoglobin 12.3 GM/DL (14.0-18.0); Immature Granulocytes % 1.2 %; Immature Granulocytes Absolute 0.08 #; Lymphocytes # 1.6 10*3/uL (1.4-4.0); Lymphocytes % 24.4 % (21.2-54.2); Mean Corpuscular Volume 93.1 FL (87-102); Mean Platelet Volume 11.9 FL (9.6-12.0); Monocytes % 11.2 % (1.7-12.7); Neutrophils % 58.3 % (38.7-73.9); Platelet Count 261 T/CUMM (130-400); Red Blood Count 3.89 MC/CUMM (3.8-5.5); Red Cell Distribution Width 12.8 % (9.3-17.3); White Blood Count 6.7 T/CUMM (4-12)
[2021-05-17 05:59] LABS: Calcium 9.9 MG/DL (8.5-10.1); Osmolality,Calculated 266.1 MOS/KG (273-304); Potassium 4.2 MMOL/L (3.5-5.1)
[2021-05-17] MEDS: INSULIN GLARGINE 100 UNIT/ML SUBCUT SCH (08:18)
[2021-05-17] MEDS: TAMSULOSIN 0.4 MG CAPSULE PO SCH (08:18)
[2021-05-17] MEDS: PYRIDOSTIGMINE 60 MG TABLET PO SCH ×3 (08:18→20:09)
[2021-05-17] MEDS: predniSONE 10 MG TABLET PO SCH (08:18)
[2021-05-17] MEDS: clonazePAM 0.5 MG TABLET PO SCH ×2 (08:18→20:09)
[2021-05-17] MEDS: INSULIN LISPRO 100 UNIT/ML SUBCUT SCH ×4 (08:44→21:12)
[2021-05-17] MEDS: LACOSAMIDE INJ 200 MG in SODIUM CHLORIDE 0.9% 50 ML IV SCH (09:38)
[2021-05-17] MEDS: LORazepam 2 MG/1 ML VIAL IV PRN (19:17)
[2021-05-17] MEDS: ATORVASTATIN 40 MG TABLET PO SCH (20:08)
[2021-05-17] MEDS: LACOSAMIDE 50 MG TABLET PO SCH (20:08)
[2021-05-17] MEDS: ACETAMINOPHEN 325 MG TABLET PO PRN (20:09)
[2021-05-17] MEDS: ENOXAPARIN 40 MG/0.4 ML SYRINGE SUBCUT SCH (20:10)
[2021-05-18] MEDS: ALBUTEROL/IPRATROPIUM 3 ML NEB RESP TX SCH ×4 (01:00→19:00)
[2021-05-18] MEDS: PHENYTOIN 100 MG/2 ML VIAL IV SCH ×3 (03:49→20:38)
[2021-05-18] MEDS: PHENobarbital 130 MG/1 ML VIAL IV SCH ×3 (05:05→20:40)
[2021-05-18 06:05] LABS: Basophils % 0.6 % (0.0-0.8); Eosinophils # 0.3 10*3/uL (0.0-0.87); Eosinophils % 3.5 % (0.00-10.9); Hematocrit 35.1 VOL% (42.0-52.0); Hemoglobin 11.8 GM/DL (14.0-18.0); Immature Granulocytes % 1.8 %; Immature Granulocytes Absolute 0.13 #; Lymphocytes # 1.7 10*3/uL (1.4-4.0); Lymphocytes % 24.2 % (21.2-54.2); Mean Corpuscular HGB Conc 33.6 GM/DL (32-36); Mean Corpuscular Volume 92.6 FL (87-102); Mean Platelet Volume 11.7 FL (9.6-12.0); Neutrophils % 58.9 % (38.7-73.9); Platelet Count 248 T/CUMM (130-400); Red Blood Count 3.79 MC/CUMM (3.8-5.5); Red Cell Distribution Width 13.1 % (9.3-17.3); White Blood Count 7.2 T/CUMM (4-12)
[2021-05-18 06:23] LABS: Calcium 10.5 MG/DL (8.5-10.1); Potassium 4.2 MMOL/L (3.5-5.1)
[2021-05-18] MEDS: INSULIN LISPRO 100 UNIT/ML SUBCUT SCH ×4 (07:56→20:38)
[2021-05-18] MEDS: clonazePAM 0.5 MG TABLET PO SCH ×2 (08:14→20:37)
[2021-05-18] MEDS: LACOSAMIDE 50 MG TABLET PO SCH ×2 (08:14→20:36)
[2021-05-18] MEDS: predniSONE 10 MG TABLET PO SCH (08:14)
[2021-05-18] MEDS: TAMSULOSIN 0.4 MG CAPSULE PO SCH (08:14)
[2021-05-18] MEDS: PYRIDOSTIGMINE 60 MG TABLET PO SCH ×3 (08:14→20:37)
[2021-05-18] MEDS: INSULIN GLARGINE 100 UNIT/ML SUBCUT SCH (08:15)
[2021-05-18] MEDS: ATORVASTATIN 40 MG TABLET PO SCH (20:37)
[2021-05-18] MEDS: ENOXAPARIN 40 MG/0.4 ML SYRINGE SUBCUT SCH (20:38)
[2021-05-19] MEDS: ALBUTEROL/IPRATROPIUM 3 ML NEB RESP TX SCH ×4 (02:16→19:00)
[2021-05-19] MEDS: PHENYTOIN 100 MG/2 ML VIAL IV SCH ×3 (04:57→20:37)
[2021-05-19] MEDS: PHENobarbital 130 MG/1 ML VIAL IV SCH ×3 (05:25→20:39)
[2021-05-19] MEDS: INSULIN LISPRO 100 UNIT/ML SUBCUT SCH ×4 (07:56→20:53)
[2021-05-19] MEDS: PYRIDOSTIGMINE 60 MG TABLET PO SCH ×3 (08:04→20:36)
[2021-05-19] MEDS: predniSONE 10 MG TABLET PO SCH (08:05)
[2021-05-19] MEDS: clonazePAM 0.5 MG TABLET PO SCH ×2 (08:05→20:37)
[2021-05-19] MEDS: LACOSAMIDE 50 MG TABLET PO SCH (08:05)
[2021-05-19] MEDS: TAMSULOSIN 0.4 MG CAPSULE PO SCH (08:05)
[2021-05-19] MEDS: INSULIN GLARGINE 100 UNIT/ML SUBCUT SCH (08:09)
[2021-05-19] MEDS: LORazepam 2 MG/1 ML VIAL IV PRN (18:32)
[2021-05-19] MEDS: ATORVASTATIN 40 MG TABLET PO SCH (20:37)
[2021-05-19] MEDS: ENOXAPARIN 40 MG/0.4 ML SYRINGE SUBCUT SCH (20:37)
[2021-05-20] MEDS: ALBUTEROL/IPRATROPIUM 3 ML NEB RESP TX SCH ×4 (01:49→19:30)
[2021-05-20] MEDS: LORazepam 2 MG/1 ML VIAL IV PRN (04:12)
[2021-05-20] MEDS: PHENYTOIN 100 MG/2 ML VIAL IV SCH ×3 (04:21→20:23)
[2021-05-20 04:24] LABS: Basophils # 0.1 10*3/uL (0.0-0.2); Basophils % 0.9 % (0.0-0.8); Eosinophils # 0.2 10*3/uL (0.0-0.87); Eosinophils % 1.9 % (0.00-10.9); Hematocrit 37.6 VOL% (42.0-52.0); Hemoglobin 12.3 GM/DL (14.0-18.0); Immature Granulocytes % 4.7 %; Immature Granulocytes Absolute 0.43 #; Lymphocytes # 2.1 10*3/uL (1.4-4.0); Lymphocytes % 23.3 % (21.2-54.2); Mean Corpuscular HGB Conc 32.7 GM/DL (32-36); Mean Corpuscular Volume 94.9 FL (87-102); Mean Platelet Volume 11.4 FL (9.6-12.0); Monocytes % 7.2 % (1.7-12.7); Platelet Count 281 T/CUMM (130-400); Red Blood Count 3.96 MC/CUMM (3.8-5.5); Red Cell Distribution Width 13.5 % (9.3-17.3); White Blood Count 9.1 T/CUMM (4-12)
[2021-05-20] MEDS: PHENobarbital 130 MG/1 ML VIAL IV SCH ×3 (04:24→20:24)
[2021-05-20 04:42] LABS: Alanine Aminotransferase 76 U/L (16-61); Albumin 2.7 G/DL (3.4-5.0); Alkaline Phosphatase 224 U/L (45-117); Aspartate Amino Transferase 41 U/L (0-37); Bilirubin,Total < 0.39 MG/DL (0.20-1.00); Blood Urea Nitrogen 10 MG/DL (7-18); Calcium 10.1 MG/DL (8.5-10.1); Carbon Dioxide 28 MMOL/L (21-32); Estimated Glom Filtration Rate 139 ML/MIN; Glucose 94 MG/DL (74-106); Potassium 3.9 MMOL/L (3.5-5.1); Sodium 136 MMOL/L (136-145); Total Protein 7.6 G/DL (6.4-8.2)
[2021-05-20 07:27] LABS: ABG Base Excess 5.3 MMOL/L (-2.5-2.5); ABG HCO3 29.2 MMOL/L (20-26); ABG Oxygen Saturation 98.6 % (95-100); ABG PCO2 42.5 MM HG (35-48); ABG PH 7.454 (7.35-7.45); ABG TCO2 26.2 MMOL/L (23-27)
[2021-05-20] MEDS: INSULIN GLARGINE 100 UNIT/ML SUBCUT SCH (08:06)
[2021-05-20] MEDS: PYRIDOSTIGMINE 60 MG TABLET PO SCH ×3 (08:06→20:23)
[2021-05-20] MEDS: predniSONE 10 MG TABLET PO SCH (08:06)
[2021-05-20] MEDS: clonazePAM 0.5 MG TABLET PO SCH ×2 (08:06→20:23)
[2021-05-20] MEDS: TAMSULOSIN 0.4 MG CAPSULE PO SCH (08:06)
[2021-05-20] MEDS: INSULIN LISPRO 100 UNIT/ML SUBCUT SCH ×4 (08:44→20:23)
[2021-05-20] MEDS ORDERED: VALPROIC ACID INJ 1,000 MG in SODIUM CHLORIDE 0.9% 100 ML IV SCH (14:00)
[2021-05-20] MEDS: ATORVASTATIN 40 MG TABLET PO SCH (20:23)
[2021-05-20] MEDS: DIVALPROEX 500 MG TABLET PO SCH (20:23)
[2021-05-20] MEDS: ENOXAPARIN 40 MG/0.4 ML SYRINGE SUBCUT SCH (20:24)
[2021-05-20] MEDS ORDERED: VALPROIC ACID 250 MG/5 ML UDCUP PO SCH (21:00)
[2021-05-21] MEDS: ALBUTEROL/IPRATROPIUM 3 ML NEB RESP TX SCH ×4 (01:11→19:45)
[2021-05-21] MEDS: PHENYTOIN 100 MG/2 ML VIAL IV SCH ×3 (04:56→20:39)
[2021-05-21] MEDS: PHENobarbital 130 MG/1 ML VIAL IV SCH ×3 (04:58→20:40)
[2021-05-21] MEDS: INSULIN LISPRO 100 UNIT/ML SUBCUT SCH ×4 (07:51→20:44)
[2021-05-21] MEDS: predniSONE 10 MG TABLET PO SCH (08:12)
[2021-05-21] MEDS: TAMSULOSIN 0.4 MG CAPSULE PO SCH (08:12)
[2021-05-21] MEDS: clonazePAM 0.5 MG TABLET PO SCH ×2 (08:12→20:39)
[2021-05-21] MEDS: INSULIN GLARGINE 100 UNIT/ML SUBCUT SCH (08:12)
[2021-05-21] MEDS: PYRIDOSTIGMINE 60 MG TABLET PO SCH ×3 (08:12→20:39)
[2021-05-21] MEDS: DIVALPROEX 500 MG TABLET PO SCH ×2 (09:03→20:39)
[2021-05-21] MEDS: ATORVASTATIN 40 MG TABLET PO SCH (20:39)
[2021-05-21] MEDS: ENOXAPARIN 40 MG/0.4 ML SYRINGE SUBCUT SCH (20:39)
[2021-05-22] MEDS: ALBUTEROL/IPRATROPIUM 3 ML NEB RESP TX SCH ×4 (01:20→20:50)
[2021-05-22] MEDS: PHENYTOIN 100 MG/2 ML VIAL IV SCH ×3 (04:21→20:58)
[2021-05-22] MEDS: PHENobarbital 130 MG/1 ML VIAL IV SCH ×2 (04:26→13:35)
[2021-05-22 05:15] LABS: Basophils # 0.1 10*3/uL (0.0-0.2); Basophils % 0.6 % (0.0-0.8); Eosinophils # 0.1 10*3/uL (0.0-0.87); Eosinophils % 1.4 % (0.00-10.9); Hematocrit 39.9 VOL% (42.0-52.0); Hemoglobin 12.7 GM/DL (14.0-18.0); Immature Granulocytes % 4.1 %; Immature Granulocytes Absolute 0.37 #; Lymphocytes # 2.3 10*3/uL (1.4-4.0); Lymphocytes % 25.6 % (21.2-54.2); Mean Corpuscular HGB Conc 31.8 GM/DL (32-36); Mean Corpuscular Volume 95.7 FL (87-102); Mean Platelet Volume 12.2 FL (9.6-12.0); Monocytes % 7.1 % (1.7-12.7); Neutrophils % 61.2 % (38.7-73.9); Platelet Count 250 T/CUMM (130-400); Red Blood Count 4.17 MC/CUMM (3.8-5.5); Red Cell Distribution Width 13.9 % (9.3-17.3); White Blood Count 9.1 T/CUMM (4-12)
[2021-05-22 06:32] LABS: Phenytoin (Dilantin) 12.7 UG/ML (10-20)
[2021-05-22 06:33] LABS: Calcium 10.1 MG/DL (8.5-10.1); Osmolality,Calculated 271.8 MOS/KG (273-304); Potassium 4.1 MMOL/L (3.5-5.1)
[2021-05-22] MEDS: INSULIN GLARGINE 100 UNIT/ML SUBCUT SCH (08:07)
[2021-05-22] MEDS: clonazePAM 0.5 MG TABLET PO SCH ×2 (08:07→20:57)
[2021-05-22] MEDS: TAMSULOSIN 0.4 MG CAPSULE PO SCH (08:07)
[2021-05-22] MEDS: predniSONE 10 MG TABLET PO SCH (08:08)
[2021-05-22] MEDS: DIVALPROEX 500 MG TABLET PO SCH ×2 (08:08→20:57)
[2021-05-22] MEDS: PYRIDOSTIGMINE 60 MG TABLET PO SCH ×3 (08:08→20:57)
[2021-05-22] MEDS: INSULIN LISPRO 100 UNIT/ML SUBCUT SCH ×4 (08:30→20:58)
[2021-05-22] MEDS ORDERED: LORazepam 2 MG/1 ML VIAL ONE (17:33)
[2021-05-22] MEDS: LORazepam 2 MG/1 ML VIAL IV PRN (17:35)
[2021-05-22] MEDS: ATORVASTATIN 40 MG TABLET PO SCH (20:57)
[2021-05-22] MEDS: ENOXAPARIN 40 MG/0.4 ML SYRINGE SUBCUT SCH (20:57)
[2021-05-23] MEDS: PHENobarbital 130 MG/1 ML VIAL IV SCH ×2 (00:12→11:43)
[2021-05-23] MEDS: ALBUTEROL/IPRATROPIUM 3 ML NEB RESP TX SCH ×4 (01:56→19:00)
[2021-05-23] MEDS: PHENYTOIN 100 MG/2 ML VIAL IV SCH ×2 (04:15→11:45)
[2021-05-23 05:09] LABS: Basophils % 0.5 % (0.0-0.8); Eosinophils # 0.2 10*3/uL (0.0-0.87); Eosinophils % 1.7 % (0.00-10.9); Hematocrit 37.2 VOL% (42.0-52.0); Immature Granulocytes % 3.6 %; Immature Granulocytes Absolute 0.31 #; Lymphocytes # 2.3 10*3/uL (1.4-4.0); Mean Corpuscular HGB Conc 32.3 GM/DL (32-36); Mean Corpuscular Volume 96.1 FL (87-102); Mean Platelet Volume 12.1 FL (9.6-12.0); Monocytes % 7.9 % (1.7-12.7); Neutrophils % 60.3 % (38.7-73.9); Platelet Count 170 T/CUMM (130-400); Red Blood Count 3.87 MC/CUMM (3.8-5.5); White Blood Count 8.7 T/CUMM (4-12)
[2021-05-23 05:22] LABS: Calcium 9.8 MG/DL (8.5-10.1); Osmolality,Calculated 278.4 MOS/KG (273-304); Potassium 4.4 MMOL/L (3.5-5.1)
[2021-05-23] MEDS: INSULIN LISPRO 100 UNIT/ML SUBCUT SCH ×4 (08:13→20:26)
[2021-05-23] MEDS: clonazePAM 0.5 MG TABLET PO SCH (08:14)
[2021-05-23] MEDS: predniSONE 10 MG TABLET PO SCH (08:14)
[2021-05-23] MEDS: TAMSULOSIN 0.4 MG CAPSULE PO SCH (08:14)
[2021-05-23] MEDS: DIVALPROEX 500 MG TABLET PO SCH (08:14)
[2021-05-23] MEDS: INSULIN GLARGINE 100 UNIT/ML SUBCUT SCH (08:15)
[2021-05-23] MEDS: PYRIDOSTIGMINE 60 MG TABLET PO SCH ×3 (08:15→20:22)
[2021-05-23] MEDS: ENOXAPARIN 40 MG/0.4 ML SYRINGE SUBCUT SCH (20:22)
[2021-05-23] MEDS: DIVALPROEX 250 MG TABLET PO SCH (20:23)
[2021-05-23] MEDS: PHENYTOIN ER 100 MG CAPSULE PO SCH (20:23)
[2021-05-23] MEDS: levETIRAcetam 500 MG TABLET PO SCH (20:23)
[2021-05-23] MEDS: PHENobarbital 30 MG TABLET PO SCH (20:39)
[2021-05-23] MEDS: ATORVASTATIN 40 MG TABLET PO SCH (20:39)
[2021-05-23] MEDS ORDERED: clonazePAM 0.5 MG TABLET PO SCH (21:00)
[2021-05-24] MEDS: ALBUTEROL/IPRATROPIUM 3 ML NEB RESP TX SCH ×3 (03:21→13:16)
[2021-05-24 06:10] LABS: Basophils % 0.5 % (0.0-0.8); Eosinophils # 0.1 10*3/uL (0.0-0.87); Eosinophils % 1.6 % (0.00-10.9); Hematocrit 40.6 VOL% (42.0-52.0); Hemoglobin 13.1 GM/DL (14.0-18.0); Immature Granulocytes % 1.9 %; Immature Granulocytes Absolute 0.15 #; Lymphocytes # 1.9 10*3/uL (1.4-4.0); Mean Corpuscular HGB Conc 32.3 GM/DL (32-36); Mean Corpuscular Volume 95.5 FL (87-102); Mean Platelet Volume 11.7 FL (9.6-12.0); Monocytes % 9.7 % (1.7-12.7); Neutrophils % 62.3 % (38.7-73.9); Platelet Count 292 T/CUMM (130-400); Red Blood Count 4.25 MC/CUMM (3.8-5.5); Red Cell Distribution Width 14.2 % (9.3-17.3); White Blood Count 8.1 T/CUMM (4-12)
[2021-05-24 06:23] LABS: Calcium 10.1 MG/DL (8.5-10.1); Osmolality,Calculated 272.7 MOS/KG (273-304)
[2021-05-24 06:37] LABS: Phenytoin (Dilantin) 13.5 UG/ML (10-20)
[2021-05-24] MEDS: TAMSULOSIN 0.4 MG CAPSULE PO SCH (08:09)
[2021-05-24] MEDS: DIVALPROEX 250 MG TABLET PO SCH (08:09)
[2021-05-24] MEDS: PYRIDOSTIGMINE 60 MG TABLET PO SCH ×3 (08:09→21:13)
[2021-05-24] MEDS: PHENYTOIN ER 100 MG CAPSULE PO SCH ×2 (08:09→21:14)
[2021-05-24] MEDS: levETIRAcetam 500 MG TABLET PO SCH ×2 (08:09→21:14)
[2021-05-24] MEDS: INSULIN LISPRO 100 UNIT/ML SUBCUT SCH ×4 (08:35→22:33)
[2021-05-24] MEDS: PHENobarbital 30 MG TABLET PO SCH ×2 (08:36→21:15)
[2021-05-24] MEDS: INSULIN GLARGINE 100 UNIT/ML SUBCUT SCH (08:36)
[2021-05-24] MEDS: LORazepam 2 MG/1 ML VIAL IV PRN (09:32)
[2021-05-24 10:11] LABS: Alanine Aminotransferase 47 U/L (16-61); Albumin 3.1 G/DL (3.4-5.0); Alkaline Phosphatase 216 U/L (45-117); Aspartate Amino Transferase 29 U/L (0-37); Bilirubin,Direct < 0.100 MG/DL (0.0-0.20); Bilirubin,Indirect 0.3 MG/DL (0.0-1.0); Bilirubin,Total < 0.39 MG/DL (0.20-1.00); Total Protein 7.4 G/DL (6.4-8.2)
[2021-05-24] MEDS ORDERED: BISACODYL 10 MG SUPP RECTAL ONE (11:17)
[2021-05-24] MEDS: POLYETHYLENE GLYCOL POWDER 17 GM PACK PO SCH (11:59)
[2021-05-24] MEDS ORDERED: ALBUTEROL/IPRATROPIUM 3 ML NEB RESP TX PRN (13:09)
[2021-05-24] MEDS ORDERED: HYDROCORTISONE 2.5% RECTAL CREAM 30 GM TUBE TOP PRN (14:09)
[2021-05-24 19:51] LABS: Phenytoin Free Serum 1.6 mcg/mL (1.0 - 2.0); Phenytoin Total Serum (MAYO) 10.7 mcg/mL
[2021-05-24] MEDS: ENOXAPARIN 40 MG/0.4 ML SYRINGE SUBCUT SCH (21:12)
[2021-05-24] MEDS: DIVALPROEX 500 MG TABLET PO SCH (21:14)
[2021-05-24] MEDS: ATORVASTATIN 40 MG TABLET PO SCH (21:14)
[2021-05-25 07:43] LABS: Basophils % 0.4 % (0.0-0.8); Eosinophils # 0.1 10*3/uL (0.0-0.87); Eosinophils % 1.8 % (0.00-10.9); Hematocrit 39.4 VOL% (42.0-52.0); Immature Granulocytes % 1.5 %; Immature Granulocytes Absolute 0.12 #; Lymphocytes # 1.8 10*3/uL (1.4-4.0); Lymphocytes % 22.2 % (21.2-54.2); Mean Platelet Volume 11.2 FL (9.6-12.0); Neutrophils % 66.1 % (38.7-73.9); Platelet Count 270 T/CUMM (130-400); Red Blood Count 4.19 MC/CUMM (3.8-5.5); Red Cell Distribution Width 14.2 % (9.3-17.3); White Blood Count 7.9 T/CUMM (4-12)
[2021-05-25 08:10] LABS: Calcium 9.8 MG/DL (8.5-10.1); Osmolality,Calculated 275.5 MOS/KG (273-304); Potassium 4.1 MMOL/L (3.5-5.1)
[2021-05-25] MEDS: PHENobarbital 30 MG TABLET PO SCH ×2 (09:07→19:50)
[2021-05-25] MEDS: PYRIDOSTIGMINE 60 MG TABLET PO SCH ×3 (09:17→19:47)
[2021-05-25] MEDS: DIVALPROEX 500 MG TABLET PO SCH ×2 (09:17→19:47)
[2021-05-25] MEDS: TAMSULOSIN 0.4 MG CAPSULE PO SCH (09:17)
[2021-05-25] MEDS: PHENYTOIN ER 100 MG CAPSULE PO SCH ×2 (09:17→19:47)
[2021-05-25] MEDS: levETIRAcetam 500 MG TABLET PO SCH ×2 (09:18→19:47)
[2021-05-25] MEDS: POLYETHYLENE GLYCOL POWDER 17 GM PACK PO SCH (09:26)
[2021-05-25] MEDS: INSULIN LISPRO 100 UNIT/ML SUBCUT SCH ×3 (09:28→17:33)
[2021-05-25] MEDS: INSULIN GLARGINE 100 UNIT/ML SUBCUT SCH (09:52)
[2021-05-25] MEDS: LORazepam 2 MG/1 ML VIAL IV PRN (11:18)
[2021-05-25] MEDS: lamoTRIgine 25 MG TABLET PO SCH (16:12)
[2021-05-25] MEDS: ATORVASTATIN 40 MG TABLET PO SCH (19:47)
[2021-05-25] MEDS: ENOXAPARIN 40 MG/0.4 ML SYRINGE SUBCUT SCH (21:16)
[2021-05-26] MEDS: INSULIN LISPRO 100 UNIT/ML SUBCUT SCH ×5 (01:16→20:29)
[2021-05-26 05:28] LABS: Basophils % 0.5 % (0.0-0.8); Eosinophils # 0.1 10*3/uL (0.0-0.87); Eosinophils % 1.7 % (0.00-10.9); Hematocrit 40.6 VOL% (42.0-52.0); Hemoglobin 13.1 GM/DL (14.0-18.0); Immature Granulocytes % 1.6 %; Immature Granulocytes Absolute 0.12 #; Lymphocytes % 27.3 % (21.2-54.2); Mean Corpuscular HGB Conc 32.3 GM/DL (32-36); Mean Corpuscular Volume 94.4 FL (87-102); Mean Platelet Volume 11.6 FL (9.6-12.0); Monocytes % 8.7 % (1.7-12.7); Neutrophils % 60.2 % (38.7-73.9); Platelet Count 263 T/CUMM (130-400); Red Cell Distribution Width 13.8 % (9.3-17.3); White Blood Count 7.5 T/CUMM (4-12)
[2021-05-26 05:54] LABS: Calcium 9.7 MG/DL (8.5-10.1); Osmolality,Calculated 274.5 MOS/KG (273-304); Potassium 4.3 MMOL/L (3.5-5.1)
[2021-05-26] MEDS: PHENobarbital 30 MG TABLET PO SCH ×2 (08:34→22:24)
[2021-05-26] MEDS: POLYETHYLENE GLYCOL POWDER 17 GM PACK PO SCH (08:36)
[2021-05-26] MEDS: PHENYTOIN ER 100 MG CAPSULE PO SCH ×2 (08:51→22:24)
[2021-05-26] MEDS: PYRIDOSTIGMINE 60 MG TABLET PO SCH ×3 (08:52→22:25)
[2021-05-26] MEDS: TAMSULOSIN 0.4 MG CAPSULE PO SCH (08:53)
[2021-05-26] MEDS: DIVALPROEX 500 MG TABLET PO SCH ×2 (08:53→22:25)
[2021-05-26] MEDS: lamoTRIgine 25 MG TABLET PO SCH (08:54)
[2021-05-26] MEDS: levETIRAcetam 500 MG TABLET PO SCH ×2 (08:58→22:25)
[2021-05-26] MEDS: INSULIN GLARGINE 100 UNIT/ML SUBCUT SCH (10:03)
[2021-05-26] MEDS: ENOXAPARIN 40 MG/0.4 ML SYRINGE SUBCUT SCH (22:24)
[2021-05-26] MEDS: ATORVASTATIN 40 MG TABLET PO SCH (22:25)
[2021-05-27 06:07] LABS: Basophils % 0.5 % (0.0-0.8); Eosinophils # 0.1 10*3/uL (0.0-0.87); Eosinophils % 1.8 % (0.00-10.9); Hematocrit 44.7 VOL% (42.0-52.0); Hemoglobin 14.3 GM/DL (14.0-18.0); Immature Granulocytes % 1.6 %; Immature Granulocytes Absolute 0.12 #; Lymphocytes # 2.1 10*3/uL (1.4-4.0); Lymphocytes % 27.1 % (21.2-54.2); Mean Corpuscular Volume 96.1 FL (87-102); Mean Platelet Volume 12.1 FL (9.6-12.0); Platelet Count 231 T/CUMM (130-400); Red Blood Count 4.65 MC/CUMM (3.8-5.5); Red Cell Distribution Width 13.8 % (9.3-17.3); White Blood Count 7.7 T/CUMM (4-12)
[2021-05-27 06:26] LABS: Calcium 10.6 MG/DL (8.5-10.1); Osmolality,Calculated 273.7 MOS/KG (273-304); Potassium 4.1 MMOL/L (3.5-5.1)
[2021-05-27] MEDS: INSULIN LISPRO 100 UNIT/ML SUBCUT SCH ×4 (07:55→20:21)
[2021-05-27] MEDS: levETIRAcetam 500 MG TABLET PO SCH ×2 (09:06→20:03)
[2021-05-27] MEDS: PHENYTOIN ER 100 MG CAPSULE PO SCH ×2 (09:06→20:02)
[2021-05-27] MEDS: TAMSULOSIN 0.4 MG CAPSULE PO SCH (09:06)
[2021-05-27] MEDS: DIVALPROEX 500 MG TABLET PO SCH ×2 (09:06→20:03)
[2021-05-27] MEDS: POLYETHYLENE GLYCOL POWDER 17 GM PACK PO SCH (09:07)
[2021-05-27] MEDS: PYRIDOSTIGMINE 60 MG TABLET PO SCH ×3 (09:07→20:02)
[2021-05-27] MEDS: LORazepam 2 MG/1 ML VIAL IV PRN ×2 (10:17→20:15)
[2021-05-27] MEDS: lamoTRIgine 25 MG TABLET PO SCH (10:46)
[2021-05-27] MEDS: INSULIN GLARGINE 100 UNIT/ML SUBCUT SCH (10:47)
[2021-05-27] MEDS: PHENobarbital 30 MG TABLET PO SCH (10:47)
[2021-05-27] MEDS: ATORVASTATIN 40 MG TABLET PO SCH (20:03)
[2021-05-27] MEDS: ENOXAPARIN 40 MG/0.4 ML SYRINGE SUBCUT SCH (20:04)
[2021-05-28 05:45] LABS: Basophils % 0.3 % (0.0-0.8); Eosinophils # 0.1 10*3/uL (0.0-0.87); Eosinophils % 1.9 % (0.00-10.9); Hematocrit 40.2 VOL% (42.0-52.0); Hemoglobin 13.1 GM/DL (14.0-18.0); Immature Granulocytes % 0.8 %; Immature Granulocytes Absolute 0.05 #; Lymphocytes # 2.1 10*3/uL (1.4-4.0); Lymphocytes % 31.9 % (21.2-54.2); Mean Corpuscular HGB Conc 32.6 GM/DL (32-36); Mean Corpuscular Volume 95.3 FL (87-102); Mean Platelet Volume 12.1 FL (9.6-12.0); Monocytes % 10.4 % (1.7-12.7); Neutrophils % 54.7 % (38.7-73.9); Platelet Count 212 T/CUMM (130-400); Red Blood Count 4.22 MC/CUMM (3.8-5.5); Red Cell Distribution Width 13.8 % (9.3-17.3); White Blood Count 6.4 T/CUMM (4-12)
[2021-05-28 06:10] LABS: Albumin 2.8 G/DL (3.4-5.0); Bilirubin,Total 0.7 MG/DL (0.20-1.00); Calcium 10.1 MG/DL (8.5-10.1); Osmolality,Calculated 272.8 MOS/KG (273-304); Potassium 4.3 MMOL/L (3.5-5.1); Total Protein 7.4 G/DL (6.4-8.2)
[2021-05-28 06:30] LABS: Anisocytosis Slight; Ovalocytes Slight; Platelet Estimate Normal; Polychromasia Slight
[2021-05-28] MEDS: INSULIN LISPRO 100 UNIT/ML SUBCUT SCH ×4 (07:49→21:06)
[2021-05-28] MEDS: LORazepam 2 MG/1 ML VIAL IV PRN (09:54)
[2021-05-28] MEDS: DIVALPROEX 500 MG TABLET PO SCH ×2 (11:33→21:18)
[2021-05-28] MEDS: TAMSULOSIN 0.4 MG CAPSULE PO SCH (11:33)
[2021-05-28] MEDS: levETIRAcetam 500 MG TABLET PO SCH ×2 (11:33→20:58)
[2021-05-28] MEDS: PHENYTOIN ER 100 MG CAPSULE PO SCH ×2 (11:33→20:58)
[2021-05-28] MEDS: INSULIN GLARGINE 100 UNIT/ML SUBCUT SCH (11:34)
[2021-05-28] MEDS: lamoTRIgine 25 MG TABLET PO SCH ×3 (11:34→20:59)
[2021-05-28] MEDS: PYRIDOSTIGMINE 60 MG TABLET PO SCH ×3 (11:34→20:59)
[2021-05-28] MEDS: POLYETHYLENE GLYCOL POWDER 17 GM PACK PO SCH (11:35)
[2021-05-28] MEDS: ENOXAPARIN 40 MG/0.4 ML SYRINGE SUBCUT SCH (20:58)
[2021-05-28] MEDS: ATORVASTATIN 40 MG TABLET PO SCH (20:59)
[2021-05-29 13:14] LABS: Bilirubin,Total 1.24 MG/DL (0.20-1.00); Calcium 10.5 MG/DL (8.5-10.1); Osmolality,Calculated 272.8 MOS/KG (273-304); Total Protein 7.8 G/DL (6.4-8.2)
[2021-05-29 13:15] LABS: Phenytoin (Dilantin) 12.6 UG/ML (10-20); Potassium 4.1 MMOL/L (3.5-5.1); Valproic Acid 79.2 UG/ML (50-100)
[2021-05-29 13:47] LABS: Basophils % 0.5 % (0.0-0.8); Eosinophils # 0.1 10*3/uL (0.0-0.87); Eosinophils % 2.2 % (0.00-10.9); Hematocrit 40.6 VOL% (42.0-52.0); Hemoglobin 13.3 GM/DL (14.0-18.0); Immature Granulocytes % 0.6 %; Immature Granulocytes Absolute 0.04 #; Lymphocytes # 1.8 10*3/uL (1.4-4.0); Lymphocytes % 28.8 % (21.2-54.2); Mean Corpuscular HGB Conc 32.8 GM/DL (32-36); Mean Corpuscular Volume 94.9 FL (87-102); Mean Platelet Volume 13.1 FL (9.6-12.0); Monocytes % 9.6 % (1.7-12.7); Neutrophils % 58.3 % (38.7-73.9); Platelet Count 187 T/CUMM (130-400); Red Blood Count 4.28 MC/CUMM (3.8-5.5); Red Cell Distribution Width 13.8 % (9.3-17.3); White Blood Count 6.3 T/CUMM (4-12)
[2021-05-29] MEDS: INSULIN LISPRO 100 UNIT/ML SUBCUT SCH ×4 (14:53→21:56)
[2021-05-29] MEDS: PHENYTOIN ER 100 MG CAPSULE PO SCH ×2 (14:57→21:34)
[2021-05-29] MEDS: DIVALPROEX 500 MG TABLET PO SCH ×2 (14:57→21:34)
[2021-05-29] MEDS: lamoTRIgine 25 MG TABLET PO SCH ×2 (15:02→21:34)
[2021-05-29] MEDS: levETIRAcetam 500 MG TABLET PO SCH ×2 (15:02→21:34)
[2021-05-29] MEDS: TAMSULOSIN 0.4 MG CAPSULE PO SCH (15:02)
[2021-05-29] MEDS: INSULIN GLARGINE 100 UNIT/ML SUBCUT SCH (15:03)
[2021-05-29] MEDS: PYRIDOSTIGMINE 60 MG TABLET PO SCH ×3 (15:13→21:34)
[2021-05-29] MEDS: POLYETHYLENE GLYCOL POWDER 17 GM PACK PO SCH (15:13)
[2021-05-29 17:24] LABS: Platelet Estimate Adequate
[2021-05-29] MEDS: ATORVASTATIN 40 MG TABLET PO SCH (21:34)
[2021-05-29] MEDS: ENOXAPARIN 40 MG/0.4 ML SYRINGE SUBCUT SCH (21:35)
[2021-05-30 06:36] LABS: Basophils % 0.4 % (0.0-0.8); Eosinophils # 0.1 10*3/uL (0.0-0.87); Hematocrit 40.3 VOL% (42.0-52.0); Hemoglobin 13.1 GM/DL (14.0-18.0); Immature Granulocytes % 0.9 %; Immature Granulocytes Absolute 0.06 #; Lymphocytes # 2.1 10*3/uL (1.4-4.0); Lymphocytes % 30.5 % (21.2-54.2); Mean Corpuscular HGB Conc 32.5 GM/DL (32-36); Mean Corpuscular Volume 94.2 FL (87-102); Mean Platelet Volume 12.8 FL (9.6-12.0); Monocytes % 10.8 % (1.7-12.7); Neutrophils % 55.4 % (38.7-73.9); Platelet Count 185 T/CUMM (130-400); Red Blood Count 4.28 MC/CUMM (3.8-5.5); Red Cell Distribution Width 13.8 % (9.3-17.3); White Blood Count 6.8 T/CUMM (4-12)
[2021-05-30 06:59] LABS: Albumin 3.1 G/DL (3.4-5.0); Bilirubin,Total 0.6 MG/DL (0.20-1.00); Calcium 10.2 MG/DL (8.5-10.1); Osmolality,Calculated 278.5 MOS/KG (273-304); Potassium 3.9 MMOL/L (3.5-5.1); Total Protein 8.1 G/DL (6.4-8.2)
[2021-05-30] MEDS: POLYETHYLENE GLYCOL POWDER 17 GM PACK PO SCH (09:12)
[2021-05-30] MEDS: DIVALPROEX 500 MG TABLET PO SCH ×2 (09:12→20:00)
[2021-05-30] MEDS: TAMSULOSIN 0.4 MG CAPSULE PO SCH (09:12)
[2021-05-30] MEDS: PHENYTOIN ER 100 MG CAPSULE PO SCH ×2 (09:12→20:02)
[2021-05-30] MEDS: INSULIN GLARGINE 100 UNIT/ML SUBCUT SCH (09:13)
[2021-05-30] MEDS: PYRIDOSTIGMINE 60 MG TABLET PO SCH ×3 (09:13→20:00)
[2021-05-30] MEDS: levETIRAcetam 500 MG TABLET PO SCH ×2 (09:13→20:00)
[2021-05-30] MEDS: lamoTRIgine 25 MG TABLET PO SCH (09:13)
[2021-05-30] MEDS: LORazepam 2 MG/1 ML VIAL IV PRN ×2 (10:22→17:53)
[2021-05-30] MEDS: INSULIN LISPRO 100 UNIT/ML SUBCUT SCH ×4 (10:44→20:14)
[2021-05-30] MEDS: ENOXAPARIN 40 MG/0.4 ML SYRINGE SUBCUT SCH (20:00)
[2021-05-30] MEDS: ATORVASTATIN 40 MG TABLET PO SCH (20:00)
[2021-05-31 06:00] LABS: Basophils % 0.6 % (0.0-0.8); Eosinophils # 0.2 10*3/uL (0.0-0.87); Eosinophils % 2.3 % (0.00-10.9); Hematocrit 37.4 VOL% (42.0-52.0); Hemoglobin 12.4 GM/DL (14.0-18.0); Immature Granulocytes % 0.6 %; Immature Granulocytes Absolute 0.04 #; Lymphocytes # 1.9 10*3/uL (1.4-4.0); Lymphocytes % 30.3 % (21.2-54.2); Mean Corpuscular HGB Conc 33.2 GM/DL (32-36); Mean Corpuscular Volume 93.7 FL (87-102); Monocytes % 12.9 % (1.7-12.7); Neutrophils % 53.3 % (38.7-73.9); Platelet Count 170 T/CUMM (130-400); Red Blood Count 3.99 MC/CUMM (3.8-5.5); Red Cell Distribution Width 13.6 % (9.3-17.3); White Blood Count 6.4 T/CUMM (4-12)
[2021-05-31 06:25] LABS: Albumin 2.9 G/DL (3.4-5.0); Bilirubin,Total 0.5 MG/DL (0.20-1.00); Osmolality,Calculated 272.8 MOS/KG (273-304); Potassium 4.2 MMOL/L (3.5-5.1); Total Protein 7.7 G/DL (6.4-8.2)
[2021-05-31] MEDS: INSULIN LISPRO 100 UNIT/ML SUBCUT SCH ×4 (07:20→22:25)
[2021-05-31] MEDS: DIVALPROEX 500 MG TABLET PO SCH ×2 (08:27→21:18)
[2021-05-31] MEDS: TAMSULOSIN 0.4 MG CAPSULE PO SCH (08:27)
[2021-05-31] MEDS: PYRIDOSTIGMINE 60 MG TABLET PO SCH ×3 (08:27→21:21)
[2021-05-31] MEDS: POLYETHYLENE GLYCOL POWDER 17 GM PACK PO SCH (08:27)
[2021-05-31] MEDS: levETIRAcetam 500 MG TABLET PO SCH ×2 (08:27→21:20)
[2021-05-31] MEDS: PHENYTOIN ER 100 MG CAPSULE PO SCH ×2 (08:27→21:19)
[2021-05-31] MEDS: INSULIN GLARGINE 100 UNIT/ML SUBCUT SCH (08:28)
[2021-05-31] MEDS: lamoTRIgine 100 MG TABLET PO SCH (08:29)
[2021-05-31] MEDS ORDERED: MOISTURIZING CREAM (EUCERIN) 106 GM JAR TOP PRN (10:07)
[2021-05-31] MEDS ORDERED: IMMUNE GLOBULIN 10% 20 GM, IMMUNE GLOBULIN 10% 5 GM in PREMIX 1 EACH IV ONE (18:09)
[2021-05-31] MEDS ORDERED: diphenhydrAMINE CAP 50 MG CAPSULE PO ONE (18:10)
[2021-05-31] MEDS ORDERED: ACETAMINOPHEN 325 MG TABLET PO ONE (18:11)
[2021-05-31] MEDS: LORazepam 2 MG/1 ML VIAL IV PRN (18:28)
[2021-05-31] MEDS ORDERED: ROCURONIUM 100 MG/10 ML VIAL IV ONE (19:00)
[2021-05-31] MEDS ORDERED: ETOMIDATE 20 MG/10 ML VIAL IV ONE (19:00)
[2021-05-31] MEDS ORDERED: MIDAZOLAM 2 MG/2 ML VIAL ONE (19:27)
[2021-05-31] MEDS ORDERED: MIDAZOLAM 100 MG in SODIUM CHLORIDE 0.9% 80 ML IV PRN (19:31)
[2021-05-31] MEDS ORDERED: MIDAZOLAM 2 MG/2 ML VIAL IV ONE (19:32)
[2021-05-31 19:48] LABS: Basophils # 0.1 10*3/uL (0.0-0.2); Basophils % 0.4 % (0.0-0.8); Eosinophils # 0.2 10*3/uL (0.0-0.87); Eosinophils % 1.3 % (0.00-10.9); Hematocrit 40.6 VOL% (42.0-52.0); Hemoglobin 13.3 GM/DL (14.0-18.0); Immature Granulocytes % 0.5 %; Immature Granulocytes Absolute 0.07 #; Lymphocytes % 22.6 % (21.2-54.2); Mean Corpuscular HGB Conc 32.8 GM/DL (32-36); Mean Corpuscular Volume 94.6 FL (87-102); Mean Platelet Volume 12.8 FL (9.6-12.0); Monocytes % 7.6 % (1.7-12.7); Neutrophils % 67.6 % (38.7-73.9); Platelet Count 175 T/CUMM (130-400); Red Blood Count 4.29 MC/CUMM (3.8-5.5); Red Cell Distribution Width 13.7 % (9.3-17.3); White Blood Count 13.3 T/CUMM (4-12)
[2021-05-31 19:48] LABS: Amorphous Crystals,Urine Moderate /HPF (Few); Bacteria,Urine Occasional /HPF (Few); Bilirubin,Urine Negative (Negative); Blood, Urine Negative (Negative); Glucose,Urine (UA) 150 mg/dL (Negative); Hyaline Casts,Urine 5 /LPF (0-3); Ketones,Urine 5 mg/dL (Negative); Mucus,Urine Occasional /LPF (Occasional); Nitrite,Urine Negative (Negative); Protein,Urine >=500 MG/DL; RBC,Urine 32 /HPF (0-4); Urine Appearance CLOUDY (Clear); Urine Color Yellow (Yellow); Urine Specific Gravity 1.015 (1.001-1.035); Urine Urobilinogen < 2.0 EU/DL (0.2-1.0)
[2021-05-31 19:55] LABS: ABG Base Excess 4.8 MMOL/L (-2.5-2.5); ABG HCO3 28.7 MMOL/L (20-26); ABG Oxygen Saturation 98.4 % (95-100); ABG PCO2 55.3 MM HG (35-48); ABG PH 7.367 (7.35-7.45); ABG TCO2 27.7 MMOL/L (23-27)
[2021-05-31 20:11] LABS: Alanine Aminotransferase 34 U/L (16-61); Albumin 2.9 G/DL (3.4-5.0); Alkaline Phosphatase 184 U/L (45-117); Aspartate Amino Transferase 28 U/L (0-37); Bilirubin,Total < 0.39 MG/DL (0.20-1.00); Blood Urea Nitrogen 21 MG/DL (7-18); Calcium 8.9 MG/DL (8.5-10.1); Carbon Dioxide 30 MMOL/L (21-32); Estimated Glom Filtration Rate 116 ML/MIN; Glucose 193 MG/DL (74-106); Osmolality,Calculated 288.3 MOS/KG (273-304); Potassium 3.8 MMOL/L (3.5-5.1); Sodium 141 MMOL/L (136-145); Total Protein 7.8 G/DL (6.4-8.2)
[2021-05-31 20:49] LABS: Phenytoin (Dilantin) 16.9 UG/ML (10-20)
[2021-05-31] MEDS: ENOXAPARIN 40 MG/0.4 ML SYRINGE SUBCUT SCH (21:18)
[2021-05-31] MEDS: ATORVASTATIN 40 MG TABLET PO SCH (21:19)
[2021-05-31] MEDS: predniSONE 10 MG TABLET PO SCH (21:19)
[2021-05-31] MEDS: lamoTRIgine 25 MG TABLET PO SCH (21:21)
[2021-05-31] MEDS: CEFEPIME 2,000 MG in SODIUM CHLORIDE 0.9% 100 ML IV SCH (22:24)
[2021-06-01 04:11] LABS: Basophils % 0.2 % (0.0-0.8); Eosinophils # 0.1 10*3/uL (0.0-0.87); Eosinophils % 0.3 % (0.00-10.9); Hematocrit 38.4 VOL% (42.0-52.0); Hemoglobin 12.7 GM/DL (14.0-18.0); Immature Granulocytes % 0.3 %; Immature Granulocytes Absolute 0.05 #; Lymphocytes # 1.6 10*3/uL (1.4-4.0); Lymphocytes % 11.3 % (21.2-54.2); Mean Corpuscular HGB Conc 33.1 GM/DL (32-36); Mean Platelet Volume 12.9 FL (9.6-12.0); Monocytes % 6.9 % (1.7-12.7); Platelet Count 185 T/CUMM (130-400); Red Blood Count 4.04 MC/CUMM (3.8-5.5); Red Cell Distribution Width 13.9 % (9.3-17.3); White Blood Count 14.5 T/CUMM (4-12)
[2021-06-01 04:12] LABS: ABG Base Excess 5.2 MMOL/L (-2.5-2.5); ABG HCO3 29.1 MMOL/L (20-26); ABG Oxygen Saturation 99.9 % (95-100); ABG PCO2 41.6 MM HG (35-48); ABG PH 7.459 (7.35-7.45); ABG TCO2 25.7 MMOL/L (23-27)
[2021-06-01 04:23] LABS: Alanine Aminotransferase 32 U/L (16-61); Albumin 2.9 G/DL (3.4-5.0); Alkaline Phosphatase 162 U/L (45-117); Aspartate Amino Transferase 38 U/L (0-37); Bilirubin,Total < 0.39 MG/DL (0.20-1.00); Blood Urea Nitrogen 19 MG/DL (7-18); Calcium 9.1 MG/DL (8.5-10.1); Carbon Dioxide 31 MMOL/L (21-32); Estimated Glom Filtration Rate 128 ML/MIN; Glucose 118 MG/DL (74-106); Potassium 4.5 MMOL/L (3.5-5.1); Sodium 143 MMOL/L (136-145); Total Protein 6.9 G/DL (6.4-8.2)
[2021-06-01] MEDS: CEFEPIME 2,000 MG in SODIUM CHLORIDE 0.9% 100 ML IV SCH ×3 (04:25→19:39)
[2021-06-01] MEDS: INSULIN LISPRO 100 UNIT/ML SUBCUT SCH ×3 (07:44→18:28)
[2021-06-01] MEDS: PHENYTOIN ER 100 MG CAPSULE PO SCH (09:34)
[2021-06-01] MEDS: lamoTRIgine 100 MG TABLET PO SCH (09:34)
[2021-06-01] MEDS: DIVALPROEX 500 MG TABLET PO SCH ×2 (09:34→20:23)
[2021-06-01] MEDS: TAMSULOSIN 0.4 MG CAPSULE PO SCH (09:34)
[2021-06-01] MEDS: levETIRAcetam 500 MG TABLET PO SCH (09:34)
[2021-06-01] MEDS: predniSONE 10 MG TABLET PO SCH ×2 (09:36→20:24)
[2021-06-01] MEDS: lamoTRIgine 25 MG TABLET PO SCH (09:36)
[2021-06-01] MEDS: INSULIN GLARGINE 100 UNIT/ML SUBCUT SCH (09:36)
[2021-06-01] MEDS: PYRIDOSTIGMINE 60 MG TABLET PO SCH ×3 (09:36→20:23)
[2021-06-01] MEDS: POLYETHYLENE GLYCOL POWDER 17 GM PACK PO SCH (09:36)
[2021-06-01] MEDS: ACETAMINOPHEN 325 MG TABLET PO PRN (15:53)
[2021-06-01] MEDS: PHENYTOIN 100 MG/4 ML UDCUP NG SCH (20:23)
[2021-06-01] MEDS: ATORVASTATIN 40 MG TABLET PO SCH (20:24)
[2021-06-01] MEDS: levETIRAcetam LIQUID 100 MG/ML 30 ML/BOTTLE NG SCH (20:24)
[2021-06-01] MEDS: ENOXAPARIN 40 MG/0.4 ML SYRINGE SUBCUT SCH (20:24)
[2021-06-01] MEDS: PHENobarbital 30 MG TABLET PO SCH (20:45)
[2021-06-01] MEDS ORDERED: lamoTRIgine 25 MG TABLET PO ONE (21:00)
[2021-06-02] MEDS: INSULIN LISPRO 100 UNIT/ML SUBCUT SCH ×4 (00:08→17:56)
[2021-06-02 04:09] LABS: ABG HCO3 29.8 MMOL/L (20-26); ABG Oxygen Saturation 95.4 % (95-100); ABG PCO2 49.7 MM HG (35-48); ABG PH 7.415 (7.35-7.45); ABG PO2 80.1 MM HG (80-95); ABG TCO2 27.8 MMOL/L (23-27)
[2021-06-02] MEDS: CEFEPIME 2,000 MG in SODIUM CHLORIDE 0.9% 100 ML IV SCH (04:21)
[2021-06-02] MEDS: LORazepam 2 MG/1 ML VIAL IV PRN (05:50)
[2021-06-02 06:17] LABS: Basophils % 0.3 % (0.0-0.8); Eosinophils # 0.1 10*3/uL (0.0-0.87); Eosinophils % 1.1 % (0.00-10.9); Hematocrit 34.9 VOL% (42.0-52.0); Hemoglobin 11.4 GM/DL (14.0-18.0); Immature Granulocytes % 0.5 %; Immature Granulocytes Absolute 0.06 #; Lymphocytes # 1.9 10*3/uL (1.4-4.0); Lymphocytes % 15.4 % (21.2-54.2); Mean Corpuscular HGB Conc 32.7 GM/DL (32-36); Mean Corpuscular Volume 94.8 FL (87-102); Mean Platelet Volume 12.9 FL (9.6-12.0); Monocytes % 10.1 % (1.7-12.7); Neutrophils % 72.6 % (38.7-73.9); Platelet Count 156 T/CUMM (130-400); Red Blood Count 3.68 MC/CUMM (3.8-5.5); Red Cell Distribution Width 13.8 % (9.3-17.3); White Blood Count 12.2 T/CUMM (4-12)
[2021-06-02 06:47] LABS: Albumin 2.6 G/DL (3.4-5.0); Bilirubin,Total 1.2 MG/DL (0.20-1.00); Calcium 9.4 MG/DL (8.5-10.1); Osmolality,Calculated 276.5 MOS/KG (273-304); Potassium 3.8 MMOL/L (3.5-5.1); Total Protein 7.3 G/DL (6.4-8.2)
[2021-06-02] MEDS: PHENYTOIN 100 MG/4 ML UDCUP NG SCH ×2 (08:34→20:38)
[2021-06-02] MEDS: DIVALPROEX 500 MG TABLET PO SCH ×2 (08:34→20:39)
[2021-06-02] MEDS: PHENobarbital 30 MG TABLET PO SCH ×2 (08:34→20:38)
[2021-06-02] MEDS: lamoTRIgine 100 MG TABLET PO SCH ×2 (08:34→20:38)
[2021-06-02] MEDS: predniSONE 10 MG TABLET PO SCH ×2 (08:35→20:40)
[2021-06-02] MEDS: levETIRAcetam LIQUID 100 MG/ML 30 ML/BOTTLE NG SCH ×2 (08:35→20:40)
[2021-06-02] MEDS: POLYETHYLENE GLYCOL POWDER 17 GM PACK PO SCH (08:35)
[2021-06-02] MEDS: PYRIDOSTIGMINE 60 MG TABLET PO SCH ×3 (08:35→20:39)
[2021-06-02] MEDS: TAMSULOSIN 0.4 MG CAPSULE PO SCH (08:36)
[2021-06-02] MEDS: INSULIN GLARGINE 100 UNIT/ML SUBCUT SCH (08:36)
[2021-06-02] MEDS: ENOXAPARIN 40 MG/0.4 ML SYRINGE SUBCUT SCH (20:38)
[2021-06-02] MEDS: ATORVASTATIN 40 MG TABLET PO SCH (20:40)
[2021-06-03] MEDS: INSULIN LISPRO 100 UNIT/ML SUBCUT SCH ×4 (05:18→18:06)
[2021-06-03 05:47] LABS: Basophils % 0.4 % (0.0-0.8); Eosinophils # 0.2 10*3/uL (0.0-0.87); Eosinophils % 2.3 % (0.00-10.9); Hematocrit 37.4 VOL% (42.0-52.0); Immature Granulocytes % 0.5 %; Immature Granulocytes Absolute 0.04 #; Lymphocytes % 24.4 % (21.2-54.2); Mean Corpuscular HGB Conc 32.1 GM/DL (32-36); Mean Corpuscular Volume 96.9 FL (87-102); Mean Platelet Volume 13.4 FL (9.6-12.0); Monocytes % 11.4 % (1.7-12.7); Platelet Count 164 T/CUMM (130-400); Red Blood Count 3.86 MC/CUMM (3.8-5.5); Red Cell Distribution Width 13.6 % (9.3-17.3)
[2021-06-03 06:16] LABS: Calcium 9.9 MG/DL (8.5-10.1); Potassium 4.1 MMOL/L (3.5-5.1)
[2021-06-03] MEDS: INSULIN GLARGINE 100 UNIT/ML SUBCUT SCH (09:05)
[2021-06-03] MEDS: PHENobarbital 30 MG TABLET PO SCH ×2 (09:20→21:18)
[2021-06-03] MEDS: levETIRAcetam LIQUID 100 MG/ML 30 ML/BOTTLE NG SCH ×2 (09:20→21:19)
[2021-06-03] MEDS: predniSONE 10 MG TABLET PO SCH ×2 (09:20→21:18)
[2021-06-03] MEDS: DIVALPROEX 500 MG TABLET PO SCH ×2 (09:20→21:17)
[2021-06-03] MEDS: PYRIDOSTIGMINE 60 MG TABLET PO SCH ×3 (09:20→21:18)
[2021-06-03] MEDS: lamoTRIgine 100 MG TABLET PO SCH ×2 (09:20→21:18)
[2021-06-03] MEDS: TAMSULOSIN 0.4 MG CAPSULE PO SCH (09:20)
[2021-06-03] MEDS: PHENYTOIN 100 MG/4 ML UDCUP NG SCH ×2 (09:20→21:19)
[2021-06-03] MEDS: POLYETHYLENE GLYCOL POWDER 17 GM PACK PO SCH (09:20)
[2021-06-03] MEDS: LORazepam 2 MG/1 ML VIAL IV PRN ×2 (10:27→14:05)
[2021-06-03] MEDS: ATORVASTATIN 40 MG TABLET PO SCH (21:18)
[2021-06-03] MEDS: ENOXAPARIN 40 MG/0.4 ML SYRINGE SUBCUT SCH (21:19)
[2021-06-04] MEDS: INSULIN LISPRO 100 UNIT/ML SUBCUT SCH ×5 (00:05→20:15)
[2021-06-04 05:03] LABS: Basophils % 0.3 % (0.0-0.8); Eosinophils # 0.2 10*3/uL (0.0-0.87); Eosinophils % 3.2 % (0.00-10.9); Hematocrit 34.5 VOL% (42.0-52.0); Hemoglobin 11.2 GM/DL (14.0-18.0); Immature Granulocytes % 0.3 %; Immature Granulocytes Absolute 0.02 #; Lymphocytes # 1.6 10*3/uL (1.4-4.0); Lymphocytes % 22.4 % (21.2-54.2); Mean Corpuscular HGB Conc 32.5 GM/DL (32-36); Mean Corpuscular Volume 94.8 FL (87-102); Monocytes % 9.9 % (1.7-12.7); Neutrophils % 63.9 % (38.7-73.9); Platelet Count 182 T/CUMM (130-400); Red Blood Count 3.64 MC/CUMM (3.8-5.5); Red Cell Distribution Width 13.3 % (9.3-17.3); White Blood Count 7.3 T/CUMM (4-12)
[2021-06-04 05:17] LABS: Calcium 9.7 MG/DL (8.5-10.1); Osmolality,Calculated 273.8 MOS/KG (273-304); Potassium 4.1 MMOL/L (3.5-5.1)
[2021-06-04] MEDS: TAMSULOSIN 0.4 MG CAPSULE PO SCH (08:30)
[2021-06-04] MEDS: POLYETHYLENE GLYCOL POWDER 17 GM PACK PO SCH (08:30)
[2021-06-04] MEDS: PYRIDOSTIGMINE 60 MG TABLET PO SCH ×3 (08:30→21:51)
[2021-06-04] MEDS: INSULIN GLARGINE 100 UNIT/ML SUBCUT SCH (08:30)
[2021-06-04] MEDS: predniSONE 10 MG TABLET PO SCH ×2 (08:30→21:52)
[2021-06-04] MEDS: lamoTRIgine 100 MG TABLET PO SCH ×2 (08:30→21:51)
[2021-06-04] MEDS: DIVALPROEX 500 MG TABLET PO SCH ×2 (08:30→21:51)
[2021-06-04] MEDS: PHENYTOIN 100 MG/4 ML UDCUP NG SCH ×2 (08:30→21:51)
[2021-06-04] MEDS: levETIRAcetam LIQUID 100 MG/ML 30 ML/BOTTLE NG SCH ×2 (08:30→21:51)
[2021-06-04] MEDS: PHENobarbital 30 MG TABLET PO SCH ×2 (08:30→21:51)
[2021-06-04] MEDS: ATORVASTATIN 40 MG TABLET PO SCH (21:51)
[2021-06-04] MEDS: ENOXAPARIN 40 MG/0.4 ML SYRINGE SUBCUT SCH (21:52)
[2021-06-05 05:33] LABS: Basophils % 0.5 % (0.0-0.8); Eosinophils # 0.2 10*3/uL (0.0-0.87); Eosinophils % 2.9 % (0.00-10.9); Hematocrit 34.9 VOL% (42.0-52.0); Hemoglobin 11.5 GM/DL (14.0-18.0); Immature Granulocytes % 0.6 %; Immature Granulocytes Absolute 0.04 #; Lymphocytes # 1.8 10*3/uL (1.4-4.0); Lymphocytes % 27.6 % (21.2-54.2); Mean Corpuscular Volume 95.6 FL (87-102); Mean Platelet Volume 12.3 FL (9.6-12.0); Monocytes % 10.5 % (1.7-12.7); Neutrophils % 57.9 % (38.7-73.9); Platelet Count 200 T/CUMM (130-400); Red Blood Count 3.65 MC/CUMM (3.8-5.5); Red Cell Distribution Width 13.2 % (9.3-17.3); White Blood Count 6.6 T/CUMM (4-12)
[2021-06-05 05:52] LABS: Calcium 9.7 MG/DL (8.5-10.1); Osmolality,Calculated 276.5 MOS/KG (273-304); Potassium 4.1 MMOL/L (3.5-5.1)
[2021-06-05] MEDS: INSULIN LISPRO 100 UNIT/ML SUBCUT SCH ×4 (08:36→21:04)
[2021-06-05] MEDS: DIVALPROEX 500 MG TABLET PO SCH ×2 (08:36→21:03)
[2021-06-05] MEDS: PYRIDOSTIGMINE 60 MG TABLET PO SCH ×3 (08:37→21:04)
[2021-06-05] MEDS: lamoTRIgine 100 MG TABLET PO SCH ×2 (08:37→21:04)
[2021-06-05] MEDS: predniSONE 10 MG TABLET PO SCH ×2 (08:37→21:04)
[2021-06-05] MEDS: TAMSULOSIN 0.4 MG CAPSULE PO SCH (08:37)
[2021-06-05] MEDS: PHENYTOIN 100 MG/4 ML UDCUP NG SCH ×2 (08:37→21:03)
[2021-06-05] MEDS: POLYETHYLENE GLYCOL POWDER 17 GM PACK PO SCH (08:38)
[2021-06-05] MEDS: INSULIN GLARGINE 100 UNIT/ML SUBCUT SCH (08:38)
[2021-06-05] MEDS: levETIRAcetam 500 MG TABLET PO SCH ×2 (11:06→21:04)
[2021-06-05] MEDS: levETIRAcetam LIQUID 100 MG/ML 30 ML/BOTTLE NG SCH (12:07)
[2021-06-05] MEDS: LORazepam 2 MG/1 ML VIAL IV PRN ×2 (13:15→22:05)
[2021-06-05] MEDS: PHENobarbital 30 MG TABLET PO SCH ×2 (18:24→21:04)
[2021-06-05] MEDS: ATORVASTATIN 40 MG TABLET PO SCH (21:04)
[2021-06-05] MEDS: ENOXAPARIN 40 MG/0.4 ML SYRINGE SUBCUT SCH (21:05)
[2021-06-06 05:00] LABS: Basophils % 0.5 % (0.0-0.8); Eosinophils # 0.2 10*3/uL (0.0-0.87); Eosinophils % 2.9 % (0.00-10.9); Hematocrit 36.4 VOL% (42.0-52.0); Hemoglobin 11.8 GM/DL (14.0-18.0); Immature Granulocytes % 0.8 %; Immature Granulocytes Absolute 0.05 #; Lymphocytes # 1.8 10*3/uL (1.4-4.0); Lymphocytes % 27.4 % (21.2-54.2); Mean Corpuscular HGB Conc 32.4 GM/DL (32-36); Mean Corpuscular Volume 94.8 FL (87-102); Mean Platelet Volume 13.2 FL (9.6-12.0); Monocytes % 8.5 % (1.7-12.7); Neutrophils % 59.9 % (38.7-73.9); Platelet Count 161 T/CUMM (130-400); Red Blood Count 3.84 MC/CUMM (3.8-5.5); Red Cell Distribution Width 13.3 % (9.3-17.3); White Blood Count 6.6 T/CUMM (4-12)
[2021-06-06 05:17] LABS: Calcium 9.7 MG/DL (8.5-10.1); Osmolality,Calculated 274.5 MOS/KG (273-304); Potassium 4.6 MMOL/L (3.5-5.1)
[2021-06-06 05:20] LABS: Phenytoin (Dilantin) 17.7 UG/ML (10-20)
[2021-06-06 05:21] LABS: Hypochromasia Slight; Microcytosis Slight
[2021-06-06] MEDS: DEXTROSE 50% 25 GM/50 ML SYRINGE IV PRN (06:05)
[2021-06-06] MEDS: PHENYTOIN 100 MG/4 ML UDCUP NG SCH ×2 (08:21→22:17)
[2021-06-06] MEDS: PHENobarbital 30 MG TABLET PO SCH ×2 (08:21→22:16)
[2021-06-06] MEDS: lamoTRIgine 100 MG TABLET PO SCH ×2 (08:21→22:14)
[2021-06-06] MEDS: POLYETHYLENE GLYCOL POWDER 17 GM PACK PO SCH (08:21)
[2021-06-06] MEDS: TAMSULOSIN 0.4 MG CAPSULE PO SCH (08:22)
[2021-06-06] MEDS: PYRIDOSTIGMINE 60 MG TABLET PO SCH ×3 (08:22→22:15)
[2021-06-06] MEDS: DIVALPROEX 500 MG TABLET PO SCH (08:22)
[2021-06-06] MEDS: levETIRAcetam 500 MG TABLET PO SCH ×2 (08:22→22:14)
[2021-06-06] MEDS: predniSONE 10 MG TABLET PO SCH ×2 (08:22→22:16)
[2021-06-06] MEDS: INSULIN LISPRO 100 UNIT/ML SUBCUT SCH ×4 (08:48→22:17)
[2021-06-06] MEDS: INSULIN GLARGINE 100 UNIT/ML SUBCUT SCH (08:50)
[2021-06-06] MEDS: LORazepam 2 MG/1 ML VIAL IV PRN (14:24)
[2021-06-06] MEDS ORDERED: VALPROIC ACID INJ 500 MG in SODIUM CHLORIDE 0.9% 100 ML IV ONE (14:49)
[2021-06-06] MEDS ORDERED: diphenhydrAMINE CAP 25 MG CAPSULE PO ONE (16:31)
[2021-06-06] MEDS ORDERED: ACETAMINOPHEN 325 MG TABLET PO ONE (16:32)
[2021-06-06] MEDS ORDERED: IMMUNE GLOBULIN 10% 20 GM, IMMUNE GLOBULIN 10% 5 GM in PREMIX 1 EACH IV ONE (17:00)
[2021-06-06] MEDS: DIVALPROEX 250 MG TABLET PO SCH (22:16)
[2021-06-06] MEDS: ATORVASTATIN 40 MG TABLET PO SCH (22:17)
[2021-06-07 06:46] LABS: Basophils % 0.7 % (0.0-0.8); Eosinophils # 0.2 10*3/uL (0.0-0.87); Eosinophils % 4.9 % (0.00-10.9); Hematocrit 34.8 VOL% (42.0-52.0); Hemoglobin 11.4 GM/DL (14.0-18.0); Immature Granulocytes % 1.5 %; Immature Granulocytes Absolute 0.06 #; Lymphocytes # 1.2 10*3/uL (1.4-4.0); Lymphocytes % 29.2 % (21.2-54.2); Mean Corpuscular HGB Conc 32.8 GM/DL (32-36); Mean Corpuscular Volume 95.6 FL (87-102); Mean Platelet Volume 12.5 FL (9.6-12.0); Monocytes % 3.4 % (1.7-12.7); Neutrophils % 60.3 % (38.7-73.9); Platelet Count 205 T/CUMM (130-400); Red Blood Count 3.64 MC/CUMM (3.8-5.5); Red Cell Distribution Width 13.3 % (9.3-17.3); White Blood Count 4.1 T/CUMM (4-12)
[2021-06-07 07:02] LABS: Calcium 9.4 MG/DL (8.5-10.1); Osmolality,Calculated 278.4 MOS/KG (273-304); Potassium 4.3 MMOL/L (3.5-5.1)
[2021-06-07 07:56] LABS: INR 1.1; PT Patient Result 11.8 SECS (10.5-12.0)
[2021-06-07] MEDS: PHENYTOIN 100 MG/4 ML UDCUP NG SCH ×2 (08:30→21:38)
[2021-06-07] MEDS: TAMSULOSIN 0.4 MG CAPSULE PO SCH (08:30)
[2021-06-07] MEDS: POLYETHYLENE GLYCOL POWDER 17 GM PACK PO SCH (08:30)
[2021-06-07] MEDS: PHENobarbital 30 MG TABLET PO SCH ×2 (08:30→21:37)
[2021-06-07] MEDS: levETIRAcetam 500 MG TABLET PO SCH ×2 (08:31→21:35)
[2021-06-07] MEDS: lamoTRIgine 100 MG TABLET PO SCH ×2 (08:31→21:38)
[2021-06-07] MEDS: predniSONE 10 MG TABLET PO SCH ×2 (08:31→21:37)
[2021-06-07] MEDS: PYRIDOSTIGMINE 60 MG TABLET PO SCH ×3 (08:31→21:37)
[2021-06-07] MEDS: DIVALPROEX 250 MG TABLET PO SCH ×2 (08:31→21:36)
[2021-06-07] MEDS: INSULIN LISPRO 100 UNIT/ML SUBCUT SCH ×4 (08:32→22:39)
[2021-06-07] MEDS: INSULIN GLARGINE 100 UNIT/ML SUBCUT SCH (08:32)
[2021-06-07 17:24] LABS: Glucose,CSF 65 MG/DL (40-70)
[2021-06-07 17:51] LABS: Lymphocytes,CSF 96 %; Monocytes,CSF 1 %; Neutrophils,CSF 1 %
[2021-06-07 17:52] LABS: Appearance,CSF Clear; Red Blood Cell,CSF 240 C/CUMM; White Blood Cell,CSF 16 C/CUMM
[2021-06-07] MEDS: ATORVASTATIN 40 MG TABLET PO SCH (21:36)
[2021-06-08 05:33] LABS: Basophils # 0.1 10*3/uL (0.0-0.2); Basophils % 0.8 % (0.0-0.8); Eosinophils # 0.2 10*3/uL (0.0-0.87); Eosinophils % 2.7 % (0.00-10.9); Hematocrit 36.9 VOL% (42.0-52.0); Hemoglobin 11.9 GM/DL (14.0-18.0); Immature Granulocytes % 1.1 %; Immature Granulocytes Absolute 0.07 #; Lymphocytes # 1.5 10*3/uL (1.4-4.0); Lymphocytes % 23.4 % (21.2-54.2); Mean Corpuscular HGB Conc 32.2 GM/DL (32-36); Mean Corpuscular Volume 96.3 FL (87-102); Mean Platelet Volume 12.2 FL (9.6-12.0); Monocytes % 8.4 % (1.7-12.7); Neutrophils % 63.6 % (38.7-73.9); Platelet Count 227 T/CUMM (130-400); Red Blood Count 3.83 MC/CUMM (3.8-5.5); Red Cell Distribution Width 13.3 % (9.3-17.3); White Blood Count 6.2 T/CUMM (4-12)
[2021-06-08 05:56] LABS: Calcium 9.1 MG/DL (8.5-10.1); Osmolality,Calculated 275.8 MOS/KG (273-304); Potassium 4.4 MMOL/L (3.5-5.1)
[2021-06-08] MEDS: TAMSULOSIN 0.4 MG CAPSULE PO SCH (08:24)
[2021-06-08] MEDS: DIVALPROEX 250 MG TABLET PO SCH ×2 (08:24→20:46)
[2021-06-08] MEDS: PHENYTOIN 100 MG/4 ML UDCUP NG SCH ×2 (08:24→20:47)
[2021-06-08] MEDS: PHENobarbital 30 MG TABLET PO SCH ×2 (08:24→20:46)
[2021-06-08] MEDS: PYRIDOSTIGMINE 60 MG TABLET PO SCH ×3 (08:25→20:47)
[2021-06-08] MEDS: POLYETHYLENE GLYCOL POWDER 17 GM PACK PO SCH (08:25)
[2021-06-08] MEDS: levETIRAcetam 500 MG TABLET PO SCH ×2 (08:25→20:47)
[2021-06-08] MEDS: lamoTRIgine 100 MG TABLET PO SCH ×2 (08:25→20:47)
[2021-06-08] MEDS: predniSONE 10 MG TABLET PO SCH ×2 (08:25→20:47)
[2021-06-08] MEDS: INSULIN GLARGINE 100 UNIT/ML SUBCUT SCH (08:26)
[2021-06-08] MEDS: INSULIN LISPRO 100 UNIT/ML SUBCUT SCH ×4 (08:26→20:49)
[2021-06-08] MEDS: ATORVASTATIN 40 MG TABLET PO SCH (20:47)
[2021-06-09 05:46] LABS: Basophils % 0.5 % (0.0-0.8); Eosinophils # 0.2 10*3/uL (0.0-0.87); Eosinophils % 2.2 % (0.00-10.9); Hematocrit 38.6 VOL% (42.0-52.0); Hemoglobin 12.8 GM/DL (14.0-18.0); Immature Granulocytes % 1.1 %; Immature Granulocytes Absolute 0.08 #; Lymphocytes # 2.3 10*3/uL (1.4-4.0); Lymphocytes % 29.8 % (21.2-54.2); Mean Corpuscular HGB Conc 33.2 GM/DL (32-36); Mean Corpuscular Volume 93.9 FL (87-102); Monocytes % 11.7 % (1.7-12.7); Neutrophils % 54.7 % (38.7-73.9); Platelet Count 167 T/CUMM (130-400); Red Blood Count 4.11 MC/CUMM (3.8-5.5); Red Cell Distribution Width 13.5 % (9.3-17.3); White Blood Count 7.6 T/CUMM (4-12)
[2021-06-09 05:50] LABS: Calcium 9.4 MG/DL (8.5-10.1); Osmolality,Calculated 270.8 MOS/KG (273-304); Potassium 4.4 MMOL/L (3.5-5.1)
[2021-06-09 06:17] LABS: Platelet Estimate Normal
[2021-06-09] MEDS: lamoTRIgine 100 MG TABLET PO SCH ×2 (09:32→20:11)
[2021-06-09] MEDS: PHENobarbital 30 MG TABLET PO SCH ×2 (09:32→20:06)
[2021-06-09] MEDS: INSULIN GLARGINE 100 UNIT/ML SUBCUT SCH (09:32)
[2021-06-09] MEDS: PHENYTOIN 100 MG/4 ML UDCUP NG SCH ×2 (09:32→20:04)
[2021-06-09] MEDS: POLYETHYLENE GLYCOL POWDER 17 GM PACK PO SCH (09:32)
[2021-06-09] MEDS: predniSONE 10 MG TABLET PO SCH ×2 (09:33→20:07)
[2021-06-09] MEDS: TAMSULOSIN 0.4 MG CAPSULE PO SCH (09:33)
[2021-06-09] MEDS: levETIRAcetam 500 MG TABLET PO SCH ×2 (09:33→20:10)
[2021-06-09] MEDS: PYRIDOSTIGMINE 60 MG TABLET PO SCH ×3 (09:33→20:10)
[2021-06-09] MEDS: INSULIN LISPRO 100 UNIT/ML SUBCUT SCH ×3 (09:33→20:11)
[2021-06-09] MEDS: DIVALPROEX 250 MG TABLET PO SCH ×2 (09:33→20:06)
[2021-06-09] MEDS: LORazepam 2 MG/1 ML VIAL IV PRN ×2 (14:27→22:01)
[2021-06-09 14:35] LABS: VDRL Spinal Fluid Negative (Negative)
[2021-06-09] MEDS: ATORVASTATIN 40 MG TABLET PO SCH (20:10)
[2021-06-10 05:54] LABS: Basophils # 0.1 10*3/uL (0.0-0.2); Basophils % 0.5 % (0.0-0.8); Eosinophils # 0.1 10*3/uL (0.0-0.87); Eosinophils % 1.1 % (0.00-10.9); Hematocrit 39.3 VOL% (42.0-52.0); Hemoglobin 13.2 GM/DL (14.0-18.0); Immature Granulocytes % 0.8 %; Immature Granulocytes Absolute 0.09 #; Lymphocytes # 2.1 10*3/uL (1.4-4.0); Lymphocytes % 18.3 % (21.2-54.2); Mean Corpuscular HGB Conc 33.6 GM/DL (32-36); Mean Corpuscular Volume 94.5 FL (87-102); Mean Platelet Volume 11.9 FL (9.6-12.0); Monocytes % 11.6 % (1.7-12.7); Neutrophils % 67.7 % (38.7-73.9); Platelet Count 268 T/CUMM (130-400); Red Blood Count 4.16 MC/CUMM (3.8-5.5); Red Cell Distribution Width 13.7 % (9.3-17.3); White Blood Count 11.4 T/CUMM (4-12)
[2021-06-10 06:19] LABS: Calcium 10.2 MG/DL (8.5-10.1)
[2021-06-10] MEDS: INSULIN LISPRO 100 UNIT/ML SUBCUT SCH ×4 (07:56→20:26)
[2021-06-10] MEDS: levETIRAcetam 500 MG TABLET PO SCH ×2 (09:30→20:25)
[2021-06-10] MEDS: PHENYTOIN 100 MG/4 ML UDCUP NG SCH ×2 (09:30→20:24)
[2021-06-10] MEDS: predniSONE 10 MG TABLET PO SCH ×2 (09:30→20:25)
[2021-06-10] MEDS: POLYETHYLENE GLYCOL POWDER 17 GM PACK PO SCH (09:30)
[2021-06-10] MEDS: PYRIDOSTIGMINE 60 MG TABLET PO SCH ×3 (09:30→20:25)
[2021-06-10] MEDS: TAMSULOSIN 0.4 MG CAPSULE PO SCH (09:30)
[2021-06-10] MEDS: lamoTRIgine 100 MG TABLET PO SCH ×2 (09:30→20:24)
[2021-06-10] MEDS: INSULIN GLARGINE 100 UNIT/ML SUBCUT SCH (09:50)
[2021-06-10] MEDS: PHENobarbital 30 MG TABLET PO SCH ×2 (09:52→20:24)
[2021-06-10] MEDS: DIVALPROEX 250 MG TABLET PO SCH (09:53)
[2021-06-10 12:35] LABS: M. Tuberculosis PCR Result Negative (Negative); M. Tuberculosis PCR Source CSF
[2021-06-10] MEDS: VALPROIC ACID 250 MG/5 ML UDCUP PO SCH ×2 (12:39→20:43)
[2021-06-10 14:24] LABS: ABG Base Excess 4.4 MMOL/L (-2.5-2.5); ABG HCO3 28.1 MMOL/L (20-26); ABG Oxygen Saturation 87.4 % (95-100); ABG PCO2 52.1 MM HG (35-48); ABG PH 7.382 (7.35-7.45); ABG PO2 57.6 MM HG (80-95); ABG TCO2 26.9 MMOL/L (23-27)
[2021-06-10 16:35] LABS: ABG Base Excess 5.5 MMOL/L (-2.5-2.5); ABG HCO3 29.4 MMOL/L (20-26); ABG Oxygen Saturation 98.6 % (95-100); ABG PCO2 54.6 MM HG (35-48); ABG PH 7.382 (7.35-7.45); ABG TCO2 27.9 MMOL/L (23-27); Allen Test Positive; Pt O2 Delivery Device BIPAP
[2021-06-10] MEDS: ALBUTEROL/IPRATROPIUM 3 ML NEB RESP TX SCH (19:54)
[2021-06-10] MEDS: DORNASE ALFA 2.5 MG/2.5 ML VIAL RESP TX SCH (19:54)
[2021-06-10] MEDS: ATORVASTATIN 40 MG TABLET PO SCH (20:25)
[2021-06-11] MEDS: ALBUTEROL/IPRATROPIUM 3 ML NEB RESP TX SCH ×4 (00:47→19:05)
[2021-06-11 05:30] LABS: Basophils # 0.1 10*3/uL (0.0-0.2); Basophils % 0.4 % (0.0-0.8); Eosinophils # 0.1 10*3/uL (0.0-0.87); Eosinophils % 0.4 % (0.00-10.9); Hematocrit 40.4 VOL% (42.0-52.0); Hemoglobin 13.2 GM/DL (14.0-18.0); Immature Granulocytes % 0.5 %; Immature Granulocytes Absolute 0.07 #; Lymphocytes # 2.2 10*3/uL (1.4-4.0); Lymphocytes % 14.4 % (21.2-54.2); Mean Corpuscular HGB Conc 32.7 GM/DL (32-36); Mean Platelet Volume 12.4 FL (9.6-12.0); Monocytes % 11.6 % (1.7-12.7); Neutrophils % 72.7 % (38.7-73.9); Platelet Count 255 T/CUMM (130-400); Red Cell Distribution Width 14.3 % (9.3-17.3); White Blood Count 15.5 T/CUMM (4-12)
[2021-06-11 05:44] LABS: Calcium 10.1 MG/DL (8.5-10.1); Potassium 4.5 MMOL/L (3.5-5.1)
[2021-06-11 06:46] LABS: ABG Base Excess 7.2 MMOL/L (-2.5-2.5); ABG HCO3 31.1 MMOL/L (20-26); ABG Oxygen Saturation 99.7 % (95-100); ABG PCO2 47.7 MM HG (35-48); ABG PH 7.443 (7.35-7.45); ABG TCO2 28.4 MMOL/L (23-27)
[2021-06-11] MEDS: DORNASE ALFA 2.5 MG/2.5 ML VIAL RESP TX SCH ×2 (07:19→19:06)
[2021-06-11] MEDS: INSULIN LISPRO 100 UNIT/ML SUBCUT SCH ×4 (08:00→23:45)
[2021-06-11] MEDS: PHENobarbital 30 MG TABLET PO SCH ×2 (10:19→21:50)
[2021-06-11] MEDS: POLYETHYLENE GLYCOL POWDER 17 GM PACK PO SCH (10:19)
[2021-06-11] MEDS: PHENYTOIN 100 MG/4 ML UDCUP NG SCH ×2 (10:19→21:50)
[2021-06-11] MEDS: VALPROIC ACID 250 MG/5 ML UDCUP PO SCH ×2 (10:19→21:50)
[2021-06-11] MEDS: PYRIDOSTIGMINE 60 MG TABLET PO SCH ×3 (10:20→21:50)
[2021-06-11] MEDS: TAMSULOSIN 0.4 MG CAPSULE PO SCH (10:20)
[2021-06-11] MEDS: INSULIN GLARGINE 100 UNIT/ML SUBCUT SCH (10:20)
[2021-06-11] MEDS: lamoTRIgine 100 MG TABLET PO SCH ×2 (10:20→21:50)
[2021-06-11] MEDS: levETIRAcetam 500 MG TABLET PO SCH ×2 (10:20→21:50)
[2021-06-11] MEDS: predniSONE 10 MG TABLET PO SCH ×2 (10:20→21:50)
[2021-06-11] MEDS ORDERED: LORazepam 2 MG/1 ML VIAL IV ONE (20:06)
[2021-06-11] MEDS ORDERED: LORazepam 2 MG/1 ML VIAL ONE ×2 (20:06→20:10)
[2021-06-11] MEDS ORDERED: METOPROLOL TARTRATE 5 MG/5 ML VIAL IV ONE ×2 (20:13→20:14)
[2021-06-11 20:29] LABS: ABG Base Excess 6.2 MMOL/L (-2.5-2.5); ABG Oxygen Saturation 93.2 % (95-100); ABG PCO2 54.4 MM HG (35-48); ABG PH 7.391 (7.35-7.45); ABG PO2 71.8 MM HG (80-95); ABG TCO2 28.6 MMOL/L (23-27)
[2021-06-11 20:36] LABS: Basophils # 0.1 10*3/uL (0.0-0.2); Basophils % 0.3 % (0.0-0.8); Eosinophils # 0.1 10*3/uL (0.0-0.87); Eosinophils % 0.5 % (0.00-10.9); Hematocrit 42.5 VOL% (42.0-52.0); Hemoglobin 13.9 GM/DL (14.0-18.0); Immature Granulocytes % 0.4 %; Immature Granulocytes Absolute 0.08 #; Lymphocytes # 1.9 10*3/uL (1.4-4.0); Lymphocytes % 10.3 % (21.2-54.2); Mean Corpuscular HGB Conc 32.7 GM/DL (32-36); Mean Corpuscular Volume 96.6 FL (87-102); Mean Platelet Volume 11.8 FL (9.6-12.0); Monocytes % 10.7 % (1.7-12.7); Neutrophils % 77.8 % (38.7-73.9); Platelet Count 257 T/CUMM (130-400); Red Cell Distribution Width 14.1 % (9.3-17.3); White Blood Count 18.6 T/CUMM (4-12)
[2021-06-11 21:00] LABS: Alanine Aminotransferase 24 U/L (16-61); Albumin 3.4 G/DL (3.4-5.0); Alkaline Phosphatase 170 U/L (45-117); Aspartate Amino Transferase 30 U/L (0-37); Bilirubin,Total < 0.39 MG/DL (0.20-1.00); Blood Urea Nitrogen 25 MG/DL (7-18); Calcium 10.2 MG/DL (8.5-10.1); Carbon Dioxide 32 MMOL/L (21-32); Estimated Glom Filtration Rate 112 ML/MIN; Glucose 141 MG/DL (74-106); Osmolality,Calculated 280.7 MOS/KG (273-304); Potassium 4.4 MMOL/L (3.5-5.1); Sodium 138 MMOL/L (136-145); Total Protein 8.4 G/DL (6.4-8.2)
[2021-06-11 21:18] LABS: Lymphocytes 12 % (20-55); Platelet Estimate Normal; Segmented Neutrophils 78 % (50-85); Total Cells Counted 100
[2021-06-11] MEDS: ACETAMINOPHEN 325 MG TABLET PO PRN (21:50)
[2021-06-11] MEDS: ATORVASTATIN 40 MG TABLET PO SCH (21:50)
[2021-06-11] MEDS ORDERED: VANCOMYCIN INJ 1,250 MG in SODIUM CHLORIDE 0.9% 250 ML IV SCH (22:30)
[2021-06-11 23:33] LABS: Bacteria,Urine Moderate /HPF (Few); Bilirubin,Urine Negative (Negative); Blood, Urine Moderate mg/dL (Negative); Glucose,Urine (UA) Negative (Negative); Hyaline Casts,Urine 6 /LPF (0-3); Ketones,Urine Negative (Negative); Mucus,Urine Occasional /LPF (Occasional); Nitrite,Urine Negative (Negative); Protein,Urine 30 MG/DL; RBC,Urine 90 /HPF (0-4); Squamous Epithelial Cell,Urine Occasional /HPF (0-10); Urine Appearance Slightly Hazy (Clear); Urine Color Yellow (Yellow); Urine Specific Gravity 1.017 (1.001-1.035)
[2021-06-11] MEDS: PIPERACILLIN/TAZOBACTAM 3,375 MG in SODIUM CHLORIDE 0.9% 100 ML IV SCH (23:49)
[2021-06-12] MEDS: ALBUTEROL/IPRATROPIUM 3 ML NEB RESP TX SCH ×4 (00:16→19:55)
[2021-06-12] MEDS ORDERED: METOPROLOL TARTRATE 5 MG/5 ML VIAL IV ONE ×2 (01:08→14:21)
[2021-06-12] MEDS ORDERED: SODIUM CHLORIDE 0.9% 500 ML IV ONE (01:11)
[2021-06-12] MEDS ORDERED: MORPHINE 2 MG/1 ML SYRINGE IV ONE (03:02)
[2021-06-12] MEDS ORDERED: SODIUM CHLORIDE 0.9% 1,000 ML IV ONE (03:05)
[2021-06-12 04:25] LABS: ABG Base Excess 6.5 MMOL/L (-2.5-2.5); ABG HCO3 34.6 MMOL/L (20-26); ABG Oxygen Saturation 95.9 % (95-100); ABG PCO2 66.1 MM HG (35-48); ABG PH 7.337 (7.35-7.45); ABG PO2 88.8 MM HG (80-95); ABG TCO2 36.7 MMOL/L (23-27); Allen Test Positive; Pt O2 Delivery Device BIPAP
[2021-06-12] MEDS: VANCOMYCIN INJ 1,000 MG in SODIUM CHLORIDE 0.9% 250 ML IV SCH ×2 (04:45→15:08)
[2021-06-12] MEDS: DEXT 5% NACL 0.45% KCL 20 MEQ 20 MEQ/1,000 ML BAG IV SCH ×2 (05:46→16:36)
[2021-06-12 05:52] LABS: Basophils # 0.1 10*3/uL (0.0-0.2); Basophils % 0.3 % (0.0-0.8); Eosinophils % 0.1 % (0.00-10.9); Hematocrit 38.1 VOL% (42.0-52.0); Immature Granulocytes % 0.6 %; Immature Granulocytes Absolute 0.13 #; Lymphocytes # 1.7 10*3/uL (1.4-4.0); Mean Corpuscular HGB Conc 31.5 GM/DL (32-36); Mean Corpuscular Volume 97.7 FL (87-102); Mean Platelet Volume 11.9 FL (9.6-12.0); Platelet Count 213 T/CUMM (130-400); Red Cell Distribution Width 14.2 % (9.3-17.3); White Blood Count 20.5 T/CUMM (4-12)
[2021-06-12 06:08] LABS: Osmolality,Calculated 284.4 MOS/KG (273-304); Potassium 4.4 MMOL/L (3.5-5.1)
[2021-06-12] MEDS: PIPERACILLIN/TAZOBACTAM 3,375 MG in SODIUM CHLORIDE 0.9% 100 ML IV SCH ×2 (06:30→18:45)
[2021-06-12 06:32] LABS: Band Neutrophils 2 % (0-10); Hypochromasia 1+; Lymphocytes 9 % (20-55); Metamyelocytes 1 %; Platelet Estimate Normal; Segmented Neutrophils 73 % (50-85); Total Cells Counted 100
[2021-06-12] MEDS: DORNASE ALFA 2.5 MG/2.5 ML VIAL RESP TX SCH ×2 (07:11→19:55)
[2021-06-12] MEDS ORDERED: ENOXAPARIN 40 MG/0.4 ML SYRINGE SUBCUT SCH (07:30)
[2021-06-12] MEDS: INSULIN LISPRO 100 UNIT/ML SUBCUT SCH ×4 (08:26→20:32)
[2021-06-12] MEDS: POLYETHYLENE GLYCOL POWDER 17 GM PACK PO SCH (08:37)
[2021-06-12] MEDS: PYRIDOSTIGMINE 60 MG TABLET PO SCH ×3 (08:37→20:30)
[2021-06-12] MEDS: PHENobarbital 30 MG TABLET PO SCH ×2 (08:37→20:34)
[2021-06-12] MEDS: levETIRAcetam 500 MG TABLET PO SCH ×2 (08:37→20:33)
[2021-06-12] MEDS: PHENYTOIN 100 MG/4 ML UDCUP NG SCH ×2 (08:37→20:29)
[2021-06-12] MEDS: TAMSULOSIN 0.4 MG CAPSULE PO SCH (08:37)
[2021-06-12] MEDS: predniSONE 10 MG TABLET PO SCH ×2 (08:37→20:29)
[2021-06-12] MEDS: lamoTRIgine 100 MG TABLET PO SCH ×2 (08:37→20:30)
[2021-06-12] MEDS: VALPROIC ACID 250 MG/5 ML UDCUP PO SCH ×2 (08:38→20:28)
[2021-06-12] MEDS: INSULIN GLARGINE 100 UNIT/ML SUBCUT SCH (08:38)
[2021-06-12] MEDS ORDERED: hydrALAZINE 20 MG/1 ML VIAL IV PRN (11:34)
[2021-06-12] MEDS: METOPROLOL TARTRATE 25 MG TABLET PO SCH ×2 (12:05→20:33)
[2021-06-12] MEDS: LORazepam 2 MG/1 ML VIAL IV PRN ×3 (14:24→16:21)
[2021-06-12] MEDS ORDERED: MIDAZOLAM 10 MG/2 ML VIAL ONE (16:07)
[2021-06-12] MEDS ORDERED: MIDAZOLAM 10 MG/2 ML VIAL IV ONE (16:17)
[2021-06-12] MEDS ORDERED: cloNIDine 0.2 MG/24 HR PATCH TRANSDERM SCH (17:00)
[2021-06-12] MEDS: ENOXAPARIN 60 MG/0.6 ML SYRINGE SUBCUT SCH (20:28)
[2021-06-12] MEDS: ATORVASTATIN 40 MG TABLET PO SCH (20:31)
[2021-06-13] MEDS: VANCOMYCIN INJ 1,000 MG in SODIUM CHLORIDE 0.9% 250 ML IV SCH ×2 (01:36→15:27)
[2021-06-13] MEDS: ALBUTEROL/IPRATROPIUM 3 ML NEB RESP TX SCH ×4 (01:45→19:15)
[2021-06-13] MEDS: LORazepam 2 MG/1 ML VIAL IV PRN (02:16)
[2021-06-13] MEDS: DEXT 5% NACL 0.45% KCL 20 MEQ 20 MEQ/1,000 ML BAG IV SCH ×3 (02:34→21:40)
[2021-06-13] MEDS: PIPERACILLIN/TAZOBACTAM 3,375 MG in SODIUM CHLORIDE 0.9% 100 ML IV SCH ×3 (03:15→20:25)
[2021-06-13 03:58] LABS: ABG Base Excess 4.2 MMOL/L (-2.5-2.5); ABG Oxygen Saturation 84.7 % (95-100); ABG PCO2 57.5 MM HG (35-48); ABG PO2 51.9 MM HG (80-95); ABG TCO2 32.8 MMOL/L (23-27); Allen Test Positive; Pt O2 Delivery Device BIPAP
[2021-06-13 05:18] LABS: Basophils # 0.1 10*3/uL (0.0-0.2); Basophils % 0.2 % (0.0-0.8); Eosinophils % 0.1 % (0.00-10.9); Hematocrit 35.1 VOL% (42.0-52.0); Immature Granulocytes % 1.1 %; Immature Granulocytes Absolute 0.25 #; Lymphocytes # 1.2 10*3/uL (1.4-4.0); Mean Corpuscular HGB Conc 31.3 GM/DL (32-36); Mean Corpuscular Volume 99.4 FL (87-102); Mean Platelet Volume 12.6 FL (9.6-12.0); Monocytes % 10.4 % (1.7-12.7); Neutrophils % 83.2 % (38.7-73.9); Platelet Count 206 T/CUMM (130-400); Red Blood Count 3.53 MC/CUMM (3.8-5.5); Red Cell Distribution Width 14.4 % (9.3-17.3); White Blood Count 23.3 T/CUMM (4-12)
[2021-06-13 05:49] LABS: Band Neutrophils 3 % (0-10); Hypochromasia 1+; Lymphocytes 6 % (20-55); Microcytosis 1+; Platelet Estimate Adequate; Segmented Neutrophils 87 % (50-85); Total Cells Counted 100
[2021-06-13 05:50] LABS: Phenytoin (Dilantin) 11.4 UG/ML (10-20)
[2021-06-13 05:57] LABS: Calcium 8.6 MG/DL (8.5-10.1); Potassium 4.8 MMOL/L (3.5-5.1)
[2021-06-13] MEDS: DORNASE ALFA 2.5 MG/2.5 ML VIAL RESP TX SCH ×2 (07:10→19:15)
[2021-06-13] MEDS: PHENYTOIN 100 MG/4 ML UDCUP NG SCH ×2 (09:18→20:27)
[2021-06-13] MEDS: PHENobarbital 30 MG TABLET PO SCH ×2 (09:18→20:24)
[2021-06-13] MEDS: levETIRAcetam 500 MG TABLET PO SCH ×2 (09:19→20:25)
[2021-06-13] MEDS: VALPROIC ACID 250 MG/5 ML UDCUP PO SCH ×2 (09:19→20:23)
[2021-06-13] MEDS: TAMSULOSIN 0.4 MG CAPSULE PO SCH (09:19)
[2021-06-13] MEDS: PYRIDOSTIGMINE 60 MG TABLET PO SCH ×3 (09:19→20:24)
[2021-06-13] MEDS: METOPROLOL TARTRATE 25 MG TABLET PO SCH (09:19)
[2021-06-13] MEDS: lamoTRIgine 100 MG TABLET PO SCH ×2 (09:20→20:25)
[2021-06-13] MEDS: POLYETHYLENE GLYCOL POWDER 17 GM PACK PO SCH (09:20)
[2021-06-13] MEDS: INSULIN GLARGINE 100 UNIT/ML SUBCUT SCH (09:20)
[2021-06-13] MEDS: predniSONE 10 MG TABLET PO SCH ×2 (09:20→20:25)
[2021-06-13] MEDS: INSULIN LISPRO 100 UNIT/ML SUBCUT SCH ×4 (09:21→20:22)
[2021-06-13] MEDS ORDERED: ETOMIDATE 20 MG/10 ML VIAL IV ONE (11:01)
[2021-06-13] MEDS ORDERED: ROCURONIUM 100 MG/10 ML VIAL IV ONE (11:45)
[2021-06-13 13:26] VITALS: BP 117/87
[2021-06-13 16:29] LABS: ABG Base Excess 2.9 MMOL/L (-2.5-2.5); ABG Oxygen Saturation 99.3 % (95-100); ABG PCO2 52.8 MM HG (35-48); ABG PH 7.354 (7.35-7.45); ABG TCO2 26.6 MMOL/L (23-27); Allen Test Positive; Pt O2 Delivery Device Ventilator
[2021-06-13] MEDS: ACETAMINOPHEN 325 MG TABLET PO PRN (20:23)
[2021-06-13] MEDS: ENOXAPARIN 60 MG/0.6 ML SYRINGE SUBCUT SCH (20:24)
[2021-06-13] MEDS: ATORVASTATIN 40 MG TABLET PO SCH (20:25)
[2021-06-13] MEDS ORDERED: METOPROLOL TARTRATE 50 MG TABLET PO SCH (21:00)
[2021-06-13] MEDS ORDERED: METOPROLOL TARTRATE 25 MG TABLET PO SCH (21:00)
[2021-06-14] MEDS: ALBUTEROL/IPRATROPIUM 3 ML NEB RESP TX SCH ×4 (00:23→19:24)
[2021-06-14] MEDS: VANCOMYCIN INJ 1,000 MG in SODIUM CHLORIDE 0.9% 250 ML IV SCH ×3 (00:36→17:50)
[2021-06-14] MEDS: LORazepam 2 MG/1 ML VIAL IV PRN (04:24)
[2021-06-14 04:38] LABS: ABG Base Excess 3.9 MMOL/L (-2.5-2.5); ABG HCO3 28.6 MMOL/L (20-26); ABG Oxygen Saturation 96.7 % (95-100); ABG PCO2 43.4 MM HG (35-48); ABG PH 7.436 (7.35-7.45); ABG PO2 85.3 MM HG (80-95); ABG TCO2 29.9 MMOL/L (23-27)
[2021-06-14 05:03] LABS: Basophils % 0.1 % (0.0-0.8); Hematocrit 31.3 VOL% (42.0-52.0); Hemoglobin 9.8 GM/DL (14.0-18.0); Immature Granulocytes % 0.9 %; Immature Granulocytes Absolute 0.19 #; Lymphocytes # 1.5 10*3/uL (1.4-4.0); Lymphocytes % 6.9 % (21.2-54.2); Mean Corpuscular HGB Conc 31.3 GM/DL (32-36); Mean Corpuscular Volume 99.1 FL (87-102); Mean Platelet Volume 12.6 FL (9.6-12.0); Monocytes % 8.1 % (1.7-12.7); Platelet Count 206 T/CUMM (130-400); Red Blood Count 3.16 MC/CUMM (3.8-5.5); Red Cell Distribution Width 14.4 % (9.3-17.3); White Blood Count 21.6 T/CUMM (4-12)
[2021-06-14] MEDS: PIPERACILLIN/TAZOBACTAM 3,375 MG in SODIUM CHLORIDE 0.9% 100 ML IV SCH ×2 (05:19→13:21)
[2021-06-14 05:34] LABS: Lymphocytes 4 % (20-55); Platelet Estimate Adequate; Segmented Neutrophils 89 % (50-85); Total Cells Counted 100
[2021-06-14 05:35] LABS: Hypochromasia 1+; Microcytosis 1+
[2021-06-14 05:36] LABS: Calcium 9.2 MG/DL (8.5-10.1); Osmolality,Calculated 282.5 MOS/KG (273-304); Potassium 4.1 MMOL/L (3.5-5.1)
[2021-06-14] MEDS: ACETAMINOPHEN 325 MG TABLET PO PRN (06:09)
[2021-06-14] MEDS: DORNASE ALFA 2.5 MG/2.5 ML VIAL RESP TX SCH ×2 (07:08→19:24)
[2021-06-14] MEDS: VALPROIC ACID 250 MG/5 ML UDCUP PO SCH ×2 (09:02→21:40)
[2021-06-14] MEDS: PHENYTOIN 100 MG/4 ML UDCUP NG SCH ×2 (09:02→21:40)
[2021-06-14] MEDS: PHENobarbital 30 MG TABLET PO SCH ×2 (09:03→21:41)
[2021-06-14] MEDS: predniSONE 10 MG TABLET PO SCH ×2 (09:03→21:41)
[2021-06-14] MEDS: TAMSULOSIN 0.4 MG CAPSULE PO SCH (09:03)
[2021-06-14] MEDS: levETIRAcetam 500 MG TABLET PO SCH ×2 (09:03→21:40)
[2021-06-14] MEDS: lamoTRIgine 100 MG TABLET PO SCH ×2 (09:04→21:40)
[2021-06-14] MEDS: INSULIN LISPRO 100 UNIT/ML SUBCUT SCH ×4 (09:05→21:29)
[2021-06-14] MEDS: PYRIDOSTIGMINE 60 MG TABLET PO SCH ×3 (09:05→21:41)
[2021-06-14] MEDS: METOPROLOL TARTRATE 50 MG TABLET PO SCH ×2 (09:05→21:41)
[2021-06-14] MEDS: ENOXAPARIN 60 MG/0.6 ML SYRINGE SUBCUT SCH ×2 (09:06→21:30)
[2021-06-14] MEDS: DEXT 5% NACL 0.45% KCL 20 MEQ 20 MEQ/1,000 ML BAG IV SCH (09:07)
[2021-06-14] MEDS: POLYETHYLENE GLYCOL POWDER 17 GM PACK PO SCH (09:08)
[2021-06-14] MEDS: INSULIN GLARGINE 100 UNIT/ML SUBCUT SCH (09:08)
[2021-06-14 17:38] LABS: ABG Base Excess 5.4 MMOL/L (-2.5-2.5); ABG HCO3 29.3 MMOL/L (20-26); ABG PCO2 45.6 MM HG (35-48); ABG PH 7.432 (7.35-7.45); ABG PO2 86.2 MM HG (80-95); ABG TCO2 27.9 MMOL/L (23-27); Allen Test Positive; Pt O2 Delivery Device Ventilator
[2021-06-14] MEDS: LACTATED RINGERS 1,000 ML IV SCH (18:11)
[2021-06-14] MEDS ORDERED: MORPHINE 2 MG/1 ML SYRINGE IV PRN (20:08)
[2021-06-14] MEDS: MIDAZOLAM 100 MG in SODIUM CHLORIDE 0.9% 80 ML IV PRN (20:45)
[2021-06-14] MEDS: ATORVASTATIN 40 MG TABLET PO SCH (21:40)
[2021-06-15] MEDS: PIPERACILLIN/TAZOBACTAM 3,375 MG in SODIUM CHLORIDE 0.9% 100 ML IV SCH ×3 (00:29→16:08)
[2021-06-15] MEDS: ALBUTEROL/IPRATROPIUM 3 ML NEB RESP TX SCH ×4 (01:12→19:06)
[2021-06-15] MEDS: VANCOMYCIN INJ 1,000 MG in SODIUM CHLORIDE 0.9% 250 ML IV SCH ×3 (01:29→17:56)
[2021-06-15] MEDS: ACETAMINOPHEN 325 MG TABLET PO PRN (01:46)
[2021-06-15 03:37] LABS: ABG Base Excess 4.7 MMOL/L (-2.5-2.5); ABG HCO3 28.7 MMOL/L (20-26); ABG Oxygen Saturation 99.4 % (95-100); ABG PCO2 43.5 MM HG (35-48); ABG PH 7.439 (7.35-7.45); ABG TCO2 26.4 MMOL/L (23-27)
[2021-06-15 05:12] LABS: Basophils % 0.2 % (0.0-0.8); Eosinophils % 0.1 % (0.00-10.9); Hematocrit 27.1 VOL% (42.0-52.0); Hemoglobin 8.6 GM/DL (14.0-18.0); Immature Granulocytes % 0.4 %; Immature Granulocytes Absolute 0.07 #; Lymphocytes # 1.4 10*3/uL (1.4-4.0); Lymphocytes % 8.8 % (21.2-54.2); Mean Corpuscular HGB Conc 31.7 GM/DL (32-36); Mean Corpuscular Volume 98.2 FL (87-102); Mean Platelet Volume 12.5 FL (9.6-12.0); Monocytes % 9.2 % (1.7-12.7); Neutrophils % 81.3 % (38.7-73.9); Platelet Count 205 T/CUMM (130-400); Red Blood Count 2.76 MC/CUMM (3.8-5.5); Red Cell Distribution Width 14.5 % (9.3-17.3); White Blood Count 15.8 T/CUMM (4-12)
[2021-06-15 05:44] LABS: Calcium 9.3 MG/DL (8.5-10.1); Potassium 3.7 MMOL/L (3.5-5.1)
[2021-06-15] MEDS: LORazepam 2 MG/1 ML VIAL IV PRN (06:15)
[2021-06-15] MEDS ORDERED: METOPROLOL TARTRATE 5 MG/5 ML VIAL IV ONE ×2 (06:43→06:47)
[2021-06-15] MEDS: DORNASE ALFA 2.5 MG/2.5 ML VIAL RESP TX SCH ×2 (07:12→19:06)
[2021-06-15] MEDS: INSULIN GLARGINE 100 UNIT/ML SUBCUT SCH (08:36)
[2021-06-15] MEDS: INSULIN LISPRO 100 UNIT/ML SUBCUT SCH ×3 (08:36→18:24)
[2021-06-15] MEDS: PHENYTOIN 100 MG/4 ML UDCUP NG SCH ×2 (08:37→20:19)
[2021-06-15] MEDS: PYRIDOSTIGMINE 60 MG TABLET PO SCH ×3 (08:38→20:20)
[2021-06-15] MEDS: VALPROIC ACID 250 MG/5 ML UDCUP PO SCH ×2 (08:38→20:19)
[2021-06-15] MEDS: levETIRAcetam 500 MG TABLET PO SCH ×2 (08:39→20:19)
[2021-06-15] MEDS: POLYETHYLENE GLYCOL POWDER 17 GM PACK PO SCH (08:39)
[2021-06-15] MEDS: predniSONE 10 MG TABLET PO SCH ×2 (08:39→20:20)
[2021-06-15] MEDS: TAMSULOSIN 0.4 MG CAPSULE PO SCH (08:39)
[2021-06-15] MEDS: lamoTRIgine 100 MG TABLET PO SCH ×2 (08:39→20:19)
[2021-06-15] MEDS: METOPROLOL TARTRATE 50 MG TABLET PO SCH ×2 (08:39→20:20)
[2021-06-15] MEDS: ENOXAPARIN 60 MG/0.6 ML SYRINGE SUBCUT SCH ×2 (08:42→21:09)
[2021-06-15] MEDS: DESITIN 4OZ/NYSTATIN 15 GRAM MIXTURE PASTE TOP SCH ×2 (08:43→20:20)
[2021-06-15] MEDS: PHENobarbital 30 MG TABLET PO SCH ×2 (08:47→20:20)
[2021-06-15] MEDS: LACTATED RINGERS 1,000 ML IV SCH (08:55)
[2021-06-15] MEDS: MIDAZOLAM 100 MG in SODIUM CHLORIDE 0.9% 80 ML IV PRN (17:07)
[2021-06-15] MEDS: METOPROLOL TARTRATE 5 MG/5 ML VIAL IV PRN (17:24)
[2021-06-15] MEDS: ATORVASTATIN 40 MG TABLET PO SCH (20:19)
[2021-06-16] MEDS: ALBUTEROL/IPRATROPIUM 3 ML NEB RESP TX SCH ×4 (00:18→19:23)
[2021-06-16] MEDS: INSULIN LISPRO 100 UNIT/ML SUBCUT SCH ×4 (00:45→18:21)
[2021-06-16] MEDS: PIPERACILLIN/TAZOBACTAM 3,375 MG in SODIUM CHLORIDE 0.9% 100 ML IV SCH ×3 (01:00→16:46)
[2021-06-16] MEDS: VANCOMYCIN INJ 1,000 MG in SODIUM CHLORIDE 0.9% 250 ML IV SCH ×3 (02:10→16:46)
[2021-06-16 04:20] LABS: ABG Base Excess 7.8 MMOL/L (-2.5-2.5); ABG HCO3 34.8 MMOL/L (20-26); ABG Oxygen Saturation 90.9 % (95-100); ABG PCO2 64.1 MM HG (35-48); ABG PH 7.352 (7.35-7.45); ABG PO2 63.5 MM HG (80-95); ABG TCO2 36.7 MMOL/L (23-27)
[2021-06-16 05:05] LABS: Basophils % 0.3 % (0.0-0.8); Eosinophils % 0.3 % (0.00-10.9); Hematocrit 27.1 VOL% (42.0-52.0); Hemoglobin 8.3 GM/DL (14.0-18.0); Immature Granulocytes % 1.6 %; Immature Granulocytes Absolute 0.24 #; Lymphocytes % 6.7 % (21.2-54.2); Mean Corpuscular HGB Conc 30.6 GM/DL (32-36); Mean Corpuscular Volume 100.7 FL (87-102); Mean Platelet Volume 11.7 FL (9.6-12.0); Monocytes % 17.5 % (1.7-12.7); Neutrophils % 73.6 % (38.7-73.9); Platelet Count 211 T/CUMM (130-400); Red Blood Count 2.69 MC/CUMM (3.8-5.5); Red Cell Distribution Width 14.7 % (9.3-17.3); White Blood Count 15.3 T/CUMM (4-12)
[2021-06-16 05:21] LABS: Albumin 1.6 G/DL (3.4-5.0); Bilirubin,Total 0.4 MG/DL (0.20-1.00); Calcium 9.6 MG/DL (8.5-10.1); Osmolality,Calculated 292.4 MOS/KG (273-304); Potassium 3.9 MMOL/L (3.5-5.1); Total Protein 6.5 G/DL (6.4-8.2)
[2021-06-16 05:33] LABS: Band Neutrophils 4 % (0-10); Hypochromasia 1+; Lymphocytes 5 % (20-55); Microcytosis 1+; Myelocytes 1 %; Segmented Neutrophils 75 % (50-85); Total Cells Counted 100
[2021-06-16 05:34] LABS: Platelet Estimate Normal
[2021-06-16] MEDS: METOPROLOL TARTRATE 5 MG/5 ML VIAL IV PRN (06:20)
[2021-06-16] MEDS: DORNASE ALFA 2.5 MG/2.5 ML VIAL RESP TX SCH ×2 (07:54→19:28)
[2021-06-16] MEDS: LACTATED RINGERS 1,000 ML IV SCH ×2 (08:21→22:49)
[2021-06-16] MEDS: POLYETHYLENE GLYCOL POWDER 17 GM PACK PO SCH (09:02)
[2021-06-16] MEDS: DESITIN 4OZ/NYSTATIN 15 GRAM MIXTURE PASTE TOP SCH ×2 (09:05→20:46)
[2021-06-16] MEDS: INSULIN GLARGINE 100 UNIT/ML SUBCUT SCH (09:10)
[2021-06-16] MEDS: ENOXAPARIN 60 MG/0.6 ML SYRINGE SUBCUT SCH ×2 (09:59→20:43)
[2021-06-16] MEDS: PHENYTOIN 100 MG/4 ML UDCUP NG SCH ×2 (10:01→20:46)
[2021-06-16] MEDS: levETIRAcetam 500 MG TABLET PO SCH ×2 (10:01→20:44)
[2021-06-16] MEDS: VALPROIC ACID 250 MG/5 ML UDCUP PO SCH ×2 (10:01→20:43)
[2021-06-16] MEDS: predniSONE 10 MG TABLET PO SCH ×2 (10:02→20:45)
[2021-06-16] MEDS: lamoTRIgine 100 MG TABLET PO SCH ×2 (10:02→20:44)
[2021-06-16] MEDS: METOPROLOL TARTRATE 50 MG TABLET PO SCH ×2 (10:02→20:45)
[2021-06-16] MEDS: TAMSULOSIN 0.4 MG CAPSULE PO SCH (10:02)
[2021-06-16] MEDS: PYRIDOSTIGMINE 60 MG TABLET PO SCH ×3 (10:02→20:45)
[2021-06-16] MEDS: PHENobarbital 30 MG TABLET PO SCH ×2 (10:03→20:44)
[2021-06-16] MEDS: POTASSIUM BICARB EFFERVESCENT 20 MEQ TAB.EFF PER TUBE PRN (10:19)
[2021-06-16] MEDS: MIDAZOLAM 100 MG in SODIUM CHLORIDE 0.9% 80 ML IV PRN (14:46)
[2021-06-16] MEDS: ATORVASTATIN 40 MG TABLET PO SCH (20:45)
[2021-06-16] MEDS: ACETAMINOPHEN 325 MG TABLET PO PRN (21:55)
[2021-06-17] MEDS ORDERED: SODIUM CHLORIDE 0.9% 250 ML IV ONE (00:35)
[2021-06-17] MEDS: ALBUTEROL/IPRATROPIUM 3 ML NEB RESP TX SCH ×4 (00:40→20:20)
[2021-06-17] MEDS: INSULIN LISPRO 100 UNIT/ML SUBCUT SCH ×4 (00:45→19:42)
[2021-06-17] MEDS: PIPERACILLIN/TAZOBACTAM 3,375 MG in SODIUM CHLORIDE 0.9% 100 ML IV SCH ×2 (00:45→09:34)
[2021-06-17] MEDS: VANCOMYCIN INJ 1,000 MG in SODIUM CHLORIDE 0.9% 250 ML IV SCH (00:46)
[2021-06-17] MEDS: LORazepam 2 MG/1 ML VIAL IV PRN (03:38)
[2021-06-17 04:41] LABS: ABG Base Excess 6.2 MMOL/L (-2.5-2.5); ABG HCO3 31.7 MMOL/L (20-26); ABG PCO2 48.9 MM HG (35-48); ABG PO2 55.9 MM HG (80-95); ABG TCO2 33.2 MMOL/L (23-27)
[2021-06-17] MEDS: METOPROLOL TARTRATE 5 MG/5 ML VIAL IV PRN (04:48)
[2021-06-17 04:59] LABS: Basophils % 0.1 % (0.0-0.8); Eosinophils # 0.1 10*3/uL (0.0-0.87); Eosinophils % 0.4 % (0.00-10.9); Hematocrit 25.3 VOL% (42.0-52.0); Hemoglobin 7.7 GM/DL (14.0-18.0); Immature Granulocytes % 1.1 %; Immature Granulocytes Absolute 0.16 #; Lymphocytes % 7.2 % (21.2-54.2); Mean Corpuscular HGB Conc 30.4 GM/DL (32-36); Mean Corpuscular Volume 100.8 FL (87-102); Mean Platelet Volume 12.2 FL (9.6-12.0); Monocytes % 14.9 % (1.7-12.7); Neutrophils % 76.3 % (38.7-73.9); Platelet Count 212 T/CUMM (130-400); Red Blood Count 2.51 MC/CUMM (3.8-5.5); Red Cell Distribution Width 14.9 % (9.3-17.3); White Blood Count 14.5 T/CUMM (4-12)
[2021-06-17 05:18] LABS: Calcium 9.5 MG/DL (8.5-10.1); Osmolality,Calculated 297.6 MOS/KG (273-304); Potassium 3.8 MMOL/L (3.5-5.1)
[2021-06-17 05:42] LABS: ABG Oxygen Saturation 89.6 % (95-100)
[2021-06-17] MEDS: LACTATED RINGERS 1,000 ML IV SCH ×2 (06:00→18:00)
[2021-06-17] MEDS: DORNASE ALFA 2.5 MG/2.5 ML VIAL RESP TX SCH ×2 (08:45→20:20)
[2021-06-17] MEDS: INSULIN GLARGINE 100 UNIT/ML SUBCUT SCH (09:31)
[2021-06-17] MEDS: levETIRAcetam 500 MG TABLET PO SCH ×2 (09:32→20:37)
[2021-06-17] MEDS: predniSONE 10 MG TABLET PO SCH ×2 (09:32→20:38)
[2021-06-17] MEDS: lamoTRIgine 100 MG TABLET PO SCH ×2 (09:32→20:37)
[2021-06-17] MEDS: TAMSULOSIN 0.4 MG CAPSULE PO SCH (09:32)
[2021-06-17] MEDS: VALPROIC ACID 250 MG/5 ML UDCUP PO SCH ×2 (09:32→20:37)
[2021-06-17] MEDS: METOPROLOL TARTRATE 50 MG TABLET PO SCH ×2 (09:33→20:38)
[2021-06-17] MEDS: PHENYTOIN 100 MG/4 ML UDCUP NG SCH ×2 (09:33→20:36)
[2021-06-17] MEDS: PYRIDOSTIGMINE 60 MG TABLET PO SCH ×3 (09:33→20:37)
[2021-06-17] MEDS: ENOXAPARIN 60 MG/0.6 ML SYRINGE SUBCUT SCH ×2 (09:33→20:36)
[2021-06-17] MEDS: POLYETHYLENE GLYCOL POWDER 17 GM PACK PO SCH (09:34)
[2021-06-17] MEDS: PHENobarbital 30 MG TABLET PO SCH ×3 (09:48→20:37)
[2021-06-17] MEDS: LEVOFLOXACIN INJ 500 MG/100 ML PREMIX IV SCH (10:07)
[2021-06-17] MEDS: ALBUMIN 25% 12.5 GM/50 ML VIAL IV SCH ×2 (10:07→20:38)
[2021-06-17] MEDS: DESITIN 4OZ/NYSTATIN 15 GRAM MIXTURE PASTE TOP SCH ×2 (13:07→20:56)
[2021-06-17] MEDS: ACETAMINOPHEN 325 MG TABLET PO PRN ×2 (15:00→21:22)
[2021-06-17] MEDS: MIDAZOLAM 100 MG in SODIUM CHLORIDE 0.9% 80 ML IV PRN (16:40)
[2021-06-17] MEDS: ATORVASTATIN 40 MG TABLET PO SCH (20:38)
[2021-06-17] MEDS: FUROSEMIDE 40 MG/4 ML VIAL IV SCH (23:00)
[2021-06-18] MEDS: ALBUTEROL/IPRATROPIUM 3 ML NEB RESP TX SCH ×2 (00:30→07:02)
[2021-06-18] MEDS: INSULIN LISPRO 100 UNIT/ML SUBCUT SCH ×2 (00:47→07:59)
[2021-06-18] MEDS: LORazepam 2 MG/1 ML VIAL IV PRN ×3 (01:07→02:47)
[2021-06-18] MEDS: METOPROLOL TARTRATE 5 MG/5 ML VIAL IV PRN (01:08)
[2021-06-18] MEDS ORDERED: DIGOXIN 0.5 MG/2 ML AMP IV ONE ×2 (01:58→02:58)
[2021-06-18 02:25] LABS: Calcium 9.4 MG/DL (8.5-10.1); Osmolality,Calculated 296.6 MOS/KG (273-304); Potassium 3.6 MMOL/L (3.5-5.1)
[2021-06-18] MEDS ORDERED: METOPROLOL TARTRATE 5 MG/5 ML VIAL IV ONE (03:22)
[2021-06-18] MEDS: LACTATED RINGERS 1,000 ML IV SCH (03:28)
[2021-06-18] MEDS: POTASSIUM BICARB EFFERVESCENT 20 MEQ TAB.EFF PER TUBE PRN ×2 (03:43→06:06)
[2021-06-18] MEDS: ACETAMINOPHEN 325 MG TABLET PO PRN (04:19)
[2021-06-18 04:22] LABS: ABG Base Excess 9.3 MMOL/L (-2.5-2.5); ABG HCO3 35.1 MMOL/L (20-26); ABG Oxygen Saturation 92.7 % (95-100); ABG PCO2 56.7 MM HG (35-48); ABG PO2 65.2 MM HG (80-95); ABG TCO2 36.9 MMOL/L (23-27)
[2021-06-18] MEDS ORDERED: AMIODARONE INJ 150 MG in DEXTROSE 5% 100 ML IV ONE (05:22)
[2021-06-18] MEDS ORDERED: SODIUM CHLORIDE 0.9% 500 ML IV ONE (05:23)
[2021-06-18] MEDS ORDERED: AMIODARONE 150 MG/3 ML VIAL ONE (05:29)
[2021-06-18] MEDS ORDERED: AMIODARONE INJ 450 MG in DEXTROSE 5% 241 ML IV SCH ×2 (05:30→11:30)
[2021-06-18 06:13] LABS: Basophils % 0.2 % (0.0-0.8); Eosinophils # 0.1 10*3/uL (0.0-0.87); Hematocrit 24.4 VOL% (42.0-52.0); Hemoglobin 7.5 GM/DL (14.0-18.0); Immature Granulocytes % 1.3 %; Immature Granulocytes Absolute 0.16 #; Lymphocytes # 1.3 10*3/uL (1.4-4.0); Lymphocytes % 10.5 % (21.2-54.2); Mean Corpuscular HGB Conc 30.7 GM/DL (32-36); Mean Corpuscular Volume 101.2 FL (87-102); Mean Platelet Volume 12.8 FL (9.6-12.0); Monocytes % 12.2 % (1.7-12.7); Neutrophils % 74.8 % (38.7-73.9); Platelet Count 192 T/CUMM (130-400); Red Blood Count 2.41 MC/CUMM (3.8-5.5); Red Cell Distribution Width 14.9 % (9.3-17.3); White Blood Count 12.5 T/CUMM (4-12)
[2021-06-18] MEDS: DORNASE ALFA 2.5 MG/2.5 ML VIAL RESP TX SCH (07:11)
[2021-06-18] MEDS ORDERED: VANCOMYCIN INJ 1,000 MG in SODIUM CHLORIDE 0.9% 250 ML IV SCH (09:00)
[2021-06-18] MEDS ORDERED: INSULIN GLARGINE 100 UNIT/ML SUBCUT SCH (09:00)
[2021-06-18] MEDS: LEVOFLOXACIN INJ 500 MG/100 ML PREMIX IV SCH (09:20)
[2021-06-18] MEDS: PHENYTOIN 100 MG/4 ML UDCUP NG SCH (09:22)
[2021-06-18] MEDS: levETIRAcetam 500 MG TABLET PO SCH (09:23)
[2021-06-18] MEDS: predniSONE 10 MG TABLET PO SCH (09:23)
[2021-06-18] MEDS: PYRIDOSTIGMINE 60 MG TABLET PO SCH (09:23)
[2021-06-18] MEDS: METOPROLOL TARTRATE 50 MG TABLET PO SCH (09:23)
[2021-06-18] MEDS: PHENobarbital 30 MG TABLET PO SCH (09:23)
[2021-06-18] MEDS: VALPROIC ACID 250 MG/5 ML UDCUP PO SCH (09:23)
[2021-06-18] MEDS: lamoTRIgine 100 MG TABLET PO SCH (09:23)
[2021-06-18] MEDS: TAMSULOSIN 0.4 MG CAPSULE PO SCH (09:23)
[2021-06-18] MEDS: FUROSEMIDE 40 MG/4 ML VIAL IV SCH (09:24)
[2021-06-18] MEDS: DESITIN 4OZ/NYSTATIN 15 GRAM MIXTURE PASTE TOP SCH (09:24)
[2021-06-18] MEDS: POLYETHYLENE GLYCOL POWDER 17 GM PACK PO SCH (09:24)
[2021-06-18] MEDS: ALBUMIN 25% 12.5 GM/50 ML VIAL IV SCH (09:29)
== END 2021-06-18 10:34 | disposition hospice, home (50) | DRG 100 ==
LOC: EDBD → EDUNIT# → N.ED 16:00 → N.EDINP 16:00 → SUATTDRO 18:53 → N.5E 21:15 → N.ICU 04-20 10:08 → SUATTDRO 04-20 11:06 → N.2W 04-29 19:59 → N.CC 04-30 21:34 → N.3E 05-26 21:35 → N.CVR 05-31 19:12 → N.ICU 06-01 20:33
PROVIDERS: ADMIT Internal Medicine; ATTEND Internal Medicine
PROC: IRTHORA (2021-06-15 15:20)